=== PATIENT | female | born 1960 | race Caucasian/White ===

== ENCOUNTER 2016-05-20 14:51 | Emergency (ER) | payer OTHER ==
[~2016-05-20] VITALS: Ht 170.2 cm; Wt 93.0 kg
[~2016-05-20 14:51] MED LIST: AMIT25TA9 PO; ASPI1TAB22 PO; BUTA1TAB46 PO; DIVA500T PO; IBUP-30 PO; KETO-22; KETO10TA PO; LEVO500T80 PO; MEPE50TA; MEPE50TA PO; METO-270 PO; NAPR-243 PO; ONDAN4ODT PO; OXYC-12 PO; OXYC-197 PO; TOPI100T; TRM50T PO; ZONI100C11
--- OUTSIDE RECORDS SUMMARY | 2016-05-20 14:59 | XMS REPORT | Continuity of Care Document ---
Author Author [facility] Organization [facility] Address Unknown Phone Unavailable Care Team Providers Care Card Cleaner Name Role Phone [facility] PCP Insurance Providers Payer Name Policy Number Subscriber Name Relationship [facility] [place] [id number] Basilio Marin L 01 Advance Directives Directive Response Recorded Date/Time Advance Directives No 03/07/16 9:37pm Health Care Power of Lining [place] Yes 03/07/16 9:37pm Organ Donor No 03/07/16 9:37pm Resuscitation Status Full Code 03/07/16 9:37pm Chief Complaint and Reason for Visit Chief Complaint Head/Cervical Problems Reason for Visit Acute headache Problems Active Problems Medical Problem Onset Date Status Acute headache Unknown Acute Chest pain Unknown Acute Pneumothorax Unknown Acute Pneumothorax on left Unknown Acute Symptomatic bradycardia Unknown Acute Medications Current Home Medications Medication Dose Units Route Directions Days/Qty Instructions Start Date Metoprolol Succinate 25 Mg 50 Mg Oral Daily 02/16/16 Ketorolac Tromethamine 10 Mg 10 Mg Oral Every 6 Hours as needed for Pain 02/16/16 Aspirin/Acetaminophen/Caffeine 1 Each 2 Tab Oral Daily as needed for Migraine 02/16/16 Past Home Medications Medication Directions Ordered Status Zonisamide 100 Mg Capsule, 12/04/08 Discontinued Topiramate 100 Mg Tab, 12/04/08 Discontinued Meperidine Hcl 50 Mg Tablet, 12/04/08 Discontinued Divalproex Sodium 500 Mg Tablet.dr, 1000 Mg Oral Bedtime 02/17/10 Discontinued Meperidine Hcl 50 Mg Tablet, 50 Mg Oral Q 4 Hr Prn 03/15/10 Discontinued Ketorolac Tromethamine 10 Mg Tablet, 11/17/10 Discontinued Ondansetron Hcl 4 Mg Tab, 4 Mg Oral Every 4HRS 07/01/11 Discontinued Naproxen 500 Mg Tablet, 1 Each Oral Three Times A Day And Prn 12/20/11 Discontinued Tramadol Hcl 50 Mg Tab, 50 Mg Oral Q4-6HOURS as needed 12/20/11 Discontinued Oxycodone Hcl/Acetaminophen 1 Each Tablet, 1-2 Tab Oral Q4-6HR as needed for Pain 10/01/14 Discontinued Aspirin/Acetaminophen/Caffeine 1 Each Tablet, 2 Tab Oral Daily as needed for Headache 02/10/16 Discontinued Ibuprofen 200 Mg Tablet, 400 Mg Oral Every 6 Hours as needed for Pain Discontinued Levofloxacin 500 Mg Tablet, 500 Mg Oral Daily@11 02/11/16 Discontinued Metoprolol Succinate 25 Mg Tab.er.24h, 25 Mg Oral Daily 02/11/16 Discontinued Levofloxacin 500 Mg Tablet, 500 Mg Oral Daily 02/16/16 Discontinued Oxycodone Hcl/Acetaminophen 1 Each Tablet, 1-2 Tab Oral Every 4-6 Hours as needed for Pain 02/16/16 Discontinued Social History Social History Problem Response Recorded Date/Time Alcohol Use Denies Use 10/01/2014 7:33am Recreational Drug Use No 10/01/2014 7:33am Recent Foreign Travel No 03/07/2016 9:25pm Recent Infectious Disease Exposure No 03/07/2016 9:25pm Smoking Status Former Smoker 03/07/2016 9:37pm Type Used Cigarettes 03/07/2016 9:37pm Recent Hopitalizations Y pacemaker put in 02/15/2016 6:11pm Query Response Start Date Stop Date Smoking Status Former Smoker Hospital Discharge Instructions No hospital discharge instructions. Plan of Care Discharge Date 03/07/16 10:11pm Disposition 01 HOME, SELF-CARE Condition at Discharge Improved Instructions/Education Provided Headache, Adult (DC) Prescriptions See Medication Section Referrals [facility] - Primary Care Physician Functional Status Query Response Date Recorded Patient Orientation Person Place Time Situation March 07, 2016 9:38pm Comprehension Ability Understands Concepts March 07, 2016 9:38pm Allergies, Adverse Reactions, Alerts Allergen Type Severity Reaction Status Last Updated Penicillins ([id number]) Adverse Reaction Mild VOMITING Active 09/29/14 hydrocodone ([id number]) Allergy Unknown Active 09/29/14 Immunizations Name Given Type FLU TRIvalent 5 years - Adult 02/17/16 Administered Vital Signs Acute Vital Signs Vital Response Date/Time Temperature (Fahrenheit) 98.5 degrees F (97.6 - 99.5) 03/07/2016 9:25pm Temperature (Calculated Celsius) 36.95424 degrees C (36.4 - 37.5) 03/07/2016 9:25pm Temperature Source Tympanic 03/07/2016 9:25pm Pulse Rate (adult) 64 bpm (60 - 90) 03/07/2016 9:25pm Respiratory Rate 16 bpm (12 - 24) 03/07/2016 9:25pm O2 Sat by Pulse Oximetry 98 % (88 - 100) 03/07/2016 9:25pm Blood Pressure 143/72 mm Hg 03/07/2016 9:25pm Blood Pressure Mean 95 mm Hg 03/07/2016 9:25pm Pain Numeric Pain Scale 10-Worst Possible Pain 03/07/2016 9:33pm Pain Intensity 2 02/16/2016 11:00pm Height (Feet) 5 feet 03/07/2016 9:25pm Height (Inches) 7 inches 03/07/2016 9:25pm Height (Calculated Centimeters) 170.550468 cm 03/07/2016 9:25pm Weight (Pounds) 216 pounds 03/07/2016 9:25pm Weight (Ounces) 2.0 oz 02/17/2016 6:30am Weight (Calculated Grams) 26238.652 gm 02/17/2016 6:30am Weight (Calculated Kilograms) 97.428659 kilograms 03/07/2016 9:25pm Calculated BMI 34.1 02/15/2016 9:55pm Capillary Refill Capillary Refill Less Than 3 Seconds 03/07/2016 9:25pm Results Laboratory Results Test Name Result Units Flags Reference Collection Date/Time Result Date/ Time Comments White Blood Count 6.2 10^3/uL 4.3-11.0 02/11/2016 3:28am 02/11/2016 4: 18am Red Blood Count 3.99 10^6/uL L 4.35-5.85 02/11/2016 3:02/11/2016 4: 18am Hemoglobin 12.5 G/DL 11.5-16.0 02/11/2016 3:02/11/2016 4:18am Hematocrit 37 % 35-52 02/11/2016 3:02/11/2016 4:18am Mean Corpuscular Volume 93 FL 80-99 02/11/2016 3:02/11/2016 4: 18am Mean Corpuscular Hemoglobin 31 PG 25-34 02/11/2016 3:02/11/2016 4: 18am Mean Corpuscular Hemoglobin Concent 34 G/DL 32-36 02/11/2016 3:06/2015 4:18am Red Cell Distribution Width 13.0 % 10.0-14.5 02/11/2016 3:2015 4:18am Platelet Count 235 10^3/uL 130-400 02/11/2016 3:02/11/2016 4:18am Mean Platelet Volume 10.1 FL 7.4-10.4 02/11/2016 3:02/11/2016 4: 18am Neutrophils (%) (Auto) 62 % 42-75 02/11/2016 3:02/11/2016 4:18am Lymphocytes (%) (Auto) 28 % 12-44 02/11/2016 3:02/11/2016 4:18am Monocytes (%) (Auto) 7 % 0-12 02/11/2016 3:02/11/2016 4:18am Eosinophils (%) (Auto) 2 % 0-10 02/11/2016 3:02/11/2016 4:18am Basophils (%) (Auto) 0 % 0-10 02/11/2016 3:02/11/2016 4:18am Neutrophils # (Auto) 3.8 X 10^3 1.8-7.8 02/11/2016 3:02/11/2016 4: 18am Lymphocytes # (Auto) 1.8 X 10^3 1.0-4.0 02/11/2016 3:02/11/2016 4: 18am Monocytes # (Auto) 0.5 X 10^3 0.0-1.0 02/11/2016 3:28am 02/11/2016 4: 18am Eosinophils # (Auto) 0.1 10^3/uL 0.0-0.3 02/11/2016 3:28am 02/11/2016 4 :18am Basophils # (Auto) 0.0 10^3/uL 0.0-0.1 02/11/2016 3:28am 02/11/2016 4: 18am Prothrombin Time 12.6 SEC 12.2-14.7 02/10/2016 9:48am 02/10/2016 10: 15am INR Comment 1.0 0.8-1.4 02/10/2016 9:48am 02/10/2016 10:15am INTERPRETIVE DATA SUGGESTED THERAPEUTIC RANGE FOR INR'S: VENOUS THROMBOSIS, PULMONARY EMBOLISM, OR PREVENTION OF SYSTEMIC EMBOLISM (EG. IN ATRIAL FIBRILLATION): 2.0 - 3.0 MECHANICAL PROSTHETIC HEART VALVES: 2.5 - 3.5* *NOTE: INR'S UP TO 4.5 MAY BE NECESSARY IN SELECTED GROUPS OF HIGH RISK PATIENTS. [employer] [place] CONSENSUS CONFERENCE ON ANTITHROMBOTIC THERAPY (2000). Activated Partial Thromboplast Time 26 SEC 24-35 02/10/2016 9:48am 05/2015 10:15am D-Dimer < 0.27 UG/ML 0.00-0.49 02/10/2016 9:48am 02/10/2016 10:16am Sodium Level 139 MMOL/L 135-145 02/11/2016 3:28am 02/11/2016 4:49am Potassium Level 4.1 MMOL/L 3.6-5.0 02/11/2016 3:28am 02/11/2016 4:49am Chloride Level 107 MMOL/L 98-107 02/11/2016 3:28am 02/11/2016 4:49am Carbon Dioxide Level 20 MMOL/L L 21-32 02/11/2016 3:28am 02/11/2016 4: 49am Anion Gap 12 MMOL/L 5-14 02/11/2016 3:28am 02/11/2016 4:49am Blood Urea Nitrogen 12 MG/DL 7-18 02/11/2016 3:28am 02/11/2016 4:49am Creatinine 0.80 MG/DL 0.60-1.30 02/11/2016 3:02/11/2016 4:49am BUN/Creatinine Ratio 15 02/11/2016 3:02/11/2016 4:49am Estimat Glomerular Filtration Rate > 60 02/11/2016 3:2015 4:49am GFR INTERPRETIVE DATA UNITS FOR ESTIMATED GFR (eGFR): mL/min/1.73 M2 REFERENCE RANGE FOR ESTIMATED GFR (eGFR) eGFR NORMAL eGFR >60 MODERATELY DECREASED eGFR 30-59 SEVERLY DECREASED eGFR 15-29 KIDNEY FAILURE <15 (OR DIALYSIS) Glucose Level 103 MG/DL 70-105 02/11/2016 3:02/11/2016 4:49am Calcium Level 9.0 MG/DL 8.5-10.1 02/11/2016 3:02/11/2016 4:49am Magnesium Level 2.1 MG/DL 1.8-2.4 02/10/2016 9:48am 02/10/2016 10:20am Total Bilirubin 0.4 MG/DL 0.1-1.0 02/11/2016 3:02/11/2016 4:49am Alkaline Phosphatase 70 U/L 40-136 02/11/2016 3:02/11/2016 4:49am Aspartate Amino Transf (AST/SGOT) 27 U/L 5-34 02/11/2016 3:2015 4:49am Alanine Aminotransferase (ALT/SGPT) 42 U/L 0-55 02/11/2016 3:02/10 4:49am Troponin I < 0.30 NG/ML <0.30 02/11/2016 3:02/11/2016 4:49am Myoglobin 60.9 NG/ML 10.0-92.0 02/11/2016 3:2802/11/2016 4:49am B-Type Natriuretic Peptide 26.1 PG/ML <100.0 02/10/2016 9:48am 2015 10:33am Total Protein 6.4 G/DL 6.4-8.2 02/11/2016 3:28am 02/11/2016 4:49am Albumin 4.1 G/DL 3.2-4.5 02/11/2016 3:2802/11/2016 4:49am Triglycerides Level 128 MG/DL <150 02/11/2016 3:28am 02/11/2016 4:49am Cholesterol Level 169 MG/DL < 200 02/11/2016 3:28am 02/11/2016 4:49am HDL Cholesterol 37 MG/DL L 40-60 02/11/2016 3:28am 02/11/2016 4:49am LDL Cholesterol Direct 109 MG/DL 1-129 02/11/2016 3:28am 02/11/2016 4: 49am VLDL Cholesterol 26 MG/DL 5-40 02/11/2016 3:28am 02/11/2016 4:49am Pending Laboratory Results Test Name Collection Date/Time Procedures Procedure Status Date Provider(s) INSERT PACE. DUAL CORNEL IN CHEST SUBCU/FASCIA, OPEN Completed 02/10/16 CITLALI COLLAZO MD INSERTION OF PACEMAKER LEAD INTO RIGHT ATRIUM, PERC APPROACH Completed CITLALI COLLAZO MD INSERTION OF PACEMAKER LEAD INTO R VENTRICLE, PERC APPROACH Completed CITLALI COLLAZO MD Tracing only of electrocardiogram Completed 02/10/16 ABBY ESTRELLA MD Tracing only of electrocardiogram Completed 02/10/16 CITLALI COLLAZO MD Tracing only of electrocardiogram Completed 02/15/16 MERON ALVARADO MD Tracing only of electrocardiogram Completed 02/15/16 DANUTA GILBERT DO Encounters Encounter Location Arrival/Admit Date Discharge/Depart Date Attending Provider Departed Emergency Room [facility] 03/07/16 9:01pm 03/07 10:11pm SAMI LE APRN Discharged Inpatient [facility] 02/15/16 7:50pm 1:31pm JAC SCHMIDT MD Departed Emergency Room [facility] 02/15/16 6:40am 02/14 9:34am MERON ALVARADO MD Discharged Inpatient [facility] 02/10/16 12:08pm 10:03am CITLALI COLLAZO MD Recent Diagnosis
--- NOTE | 2016-05-20 15:41 | ED General ---
General Chief Complaint: Dizziness/Syncope Stated Complaint: DIZZY/NAUSEA UPPER BACK PAIN Nursing Triage Note: PT C/O DIZZINESS AND LIGHTHEADEDNESS UPON WAKING THIS AM AT 0430. SHE REPORTS BACK PAIN AND DIAPHORESIS THAT LASTED APPROX 1 MIN AT THAT TIME. SHE CURRENTLY DENIES ANY PAIN AND STATES HER DIZZINESS HAS IMPROVED BUT HAS NOT GONE AWAY COMPLETELY. Nursing Sepsis Screen: No Definite Risk Source of Information: Patient Exam Limitations: No Limitations History of Present Illness Time Seen by Provider: 15:33 Initial Comments The patient is a 56-year-old white female who reports that she became extremely dizzy on arising at 0430 this morning. She was preparing to go to work at this time. She noted at this time that turning her head seem to aggravate it. She also had nausea but did not vomit. She is not previously had vertigo. She had a pacemaker placed in February 2016 because of a slow heartbeat. She also takes metoprolol and it is assumed that she had periodic tachycardias as well. Timing/Duration: 12 Hours Associated Systoms: Denies Symptoms Allergies and Home Medications Allergies Coded Allergies: hydrocodone (Unverified Allergy, Unknown, 09/29/14) Penicillins (Unverified Adverse Reaction, Mild, VOMITING, 09/29/14) Home Medications Aspirin/Acetaminophen/Caffeine 1 Each Tablet 2 TAB PO DAILY PRN PRN MIGRAINE ( Reported) Ketorolac Tromethamine 10 Mg Tablet 10 MG PO Q6H PRN PRN PAIN (Reported) Metoprolol Succinate 25 Mg Tab.er.24h 50 MG PO DAILY (Reported) Constitutional: see HPI Respiratory: no symptoms reported Cardiovascular: no symptoms reported Gastrointestinal: no symptoms reported Genitourinary: no symptoms reported Musculoskeletal: no symptoms reported Skin: no symptoms reported Psychiatric/Neurological: No Symptoms Reported Hematologic/Lymphatic: No Symptoms Reported Immunological/Allergic: no symptoms reported Past Sradsop-Fzlzxq-Uovssx Hx Patient Social History Alcohol Use: Denies Use Recreational Drug Use: No Smoking Status: Former Smoker Type Used: Cigarettes Recent Foreign Travel: No Contact w/Someone Who Travel: No Recent Infectious Disease Expo: No Recent Hopitalizations: No Immunizations Up To Date Tetanus Booster (TDap): More than 5yrs PED Vaccines UTD: No Seasonal Allergies Seasonal Allergies: Yes Surgeries HX Surgeries: Yes Surgeries: Appendectomy, Hysterectomy, Oophorectomy, Orthopedic, Pacemaker Respiratory Hx Respiratory Disorders: No Cardiovascular Hx Cardiac Disorders: Yes Cardiac Disorders: Hypertension, Irregular Heartbeat, Syncope Neurological Hx Neurological Disorders: Yes Neurological Disorders: Headaches /Migraines Reproductive System Hx Reproductive Disorders: Yes Female Reproductive Disorders: Ovarian Cyst [employer] History: Hysterectomy Genitourinary Hx Genitourinary Disorders: No Gastrointestinal Hx Gastrointestinal Disorders: No Musculoskeletal Hx Musculoskeletal Disorders: No Endocrine Hx Endocrine Disorders: No HEENT HX ENT Disorders: No Cancer Hx Cancer: No Psychosocial Hx Psychiatric Problems: No Integumentary HX Skin/Integumentary Disorder: No Blood Transfusions Hx Blood Disorders: Yes (HX OF ANEMIA) Adverse Reaction to a Blood Tr: No Family Medical History Family Medial History: Arthritis G8 SISTER Diabetes mellitus 19 MOTHER G8 SISTER Fibromyalgia G8 SISTER Heart murmur 19 MOTHER G8 SISTER Kidney disease 19 MOTHER Myelodysplasia of spinal cord 19 MOTHER, Onset:60 years & older Myocardial infarction G8 BROTHER, Onset:32 ( of [place] at 32) Physical Exam Vital Signs Vital Sign - Last 12Hours 05/20/16 15:00 Temp 97.1 Pulse 64 Resp 18 B/P 150/103 Pulse Ox 96 O2 Delivery Room Air Capillary Refill : Less Than 3 Seconds General Appearance: No Apparent Distress WD/WN Eyes: Bilateral Eye Normal Inspection HEENT: PERRL/EOMI Neck: Full Range of Motion Normal Inspection Non Tender Supple Carotid Bruit Respiratory: Chest Non Tender Lungs Clear Normal Breath Sounds No Accessory Muscle Use No Respiratory Distress Cardiovascular: Regular Rate, Rhythm No Edema No Gallop No JVD No Murmur Normal Peripheral Pulses Gastrointestinal: Normal Bowel Sounds No Organomegaly No Pulsatile Mass Non Tender Soft Back: Normal Inspection No CVA Tenderness No Vertebral Tenderness Extremity: Normal Capillary Refill Normal Inspection Normal Range of Motion Non Tender No Calf Tenderness No Pedal Edema Skin: Normal Color Warm/Dry Lymphatic: No Adenopathy Comments There is at most one or 2 beat nystagmus to horizontal gaze Progress/Results/Core Measures Results/Orders Lab Results Laboratory Tests Test 05/20/16 15:38 Range/Units Alanine Aminotransferase (ALT/SGPT) 42 0-55 U/L Albumin 4.2 3.2-4.5 G/DL Alkaline Phosphatase 75 40-136 U/L Anion Gap 7 5-14 MMOL/L Aspartate Amino Transf (AST/SGOT) 31 5-34 U/L BUN/Creatinine Ratio 19 Basophils # (Auto) 0.0 0.0-0.1 10^3/uL Basophils (%) (Auto) 0 0-10 % Blood Urea Nitrogen 14 7-18 MG/DL Calcium Level 8.8 8.5-10.1 MG/DL Carbon Dioxide Level 24 21-32 MMOL/L Chloride Level 109 H 98-107 MMOL/L Creatinine 0.73 0.60-1.30 MG/DL Eosinophils # (Auto) 0.1 0.0-0.3 10^3/uL Eosinophils (%) (Auto) 3 0-10 % Estimat Glomerular Filtration Rate > 60 Glucose Level 122 H 70-105 MG/DL Hematocrit 38 35-52 % Hemoglobin 12.7 11.5-16.0 G/DL Lymphocytes # (Auto) 1.6 1.0-4.0 X 10^3 Lymphocytes (%) (Auto) 38 12-44 % Mean Corpuscular Hemoglobin 30 25-34 PG Mean Corpuscular Hemoglobin Concent 34 32-36 G/DL Mean Corpuscular Volume 90 80-99 FL Mean Platelet Volume 9.2 7.4-10.4 FL Monocytes # (Auto) 0.3 0.0-1.0 X 10^3 Monocytes (%) (Auto) 8 0-12 % Neutrophils # (Auto) 2.1 1.8-7.8 X 10^3 Neutrophils (%) (Auto) 51 42-75 % Platelet Count 232 130-400 10^3/uL Potassium Level 3.9 3.6-5.0 MMOL/L Red Blood Count 4.18 L 4.35-5.85 10^6/uL Red Cell Distribution Width 13.2 10.0-14.5 % Sodium Level 140 135-145 MMOL/L Total Bilirubin 0.3 0.1-1.0 MG/DL Total Protein 6.6 6.4-8.2 G/DL White Blood Count 4.0 L 4.3-11.0 10^3/uL My Orders Orders-MARLENE BRIGGS MD Cbc With Automated Diff (05/20/16 15:01) Comprehensive Metabolic Panel (05/20/16 15:01) Ua Culture If Indicated (05/20/16 15:01) Meclizine Tablet (Antivert Tablet) (05/20/16 15:45) Medications Given in ED Current Medications Medications Dose Ordered Sig/Ni Route Start Time Stop Time Status Last Admin Dose Admin Meclizine HCl 25 mg ONCE ONCE PO 05/20/16 15:45 05/20/16 15:47 DC 05/20/16 15:50 25 MG Vital Signs/I&O Vital Sign - Last 12Hours 05/20/16 15:00 Temp 97.1 Pulse 64 Resp 18 B/P 150/103 Pulse Ox 96 O2 Delivery Room Air Blood Pressure Mean: 119 Departure Communication Progress Notes The patient is reporting some modest improvement in her symptomatology approximately 30 minutes after administration of an Antivert tablet Impression Impression: Primary Impression: vertigo Disposition: 01 HOME, SELF-CARE Condition: Stable/Unchanged Departure-Patient Inst. Decision time for Depature: 16:26 Referrals: [facility] (PCP/Family) Primary Care Physician Patient Instructions: Vertigo (a Type of Dizziness) (DC) Add. Discharge Instructions: All discharge instructions reviewed with patient and/or family. Voiced understanding. Take plenty of liquids. You may use Antivert up to 4 times daily. If symptoms continue see your provider Scripts [aNTIVERT] No Conflict Check25 Ml 4 TIMES A DAY #30 Prov:AMRLENE BRIGGS MD 05/20/16 MARLENE BRIGGS MD May 20, 2016 15:41
[2016-05-20 15:45] LABS: BASOPHILS % (AUTO) 0 % (0-10); EOSINOPHILS # (AUTO) 0.1 10^3/uL (0.0-0.3); EOSINOPHILS % (AUTO) 3 % (0-10); LYMPHOCYTES # (AUTO) 1.6 X 10^3 (1.0-4.0); LYMPHOCYTES % (AUTO) 38 % (12-44); MEAN CORPUSCULAR HEMOGLOBIN 30 PG (25-34); MEAN CORPUSCULAR HGB CONC 34 G/DL (32-36); MEAN CORPUSCULAR VOLUME 90 FL (80-99); MEAN PLATELET VOLUME 9.2 FL (7.4-10.4); MONOCYTES # (AUTO) 0.3 X 10^3 (0.0-1.0); MONOCYTES % (AUTO) 8 % (0-12); NEUTROPHILS # (AUTO) 2.1 X 10^3 (1.8-7.8); NEUTROPHILS % (AUTO) 51 % (42-75); PLATELET COUNT 232 10^3/uL (130-400); RED BLOOD COUNT 4.18 10^6/uL (4.35-5.85); RED CELL DISTRIBUTION WIDTH 13.2 % (10.0-14.5)
[2016-05-20] MEDS ORDERED: MECLIZINE 25 MG (ANTIVERT) TAB PO ONE (15:45)
[2016-05-20 16:02] LABS: ALANINE AMINOTRANSFERASE 42 U/L (0-55); ALBUMIN 4.2 G/DL (3.2-4.5); ANION GAP 7 MMOL/L (5-14); ASPARTATE AMINO TRANSFERASE 31 U/L (5-34); BILIRUBIN,TOTAL 0.3 MG/DL (0.1-1.0); BLOOD UREA NITROGEN 14 MG/DL (7-18); BUN/CREATININE RATIO 19; CALCIUM 8.8 MG/DL (8.5-10.1); CARBON DIOXIDE 24 MMOL/L (21-32); CHLORIDE 109 MMOL/L (98-107); CREATININE SERUM 0.73 MG/DL (0.60-1.30); GFR ESTIMATED > 60; GLUCOSE 122 MG/DL (70-105); POTASSIUM 3.9 MMOL/L (3.6-5.0); SODIUM 140 MMOL/L (135-145); TOTAL PROTEIN 6.6 G/DL (6.4-8.2)
[2016-05-20] MEDS ORDERED: ANTIVERT (16:28)
[2016-05-20 16:44] VITALS: BP 148/89
== END 2016-05-20 16:44 | disposition home or self-care (01) ==
LOC: EDUNIT# 14:51 → ER 14:54
DX: R42 Dizziness and giddiness (principal); R11.0 Nausea; Z79.899 Other long term (current) drug therapy; Z95.0 Presence of cardiac pacemaker
CPT/HCPCS: 36415; 80053; 85025; 99283

== ENCOUNTER 2016-06-07 14:01 | Emergency (ER) | payer OTHER ==
[~2016-06-07] VITALS: Ht 170.2 cm; Wt 92.1 kg
[~2016-06-07 14:01] MED LIST changes: +ANTIVERT
--- NOTE | 2016-06-07 14:29 | ED Headache ---
General Chief Complaint: Head/Cervical Problems Stated Complaint: MIGRAINE Nursing Triage Note: c/o "migraine" headache. Onset 0200 this morning. Nausea present. No vomiting. Nursing Sepsis Screen: No Definite Risk Source: patient Exam Limitations: no limitations History of Present Illness Time seen by provider: 14:27 Initial Comments To ER with a global headache more focused on the left side which is characteristic of her migraines. She gets these quite frequently. This one began at 2 a.m. this morning. She has nausea without vomiting and photophobia which is also characteristic of her migraines. Timing/Duration: constant Severity/Quality: moderate Location: global Prior Headaches/Recent Trauma: frequent headaches, chronic headaches Modifying Factors: worse with exposure to light Associated Symptoms: No confusion, No fatigue, No facial pain, No fever/chills , No flushing, No loss of consciousness, nausea/vomitingNo nasal congestion, No nasal drainage, No numbness in legs/feet, No rash Allergies and Home Medications Allergies Coded Allergies: hydrocodone (Unverified Allergy, Unknown, 09/29/14) Penicillins (Unverified Adverse Reaction, Mild, VOMITING, 09/29/14) Home Medications #30 25 ML 4 TIMES A DAY Prescribed by: MARLENE BRIGGS on 05/20/16 1628 Aspirin/Acetaminophen/Caffeine 1 Each Tablet 2 TAB PO DAILY PRN PRN MIGRAINE ( Reported) Metoprolol Succinate 25 Mg Tab.er.24h 50 MG PO DAILY (Reported) Constitutional: see HPI Eyes: No Symptoms Reported Ears, Nose, Mouth, Throat: no symptoms reported Respiratory: no symptoms reported Cardiovascular: no symptoms reported Genitourinary: no symptoms reported Musculoskeletal: no symptoms reported Skin: no symptoms reported Psychiatric/Neurological: No Symptoms Reported Past Xehqubw-Npyfbd-Chjwle Hx Patient Social History Alcohol Use: Denies Use Recreational Drug Use: Yes (TOBACCO) Smoking Status: Former Smoker Type Used: Cigarettes Recent Foreign Travel: No Contact w/Someone Who Travel: No Recent Infectious Disease Expo: No Recent Hopitalizations: No Immunizations Up To Date Tetanus Booster (TDap): More than 5yrs PED Vaccines UTD: No Seasonal Allergies Seasonal Allergies: Yes Surgeries HX Surgeries: Yes Surgeries: Appendectomy, Hysterectomy, Oophorectomy, Orthopedic, Pacemaker Respiratory Hx Respiratory Disorders: No Cardiovascular Hx Cardiac Disorders: Yes Cardiac Disorders: Hypertension, Irregular Heartbeat, Syncope Neurological Hx Neurological Disorders: Yes Neurological Disorders: Headaches /Migraines Reproductive System Hx Reproductive Disorders: Yes 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 Genitourinary Hx Genitourinary Disorders: No Gastrointestinal Hx Gastrointestinal Disorders: No Musculoskeletal Hx Musculoskeletal Disorders: No Endocrine Hx Endocrine Disorders: No HEENT HX ENT Disorders: No Cancer Hx Cancer: No Psychosocial Hx Psychiatric Problems: No Integumentary HX Skin/Integumentary Disorder: No Blood Transfusions Hx Blood Disorders: Yes (HX OF ANEMIA) Adverse Reaction to a Blood Tr: No Family Medical History Family Medial History: Arthritis G8 SISTER Diabetes mellitus 19 MOTHER G8 SISTER Fibromyalgia G8 SISTER Heart murmur 19 MOTHER G8 SISTER Kidney disease 19 MOTHER Myelodysplasia of spinal cord 19 MOTHER, Onset:60 years & older Myocardial infarction G8 BROTHER, Onset:31 ( of [place] at 32) Physical Exam Vital Signs Vital Sign - Last 12Hours 06/07/16 14:09 Temp 97.5 Pulse 70 Resp 16 B/P 126/82 Pulse Ox 98 O2 Delivery Room Air Capillary Refill : Less Than 3 Seconds General Appearance: WD/WN no apparent distress HEENT: PERRL/EOMI normal ENT inspection TMs normal Neck: non-tender full range of motion Respiratory: no respiratory distress no accessory muscle use Gastrointestinal: normal bowel sounds non tender soft Extremities: normal range of motion non-tender Crainal Nerves: normal hearing normal speech PERRL Skin: normal color warm/dry Progress/Results/Core Measures Results/Orders My Orders Orders-SAMI LE APRN Ketorolac Injection (Toradol Injection) (06/07/16 14:30) Promethazine Injection (Phenergan Injec (06/07/16 14:30) Vital Signs/I&O Vital Sign - Last 12Hours 06/07/16 14:09 Temp 97.5 Pulse 70 Resp 16 B/P 126/82 Pulse Ox 98 O2 Delivery Room Air Blood Pressure Mean: 97 Departure Impression Impression: Primary Impression: Acute headache Disposition: 01 HOME, SELF-CARE Condition: Improved Departure-Patient Inst. Decision time for Depature: 14:32 Referrals: [facility] (PCP/Family) Primary Care Physician Patient Instructions: Headache, Adult (DC) Add. Discharge Instructions: 1. Follow-up with her regular doctor 2. Return to ER for any concerns 3. All discharge instructions reviewed with patient and/or family. Voiced understanding. SAMI LE APRN Jun 07, 2016 14:29
[2016-06-07] MEDS ORDERED: PROMETHAZINE INJ 25 MG/ML (PHENERGAN) AMP IM ONE (14:30)
[2016-06-07] MEDS ORDERED: KETOROLAC 60 MG/2 ML VIAL IM ONE (14:30)
[2016-06-07 15:15] VITALS: BP 118/82
--- OUTSIDE RECORDS SUMMARY | 2016-06-07 16:20 | XMS REPORT | Continuity of Care Document ---
Author Author [facility] Organization [facility] Address Unknown Phone Unavailable Care Team Providers Care First Line Production Supervisor Name Role Phone [facility] PCP Insurance Providers Payer Name Policy Number Subscriber Name Relationship [facility] [id number] Basilio Marin L 01 Advance Directives Directive Response Recorded Date/Time Advance Directives No 03/07/16 9:37pm Health Care Power of Master Deputy [employer] Court Security Yes 03/07/16 9:37pm Organ Donor No 03/07/16 [...] Adult (DC) Prescriptions See Medication Section Referrals [facility] - Primary Care Physician Functional Status Query Response Date Recorded Patient Orientation Person Place Time Situation March 07, 2016 9:38pm Comprehension Ability Understands Concepts March 07, 2016 9:38pm Allergies, Adverse Reactions, Alerts Allergen Type Severity Reaction Status Last Updated Penicillins ([id number]) Adverse Reaction Mild VOMITING Active 09/29/14 hydrocodone ([id number]) Allergy Unknown Active 09/29/14 Immunizations Name Given Type FLU TRIvalent 5 years - Adult 02/17/16 Administered Vital Signs Acute Vital Signs Vital Response Date/Time Temperature (Fahrenheit) 98.5 degrees F (97.6 - 99.5) 03/07/2016 9:25pm Temperature (Calculated Celsius) 36.30250 degrees C (36.4 - 37.5) 03/07/2016 9:25pm [...] 7 inches 03/07/2016 9:25pm Height (Calculated Centimeters) 170.030717 cm 03/07/2016 9:25pm Weight (Pounds) 216 pounds 03/07/2016 9:25pm Weight (Ounces) 2.0 oz 02/17/2016 6:30am Weight (Calculated Grams) 40283.652 gm 02/17/2016 6:30am Weight (Calculated Kilograms) 97.919548 kilograms 03/07/2016 9:25pm Calculated BMI 34.1 02/15/2016 [...] SELECTED GROUPS OF HIGH RISK PATIENTS. [employer] CONSENSUS CONFERENCE ON [...] Date Attending Provider Departed Emergency Room [facility] 03/07/16 9:01pm 03/07 10:11pm SAMI LE APRN Discharged Inpatient [facility] 02/15/16 7:50pm 1:31pm JAC SCHMIDT MD Departed Emergency Room [facility] 02/15/16 6:40am 02/14 9:34am MERON ALVARADO MD Discharged Inpatient [facility] 02/10/16 12:08pm 10:03am CITLALI COLLAZO MD Recent Diagnosis
== END 2016-06-07 15:13 | disposition home or self-care (01) ==
LOC: EDUNIT# 14:01 → ER 14:02
DX: R51 Headache (principal); R11.0 Nausea; Z87.891 Personal history of nicotine dependence; I10 Essential (primary) hypertension; Z95.0 Presence of cardiac pacemaker
CPT/HCPCS: 96372; 99285

== ENCOUNTER 2016-08-02 12:52 | Emergency (ER) | payer OTHER ==
[~2016-08-02] VITALS: Ht 170.2 cm; Wt 94.3 kg
--- NOTE | 2016-08-02 13:08 | ED Headache ---
General Chief Complaint: Head/Cervical Problems Stated Complaint: MIGRAINE Source: patient History of Present Illness Time seen by provider: 13:06 Initial Comments To ER with a global headache worsened by light and associated with nausea typical of her frequent migraines that began last night and is still present. Timing/Duration: 24 hours Severity/Quality: moderate Associated Symptoms: nausea/vomiting, No seizures, No sinus infection, No stiff neck Allergies and Home Medications Allergies Coded Allergies: hydrocodone (Unverified Allergy, Unknown, 09/29/14) Penicillins (Unverified Adverse Reaction, Mild, VOMITING, 09/29/14) Home Medications Metoprolol Succinate 25 Mg Tab.er.24h, 50 MG PO DAILY, (Reported) Constitutional: see HPI Eyes: No Symptoms Reported Ears, Nose, Mouth, Throat: no symptoms reported Respiratory: no symptoms reported Cardiovascular: no symptoms reported Genitourinary: no symptoms reported Musculoskeletal: no symptoms reported Skin: no symptoms reported Psychiatric/Neurological: No Symptoms Reported Past Fzmpjwt-Qjelnr-Wxkmqy Hx Patient Social History Alcohol Use: Denies Use Recreational Drug Use: Yes (TOBACCO) Smoking Status: Former Smoker Type Used: Cigarettes Recent Foreign Travel: No Contact w/Someone Who Travel: No Recent Hopitalizations: No Immunizations Up To Date Tetanus Booster (TDap): More than 5yrs PED Vaccines UTD: No Seasonal Allergies Seasonal Allergies: Yes Surgeries HX Surgeries: Yes Surgeries: Appendectomy, Hysterectomy, Oophorectomy, Orthopedic, Pacemaker Respiratory Hx Respiratory Disorders: No Cardiovascular Hx Cardiac Disorders: Yes (pacemaker) Cardiac Disorders: Hypertension, Irregular Heartbeat, Syncope Neurological Hx Neurological Disorders: Yes Neurological Disorders: Headaches /Migraines Reproductive System Hx Reproductive Disorders: Yes 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 Genitourinary Hx Genitourinary Disorders: No Gastrointestinal Hx Gastrointestinal Disorders: No Musculoskeletal Hx Musculoskeletal Disorders: No Endocrine Hx Endocrine Disorders: No HEENT HX ENT Disorders: No Cancer Hx Cancer: No Psychosocial Hx Psychiatric Problems: No Integumentary HX Skin/Integumentary Disorder: No Blood Transfusions Hx Blood Disorders: Yes (HX OF ANEMIA) Adverse Reaction to a Blood Tr: No Family Medical History Family Medial History: Arthritis G8 SISTER Diabetes mellitus 19 MOTHER G8 SISTER Fibromyalgia G8 SISTER Heart murmur 19 MOTHER G8 SISTER Kidney disease 19 MOTHER Myelodysplasia of spinal cord 19 MOTHER, Onset:60 years & older Myocardial infarction G8 BROTHER, Onset:31 ( of [place] at 32) Physical Exam Vital Signs Capillary Refill : General Appearance: WD/WN, no apparent distress HEENT: PERRL/EOMI, normal ENT inspection, TMs normal, pharynx normal Neck: non-tender, full range of motion Cardiovascular: regular rate, rhythm, no murmur Respiratory: no respiratory distress, no accessory muscle use Gastrointestinal: normal bowel sounds, non tender, soft Extremities: normal range of motion, non-tender Psychiatric: alert Crainal Nerves: normal hearing, normal speech, PERRL Skin: normal color, warm/dry Progress/Results/Core Measures Results/Orders My Orders Orders - SAMI LE APRN Ketorolac Injection (Toradol Injection) (08/02/16 13:15) Prochlorperazine Injection (Compazine In (08/02/16 13:15) Departure Impression Impression: Primary Impression: Acute headache Disposition: 01 HOME, SELF-CARE Condition: Stable Departure-Patient Inst. Decision time for Depature: 13:07 Referrals: [facility] (PCP/Family) Primary Care Physician Patient Instructions: Headache, Adult (DC) Add. Discharge Instructions: 1. Return to ER for any concerns 2. Follow-up with your doctor next week 3. All discharge instructions reviewed with patient and/or family. Voiced understanding. SAMI LE APRN Aug 02, 2016 13:08
[2016-08-02] MEDS ORDERED: KETOROLAC 60 MG/2 ML VIAL IM ONE (13:15)
[2016-08-02] MEDS ORDERED: PROCHLORPERAZINE 10 MG/2ML INJ (COMPAZINE) IM ONE (13:15)
[2016-08-02 13:39] VITALS: BP 138/82
== END 2016-08-02 13:38 | disposition home or self-care (01) ==
LOC: EDUNIT# 12:52 → ER 12:53
DX: R51 Headache (principal); I10 Essential (primary) hypertension; Z79.899 Other long term (current) drug therapy; Z87.891 Personal history of nicotine dependence; Z95.0 Presence of cardiac pacemaker
CPT/HCPCS: 96372; 99282

== ENCOUNTER 2016-08-05 20:01 | Observation (INO) | payer OTHER ==
[~2016-08-05] VITALS: Ht 170.2 cm; Wt 97.5 kg
[2016-08-05] MEDS ORDERED: ASPIRIN 81 MG CHEW (CHILDREN'S ASA) PO ONE (20:15)
[2016-08-05] MEDS ORDERED: RX-NITROGLYCERIN 0.4 MG TAB BTL 25'S SL PRN (20:15)
--- NOTE | 2016-08-05 20:19 | ED Chest Pain ---
General Stated Complaint: CP Source: patient History of Present Illness Time seen by provider: 20:04 Initial Comments PT ARRIVES VIA POV FROM HOME C/O CHEST PAIN IN MID AND LEFT CHEST--SQUEEZING SENSATION. PAIN COMES AND GOES--RATES 10/10 AT WORST, 2-3/10 NOW + SHORTNESS OF BREATH + DIAPHORESIS + DIZZINESS + FATIGUE HAD A NEAR-SYNCOPAL EPISODE AT WORK TODAY WITH THE PAIN NO NAUSEA/VOMITING NO SWELLING IN LEGS/ FEET OR PAIN IN CALVES NO PALPITATIONS--HAD PACEMAKER PLACED 02/2016 FOR BRADYCARDIA--HAS NOT SEEN DR. COLLAZO SINCE IT WAS PLACED. BEGAN AT 0730 THIS AM AT WORK--[employer]--WORKED ALL DAY WAKES UP AT 0330 EVERY DAY, NO PAIN ON WAKING NOTHING WORSENS OR IMPROVES PAIN HAD SIMILAR PRIOR TO HER PACEMAKER PLACEMENT. 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 Allergies and Home Medications Allergies Coded Allergies: hydrocodone (Unverified Allergy, Unknown, 09/29/14) Penicillins (Unverified Adverse Reaction, Mild, VOMITING, 09/29/14) Home Medications Metoprolol Succinate 25 Mg Tab.er.24h, 50 MG PO DAILY, (Reported) Review of Systems Constitutional: see HPI, diaphoresis, dizziness, malaise, weakness EENTM: No Symptoms Reported Respiratory: See HPI, Shortness of Air, SOA With Exertion Cardiovascular: See HPI, Chest Pain, Denies Edema, Denies Irregular Heart Rate , Lightheadedness, Denies Palpitations, Syncope (NEAR-SYNCOPE) Gastrointestinal: No Symptoms Reported, Denies Abdominal Pain, Denies Nausea, Denies Vomiting Genitourinary: No Symptoms Reported Musculoskeletal: no symptoms reported Skin: no symptoms reported Psychiatric/Neurological: No Symptoms Reported Endocrine: No Symptoms Reported Hematologic/Lymphatic: No Symptoms Reported Past Syvehxc-Gyugbm-Oedous Hx Patient Social History Alcohol Use: Denies Use Recreational Drug Use: No Smoking Status: Former Smoker (1 PPD, QUIT 2010) Type Used: Cigarettes Recent Foreign Travel: No Contact w/Someone Who Travel: No Recent Hopitalizations: No Immunizations Up To Date Tetanus Booster (TDap): More than 5yrs PED Vaccines UTD: No Seasonal Allergies Seasonal Allergies: Yes Surgeries HX Surgeries: Yes (HYST/BSO; BILATERAL ROTATOR CUFF REPAIR; ; LEFT SHOULDER MANIPULATION; RIGHT ELBOW EPICONDYLITIS SURGERY; HEEL SPURS REMOVED; RIGHT KNEE SCOPE; CARDIAC CATH AT [place] 01/2016--NO INTERVENTION. ) Surgeries: Appendectomy, Hysterectomy, Oophorectomy, Orthopedic, Pacemaker Respiratory Hx Respiratory Disorders: Yes (LEFT PNEUMOTHORAX 02/2016 FOLLOWING PACEMAKER PLACEMENT--NO TREATMENT REQUIRED. 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 Genitourinary Hx Genitourinary Disorders: No Gastrointestinal Hx Gastrointestinal Disorders: No Musculoskeletal Hx Musculoskeletal Disorders: Yes (BILATERAL ROTATOR CUFF REPAIR; RIGHT KNEE SCOPE) Endocrine Hx Endocrine Disorders: No HEENT HX ENT Disorders: No Cancer Hx Cancer: No Psychosocial Hx Psychiatric Problems: No Integumentary HX Skin/Integumentary Disorder: No Blood Transfusions Hx Blood Disorders: Yes (HX OF ANEMIA) Adverse Reaction to a Blood Tr: No Family Medical History Family Medial History: Arthritis G8 SISTER Diabetes mellitus 19 MOTHER G8 SISTER Fibromyalgia G8 SISTER Heart murmur 19 MOTHER G8 SISTER Kidney disease 19 MOTHER Myelodysplasia of spinal cord 19 MOTHER, Onset:60 years & older Myocardial infarction G8 BROTHER, Onset:32 ( of [place] at 32) Physical Exam Vital Signs Vital Sign - Last 12Hours Capillary Refill : General Appearance: No Apparent Distress, WD/WN, Anxious (TEARFUL) HEENT: PERRL/EOMI Neck: Full Range of Motion, Normal Inspection, Non Tender, Supple, No Carotid Bruit, No JVD Respiratory: Chest Non Tender, Normal Breath Sounds, No Accessory Muscle Use, No Respiratory Distress Cardiovascular: Regular Rate, Rhythm, No Edema, No JVD, No Murmur, Normal Peripheral Pulses Gastrointestinal: Normal Bowel Sounds, No Organomegaly, No Pulsatile Mass, Non Tender, Soft Extremity: Normal Capillary Refill, Normal Inspection, Normal Range of Motion, Non Tender, No Calf Tenderness, No Pedal Edema Neurologic/Psychiatric: Alert, Oriented x3, No Motor/Sensory Deficits, rn concurrent review II- XII Norm as Tested Skin: Normal Color, Warm/Dry, No Rash Progress/Results/Core Measures Results/Orders Lab Results Laboratory Tests Test 08/05/16 20:16 Range/Units White Blood Count 5.0 4.3-11.0 10^3/uL Red Blood Count 3.80 L 4.35-5.85 10^6/uL Hemoglobin 11.7 11.5-16.0 G/DL Hematocrit 35 35-52 % Mean Corpuscular Volume 92 80-99 FL Mean Corpuscular Hemoglobin 31 25-34 PG Mean Corpuscular Hemoglobin Concent 34 32-36 G/DL Red Cell Distribution Width 13.6 10.0-14.5 % Platelet Count 214 130-400 10^3/uL Mean Platelet Volume 9.4 7.4-10.4 FL Neutrophils (%) (Auto) 48 42-75 % Lymphocytes (%) (Auto) 40 12-44 % Monocytes (%) (Auto) 9 0-12 % Eosinophils (%) (Auto) 3 0-10 % Basophils (%) (Auto) 0 0-10 % Neutrophils # (Auto) 2.4 1.8-7.8 X 10^3 Lymphocytes # (Auto) 2.0 1.0-4.0 X 10^3 Monocytes # (Auto) 0.4 0.0-1.0 X 10^3 Eosinophils # (Auto) 0.2 0.0-0.3 10^3/uL Basophils # (Auto) 0.0 0.0-0.1 10^3/uL Prothrombin Time 11.9 L 12.2-14.7 SEC INR Comment 0.9 0.8-1.4 Activated Partial Thromboplast Time 27 24-35 SEC Sodium Level 142 135-145 MMOL/L Potassium Level 3.5 L 3.6-5.0 MMOL/L Chloride Level 108 H 98-107 MMOL/L Carbon Dioxide Level 23 21-32 MMOL/L Anion Gap 11 5-14 MMOL/L Blood Urea Nitrogen 16 7-18 MG/DL Creatinine 0.78 0.60-1.30 MG/DL Estimat Glomerular Filtration Rate > 60 BUN/Creatinine Ratio 21 Glucose Level 140 H 70-105 MG/DL Calcium Level 9.0 8.5-10.1 MG/DL Magnesium Level 2.1 1.8-2.4 MG/DL Total Bilirubin 0.4 0.1-1.0 MG/DL Aspartate Amino Transf (AST/SGOT) 34 5-34 U/L Alanine Aminotransferase (ALT/SGPT) 45 0-55 U/L Alkaline Phosphatase 71 40-136 U/L Myoglobin 44.7 10.0-92.0 NG/ML Troponin I < 0.30 <0.30 NG/ML B-Type Natriuretic Peptide 27.7 <100.0 PG/ML Total Protein 6.6 6.4-8.2 G/DL Albumin 4.2 3.2-4.5 G/DL Amylase Level 76 25-125 U/L Lipase 82 H 8-78 U/L My Orders Orders - DANUTA GILBERT DO Cbc With Automated Diff (08/05/16 20:11) Magnesium (08/05/16 20:11) Chest 1 View, Ap/Pa Only (08/05/16 20:11) Ekg Tracing (08/05/16 20:11) Cardiac Profile 1 (08/05/16 20:11) Comprehensive Metabolic Panel (08/05/16 20:11) Myoglobin Serum (08/05/16 20:11) Protime With Inr (08/05/16 20:11) Partial Thromboplastin Time (08/05/16 20:11) O2 (08/05/16 20:11) Monitor-Rhythm Ecg Trace Only (08/05/16 20:11) Lipid Panel (08/06/16 06:00) Aspirin Chewable Tablet (Baby Aspirin Ch (08/05/16 20:15) Rx-Nitroglycerin Sl Tabs (Rx-Nitrostat S (08/05/16 20:15) Saline Lock/Iv-Start (08/05/16 20:11) Lipase (08/05/16 20:11) Amylase (08/05/16 20:11) BNP (08/05/16 20:11) Ct Angio Chest W (08/05/16 21:19) Ondansetron Injection (Zofran Injectio (08/05/16 21:45) Iohexol Injection (Omnipaque 350 Mg/Ml 1 (08/05/16 21:45) Ns (Ivpb) (Sodium Chloride 0.9% Ivpb Bag (08/05/16 21:45) Ondansetron Injection (Zofran Injectio (08/05/16 21:41) Enoxaparin Injection (Lovenox Injection) (08/05/16 22:45) Medications Given in ED Current Medications Medications Dose Ordered Sig/Ni Route Start Time Stop Time Status Last Admin Dose Admin Aspirin 324 mg ONCE ONCE PO 08/05/16 20:15 08/05/16 20:16 DC 08/05/16 20:27 324 MG Enoxaparin Sodium 100 mg ONCE ONCE SC 08/05/16 22:45 08/05/16 22:46 DC 08/05/16 22:53 100 MG Iohexol 150 ml ONCE ONCE IV 08/05/16 21:45 08/05/16 21:46 DC 08/05/16 21:46 125 ML Ondansetron HCl 8 mg ONCE ONCE IVP 08/05/16 21:45 08/05/16 21:46 DC 08/05/16 21:47 8 MG Sodium Chloride 100 ml ONCE ONCE IV 08/05/16 21:45 08/05/16 21:46 DC 08/05/16 21:47 80 ML Vital Signs/I&O Vital Sign - Last 12Hours 08/05/16 08/05/16 20:10 20:10 Temp 97.1 Pulse 64 Resp 16 B/P (MAP) 123/74 Pulse Ox 94 O2 Delivery Room Air Room Air Progress Note : Progress Note PAIN RESOLVED ON IT'S OWN SHORTLY AFTER ARRIVAL. ON RETURN FROM CT, PT C/O NAUSEA FROM CT DYE. NO RASH OR SWELLING OR DIFFICULTY BREATHING OR WHEEZING. ZOFRAN GIVEN ECG Initial ECG Impression Time: 20:10 Initial ECG Rate: 64 Initial ECG Rhythm: Normal Sinus Initial ECG Impression: Normal Initial ECG Comparisson: Changed (LAST EKG WAS ATRIAL PACED. ) Diagnostic Imaging Comments CXR--NO ACUTE PROCESS, PER RADIOLOGIST REPORT @ 2101 CT CHEST ANGIOGRAM--NO ACUTE PROCESS, PER RADIOLOGIST REPORT @ 2225 Reviewed: Reviewed by Me Departure Communication Progress Notes 2227--SPOKE WITH DR. SCHMIDT, ACCEPTS PT FOR ADMIT 2231--SPOKE WITH DR. COLLAZO, CARDIOLOGY CONSULT. ADVISES LOVENOX. Impression Impression: Primary Impression: Chest pain Disposition: ADMITTED INPATIENT Condition: Improved Decision to Admit Reason: Admit from ER (General) Decision to Admit/Date: Aug 05, 2016 Time/Decision to Admit Time: 22:30 Departure-Patient Inst. Referrals: [facility] [place] (PCP/Family) Primary Care Physician DANUTA GILBERT DO Aug 05, 2016 20:19
[2016-08-05 20:24] LABS: BASOPHILS % (AUTO) 0 % (0-10); EOSINOPHILS # (AUTO) 0.2 10^3/uL (0.0-0.3); EOSINOPHILS % (AUTO) 3 % (0-10); LYMPHOCYTES % (AUTO) 40 % (12-44); MEAN CORPUSCULAR HEMOGLOBIN 31 PG (25-34); MEAN CORPUSCULAR HGB CONC 34 G/DL (32-36); MEAN CORPUSCULAR VOLUME 92 FL (80-99); MEAN PLATELET VOLUME 9.4 FL (7.4-10.4); MONOCYTES # (AUTO) 0.4 X 10^3 (0.0-1.0); MONOCYTES % (AUTO) 9 % (0-12); NEUTROPHILS # (AUTO) 2.4 X 10^3 (1.8-7.8); NEUTROPHILS % (AUTO) 48 % (42-75); PLATELET COUNT 214 10^3/uL (130-400); RED CELL DISTRIBUTION WIDTH 13.6 % (10.0-14.5)
[2016-08-05 20:33] LABS: INR 0.9 (0.8-1.4); PROTHROMBIN TIME PATIENT 11.9 SEC (12.2-14.7)
--- NOTE | 2016-08-05 20:58 | Diagnostic Imaging Report ---
EXAMINATION: Chest radiograph, portable AP view. DATE: August 05, 2016 at 2022 hours. INDICATION: 56-year-old female, chest pain. COMPARISON: February 17, 2016. FINDINGS: There is a left-sided cardiac assist device with right atrial and right ventricular leads. The leads appear intact. Stable overall appearance of the cardiomediastinal silhouette. There is no identified pneumothorax. There is no large pleural effusion. There is no identified focal airspace consolidation. IMPRESSION: No identified acute cardiopulmonary abnormality. Dictated by: Dictated on workstation # [id number]
[2016-08-05 21:04] LABS: ALANINE AMINOTRANSFERASE 45 U/L (0-55); ALBUMIN 4.2 G/DL (3.2-4.5); AMYLASE 76 U/L (25-125); ANION GAP 11 MMOL/L (5-14); ASPARTATE AMINO TRANSFERASE 34 U/L (5-34); BILIRUBIN,TOTAL 0.4 MG/DL (0.1-1.0); BLOOD UREA NITROGEN 16 MG/DL (7-18); BUN/CREATININE RATIO 21; CARBON DIOXIDE 23 MMOL/L (21-32); CHLORIDE 108 MMOL/L (98-107); CREATININE SERUM 0.78 MG/DL (0.60-1.30); GFR ESTIMATED > 60; GLUCOSE 140 MG/DL (70-105); LIPASE 82 U/L (8-78); MAGNESIUM 2.1 MG/DL (1.8-2.4); POTASSIUM 3.5 MMOL/L (3.6-5.0); SODIUM 142 MMOL/L (135-145); TOTAL PROTEIN 6.6 G/DL (6.4-8.2)
[2016-08-05 21:11] LABS: MYOGLOBIN SERUM 44.7 NG/ML (10.0-92.0)
[2016-08-05] MEDS ORDERED: ONDANSETRON 4 MG/2 ML (SDV) Z0FRAN ONE (21:41)
[2016-08-05] MEDS ORDERED: ONDANSETRON 4 MG/2 ML (SDV) Z0FRAN IVP ONE (21:45)
[2016-08-05] MEDS ORDERED: NS 100 ML (IVPB) BAG IV ONE (21:45)
[2016-08-05] MEDS ORDERED: IOHEXOL 350 MG/ML 150 ML (OMNIPAQUE 350) VIAL IV ONE (21:45)
--- NOTE | 2016-08-05 22:16 | Diagnostic Imaging Report ---
PROCEDURE: CT angiography of the chest with contrast. TECHNIQUE: Multiple contiguous axial images were obtained through the chest after uneventful bolus administration of intravenous contrast. Reconstructed CTA MIP acquisitions were also performed. DATE: August 05, 2016. COMPARISON: Chest radiograph, August 05, 2016. CT chest, February 15, 2016. INDICATION: 56-year-old female, chest pain. FINDINGS: There is no identified pulmonary nodule. There is mild dependent atelectasis. There is no additional focal airspace consolidation. There is no pneumothorax. There is no pleural effusion. The central airways are patent. There is no identified pulmonary embolus. The main pulmonary artery is normal in caliber. The heart is not enlarged. There is no paracardial effusion. There is no identified abnormally enlarged mediastinal, hilar or axillary lymph node which meets CT size criteria for adenopathy. The liver is diffusely low in attenuation consistent with diffuse fatty infiltration of the liver. There are areas of focal fatty sparing adjacent to the gallbladder fossa. Additional evaluation of the visualized portions of the upper abdomen is unremarkable. There are atherosclerotic calcifications noted. There is no identified acute bony abnormality. IMPRESSION: CT chest: No identified acute cardiopulmonary abnormality. Dictated by: Dictated on workstation # [id number]
[2016-08-05] MEDS ORDERED: ENOXAPARIN 100 MG/1 ML (LOVENOX) SYR SC ONE (22:45)
[2016-08-05] MEDS ORDERED: CATHETER FLUSH 10 ML SYR IV PRN (23:30)
[2016-08-05] MEDS ORDERED: morphine INJ 4 MG/ML 1 ML (VIAL/SYRINGE) IV PRN (23:30)
[2016-08-05] MEDS ORDERED: NITROGLYCERIN SUBLINGUAL 0.4 MG TAB (NITROSTAT) SL PRN (23:30)
[2016-08-06] VITALS: BP 142/85
[2016-08-06 04:00] VITALS: BP 110/62
[2016-08-06 04:59] LABS: BASOPHILS % (AUTO) 0 % (0-10); EOSINOPHILS # (AUTO) 0.1 10^3/uL (0.0-0.3); EOSINOPHILS % (AUTO) 4 % (0-10); LYMPHOCYTES # (AUTO) 1.7 X 10^3 (1.0-4.0); LYMPHOCYTES % (AUTO) 44 % (12-44); MEAN CORPUSCULAR HEMOGLOBIN 30 PG (25-34); MEAN CORPUSCULAR HGB CONC 33 G/DL (32-36); MEAN CORPUSCULAR VOLUME 92 FL (80-99); MEAN PLATELET VOLUME 9.8 FL (7.4-10.4); MONOCYTES # (AUTO) 0.4 X 10^3 (0.0-1.0); MONOCYTES % (AUTO) 9 % (0-12); NEUTROPHILS # (AUTO) 1.7 X 10^3 (1.8-7.8); NEUTROPHILS % (AUTO) 43 % (42-75); PLATELET COUNT 201 10^3/uL (130-400); RED CELL DISTRIBUTION WIDTH 13.5 % (10.0-14.5); WHITE BLOOD COUNT 3.9 10^3/uL (4.3-11.0)
[2016-08-06 05:25] LABS: CHOLESTEROL 156 MG/DL (< 200); DIRECT LDL 106 MG/DL (1-129); TRIGLYCERIDES 137 MG/DL (<150); VLDL CHOLESTEROL 27 MG/DL (5-40)
[2016-08-06 05:28] LABS: ALANINE AMINOTRANSFERASE 43 U/L (0-55); ALBUMIN 3.9 G/DL (3.2-4.5); ANION GAP 9 MMOL/L (5-14); ASPARTATE AMINO TRANSFERASE 31 U/L (5-34); BILIRUBIN,TOTAL 0.4 MG/DL (0.1-1.0); BLOOD UREA NITROGEN 13 MG/DL (7-18); BUN/CREATININE RATIO 18; CALCIUM 8.7 MG/DL (8.5-10.1); CARBON DIOXIDE 24 MMOL/L (21-32); CHLORIDE 110 MMOL/L (98-107); CREATININE SERUM 0.73 MG/DL (0.60-1.30); GFR ESTIMATED > 60; GLUCOSE 96 MG/DL (70-105); SODIUM 143 MMOL/L (135-145)
[2016-08-06] MEDS ORDERED: CATHETER FLUSH 10 ML SYR IV SCH (06:00)
--- NOTE | 2016-08-06 07:22 | Consultation-Cardiology ---
HPI-Cardiology Cardiology Consultation Date of Consultation 08/06/16 Date of Admission Indication: Chest pain HPI 56 years old lady with history of sick sinus syndrome and permanent pacemaker implanted last year, has been doing well, started having recurrent episodes of chest pain described it as dull in nature on the left side of her chest not related to exertion waxing and waning, had an episode of chest pain associated with diaphoresis and shortness of breath. Patient became concerned and came into the emergency room. Up on arrival she was feeling better. Denied any further episode of chest pain since her arrival to the hospital. Patient expressed that she was concerned and came for further evaluation. She was monitored overnight, Cardec enzymes were normal, currently feeling better Home Medications & Allergies Allergies: Coded Allergies: hydrocodone (Unverified Allergy, Unknown, 09/29/14) Penicillins (Unverified Adverse Reaction, Mild, VOMITING, 09/29/14) Home Medication List Reviewed: Yes AUI-Nlvuyz-Zefwew Hx Patient Social History Employed/Student: employed Alcohol Use: Denies Use Recreational Drug Use: No Smoking Status: Former Smoker Type Used: Cigarettes Recent Foreign Travel: No Recent Infectious Disease Expo: No Recent Hopitalizations: No Physical Abuse Screen: No Sexual Abuse: No Immunizations Up To Date Tetanus Booster (TDap): More than 5yrs Past Medical History past medical history as discussed below Family Medical History Family History: 19 MOTHER Myelodysplasia of spinal cord, Onset:60 years & older Kidney disease Diabetes mellitus Heart murmur G8 BROTHER Myocardial infarction, Onset:31 ( of [place] at 31) G8 SISTER Heart murmur Arthritis Fibromyalgia G8 SISTER Diabetes mellitus Constitutional: no symptoms reported, see HPI EENTM: no symptoms reported, see HPI Respiratory: see HPI, No cough, No dyspnea on exertion, No hemoptysis, No orthopnea, No phlegm, short of breath, No stridor, No wheezing, No other Cardiovascular: see HPI, chest pain, No edema, No Hx of Intervention, No palpitations, No syncope, No vascular heart diseas, No other Gastrointestinal: no symptoms reported, see HPI Genitourinary: no symptoms reported, see HPI Musculoskeletal: no symptoms reported, see HPI Skin: no symptoms reported, see HPI Psychiatric/Neurological: No Symptoms Reported, See HPI Reviewed Test Results Reviewed Test Results Lab Laboratory Tests Test 08/05/16 20:16 08/06/16 01:56 08/06/16 04:44 Range/Units White Blood Count 5.0 3.9 L 4.3-11.0 10^3/uL Red Blood Count 3.80 L 3.90 L 4.35-5.85 10^6/uL Hemoglobin 11.7 11.8 11.5-16.0 G/DL Hematocrit 35 36 35-52 % Mean Corpuscular Volume 92 92 80-99 FL Mean Corpuscular Hemoglobin 31 30 25-34 PG Mean Corpuscular Hemoglobin Concent 34 33 32-36 G/DL Red Cell Distribution Width 13.6 13.5 10.0-14.5 % Platelet Count 214 201 130-400 10^3/uL Mean Platelet Volume 9.4 9.8 7.4-10.4 FL Neutrophils (%) (Auto) 48 43 42-75 % Lymphocytes (%) (Auto) 40 44 12-44 % Monocytes (%) (Auto) 9 9 0-12 % Eosinophils (%) (Auto) 3 4 0-10 % Basophils (%) (Auto) 0 0 0-10 % Neutrophils # (Auto) 2.4 1.7 L 1.8-7.8 X 10^3 Lymphocytes # (Auto) 2.0 1.7 1.0-4.0 X 10^3 Monocytes # (Auto) 0.4 0.4 0.0-1.0 X 10^3 Eosinophils # (Auto) 0.2 0.1 0.0-0.3 10^3/uL Basophils # (Auto) 0.0 0.0 0.0-0.1 10^3/uL Prothrombin Time 11.9 L 12.2-14.7 SEC INR Comment 0.9 0.8-1.4 Activated Partial Thromboplast Time 27 24-35 SEC Sodium Level 142 143 135-145 MMOL/L Potassium Level 3.5 L 4.0 3.6-5.0 MMOL/L Chloride Level 108 H 110 H 98-107 MMOL/L Carbon Dioxide Level 23 24 21-32 MMOL/L Anion Gap 11 9 5-14 MMOL/L Blood Urea Nitrogen 16 13 7-18 MG/DL Creatinine 0.78 0.73 0.60-1.30 MG/DL Estimat Glomerular Filtration Rate > 60 > 60 BUN/Creatinine Ratio 21 18 Glucose Level 140 H 96 70-105 MG/DL Calcium Level 9.0 8.7 8.5-10.1 MG/DL Magnesium Level 2.1 1.8-2.4 MG/DL Total Bilirubin 0.4 0.4 0.1-1.0 MG/DL Aspartate Amino Transf (AST/SGOT) 34 31 5-34 U/L Alanine Aminotransferase (ALT/SGPT) 45 43 0-55 U/L Alkaline Phosphatase 71 64 40-136 U/L Myoglobin 44.7 10.0-92.0 NG/ML Troponin I < 0.30 < 0.30 <0.30 NG/ML B-Type Natriuretic Peptide 27.7 <100.0 PG/ML Total Protein 6.6 6.0 L 6.4-8.2 G/DL Albumin 4.2 3.9 3.2-4.5 G/DL Amylase Level 76 25-125 U/L Lipase 82 H 8-78 U/L Triglycerides Level 137 <150 MG/DL Cholesterol Level 156 < 200 MG/DL LDL Cholesterol Direct 106 1-129 MG/DL VLDL Cholesterol 27 5-40 MG/DL HDL Cholesterol 32 L 40-60 MG/DL Physical Exam Vital Signs Vital Sign - Last 12Hours Capillary Refill : Less Than 3 Seconds General Appearance: No Apparent Distress, WD/WN Eyes: Bilateral Eye EOMI, Bilateral Eye Normal Inspection, Bilateral Eye PERRL HEENT: PERRL/EOMI, TMs Normal, Normal ENT Inspection, Pharynx Normal Neck: Full Range of Motion, Normal Inspection, Non Tender, Supple, Carotid Bruit Respiratory: Chest Non Tender, Lungs Clear, Normal Breath Sounds, No Accessory Muscle Use, No Respiratory Distress Cardiovascular: Regular Rate, Rhythm, No Edema, No Gallop, No JVD, No Murmur, Normal Peripheral Pulses Gastrointestinal: Normal Bowel Sounds, No Organomegaly, No Pulsatile Mass, Non Tender, Soft Back: Normal Inspection, No CVA Tenderness, No Vertebral Tenderness Extremity: Normal Capillary Refill, Normal Inspection, Normal Range of Motion, Non Tender, No Calf Tenderness, No Pedal Edema Neurologic/Psychiatric: Alert, Oriented x3, No Motor/Sensory Deficits, Normal Mood/Affect Skin: Normal Color, Warm/Dry Lymphatic: No Adenopathy A/P-Cardiology Admission Diagnosis Chest pain nonspecific etiology Shortness of breath Sick sinus syndrome Cardiac pacemaker Assessment/Plan Chest pain nonspecific etiology, atypical in presentation, EKG showed T-wave inversion in the anterolateral lead which is slightly more prominent compared to her previous EKGs, chronic enzymes has been negative, she is chest pain- free. Patient underwent extensive workup including cardiac catheterization last year done at [facility] and it was reported to be normal. I reassured her at this time. it is unlikely to be cardiac pain, consideration for stress test as an outpatient in the future with close monitoring, I will consider none cardiac causes for chest pain Sick sinus syndrome, s/p dual chamber implantation, Doing well. Pacemaker dependent at this time. Shortness of breath occurred during the chest pain episode, otherwise she has been feeling well. Currently feeling well. Non obstructive CAD per cardiac catheterization done by Dr. Ramirez at [facility] 01/18/16 History of recurrent episodes of chest pain. Workup in [place] was done recently and it was normal. Except for the need for cardiac pacemaker implant. History of dizziness and lightheadedness, patient reports improvement since PPM implantation. Clinical Quality Measures AMI/AHF: ASA po Prior to arrival: No DVT/VTE Risk/Contraindication: Risk Factor Score Per Nursin RFS Level Per Nursing on Admit: 2=Moderate CITLALI COLLAZO MD Aug 06, 2016 07:22
[2016-08-06] MEDS ORDERED: NAPROXEN 250 MG (NAPROSYN) TABLET PO ONE (07:30)
[2016-08-06 07:49] VITALS: BP 111/66
[2016-08-06] MEDS ORDERED: ASPIRIN E.C. 325 MG (ECOTRIN) TABLET PO SCH (09:00)
[2016-08-06] MEDS ORDERED: ENOXAPARIN 100 MG/1 ML (LOVENOX) SYR SC SCH (09:00)
[2016-08-06 12:00] VITALS: BP 122/79
--- NOTE | 2016-08-06 12:19 | Short Stay Summary ---
HPI History of Present Illness: 56 yo F that reports to ER with chest pain. Patient states that she was at work when she felt like she was going to pass out. Her boss made her sit down and her symptoms improved. States that she was having chest pain in the middle of her chest with shortness of breath. Pain went to her back and some down her left arm. This AM she is not having chest pain at all. States that she has a headache. Family is very concerned because she has a very stressful job and she has been having alot of anxiety. Patient had chest pain late last year and had heart cath in [place] that was normal. She follows with Dr Livingston and has gone to [facility] but has not been seen for several years. She can not remember who she was seeing. Source: patient, family (son and in room with patient), RN/MD Exam Limitations: no limitations Date seen by provider: Aug 06, 2016 Time seen by provider: 11:30 Attending Physician Jac Garcia MD PCP [facility] [place] Date of Admission Aug 05, 2016 at 22:50 Home Medications Home Medications Reviewed patient Home Medication Reconciliation Form Allergies Coded Allergies: hydrocodone (Unverified Allergy, Unknown, 09/29/14) Penicillins (Unverified Adverse Reaction, Mild, VOMITING, 09/29/14) DUY-Ilmuiy-Rsuxfw Hx Patient Social History Living Status: Lives in home with Employed/Student: employed Alcohol Use: Denies Use Recreational Drug Use: No Smoking Status: Former Smoker Type Used: Cigarettes Recent Foreign Travel: No Contact w/other who traveled: No Recent Hopitalizations: No Recent Infectious Disease Expo: No Physical Abuse Screen: No Sexual Abuse: No Immunizations Up To Date Tetanus Booster (TDap): More than 5yrs Past Medical History Sick Sinus Syndrome s/p Pacermaker placement 02/2016 Anxiety Insomnia Family Medical History Family History: Arthritis G8 SISTER Diabetes mellitus 19 MOTHER G8 SISTER Fibromyalgia G8 SISTER Heart murmur 19 MOTHER G8 SISTER Kidney disease 19 MOTHER Myelodysplasia of spinal cord 19 MOTHER, Onset:60 years & older Myocardial infarction G8 BROTHER, Onset:31 ( of [place] at 32) Review of Systems ([facility]) Constitutional: No chills, dizziness, No fever, weakness, No weight gain EENTM: other (Headache) Respiratory: No cough, short of breath, No wheezing Cardiovascular: chest pain (Not currently having chest pain) Gastrointestinal: no symptoms reported, No abdominal pain, No constipation, No diarrhea, No nausea, No vomiting Genitourinary: no symptoms reported, No discharge, No dysuria, No frequency, No hematuria : No Musculoskeletal: joint pain (shoulder pain) Skin: no symptoms reported, No lesions, No rash Psychiatric/Neurological: Anxiety, Depressed, Headache Reviewed Test Results Reviewed Test Results Lab Laboratory Tests Test 08/05/16 20:16 08/06/16 01:56 08/06/16 04:44 Range/Units White Blood Count 5.0 3.9 L 4.3-11.0 10^3/uL Red Blood Count 3.80 L 3.90 L 4.35-5.85 10^6/uL Hemoglobin 11.7 11.8 11.5-16.0 G/DL Hematocrit 35 36 35-52 % Mean Corpuscular Volume 92 92 80-99 FL Mean Corpuscular Hemoglobin 31 30 25-34 PG Mean Corpuscular Hemoglobin Concent 34 33 32-36 G/DL Red Cell Distribution Width 13.6 13.5 10.0-14.5 % Platelet Count 214 201 130-400 10^3/uL Mean Platelet Volume 9.4 9.8 7.4-10.4 FL Neutrophils (%) (Auto) 48 43 42-75 % Lymphocytes (%) (Auto) 40 44 12-44 % Monocytes (%) (Auto) 9 9 0-12 % Eosinophils (%) (Auto) 3 4 0-10 % Basophils (%) (Auto) 0 0 0-10 % Neutrophils # (Auto) 2.4 1.7 L 1.8-7.8 X 10^3 Lymphocytes # (Auto) 2.0 1.7 1.0-4.0 X 10^3 Monocytes # (Auto) 0.4 0.4 0.0-1.0 X 10^3 Eosinophils # (Auto) 0.2 0.1 0.0-0.3 10^3/uL Basophils # (Auto) 0.0 0.0 0.0-0.1 10^3/uL Prothrombin Time 11.9 L 12.2-14.7 SEC INR Comment 0.9 0.8-1.4 Activated Partial Thromboplast Time 27 24-35 SEC Sodium Level 142 143 135-145 MMOL/L Potassium Level 3.5 L 4.0 3.6-5.0 MMOL/L Chloride Level 108 H 110 H 98-107 MMOL/L Carbon Dioxide Level 23 24 21-32 MMOL/L Anion Gap 11 9 5-14 MMOL/L Blood Urea Nitrogen 16 13 7-18 MG/DL Creatinine 0.78 0.73 0.60-1.30 MG/DL Estimat Glomerular Filtration Rate > 60 > 60 BUN/Creatinine Ratio 21 18 Glucose Level 140 H 96 70-105 MG/DL Calcium Level 9.0 8.7 8.5-10.1 MG/DL Magnesium Level 2.1 1.8-2.4 MG/DL Total Bilirubin 0.4 0.4 0.1-1.0 MG/DL Aspartate Amino Transf (AST/SGOT) 34 31 5-34 U/L Alanine Aminotransferase (ALT/SGPT) 45 43 0-55 U/L Alkaline Phosphatase 71 64 40-136 U/L Myoglobin 44.7 10.0-92.0 NG/ML Troponin I < 0.30 < 0.30 <0.30 NG/ML B-Type Natriuretic Peptide 27.7 <100.0 PG/ML Total Protein 6.6 6.0 L 6.4-8.2 G/DL Albumin 4.2 3.9 3.2-4.5 G/DL Amylase Level 76 25-125 U/L Lipase 82 H 8-78 U/L Triglycerides Level 137 <150 MG/DL Cholesterol Level 156 < 200 MG/DL LDL Cholesterol Direct 106 1-129 MG/DL VLDL Cholesterol 27 5-40 MG/DL HDL Cholesterol 32 L 40-60 MG/DL Radiology Date of Exam: 08/05/16 CT ANGIO CHEST W PROCEDURE: CT angiography of the chest with contrast. TECHNIQUE: Multiple contiguous axial images were obtained through the chest after uneventful bolus administration of intravenous contrast. Reconstructed CTA MIP acquisitions were also performed. DATE: August 05, 2016. COMPARISON: Chest radiograph, August 05, 2016. CT chest, February 15, 2016. INDICATION: 56-year-old female, chest pain. FINDINGS: There is no identified pulmonary nodule. There is mild dependent atelectasis. There is no additional focal airspace consolidation. There is no pneumothorax. There is no pleural effusion. The central airways are patent. There is no identified pulmonary embolus. The main pulmonary artery is normal in caliber. The heart is not enlarged. There is no paracardial effusion. There is no identified abnormally enlarged mediastinal, hilar or axillary lymph node which meets CT size criteria for adenopathy. The liver is diffusely low in attenuation consistent with diffuse fatty infiltration of the liver. There are areas of focal fatty sparing adjacent to the gallbladder fossa. Additional evaluation of the visualized portions of the upper abdomen is unremarkable. There are atherosclerotic calcifications noted. There is no identified acute bony abnormality. IMPRESSION: CT chest: No identified acute cardiopulmonary abnormality. Date of Exam: 08/05/16 CHEST 1 VIEW, AP/PA ONLY EXAMINATION: Chest radiograph, portable AP view. DATE: August 05, 2016 at 2022 hours. INDICATION: 56-year-old female, chest pain. COMPARISON: February 17, 2016. FINDINGS: There is a left-sided cardiac assist device with right atrial and right ventricular leads. The leads appear intact. Stable overall appearance of the cardiomediastinal silhouette. There is no identified pneumothorax. There is no large pleural effusion. There is no identified focal airspace consolidation. IMPRESSION: No identified acute cardiopulmonary abnormality. Physical Exam-([facility]) Physical Exam Vital Signs VS - Last 72 Hours, by Label 08/05/16 08/05/16 08/05/16 08/05/16 20:10 20:10 23:00 23:26 Temp 97.1 Pulse 64 59 62 Resp 16 20 B/P (MAP) 123/74 Pulse Ox 94 98 O2 Delivery Room Air Room Air 08/06/16 08/06/16 08/06/16 08/06/16 00:00 00:33 01:00 04:00 Temp 96.8 Pulse 61 59 60 Resp 17 16 B/P (MAP) 142/85 110/62 Pulse Ox 92 92 O2 Delivery Room Air Room Air 08/06/16 08/06/16 08/06/16 08/06/16 04:00 07:26 07:48 07:49 Temp 97.0 98.4 98.4 Pulse 59 67 Resp 16 B/P (MAP) 111/66 O2 Delivery Room Air Capillary Refill : Less Than 3 Seconds General Appearance: WD/WN, no apparent distress HEENT: PERRL/EOMI Neck: non-tender, full range of motion, supple, normal inspection Respiratory: chest non-tender, lungs clear, normal breath sounds, no respiratory distress, no accessory muscle use Cardiovascular: normal peripheral pulses, regular rate, rhythm, no edema, no gallop, no JVD, no murmur Gastrointestinal: normal bowel sounds, non tender, soft, no organomegaly, no pulsatile mass Extremities: normal range of motion, non-tender, normal inspection, no calf tenderness, normal capillary refill, pedal edema (trace bilaterally) 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, no motor/sensory deficits, alert, normal mood/affect, oriented x 3 Skin: normal color Lymphatic: no adenopathy Short Stay Diagnosis Discharge Diagnosis-Short Stay Admission Diagnosis Atypical Chest pain h/o Sick Sinus Syndrome s/p pacemaker placement Obesity Tobacco Abuse Anxiety Insomnia Final Discharge Diagnosis See Above Conclusion Plan 56 yo F that presented to ER with atypical chest pain Atypical Chest pain - Cardiac Enzymes neg - Dr Livingston saw patient and will set her up with outpatient stress test - Recent normal heart cath in [place] - Start daily ASA 81 mg h/o Sick Sinus Syndrome s/p pacemaker placement - Follows regularly with Dr Livingston Obesity - Discussed the benefit of weight loss with patient Tobacco Abuse - Discussed the need for tobacco cessation Anxiety - Patient's family requesting Xanax, Patient needs to get established with PCP to address anxiety Insomnia - Start Melatonin prior to bed Clinical Quality Measures AMI/AHF: ASA po Prior to arrival: No DVT/VTE Risk/Contraindication: Risk Factor Score Per Nursin RFS Level Per Nursing on Admit: 2=Moderate Copy Copies To 1: JAC GARCIA MD, HOLLY R MD Aug 06, 2016 12:19
[2016-08-06] MEDS ORDERED: MELA5CAP PO (12:21)
[2016-08-06] MEDS ORDERED: ASPI-586 PO (12:21)
--- NOTE | 2016-08-06 12:23 | Discharge Instructions ---
Discharge [facility] Discharge Medications New, Converted or Re-Newed RX: Other (New scripts are OTC medications) New Medications: Aspirin (Aspir 81) 81 Mg Tablet.dr 81 MG PO DAILY for 30 Days, #30 TAB Melatonin (Melatonin) 5 Mg Capsule 5 MG PO HS for 30 Days, #30 CAP Continued Medications: Metoprolol Succinate (Metoprolol Succinate) 25 Mg Tab.er.24h 50 MG PO DAILY, TAB Patient Instructions Goal/Follow Up Appt: Will call on Monday to get you a follow up appt Dr Livingston's office will call to get Stress test set up Patient Instructions: Try and get rest Take it easy when you get home until you have your stress test Make sure to take daily ASA Return to The Hospital For: Worsening chest pain Shortness of breath Unable to tolerate medications Activity & Diet Discharge Diet: Cardiac Diet Activity as Tolerated: Yes Orders-Post D/C & Referrals Pneu Vac Indicated: Yes Copy Copies To 1: MYRON RODRIGUEZ MD, HOLLY R MD Aug 06, 2016 12:23
[2016-08-06 13:33] VITALS: BP 122/79
== END 2016-08-06 12:19 | disposition home or self-care (01) ==
LOC: EDUNIT# 20:01 → ER 20:02 → UNDOADMOB 22:50 → ICU 22:50 → UNDODISOB 08-06 13:49
PROVIDERS: ADMIT Family Medicine; ATTEND Family Medicine
DX: R07.89 Other chest pain (principal); I25.10 Atherosclerotic heart disease of native coronary artery without angina pectoris; E66.9 Obesity, unspecified; F17.210 Nicotine dependence, cigarettes, uncomplicated; F41.9 Anxiety disorder, unspecified; G47.00 Insomnia, unspecified; Z95.0 Presence of cardiac pacemaker; Z68.33 Body mass index [BMI] 33.0-33.9, adult
CPT/HCPCS: 36415; 71010; 71275; 80053; 80061; 82150; 83690; 83735; 83874; 83880; 84484; 85025; 85610; 85730; 93005; 96372; 96374; G0378

== ENCOUNTER → 2016-08-15 | Outpatient (CLI) | payer OTHER ==
[~2016-08-15] VITALS: Ht 170.2 cm; Wt 95.3 kg
[~2016-08-15] MED LIST changes: +ASPI-586 PO; +CATHETER FLUSH 10 ML SYR IV PRN; +MELA5CAP PO; +REGADENOSON 0.4 MG/5 ML SYR (LEXISCAN) IV ONE
[2016-08-15 09:03] VITALS: BP 117/79
[2016-08-15 09:06] VITALS: BP 137/75
[2016-08-15 09:08] VITALS: BP 122/77
--- NOTE | 2016-08-15 12:00 | STRESS TEST ---
DATE OF SERVICE: 08/15/2016 PROCEDURE: Lexiscan Myoview stress test. REFERRING PHYSICIAN: [facility]. TEST DATE: 08/15/2016. SUMMARY: The patient was injected with 10.93 mCi of technetium-99 Myoview and the resting images were obtained. Then, the patient received 0.4 mg of Lexiscan followed by 31.2 mCi of technetium and Myoview. Throughout the test, there were no EKG changes. The resting and stress images were reviewed and compared in the short axis, horizontal long axis, and vertical long axis views. Review of the images showed breast attenuation with typical female pattern. No significant ischemia or infarction. SSS is 2, SDS 2, TID value 0.97. On the gated images, the left ventricle appeared to be normal size with normal contractility. Calculated ejection fraction 66%. CONCLUSION: 1. The patient tolerated Lexiscan well. 2. Breast attenuation with typical female pattern. No significant ischemia or infarction on SPECT images. 3. Normal left ventricular size with normal contractility, calculated ejection fraction 66%. Job ID: [id number] DocumentID: [id number] Dictated Date: 08/15/2016 11:03:19 Prototype Machine Operator Date: 08/15/2016 11:31:12 Dictated By: CITLALI COLLAZO MD
== END ==
LOC: CARD 07:29
PROVIDERS: ATTEND Internal Medicine Cardiovascular Disease
DX: R07.1 Chest pain on breathing (principal); R06.02 Shortness of breath; R61 Generalized hyperhidrosis
CPT/HCPCS: 78452; 93017

== ENCOUNTER 2016-10-11 17:33 | Emergency (ER) | payer OTHER ==
[~2016-10-11] VITALS: Ht 170.2 cm; Wt 61.7 kg
[~2016-10-11 17:33] MED LIST changes: -CATHETER FLUSH 10 ML SYR IV PRN; -REGADENOSON 0.4 MG/5 ML SYR (LEXISCAN) IV ONE
[2016-10-11] MEDS ORDERED: KETOROLAC 60 MG/2 ML VIAL IM STA (17:58)
[2016-10-11] MEDS ORDERED: PROMETHAZINE INJ 25 MG/ML (PHENERGAN) AMP IM STA (17:58)
--- NOTE | 2016-10-11 18:25 | ED Headache ---
General Chief Complaint: Head/Cervical Problems Stated Complaint: MIGRAINE Nursing Triage Note: ADM TO ED C/O HEADACHE ONSET YESTERDAY. Nursing Sepsis Screen: No Definite Risk Allergies and Home Medications Allergies Coded Allergies: hydrocodone (Unverified Allergy, Unknown, 09/29/14) Penicillins (Unverified Adverse Reaction, Mild, VOMITING, 09/29/14) Home Medications No Active Prescriptions or Reported Meds Past Ytvoxfq-Ejhjrh-Gssoyh Hx Patient Social History Alcohol Use: Denies Use Recreational Drug Use: Yes (TOBACCO) Smoking Status: Never a Smoker Type Used: Cigarettes Recent Foreign Travel: No Contact w/Someone Who Travel: No Recent Infectious Disease Expo: No Recent Hopitalizations: No Immunizations Up To Date Tetanus Booster (TDap): Unknown PED Vaccines UTD: No Seasonal Allergies Seasonal Allergies: Yes Surgeries HX Surgeries: Yes Surgeries: Appendectomy, Hysterectomy, Oophorectomy, Orthopedic, Pacemaker Respiratory Hx Respiratory Disorders: Yes Cardiovascular Hx Cardiac Disorders: Yes Cardiac Disorders: Hypertension, Irregular Heartbeat, Syncope Neurological Hx Neurological Disorders: Yes Neurological Disorders: Headaches /Migraines Reproductive System Hx Reproductive Disorders: Yes Female Reproductive Disorders: Ovarian 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 Genitourinary Hx Genitourinary Disorders: No Gastrointestinal Hx Gastrointestinal Disorders: No Musculoskeletal Hx Musculoskeletal Disorders: Yes (BILATERAL ROTATOR CUFF REPAIR; RIGHT KNEE SCOPE) Endocrine Hx Endocrine Disorders: No HEENT HX ENT Disorders: No Cancer Hx Cancer: No Psychosocial Hx Psychiatric Problems: No Integumentary HX Skin/Integumentary Disorder: No Blood Transfusions Hx Blood Disorders: Yes (HX OF ANEMIA) Adverse Reaction to a Blood Tr: No Family Medical History Family Medial History: Arthritis G8 SISTER Diabetes mellitus 19 MOTHER G8 SISTER Fibromyalgia G8 SISTER Heart murmur 19 MOTHER G8 SISTER Kidney disease 19 MOTHER Myelodysplasia of spinal cord 19 MOTHER, Onset:60 years & older Myocardial infarction G8 BROTHER, Onset:31 ( of [place] at 32) Physical Exam Vital Signs Vital Sign - Last 12Hours 10/11/16 17:41 Temp 97.3 Pulse 68 Resp 18 B/P (MAP) 136/78 Pulse Ox 98 O2 Delivery Room Air Capillary Refill : Less Than 3 Seconds Progress/Results/Core Measures Results/Orders My Orders Orders - TEJA THOMPSON Promethazine Injection (Phenergan Injec (10/11/16 17:58) Ketorolac Injection (Toradol Injection) (10/11/16 17:58) Vital Signs/I&O Vital Sign - Last 12Hours 10/11/16 17:41 Temp 97.3 Pulse 68 Resp 18 B/P (MAP) 136/78 Pulse Ox 98 O2 Delivery Room Air Blood Pressure Mean: 97 Departure Impression Impression: Primary Impression: Migraine Disposition: 01 HOME, SELF-CARE Condition: Improved Departure-Patient Inst. Decision time for Depature: 18:24 Referrals: ADAM STANTON DO (PCP) Primary Care Physician JR SIMON (Family) Primary Care Physician Patient Instructions: Migraine Headache (DC) Add. Discharge Instructions: All discharge instructions reviewed with patient and/or family. Voiced understanding. Continue usual home medications. Cool compresses as needed. Tylenol extra strength [id number] as directed for pain. Ibuprofen 800 mg by mouth every 8 hours as needed for pain. Follow-up with your family practitioner if needed. Return to the emergency department for worsened headache, dizziness, changes in vision, confusion, slurred speech, numbness, weakness, or any other concerns. Scripts No Active Prescriptions or Reported Meds TEJA THOMPSON Oct 11, 2016 18:25
[2016-10-11 18:30] VITALS: BP 136/78
== END 2016-10-11 18:29 | disposition home or self-care (01) ==
LOC: EDUNIT# 17:33 → ER 17:34
DX: G43.909 Migraine, unspecified, not intractable, without status migrainosus (principal); I10 Essential (primary) hypertension; F17.200 Nicotine dependence, unspecified, uncomplicated; Z90.49 Acquired absence of other specified parts of digestive tract; Z90.710 Acquired absence of both cervix and uterus; Z95.0 Presence of cardiac pacemaker; Z87.42 Personal history of other diseases of the female genital tract; Z86.2 Personal history of diseases of the blood and blood-forming organs and certain disorders involving the immune mechanism
CPT/HCPCS: 96372; 99284

== ENCOUNTER 2016-11-21 14:00 | Emergency (ER) | payer OTHER ==
[~2016-11-21] VITALS: Ht 170.2 cm; Wt 95.3 kg
--- NOTE | 2016-11-21 14:22 | ED Headache ---
General Chief Complaint: Head/Cervical Problems Stated Complaint: MIGRAINE Nursing Triage Note: ARRIVED VIA AMB TO ROOM 07 WITH A COMPLAINT OF MIGRAINE SINCE MONDAY. HAS TRIED DIFFERENT MIGRAINE MEDS THAT ARE NOT WORKING. HX OF MIGRAINES. Nursing Sepsis Screen: No Definite Risk Source: patient Exam Limitations: no limitations History of Present Illness Time seen by provider: 14:21 Initial Comments To ER with a frontal migraine since Monday. He has tried different migraine medications at home [id number] without improvement. She does have associated nausea and photophobia. She has a history of migraines and this feels similar. Timing/Duration: other (3 days) Severity/Quality: severe Location: frontal Associated Symptoms: denies symptoms Allergies and Home Medications Allergies Coded Allergies: hydrocodone (Unverified Allergy, Unknown, 09/29/14) Penicillins (Unverified Adverse Reaction, Mild, VOMITING, 09/29/14) Constitutional: see HPI Eyes: No Symptoms Reported Ears, Nose, Mouth, Throat: no symptoms reported Respiratory: no symptoms reported Cardiovascular: no symptoms reported Genitourinary: no symptoms reported Musculoskeletal: no symptoms reported Skin: no symptoms reported Psychiatric/Neurological: No Symptoms Reported Past [id number]-[id number] Hx Patient Social History Alcohol Use: Denies Use Recreational Drug Use: No Smoking Status: Former Smoker Type Used: Cigarettes Recent Foreign Travel: No Contact w/Someone Who Travel: No Recent Infectious Disease Expo: No Recent Hopitalizations: No Immunizations Up To Date Tetanus Booster (TDap): Unknown PED Vaccines UTD: No Seasonal Allergies Seasonal Allergies: Yes Surgeries HX Surgeries: Yes Surgeries: Appendectomy, Hysterectomy, Oophorectomy, Orthopedic, Pacemaker Respiratory Hx Respiratory Disorders: Yes Cardiovascular Hx Cardiac Disorders: Yes Cardiac Disorders: Irregular Heartbeat, Syncope Neurological Hx Neurological Disorders: Yes Neurological Disorders: Headaches /Migraines Reproductive System Hx Reproductive Disorders: Yes 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 Genitourinary Hx Genitourinary Disorders: No Gastrointestinal Hx Gastrointestinal Disorders: No Musculoskeletal Hx Musculoskeletal Disorders: Yes (BILATERAL ROTATOR CUFF REPAIR; RIGHT KNEE SCOPE) Endocrine Hx Endocrine Disorders: No HEENT HX ENT Disorders: No Cancer Hx Cancer: No Psychosocial Hx Psychiatric Problems: No Integumentary HX Skin/Integumentary Disorder: No Blood Transfusions Hx Blood Disorders: Yes (HX OF ANEMIA) Adverse Reaction to a Blood Tr: No Family Medical History Significant Family History: No Pertinent Family Hx Family Medial History: Arthritis G8 SISTER Diabetes mellitus 19 MOTHER G8 SISTER Fibromyalgia G8 SISTER Heart murmur 19 MOTHER G8 SISTER Kidney disease 19 MOTHER Myelodysplasia of spinal cord 19 MOTHER, Onset:60 years & older Myocardial infarction G8 BROTHER, Onset:31 ( of [place] at 32) Physical Exam Vital Signs Vital Sign - Last 12Hours 11/21/16 14:03 Temp 98.0 Pulse 69 Resp 18 B/P (MAP) 151/79 Pulse Ox 96 O2 Delivery Room Air Capillary Refill : Less Than 3 Seconds General Appearance: WD/WN, no apparent distress HEENT: PERRL/EOMI, normal ENT inspection Neck: non-tender, full range of motion Respiratory: no respiratory distress, no accessory muscle use Gastrointestinal: non tender, soft Extremities: normal range of motion, non-tender Psychiatric: alert, oriented x 3 Crainal Nerves: normal hearing, normal speech Motor/Sensory: no motor deficit, no sensory deficit Skin: normal color Progress/Results/Core Measures Results/Orders My Orders Orders - SAMI LE APRN Prochlorperazine Injection (Compazine In (11/21/16 14:30) Diphenhydramine Injection (Benadryl Inje (11/21/16 14:30) Ketorolac Injection (Toradol Injection) (11/21/16 14:30) Vital Signs/I&O Vital Sign - Last 12Hours 11/21/16 14:03 Temp 98.0 Pulse 69 Resp 18 B/P (MAP) 151/79 Pulse Ox 96 O2 Delivery Room Air Blood Pressure Mean: 103 Departure Impression Impression: Primary Impression: Acute headache Disposition: 01 HOME, SELF-CARE Condition: Stable Departure-Patient Inst. Decision time for Depature: 14:22 Referrals: ADAM STANTON DO (PCP) Primary Care Physician JR SIMON (Family) Primary Care Physician Patient Instructions: Headache, Adult (DC) Add. Discharge Instructions: 1. Return to ER for any concerns 2. See your doctor next week All discharge instructions reviewed with patient and/or family. Voiced understanding. SAMI LE APRN Nov 21, 2016 14:22
[2016-11-21] MEDS ORDERED: diphenhydrAMINE 50 MG/ML INJ (BENADRYL) IM ONE (14:30)
[2016-11-21] MEDS ORDERED: KETOROLAC 60 MG/2 ML VIAL IM ONE (14:30)
[2016-11-21] MEDS ORDERED: PROCHLORPERAZINE 10 MG/2ML INJ (COMPAZINE) IM ONE (14:30)
[2016-11-21 15:11] VITALS: BP 132/85
== END 2016-11-21 15:11 | disposition home or self-care (01) ==
LOC: EDUNIT# 14:00 → ER 14:02
DX: R51 Headache (principal); Z90.710 Acquired absence of both cervix and uterus; Z95.0 Presence of cardiac pacemaker; Z87.891 Personal history of nicotine dependence; Z82.49 Family history of ischemic heart disease and other diseases of the circulatory system
CPT/HCPCS: 96372; 99284

== ENCOUNTER 2017-01-31 18:01 | Emergency (ER) | payer OTHER ==
[~2017-01-31] VITALS: Ht 170.2 cm; Wt 95.3 kg
[2017-01-31] MEDS ORDERED: PROCHLORPERAZINE 10 MG/2ML INJ (COMPAZINE) IM ONE (19:15)
[2017-01-31] MEDS ORDERED: KETOROLAC 60 MG/2 ML VIAL IM ONE (19:15)
[2017-01-31] MEDS ORDERED: diphenhydrAMINE 50 MG/ML INJ (BENADRYL) IM ONE (19:15)
--- NOTE | 2017-01-31 19:18 | ED Headache ---
General Chief Complaint: Head/Cervical Problems Stated Complaint: HEADACHE Nursing Triage Note: PT REPORTS MIGRAINE SINCE MONDAY. SHE HAS NOT TAKEN ANY MEDICATIONS. Nursing Sepsis Screen: No Definite Risk Source: patient Exam Limitations: no limitations History of Present Illness Time seen by provider: 19:16 Initial Comments To ER with a left occipital headache. This began Monday01/29/17. She has associated photophobia and nausea without vomiting. She has a history of migraines and this is similar to all of her previous migraines. Timing/Duration: constant Severity/Quality: constant Location: occipital Associated Symptoms: denies symptoms Allergies and Home Medications Allergies Coded Allergies: hydrocodone (Unverified Allergy, Unknown, 09/29/14) Penicillins (Unverified Adverse Reaction, Mild, VOMITING, 09/29/14) Constitutional: see HPI Eyes: Photophobia Ears, Nose, Mouth, Throat: no symptoms reported Respiratory: no symptoms reported Cardiovascular: no symptoms reported Gastrointestinal: nausea Genitourinary: no symptoms reported Musculoskeletal: no symptoms reported Skin: no symptoms reported Psychiatric/Neurological: Headache Past Cilqcpq-Diyrhf-Jhtsxl Hx Patient Social History Alcohol Use: Denies Use Recreational Drug Use: No Smoking Status: Former Smoker Type Used: Cigarettes Former Smoker, Quit: May 24, 2012 2nd Hand Smoke Exposure: Yes Recent Foreign Travel: No Contact w/Someone Who Travel: No Recent Infectious Disease Expo: No Recent Hopitalizations: No Physical Abuse: No Sexual Abuse: No Immunizations Up To Date Tetanus Booster (TDap): Unknown PED Vaccines UTD: No Seasonal Allergies Seasonal Allergies: Yes Surgeries History of Surgeries: Yes Surgeries: Appendectomy, Hysterectomy, Oophorectomy, Orthopedic, Pacemaker Respiratory History of Respiratory Disorde: No Currently Using CPAP: No Currently Using BIPAP: No Cardiovascular History of Cardiac Disorders: Yes (pacemaker, HYPOTENSION) Cardiac Disorders: Irregular Heartbeat, Syncope Neurological History of Neurological Disord: Yes Neurological Disorders: Headaches /Migraines Reproductive System Hx Reproductive Disorders: Yes 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 Genitourinary History of Genitourinary Disor: No Gastrointestinal History of Gastrointestinal Di: No Musculoskeletal History of Musculoskeletal Dis: No Endocrine History of Endocrine Disorders: No HEENT History of HEENT Disorders: No Cancer History of Cancer: No Psychosocial History of Psychiatric Problem: No Suicide Risk Score: 0 Integumentary History of Skin or Integumenta: No Blood Transfusions History of Blood Disorders: Yes (HX OF ANEMIA) Adverse Reaction to a Blood Tr: No Family Medical History Significant Family History: No Pertinent Family Hx Family Medial History: Arthritis G8 SISTER Diabetes mellitus 19 MOTHER G8 SISTER Fibromyalgia G8 SISTER Heart murmur 19 MOTHER G8 SISTER Kidney disease 19 MOTHER Myelodysplasia of spinal cord 19 MOTHER, Onset:60 years & older Myocardial infarction G8 BROTHER, Onset:31 ( of [place] at 32) Physical Exam Vital Signs Vital Sign - Last 12Hours 01/31/17 18:47 Temp 97.2 Pulse 74 Resp 16 B/P (MAP) 138/74 Pulse Ox 98 O2 Delivery Room Air Capillary Refill : Less Than 3 Seconds General Appearance: WD/WN, no apparent distress HEENT: PERRL/EOMI, normal ENT inspection Neck: non-tender, full range of motion Respiratory: no respiratory distress, no accessory muscle use Gastrointestinal: normal bowel sounds, non tender Extremities: normal range of motion, non-tender Psychiatric: alert, oriented x 3 Crainal Nerves: normal hearing, normal speech, PERRL Skin: normal color, warm/dry Progress/Results/Core Measures Results/Orders My Orders Orders - SAMI LE APRN Ketorolac Injection (Toradol Injection) (01/31/17 19:15) Diphenhydramine Injection (Benadryl Inje (01/31/17 19:15) Prochlorperazine Injection (Compazine In (01/31/17 19:15) Medications Given in ED Current Medications Medications Dose Ordered Sig/Ni Route Start Time Stop Time Status Last Admin Dose Admin Diphenhydramine HCl 25 mg ONCE ONCE IM 01/31/17 19:15 01/31/17 19:16 DC 01/31/17 19:30 25 MG Ketorolac Tromethamine 60 mg ONCE ONCE IM 01/31/17 19:15 01/31/17 19:16 DC 01/31/17 19:30 60 MG Prochlorperazine Edisylate 10 mg ONCE ONCE IM 01/31/17 19:15 01/31/17 19:16 DC 01/31/17 19:30 10 MG Vital Signs/I&O Vital Sign - Last 12Hours 01/31/17 01/31/17 18:47 20:14 Temp 97.2 97.2 Pulse 74 74 Resp 16 16 B/P (MAP) 138/74 Pulse Ox 98 98 O2 Delivery Room Air Blood Pressure Mean: 95 Departure Communication (Admissions) Progress Notes Headache is much improved at 2016. She like to go home now. Impression Impression: Primary Impression: Acute headache Disposition: HOME, SELF-CARE Condition: Stable Departure-Patient Inst. Decision time for Depature: 19:18 Referrals: [facility] (PCP/Family) Primary Care Physician Patient Instructions: Headache, Adult (DC) Add. Discharge Instructions: 1. Return to ER for any concerns 2. Follow-up with her doctor next week 3. All discharge instructions reviewed with patient and/or family. Voiced understanding. SAMI LE APRN Jan 31, 2017 19:18
[2017-01-31 20:14] VITALS: BP 138/74
== END 2017-01-31 20:15 | disposition home or self-care (01) ==
LOC: EDUNIT# 18:01 → ER 18:02
DX: R51 Headache (principal); Z87.891 Personal history of nicotine dependence; Z90.710 Acquired absence of both cervix and uterus; Z90.49 Acquired absence of other specified parts of digestive tract; Z95.0 Presence of cardiac pacemaker; Z87.448 Personal history of other diseases of urinary system; Z82.49 Family history of ischemic heart disease and other diseases of the circulatory system
CPT/HCPCS: 96372; 99284

== ENCOUNTER 2017-05-02 14:37 | Emergency (ER) | payer OTHER ==
[~2017-05-02] VITALS: Ht 170.2 cm; Wt 95.3 kg
[~2017-05-02 14:37] MED LIST changes: +ASPI-789 PO; -ASPI1TAB22 PO; -METO-270 PO; +METO-387 PO
--- NOTE | 2017-05-02 14:56 | ED Headache ---
General Chief Complaint: Head/Cervical Problems Stated Complaint: MIGRAINE Source: patient Exam Limitations: no limitations History of Present Illness Date Seen by Provider: May 02, 2017 Time Seen by Provider: 14:53 Initial Comments To ER with a migraine constant for the past 48 hours. She is taken Aleve at home without relief. She's had nausea without vomiting. No fevers or chills. Onset and characteristics of this headache are typical of all of her previous migraines and this is no different. Timing/Duration: other (48 hours) Severity/Quality: constant Associated Symptoms: denies symptoms Allergies and Home Medications Allergies Coded Allergies: hydrocodone (Unverified Allergy, Unknown, 09/29/14) Penicillins (Unverified Adverse Reaction, Mild, VOMITING, 09/29/14) Home Medications No Active Prescriptions or Reported Meds Constitutional: see HPI Eyes: No Symptoms Reported Ears, Nose, Mouth, Throat: no symptoms reported Respiratory: no symptoms reported Cardiovascular: no symptoms reported Genitourinary: no symptoms reported Musculoskeletal: no symptoms reported Skin: no symptoms reported Psychiatric/Neurological: See HPI, Headache Past Wiuwjco-Dndsfh-Lknvfh Hx Patient Social History Type Used: Cigarettes Former Smoker, Quit: May 24, 2012 2nd Hand Smoke Exposure: Yes Recent Hopitalizations: No Immunizations Up To Date Tetanus Booster (TDap): Unknown PED Vaccines UTD: No Seasonal Allergies Seasonal Allergies: Yes Surgeries History of Surgeries: Yes Surgeries: Appendectomy, Hysterectomy, Oophorectomy, Orthopedic, Pacemaker Respiratory History of Respiratory Disorde: No Currently Using CPAP: No Currently Using BIPAP: No Cardiovascular History of Cardiac Disorders: Yes (pacemaker, HYPOTENSION) Cardiac Disorders: Irregular Heartbeat, Syncope Neurological History of Neurological Disord: Yes Neurological Disorders: Headaches /Migraines Reproductive System Hx Reproductive Disorders: Yes 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 Genitourinary History of Genitourinary Disor: No Gastrointestinal History of Gastrointestinal Di: No Musculoskeletal History of Musculoskeletal Dis: No Endocrine History of Endocrine Disorders: No HEENT History of HEENT Disorders: No Cancer History of Cancer: No Psychosocial History of Psychiatric Problem: No Integumentary History of Skin or Integumenta: No Blood Transfusions History of Blood Disorders: Yes (HX OF ANEMIA) Adverse Reaction to a Blood Tr: No Family Medical History Significant Family History: No Pertinent Family Hx Family Medial History: Arthritis G8 SISTER Diabetes mellitus 19 MOTHER G8 SISTER Fibromyalgia G8 SISTER Heart murmur 19 MOTHER G8 SISTER Kidney disease 19 MOTHER Myelodysplasia of spinal cord 19 MOTHER, Onset:60 years & older Myocardial infarction G8 BROTHER, Onset:31 ( of [place] at 32) Physical Exam Vital Signs Vital Sign - Last 12Hours 05/02/17 14:46 Temp 98.0 Pulse 72 Resp 18 B/P (MAP) 146/103 (117) Pulse Ox 94 Capillary Refill : General Appearance: WD/WN, no apparent distress HEENT: PERRL/EOMI, normal ENT inspection Neck: non-tender, full range of motion Cardiovascular: regular rate, rhythm, no murmur Respiratory: normal breath sounds, no respiratory distress, no accessory muscle use Gastrointestinal: normal bowel sounds, non tender, soft Extremities: normal range of motion, non-tender Psychiatric: alert, oriented x 3 Crainal Nerves: normal hearing, normal speech, PERRL Motor/Sensory: no motor deficit, no sensory deficit Skin: normal color, warm/dry Progress/Results/Core Measures Results/Orders My Orders Orders - SAMI LE APRN Prochlorperazine Injection (Compazine In (05/02/17 15:00) Ketorolac Injection (Toradol Injection) (05/02/17 15:00) Diphenhydramine Injection (Benadryl Inje (05/02/17 15:00) Medications Given in ED Current Medications Medications Dose Ordered Sig/Ni Route Start Time Stop Time Status Last Admin Dose Admin Diphenhydramine HCl 25 mg ONCE ONCE IM 05/02/17 15:00 05/02/17 15:01 DC 05/02/17 15:03 25 MG Ketorolac Tromethamine 60 mg ONCE ONCE IM 05/02/17 15:00 05/02/17 15:01 DC 05/02/17 15:02 60 MG Prochlorperazine Edisylate 10 mg ONCE ONCE IM 05/02/17 15:00 05/02/17 15:01 DC 05/02/17 15:03 10 MG Vital Signs/I&O Vital Sign - Last 12Hours 05/02/17 14:46 Temp 98.0 Pulse 72 Resp 18 B/P (MAP) 146/103 (117) Pulse Ox 94 Departure Communication (Admissions) Progress Notes 1531- Headache improved. Will dc to home. Impression Impression: Primary Impression: Acute headache Disposition: HOME, SELF-CARE Condition: Stable Departure-Patient Inst. Decision time for Depature: 14:55 Referrals: [facility] (PCP/Family) Primary Care Physician Patient Instructions: Headache, Adult (DC) Scripts No Active Prescriptions or Reported Meds SAMI LE APRN May 02, 2017 14:55
[2017-05-02] MEDS ORDERED: PROCHLORPERAZINE 10 MG/2ML INJ (COMPAZINE) IM ONE (15:00)
[2017-05-02] MEDS ORDERED: KETOROLAC 60 MG/2 ML VIAL IM ONE (15:00)
[2017-05-02] MEDS ORDERED: diphenhydrAMINE 50 MG/ML INJ (BENADRYL) IM ONE (15:00)
[2017-05-02 15:31] VITALS: BP 146/103
== END 2017-05-02 15:31 | disposition home or self-care (01) ==
LOC: EDUNIT# 14:37 → ER 14:39
DX: R51 Headache (principal); Z87.891 Personal history of nicotine dependence; Z87.42 Personal history of other diseases of the female genital tract; Z90.49 Acquired absence of other specified parts of digestive tract; Z90.710 Acquired absence of both cervix and uterus; Z95.0 Presence of cardiac pacemaker
CPT/HCPCS: 96372; 99284

== ENCOUNTER 2017-07-11 16:42 | Emergency (ER) | payer BC, OTHER ==
[~2017-07-11] VITALS: Ht 170.2 cm; Wt 95.3 kg
--- OUTSIDE RECORDS SUMMARY | 2017-07-11 16:49 | XMS REPORT ---
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 Name Role Phone JAC SCHMIDT Unavailable PROBLEMS Type Condition ICD9-CM Code [id number] Code Onset Dates Condition Status SNOMED Code Problem Migraine headache G43.909 Active [id number] ALLERGIES No Information SOCIAL HISTORY Never Assessed PLAN OF CARE VITAL SIGNS MEDICATIONS Medication Instructions Dosage Frequency Start Date End Date Duration Status Melatonin 5 MG Orally Once a day 1 tablet at bedtime as needed with food 24h Active Aspir-81 81 MG Orally Once a day 1 tablet 24h Active Metoprolol Succinate ER 50 MG Orally Once a day 1 tablet 24h Active RESULTS No Results PROCEDURES No Known procedures IMMUNIZATIONS No Known Immunizations MEDICAL (GENERAL) HISTORY Type Description Date Medical History migraine headaches Medical History back pain Surgical History hysterectomy Surgical History rotator cuff tear repair - left shoulder x 1, right shoulder x 2 Surgical History tennis elbow repair 2014 Hospitalization History Chest pain-[facility] 08/05/16
--- OUTSIDE RECORDS SUMMARY | 2017-07-11 16:51 | XMS REPORT | Continuity of Care Document ---
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 FEU measurement in platelet poor plasma (mass/volume) - 06:55 Fibrin D-dimer FEU measurement in platelet poor plasma (mass/volume) 0.61 ug/mL 0.00-0.49 Complete blood count (CBC) with automated white blood cell (WBC) differential - 02/15/16 18:25 Blood leukocytes automated count (number/volume) 6.1 10*3/uL 4.3-11.0 Blood erythrocytes automated count (number/volume) 3.71 10*6/uL 4.35-5.85 Venous blood hemoglobin measurement (mass/volume) 11.5 g/dL 11.5-16.0 Blood hematocrit (volume fraction) 35 % 35-52 Automated erythrocyte mean corpuscular volume 93 [foz_us] 80-99 Automated erythrocyte mean corpuscular hemoglobin (mass per erythrocyte) 31 pg 25-34 Automated erythrocyte mean corpuscular hemoglobin concentration measurement ( mass/volume) 33 g/dL 32-36 Automated erythrocyte distribution width ratio 12.9 % 10.0-14.5 Automated blood platelet count (count/volume) 186 10*3/uL 130-400 Automated blood platelet mean volume measurement 9.6 [foz_us] 7.4-10.4 Automated blood neutrophils/100 leukocytes 60 % 42-75 Automated blood lymphocytes/100 leukocytes 28 % 12-44 Blood monocytes/100 leukocytes 7 % 0-12 Automated blood eosinophils/100 leukocytes 4 % 0-10 Automated blood basophils/100 leukocytes 0 % 0-10 Blood neutrophils automated count (number/volume) 3.7 10*3 1.8-7.8 Blood lymphocytes automated count (number/volume) 1.7 10*3 1.0-4.0 Blood monocytes automated count (number/volume) 0.5 10*3 0.0-1.0 Automated eosinophil count 0.2 10*3/uL 0.0-0.3 Automated blood basophil count (count/volume) 0.0 10*3/uL 0.0-0.1 PT panel in platelet poor plasma by coagulation assay - 02/15/16 18:25 Prothrombin time (PT) in platelet poor plasma by coagulation assay 11.6 s 12.2-14.7 INR in platelet poor plasma or blood by coagulation assay 0.9 0.8-1.4 Activated partial thromboplastin time (aPTT) in platelet poor plasma bycoagulation assay - 02/15/16 18:25 Activated partial thromboplastin time (aPTT) in platelet poor plasma bycoagulation assay 26 s 24-35 Comprehensive metabolic panel - 02/15/16 18:25 Serum or plasma sodium measurement (moles/volume) 142 mmol/L 135-145 Serum or plasma potassium measurement (moles/volume) 4.0 mmol/L 3.6-5.0 Serum or plasma chloride measurement (moles/volume) 107 mmol/L 98-107 Carbon dioxide 24 mmol/L 21-32 Serum or plasma anion gap determination (moles/volume) 11 mmol/L 5-14 Serum or plasma urea nitrogen measurement (mass/volume) 16 mg/dL 7-18 Serum or plasma creatinine measurement (mass/volume) 1.04 mg/dL 0.60-1.30 Serum or plasma urea nitrogen/creatinine mass ratio 15 NRG Serum or plasma creatinine measurement with calculation of estimated glomerular filtration rate 55 NRG Serum or plasma glucose measurement (mass/volume) 133 mg/dL 70-105 Serum or plasma calcium measurement (mass/volume) 8.9 mg/dL 8.5-10.1 Serum or plasma total bilirubin measurement (mass/volume) 0.4 mg/dL 0.1-1.0 Serum or plasma alkaline phosphatase measurement (enzymatic activity/volume) 81 U/L 40-136 Serum or plasma aspartate aminotransferase measurement (enzymatic activity/ volume) 27 U/L 5-34 Serum or plasma alanine aminotransferase measurement (enzymatic activity/volume ) 40 U/L 0-55 Serum or plasma protein measurement (mass/volume) 6.4 g/dL 6.4-8.2 Serum or plasma albumin measurement (mass/volume) 4.2 g/dL 3.2-4.5 Serum or plasma creatine kinase measurement (enzymatic activity/volume) - 02/14 18:25 Serum or plasma creatine kinase measurement (enzymatic activity/volume) 113 U/L 29-168 Serum or plasma creatine kinase MB measurement (enzymatic activity/volume) - 18:25 Serum or plasma creatine kinase MB measurement (enzymatic activity/volume) 1.6 ng/mL <6.6 Serum or plasma troponin i.cardiac measurement (mass/volume) - 02/15/16 18:25 Serum or plasma troponin i.cardiac measurement (mass/volume) < ng/ mL <0.30 Serum or plasma lithium measurement (moles/volume) - 02/15/16 18:25 BNP level 19.8 pg/mL <100.0 Serum or plasma amylase measurement (enzymatic activity/volume) - 02/15/16 18: 25 Serum or plasma amylase measurement (enzymatic activity/volume) 108 U/L 25-125 Lipase - 02/15/16 18:25 Lipase 91 U/L 8-78 Comprehensive metabolic panel - 02/16/16 04:10 Serum or plasma sodium measurement (moles/volume) 141 mmol/L 135-145 Serum or plasma potassium measurement (moles/volume) 3.9 mmol/L 3.6-5.0 Serum or plasma chloride measurement (moles/volume) 107 mmol/L 98-107 Carbon dioxide 22 mmol/L 21-32 Serum or plasma anion gap determination (moles/volume) 12 mmol/L 5-14 Serum or plasma urea nitrogen measurement (mass/volume) 15 mg/dL 7-18 Serum or plasma creatinine measurement (mass/volume) 0.82 mg/dL 0.60-1.30 Serum or plasma urea nitrogen/creatinine mass ratio 18 NRG Serum or plasma creatinine measurement with calculation of estimated glomerular filtration rate > NRG Serum or plasma glucose measurement (mass/volume) 96 mg/dL 70-105 Serum or plasma calcium measurement (mass/volume) 8.3 mg/dL 8.5-10.1 Serum or plasma total bilirubin measurement (mass/volume) 0.4 mg/dL 0.1-1.0 Serum or plasma alkaline phosphatase measurement (enzymatic activity/volume) 75 U/L 40-136 Serum or plasma aspartate aminotransferase measurement (enzymatic activity/ volume) 23 U/L 5-34 Serum or plasma alanine aminotransferase measurement (enzymatic activity/volume ) 36 U/L 0-55 Serum or plasma protein measurement (mass/volume) 5.9 g/dL 6.4-8.2 Serum or plasma albumin measurement (mass/volume) 3.8 g/dL 3.2-4.5 Serum or plasma phosphate measurement (mass/volume) - 02/16/16 04:10 Serum or plasma phosphate measurement (mass/volume) 4.3 mg/dL 2.3-4.7 Magnesium - 02/16/16 04:10 Magnesium 2.1 mg/dL 1.8-2.4 Complete blood count (CBC) with automated white blood cell (WBC) differential - 02/16/16 04:16 Blood leukocytes automated count (number/volume) 5.6 10*3/uL 4.3-11.0 Blood erythrocytes automated count (number/volume) 3.59 10*6/uL 4.35-5.85 Venous blood hemoglobin measurement (mass/volume) 11.1 g/dL 11.5-16.0 Blood hematocrit (volume fraction) 34 % 35-52 Automated erythrocyte mean corpuscular volume 94 [foz_us] 80-99 Automated erythrocyte mean corpuscular hemoglobin (mass per erythrocyte) 31 pg 25-34 Automated erythrocyte mean corpuscular hemoglobin concentration measurement ( mass/volume) 33 g/dL 32-36 Automated erythrocyte distribution width ratio 13.1 % 10.0-14.5 Automated blood platelet count (count/volume) 178 10*3/uL 130-400 Automated blood platelet mean volume measurement 9.9 [foz_us] 7.4-10.4 Automated blood neutrophils/100 leukocytes 62 % 42-75 Automated blood lymphocytes/100 leukocytes 28 % 12-44 Blood monocytes/100 leukocytes 7 % 0-12 Automated blood eosinophils/100 leukocytes 3 % 0-10 Automated blood basophils/100 leukocytes 0 % 0-10 Blood neutrophils automated count (number/volume) 3.5 10*3 1.8-7.8 Blood lymphocytes automated count (number/volume) 1.5 10*3 1.0-4.0 Blood monocytes automated count (number/volume) 0.4 10*3 0.0-1.0 Automated eosinophil count 0.2 10*3/uL 0.0-0.3 Automated blood basophil count (count/volume) 0.0 10*3/uL 0.0-0.1 Complete blood count (CBC) with automated white blood cell (WBC) differential - 05/20/16 15:38 Blood leukocytes automated count (number/volume) 4.0 10*3/uL 4.3-11.0 Blood erythrocytes automated count (number/volume) 4.18 10*6/uL 4.35-5.85 Venous blood hemoglobin measurement (mass/volume) 12.7 g/dL 11.5-16.0 Blood hematocrit (volume fraction) 38 % 35-52 Automated erythrocyte mean corpuscular volume 90 [foz_us] 80-99 Automated erythrocyte mean corpuscular hemoglobin (mass per erythrocyte) 30 pg 25-34 Automated erythrocyte mean corpuscular hemoglobin concentration measurement ( mass/volume) 34 g/dL 32-36 Automated erythrocyte distribution width ratio 13.2 % 10.0-14.5 Automated blood platelet count (count/volume) 232 10*3/uL 130-400 Automated blood platelet mean volume measurement 9.2 [foz_us] 7.4-10.4 Automated blood neutrophils/100 leukocytes 51 % 42-75 Automated blood lymphocytes/100 leukocytes 38 % 12-44 Blood monocytes/100 leukocytes 8 % 0-12 Automated blood eosinophils/100 leukocytes 3 % 0-10 Automated blood basophils/100 leukocytes 0 % 0-10 Blood neutrophils automated count (number/volume) 2.1 10*3 1.8-7.8 Blood lymphocytes automated count (number/volume) 1.6 10*3 1.0-4.0 Blood monocytes automated count (number/volume) 0.3 10*3 0.0-1.0 Automated eosinophil count 0.1 10*3/uL 0.0-0.3 Automated blood basophil count (count/volume) 0.0 10*3/uL 0.0-0.1 Comprehensive metabolic panel - 05/20/16 15:38 Serum or plasma sodium measurement (moles/volume) 140 mmol/L 135-145 Serum or plasma potassium measurement (moles/volume) 3.9 mmol/L 3.6-5.0 Serum or plasma chloride measurement (moles/volume) 109 mmol/L 98-107 Carbon dioxide 24 mmol/L 21-32 Serum or plasma anion gap determination (moles/volume) 7 mmol/L 5-14 Serum or plasma urea nitrogen measurement (mass/volume) 14 mg/dL 7-18 Serum or plasma creatinine measurement (mass/volume) 0.73 mg/dL 0.60-1.30 Serum or plasma urea nitrogen/creatinine mass ratio 19 NRG Serum or plasma creatinine measurement with calculation of estimated glomerular filtration rate > NRG Serum or plasma glucose measurement (mass/volume) 122 mg/dL 70-105 Serum or plasma calcium measurement (mass/volume) 8.8 mg/dL 8.5-10.1 Serum or plasma total bilirubin measurement (mass/volume) 0.3 mg/dL 0.1-1.0 Serum or plasma alkaline phosphatase measurement (enzymatic activity/volume) 75 U/L 40-136 Serum or plasma aspartate aminotransferase measurement (enzymatic activity/ volume) 31 U/L 5-34 Serum or plasma alanine aminotransferase measurement (enzymatic activity/volume ) 42 U/L 0-55 Serum or plasma protein measurement (mass/volume) 6.6 g/dL 6.4-8.2 Serum or plasma albumin measurement (mass/volume) 4.2 g/dL 3.2-4.5 Complete blood count (CBC) with automated white blood cell (WBC) differential - 08/05/16 20:16 Blood leukocytes automated count (number/volume) 5.0 10*3/uL 4.3-11.0 Blood erythrocytes automated count (number/volume) 3.80 10*6/uL 4.35-5.85 Venous blood hemoglobin measurement (mass/volume) 11.7 g/dL 11.5-16.0 Blood hematocrit (volume fraction) 35 % 35-52 Automated erythrocyte mean corpuscular volume 92 [foz_us] 80-99 Automated erythrocyte mean corpuscular hemoglobin (mass per erythrocyte) 31 pg 25-34 Automated erythrocyte mean corpuscular hemoglobin concentration measurement ( mass/volume) 34 g/dL 32-36 Automated erythrocyte distribution width ratio 13.6 % 10.0-14.5 Automated blood platelet count (count/volume) 214 10*3/uL 130-400 Automated blood platelet mean volume measurement 9.4 [foz_us] 7.4-10.4 Automated blood neutrophils/100 leukocytes 48 % 42-75 Automated blood lymphocytes/100 leukocytes 40 % 12-44 Blood monocytes/100 leukocytes 9 % 0-12 Automated blood eosinophils/100 leukocytes 3 % 0-10 Automated blood basophils/100 leukocytes 0 % 0-10 Blood neutrophils automated count (number/volume) 2.4 10*3 1.8-7.8 Blood lymphocytes automated count (number/volume) 2.0 10*3 1.0-4.0 Blood monocytes automated count (number/volume) 0.4 10*3 0.0-1.0 Automated eosinophil count 0.2 10*3/uL 0.0-0.3 Automated blood basophil count (count/volume) 0.0 10*3/uL 0.0-0.1 PT panel in platelet poor plasma by coagulation assay - 08/05/16 20:16 Prothrombin time (PT) in platelet poor plasma by coagulation assay 11.9 s 12.2-14.7 INR in platelet poor plasma or blood by coagulation assay 0.9 0.8-1.4 Activated partial thromboplastin time (aPTT) in platelet poor plasma bycoagulation assay - 08/05/16 20:16 Activated partial thromboplastin time (aPTT) in platelet poor plasma bycoagulation assay 27 s 24-35 Comprehensive metabolic panel - 08/05/16 20:16 Serum or plasma sodium measurement (moles/volume) 142 mmol/L 135-145 Serum or plasma potassium measurement (moles/volume) 3.5 mmol/L 3.6-5.0 Serum or plasma chloride measurement (moles/volume) 108 mmol/L 98-107 Carbon dioxide 23 mmol/L 21-32 Serum or plasma anion gap determination (moles/volume) 11 mmol/L 5-14 Serum or plasma urea nitrogen measurement (mass/volume) 16 mg/dL 7-18 Serum or plasma creatinine measurement (mass/volume) 0.78 mg/dL 0.60-1.30 Serum or plasma urea nitrogen/creatinine mass ratio 21 NRG Serum or plasma creatinine measurement with calculation of estimated glomerular filtration rate > NRG Serum or plasma glucose measurement (mass/volume) 140 mg/dL 70-105 Serum or plasma calcium measurement (mass/volume) 9.0 mg/dL 8.5-10.1 Serum or plasma total bilirubin measurement (mass/volume) 0.4 mg/dL 0.1-1.0 Serum or plasma alkaline phosphatase measurement (enzymatic activity/volume) 71 U/L 40-136 Serum or plasma aspartate aminotransferase measurement (enzymatic activity/ volume) 34 U/L 5-34 Serum or plasma alanine aminotransferase measurement (enzymatic activity/volume ) 45 U/L 0-55 Serum or plasma protein measurement (mass/volume) 6.6 g/dL 6.4-8.2 Serum or plasma albumin measurement (mass/volume) 4.2 g/dL 3.2-4.5 Magnesium - 08/05/16 20:16 Magnesium 2.1 mg/dL 1.8-2.4 Serum or plasma troponin i.cardiac measurement (mass/volume) - 08/05/16 20:16 Serum or plasma troponin i.cardiac measurement (mass/volume) < ng/ mL <0.30 Myoglobin, serum - 08/05/16 20:16 Myoglobin, serum 44.7 ng/mL 10.0-92.0 Serum or plasma amylase measurement (enzymatic activity/volume) - 08/05/16 20: 16 Serum or plasma amylase measurement (enzymatic activity/volume) 76 U /L 25-125 Lipase - 08/05/16 20:16 Lipase 82 U/L 8-78 Serum or plasma lithium measurement (moles/volume) - 08/05/16 20:16 BNP level 27.7 pg/mL <100.0 Serum or plasma troponin i.cardiac measurement (mass/volume) - 08/06/16 01:56 Serum or plasma troponin i.cardiac measurement (mass/volume) < ng/ mL <0.30 Complete blood count (CBC) with automated white blood cell (WBC) differential - 08/06/16 04:44 Blood leukocytes automated count (number/volume) 3.9 10*3/uL 4.3-11.0 Blood erythrocytes automated count (number/volume) 3.90 10*6/uL 4.35-5.85 Venous blood hemoglobin measurement (mass/volume) 11.8 g/dL 11.5-16.0 Blood hematocrit (volume fraction) 36 % 35-52 Automated erythrocyte mean corpuscular volume 92 [foz_us] 80-99 Automated erythrocyte mean corpuscular hemoglobin (mass per erythrocyte) 30 pg 25-34 Automated erythrocyte mean corpuscular hemoglobin concentration measurement ( mass/volume) 33 g/dL 32-36 Automated erythrocyte distribution width ratio 13.5 % 10.0-14.5 Automated blood platelet count (count/volume) 201 10*3/uL 130-400 Automated blood platelet mean volume measurement 9.8 [foz_us] 7.4-10.4 Automated blood neutrophils/100 leukocytes 43 % 42-75 Automated blood lymphocytes/100 leukocytes 44 % 12-44 Blood monocytes/100 leukocytes 9 % 0-12 Automated blood eosinophils/100 leukocytes 4 % 0-10 Automated blood basophils/100 leukocytes 0 % 0-10 Blood neutrophils automated count (number/volume) 1.7 10*3 1.8-7.8 Blood lymphocytes automated count (number/volume) 1.7 10*3 1.0-4.0 Blood monocytes automated count (number/volume) 0.4 10*3 0.0-1.0 Automated eosinophil count 0.1 10*3/uL 0.0-0.3 Automated blood basophil count (count/volume) 0.0 10*3/uL 0.0-0.1 Lipid 1996 panel - 08/06/16 04:44 Serum or plasma triglyceride measurement (mass/volume) 137 mg/dL <150 Serum or plasma cholesterol measurement (mass/volume) 156 mg/dL < 200 Serum or plasma cholesterol in HDL measurement (mass/volume) 32 mg/ dL 40-60 Cholesterol in LDL [mass/volume] in serum or plasma by direct assay 106 mg/dL 1-129 Serum or plasma cholesterol in VLDL measurement (mass/volume) 27 mg/ dL 5-40 Comprehensive metabolic panel - 08/06/16 04:44 Serum or plasma sodium measurement (moles/volume) 143 mmol/L 135-145 Serum or plasma potassium measurement (moles/volume) 4.0 mmol/L 3.6-5.0 Serum or plasma chloride measurement (moles/volume) 110 mmol/L 98-107 Carbon dioxide 24 mmol/L 21-32 Serum or plasma anion gap determination (moles/volume) 9 mmol/L 5-14 Serum or plasma urea nitrogen measurement (mass/volume) 13 mg/dL 7-18 Serum or plasma creatinine measurement (mass/volume) 0.73 mg/dL 0.60-1.30 Serum or plasma urea nitrogen/creatinine mass ratio 18 NRG Serum or plasma creatinine measurement with calculation of estimated glomerular filtration rate > NRG Serum or plasma glucose measurement (mass/volume) 96 mg/dL 70-105 Serum or plasma calcium measurement (mass/volume) 8.7 mg/dL 8.5-10.1 Serum or plasma total bilirubin measurement (mass/volume) 0.4 mg/dL 0.1-1.0 Serum or plasma alkaline phosphatase measurement (enzymatic activity/volume) 64 U/L 40-136 Serum or plasma aspartate aminotransferase measurement (enzymatic activity/ volume) 31 U/L 5-34 Serum or plasma alanine aminotransferase measurement (enzymatic activity/volume ) 43 U/L 0-55 Serum or plasma protein measurement (mass/volume) 6.0 g/dL 6.4-8.2 Serum or plasma albumin measurement (mass/volume) 3.9 g/dL 3.2-4.5 Encounters ACCT No. Visit Date/Time Discharge Status Pt. 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 [id number] 01/31/2017 18:02:00 01/31/2017 20:15:00 DIS Emergency 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 [id number] 11/29/2016 07:22:00 11/29/2016 23:59:59 CLS Preadmit CITLALI COLLAZO MD [facility] SLEEP OBSTRUCTIVE SLEEP APNEA [id number] 11/21/2016 14:02:00 11/21/2016 15:11:00 DIS Emergency 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 [id number] 10/11/2016 17:34:00 10/11/2016 18:29:00 DIS Emergency TEJA VELASQUEZ [facility] ER MIGRAINE [id number] 08/15/2016 07:29:00 08/15/2016 23:59:59 CLS Outpatient CITLALI COLLAZO MD [facility] CARD CHEST PAIN SYNDROME R07.1 [id number] 08/05/2016 22:50:00 08/06/2016 13:49:00 DIS Inpatient ROXANA CHASE, JAC Vilchis [facility] ICU CHEST PAIN [id number] 08/02/2016 12:53:00 08/02/2016 13:38:00 DIS Emergency 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 [id number] 06/07/2016 14:02:00 06/07/2016 15:13:00 DIS Emergency 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 [id number] 05/20/2016 14:54:00 05/20/2016 16:44:00 DIS Emergency CHESTER CHASE, MARLENE Silva [facility] ER DIZZY/NAUSEA UPPER BACK PAIN [id number] 03/07/2016 21:01:00 03/07/2016 22:11:00 DIS Emergency 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 [id number] 02/15/2016 19:50:00 02/17/2016 13:31:00 DIS Inpatient ROXANA CHASE, JAC Vilchis [facility] 4TH L PNEUMOTHORAX; S/P PACEMAKER PLACEMENT [id number] 02/15/2016 06:40:00 02/15/2016 09:34:00 DIS Emergency CHRISTIANO CHASE, MERON Covarrubias [facility] ER SOA [id number] 02/10/2016 12:08:00 02/11/2016 10:03:00 DIS Inpatient CITLALI COLLAZO MD [facility] ICU SYMPTOMATIC BRADYCARDIA SICK SINUS SYNDROME CP [id number] 01/04/2016 21:37:00 01/04/2016 22:34:00 DIS Emergency 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 [id number] 01/30/2015 14:30:00 02/12/2015 15:39:00 DIS Outpatient MARILU ENGLAND MD [facility] REHAB S/P R LATERAL EPICONDYLE DEBRIDEMENT [id number] 01/06/2015 16:04:00 01/07/2015 00:01:00 DIS Outpatient MARILU ENGLAND MD [facility] REHAB S/P R LATERAL EPICONDYLE DEBRIDEMENT [id number] 10/01/2014 05:55:00 10/01/2014 10:25:00 DIS Outpatient MARILU ENGLAND MD [facility] RIGHT LATERAL EPINCONDYLITIS [id number] 09/26/2014 15:46:00 09/26/2014 23:59:59 CLS Outpatient MARILU ENGLAND MD [facility] PREOP RIGHT LATERAL EPINCONDYLITIS [id number] 09/09/2014 16:14:00 09/11/2014 14:09:00 DIS Outpatient FABRICE MELTON MD [facility] REHAB CERVICALGIA [id number] 07/28/2014 15:35:00 07/28/2014 23:59:59 CLS Outpatient FABRICE MELTON MD [facility] RAD NECK PAIN [id number] 04/28/2014 13:07:00 04/28/2014 23:59:59 CLS Outpatient JOHANN CARPENTER APRN [facility] RAD PAIN IN THORACIC SPINE [id number] 12/06/2012 18:18:00 12/06/2012 23:59:59 CLS Outpatient [id number] 11/01/2012 17:07:00 11/01/2012 23:59:59 CLS Outpatient [id number] 09/22/2012 14:24:00 09/22/2012 23:59:59 CLS Outpatient [id number] 08/24/2012 15:18:00 08/24/2012 17:38:00 DIS Emergency MARLENE BRIGGS MD [facility] ER SOA, INHALED CHEMICAL FUMES [id number] 12/20/2011 06:35:00 Document Registration [id number] 09/29/2011 08:55:00 Document Registration [id number] 07/01/2011 17:36:00 Document Registration [id number] 01/17/2011 11:52:00 Document Registration [id number] 11/17/2010 06:46:00 Document Registration [id number] 09/23/2010 11:09:00 Document Registration
--- NOTE | 2017-07-11 17:15 | ED Headache ---
General Chief Complaint: Head/Cervical Problems Stated Complaint: MIGRAINE Nursing Triage Note: pt presents to ed room 6 with migraine since yesterday. Pt reports she has not gotten relief from advil. Pt reports nausea but no vomiting. Nursing Sepsis Screen: No Definite Risk Source: patient Exam Limitations: no limitations History of Present Illness Date Seen by Provider: Jul 11, 2017 Time Seen by Provider: 17:14 Initial Comments 57 yo female patient presents to the ED with c/o a migraine since yesterday. patient reports a lengthy h/o migraine headaches. patient denies improvement in the headache with advil this AM. States this headache feels similar to her usual migraines. Timing/Duration: 24 hours, waxing and waning Severity/Quality: throbbing Location: frontal Prior Headaches/Recent Trauma: occasional headaches Modifying Factors: worse with exposure to light, worse with medication, worse with other (worse with sound.) Allergies and Home Medications Allergies Coded Allergies: hydrocodone (Unverified Allergy, Unknown, 09/29/14) Penicillins (Unverified Adverse Reaction, Mild, VOMITING, 09/29/14) Patient Home Medication List Home Medication List Reviewed: Yes Constitutional: No chills, No diaphoresis, No dizziness, No fever, No malaise Eyes: Denies Blurred Vision, Denies Drainage, Denies Decreased Acuity, Denies Pain, Photophobia Ears, Nose, Mouth, Throat: no symptoms reported Respiratory: no symptoms reported Cardiovascular: no symptoms reported Gastrointestinal: No abdominal pain, No constipation, No diarrhea, loss of appetite, No melena, nausea, No vomiting Genitourinary: no symptoms reported Musculoskeletal: No back pain, No neck pain Skin: no symptoms reported Psychiatric/Neurological: Headache, Denies Numbness, Denies Paresthesia, Denies Seizure, Denies Tingling, Denies Weakness All Other Systems Reviewed Negative Unless Noted: Yes (Negative excepted noted.) Past Uqpokyu-Iuumrv-Xiiohd Hx Patient Social History Alcohol Use: Denies Use Recreational Drug Use: No Smoking Status: Former Smoker Type Used: Cigarettes Former Smoker, Quit: May 24, 2012 2nd Hand Smoke Exposure: Yes Recent Foreign Travel: No Contact w/Someone Who Travel: No Recent Infectious Disease Expo: No Recent Hopitalizations: No Physical Abuse: No Sexual Abuse: No Mistreated: No Fear: No Immunizations Up To Date Tetanus Booster (TDap): Unknown PED Vaccines UTD: No Seasonal Allergies Seasonal Allergies: Yes Surgeries History of Surgeries: Yes Surgeries: Appendectomy, Hysterectomy, Oophorectomy, Orthopedic, Pacemaker Respiratory History of Respiratory Disorde: No Currently Using CPAP: No Currently Using BIPAP: No Cardiovascular History of Cardiac Disorders: Yes (pacemaker, HYPOTENSION) Cardiac Disorders: Irregular Heartbeat, Syncope Neurological History of Neurological Disord: Yes Neurological Disorders: Headaches /Migraines Reproductive System Hx Reproductive Disorders: Yes Female Reproductive Disorders: Ovarian Cyst [employer] History: Hysterectomy Genitourinary History of Genitourinary Disor: No Gastrointestinal History of Gastrointestinal Di: No Musculoskeletal History of Musculoskeletal Dis: No Endocrine History of Endocrine Disorders: No HEENT History of HEENT Disorders: No Cancer History of Cancer: No Psychosocial History of Psychiatric Problem: No Suicide Risk Score: 0 Integumentary History of Skin or Integumenta: No Blood Transfusions History of Blood Disorders: Yes (HX OF ANEMIA) Adverse Reaction to a Blood Tr: No Reviewed Nursing Assessment Reviewed/Agree w Nursing PMH: Yes Family Medical History Significant Family History: No Pertinent Family Hx Family Medial History: Arthritis G8 SISTER Diabetes mellitus 19 MOTHER G8 SISTER Fibromyalgia G8 SISTER Heart murmur 19 MOTHER G8 SISTER Kidney disease 19 MOTHER Myelodysplasia of spinal cord 19 MOTHER, Onset:60 years & older Myocardial infarction G8 BROTHER, Onset:32 ( of [place] at 32) Physical Exam Vital Signs Vital Signs - First Documented 07/11/17 16:59 Temp 96.8 Pulse 66 Resp 18 B/P (MAP) 147/83 (104) Pulse Ox 96 Capillary Refill : Less Than 3 Seconds General Appearance: WD/WN, no apparent distress HEENT: PERRL/EOMI, normal ENT inspection, TMs normal, pharynx normal Neck: non-tender, full range of motion, supple, normal inspection Cardiovascular: normal peripheral pulses, regular rate, rhythm, no edema, no murmur Respiratory: lungs clear, normal breath sounds, no respiratory distress, no accessory muscle use Gastrointestinal: normal bowel sounds, non tender, soft Back: normal inspection Extremities: no pedal edema, normal capillary refill Psychiatric: alert, oriented x 3 Crainal Nerves: normal hearing, normal speech, PERRL Coordination/Gait: normal gait, negative Romberg's sign Motor/Sensory: no motor deficit, no sensory deficit Skin: normal color, warm/dry Progress/Results/Core Measures Results/Orders My Orders Orders - TEJA THOMPSON Ketorolac Injection (Toradol Injection) (07/11/17 17:23) Orphenadrine Injection (Norflex Injectio (07/11/17 17:23) Saline Lock/Iv-Start (07/11/17 17:23) Ondansetron Injection (Zofran Injectio (07/11/17 17:30) Ns Iv 1000 Ml (Sodium Chloride 0.9%) (07/11/17 17:23) Diphenhydramine Injection (Benadryl Inje (07/11/17 17:23) Medications Given in ED Current Medications Medications Dose Ordered Sig/Ni Route Start Time Stop Time Status Last Admin Dose Admin Ondansetron HCl 8 mg ONCE ONCE IVP 07/11/17 17:30 07/11/17 17:31 DC 07/11/17 17:31 8 MG Sodium Chloride 1,000 ml @ 0 mls/hr Q0M ONCE IV 07/11/17 17:23 07/11/17 17:25 DC 07/11/17 17:31 0 MLS/HR Vital Signs/I&O Vital Sign - Last 12Hours 07/11/17 07/11/17 16:59 18:43 Temp 96.8 Pulse 66 81 Resp 18 20 B/P (MAP) 147/83 (104) 140/78 Pulse Ox 96 98 Blood Pressure Mean: 104 Departure Communication (Admissions) Progress Notes patient reports resolution of symptoms with IVF, toradol, norflex, benadryl and zofran. plan for dsch to home. Impression Impression: Primary Impression: Migraine Qualified Codes: G43.009 - Migraine without aura, not intractable, without status migrainosus Disposition: HOME, SELF-CARE Condition: Improved Departure-Patient Inst. Decision time for Depature: 18:39 Ref[facility]: [facility] [place] Primary Care Physician Patient Instructions: Migraine Headache (DC) Add. Discharge Instructions: All discharge instructions reviewed with patient and/or family. Voiced understanding. Continue usual home medications. Tylenol Extra Strength over- the-counter as directed for pain. Ibuprofen 800 mg by mouth every 8 hours as needed for pain. Drink plenty of fluids. Rest. Avoid bright lights and loud noises. Follow-up with your family practitioner for recheck in outpatient if needed. Return to the emergency department for worsened symptoms or any other concerns. Work/School Note: Work Release Form Date Seen in the Emergency Department: Jul 11, 2017 Return to Work: Jul 13, 2017 TEJA THOMPSON Jul 11, 2017 17:15
[2017-07-11] MEDS ORDERED: NS IV 1000 ML 1,000 ML IV ONE (17:23)
[2017-07-11] MEDS ORDERED: KETOROLAC 30 MG/ML VIAL IVP STA (17:23)
[2017-07-11] MEDS ORDERED: ORPHENADRINE 60 MG/2 ML (NORFLEX) AMP IV STA (17:23)
[2017-07-11] MEDS ORDERED: diphenhydrAMINE 50 MG/ML INJ (BENADRYL) IV STA (17:23)
[2017-07-11] MEDS ORDERED: ONDANSETRON 4 MG/2 ML (SDV) Z0FRAN IVP ONE (17:30)
[2017-07-11 18:43] VITALS: BP 140/78
== END 2017-07-11 18:43 | disposition home or self-care (01) ==
LOC: EDUNIT# 16:42 → ER 16:43
DX: G43.909 Migraine, unspecified, not intractable, without status migrainosus (principal); Z87.448 Personal history of other diseases of urinary system; Z88.5 Allergy status to narcotic agent; Z88.0 Allergy status to penicillin; Z82.49 Family history of ischemic heart disease and other diseases of the circulatory system; Z87.891 Personal history of nicotine dependence; Z90.710 Acquired absence of both cervix and uterus; Z90.49 Acquired absence of other specified parts of digestive tract; Z95.0 Presence of cardiac pacemaker
CPT/HCPCS: 96361; 96374; 96375

== ENCOUNTER 2017-12-19 14:27 | Emergency (ER) | payer BC ==
[~2017-12-19] VITALS: Ht 170.2 cm; Wt 93.0 kg
[~2017-12-19 14:27] MED LIST changes: -OXYC-197 PO; +OXYC1TAB87 PO
--- OUTSIDE RECORDS SUMMARY | 2017-12-19 14:32 | XMS REPORT ---
Author Author MEGHAN PEREZ Organization [facility] Address [address] [place] [address] Care Team Providers Care Sheepskin Pickler Name Role Phone MEGHAN PEREZ Unavailable PROBLEMS Type Condition ICD9-CM Code [id number] Code Onset Dates Condition Status SNOMED Code Problem Migraine headache G43.909 Active [id number] ALLERGIES Substance Reaction Event Type Date Status Chocolate Unknown Non Drug Allergy Oct, Active Penicillins Unknown Non Drug Allergy Oct, Active Hydrocodone Unknown Non Drug Allergy Oct, Active ENCOUNTERS Encounter Location Date Diagnosis [facility] [id number] [place] [phone] Oct, Injury of left foot, initial encounter S99.922A [facility] [id number] [place] [id number] August, [facility] [id number] [place] [phone] Feb, [facility] [id number] [place] [address] Mar, [facility] [id number] [place] [address] Mar, Dermatofibroma of abdominal wall D23.5 [facility] [id number] [place] [address] Jan, [facility] [id number] [place] [address] Jan, Migraine headache G43.909 and Inflamed skin tag L91.8 [facility] [id number] [place] [address]- [address] August, [facility] [address] [id number] [place] [address] August, Elbow pain, right 719.42 [facility] [place] [facility] [address] [id number] [place] [address] Jul, [facility] [place] [facility] [address] [id number] [place] [address] Jul, [facility] [place] [facility] [address] [id number] [place] [address] Jun, [facility] [place] [facility] [address] [id number] [place] [address] Jun, [facility] [place] [facility] [address] [id number] [place] [address] Jun, [facility] [place] [facility] [address] [id number] [place] [address] Jun, [facility] [address] [id number] [place] [address] May, [facility] [place] [facility] [address] [id number] [place] [address] May, [facility] [address] [id number] [place] [address] Apr, [facility] [place] [facility] [address] [id number] [place] [address] Apr, [facility] [place] [facility] [address] [id number] [place] [address] Apr, [facility] [place] [facility] [address] [id number] [place] [address] Apr, [facility] [place] [facility] [address] [id number] [place] [address] Apr, [facility] [place] [facility] [address] [id number] [place] [address] Apr, [facility] [place] [facility] [address] [address] Apr, [facility] [address] [address] Apr, [facility] [address] [address] Apr, [facility] [address] [address] Mar, [facility] [address] [address] Mar, [facility] [id number] [place] [address] Mar, [facility] [id number] [place] [address]- [address] Mar, [facility] [id number] [place] [address]- [address] Mar, [facility] [address] [address] Mar, [facility] [address] [address] Mar, [facility] [address] [address] Mar, [facility] [address] [address] Mar, IMMUNIZATIONS No Known Immunizations SOCIAL HISTORY Never Assessed REASON FOR VISIT hurt foot; knot on top of left foot with bruising - KAILEE Gleason PLAN OF CARE Activity Details Follow Up w/ PCP pending xray results Reason:left foot injury VITAL SIGNS Height 67 in 2017-10-20 Weight 227 lbs 2017-10-20 Temperature 98.1 degrees Fahrenheit 2017-10-20 Heart Rate 62 bpm 2017-10-20 Respiratory Rate 16 2017-10-20 BMI 35.55 kg/m2 2017-10-20 Blood pressure systolic 112 mmHg 2017-10-20 Blood pressure diastolic 78 mmHg 2017-10-20 MEDICATIONS Medication Instructions Dosage Frequency Start Date End Date Duration Status Advil 200 MG Orally every 6 hrs 1 tablet as needed 6h Active RESULTS Name Result Date Reference Range Xray : Foot, Left 3 views (IN HOUSE) 2017-10-20 PROCEDURES Procedure Date Ordered Result Body Site X-RAY EXAM OF FOOT October 20, 2017 INSTRUCTIONS MEDICATIONS ADMINISTERED No Known Medications MEDICAL (GENERAL) HISTORY Type Description Date Medical History migraine headaches Medical History back pain Medical History arrhythmia Surgical History hysterectomy Surgical History rotator cuff tear repair - left shoulder x 1, right shoulder x 2 Surgical History tennis elbow repair 2015 Surgical History pacemaker placed 2016 Hospitalization History [facility] 08/05/16
--- OUTSIDE RECORDS SUMMARY | 2017-12-19 14:36 | XMS REPORT | Continuity of Care Document ---
Author Author [facility] Address Unknown Phone Unavailable Allergies Active Description Code Type Severity Reaction Onset Reported/Identified Relationship to Patient Clinical Status Yes hydrocodone Drug Allergy N/A N/A 03/27/2014 Yes Penicillins Drug Allergy N/A N/A 03/27/2014 Yes hydrocodone [id number] Drug Allergy Unknown N/A 09/29/2014 Yes Penicillins [id number] Drug Allergy Mild VOMITING 09/29/2014 Medications There [...] MD Ot 519.11 ACUTE BRONCHOSPASM 08/24/2012 MARLENE BIRGGS MD Ot 786.05 SHORTNESS OF BREATH 08/24/2012 MARLENE BRIGGS MD Ot 987.8 TOXIC EFF GAS/VAPOR NEC 08/24/2012 MARLENE BRIGGS MD Ot E000.8 OTHER EXTERNAL CAUSE STATUS 08/24/2012 MARLENE BRIGGS MD Ot E849.0 ACCIDENT IN HOME 08/24/2012 MARLENE BRIGGS MD Ot E869.8 ACC POISON-GAS/VAPOR NEC 03/27/2014 PAULINE WOOL SACKER, JOHANN R 784.0 HEADACHE 03/27/2014 PAULINE WOOL SACKER, JOHANN R 847.1 SPRAIN THORACIC REGION 03/27/2014 PAULINE WOOL SACKER, JOHANN R 784.0 HEADACHE 03/27/2014 PAULINE WOOL SACKER, JOHANN R 847.1 SPRAIN THORACIC REGION 03/27/2014 PAULINE WOOL SACKER, JOHANN R 784.0 HEADACHE 03/27/2014 PAULINE WOOL SACKER, JOHANN R 847.1 SPRAIN THORACIC REGION 03/27/2014 PAULINE WOOL SACKER, JOHANN R 784.0 HEADACHE 03/27/2014 PAULINE WOOL SACKER, JOHANN R 847.1 SPRAIN THORACIC REGION 03/27/2014 PAULINE WOOL SACKER, JOHANN R 784.0 HEADACHE 03/27/2014 PAULINE WOOL SACKER, JOHANN R 847.1 SPRAIN THORACIC REGION 04/02/2014 PAULINE WOOL SACKER, JOHANN R 244.9 HYPOTHYROIDISM 04/02/2014 PAULINE WOOL SACKER, JOHANN R 272.4 HYPERLIPIDEMIA 04/02/2014 PAULINE WOOL SACKER, JOHANN R 244.9 HYPOTHYROIDISM 04/02/2014 PAULINE WOOL SACKER, JOHANN R 272.4 HYPERLIPIDEMIA 04/02/2014 PAULINE WOOL SACKER, JOHANN R 244.9 HYPOTHYROIDISM 04/02/2014 PAULINE WOOL SACKER, JOHANN R 272.4 HYPERLIPIDEMIA 04/02/2014 PAULINE WOOL SACKER, JOHANN R 244.9 HYPOTHYROIDISM 04/02/2014 PAULINE WOOL SACKER, JOHANN R 272.4 HYPERLIPIDEMIA 04/22/2014 PAULINE WOOL SACKER, JOHANN R 724.1 PAIN IN THORACIC SPINE 04/22/2014 PAULINE WOOL SACKER, JOHANN R 724.1 PAIN IN THORACIC SPINE 04/22/2014 PAULINE WOOL SACKER, JOHANN R 724.1 PAIN IN THORACIC SPINE 04/29/2014 PAULINE, JOHANN R WOOL SACKER Ot 724.1 05/19/2014 PAULINE, JOHANN R WOOL SACKER Ot 724.1 08/14/2014 FABRICE MELTON MD Ot 723.1 08/21/2014 FABRICE MELTON MD Ot 723.1 08/21/2014 FABRICE MELOTN MD Ot V57.1 09/10/2014 FABRICE MELTON MD [...] LATERAL EPICONDYLITIS, RIGHT ELBOW 01/04/2016 SAMI LE WOOL SACKER Ot R51 HEADACHE 01/05/2016 SAMI LE WOOL SACKER Ot R51 HEADACHE 01/06/2016 SAMI LE WOOL SACKER Ot R51 HEADACHE 02/11/2016 CITLALI COLLAZO MD Ot I25.10 ATHSCL HEART DISEASE OF [place] CORONARY 02/11/2016 CITLALI COLLAZO MD Ot I49.5 SICK SINUS SYNDROME 02/11/2016 CITLALI COLLAZO MD Ot R07.9 CHEST PAIN, UNSPECIFIED 02/11/2016 CITLALI COLLAZO MD Ot Z87.891 PERSONAL HISTORY OF NICOTINE DEPENDENCE 02/15/2016 MERON ALVARADO MD Ot J93.9 PNEUMOTHORAX, UNSPECIFIED 02/15/2016 MERON ALVARADO MD Ot R06.02 SHORTNESS OF BREATH 02/15/2016 MERON ALVARADO MD Ot Z79.82 ASSISTED (CURRENT) USE OF ASPIRIN 02/15/2016 MERON ALVARADO MD Ot Z79.899 OTHER MATERIAL CONTROL ANALYST (CURRENT) DRUG THERAPY 02/15/2016 MERON ALVARADO MD, [...] MD Ot R06.02 SHORTNESS OF BREATH 02/16/2016 MEORN ALVARADO MD Ot Z79.82 ASSISTED (CURRENT) USE OF ASPIRIN 02/16/2016 MERON ALVARADO MD Ot Z79.899 OTHER MATERIAL CONTROL ANALYST (CURRENT) DRUG THERAPY 02/16/2016 MERON ALVARADO MD Ot Z87.891 PERSONAL HISTORY OF NICOTINE DEPENDENCE 02/16/2016 MERON ALVARADO MD Ot Z95.0 PRESENCE OF CARDIAC PACEMAKER 02/16/2016 MERON ALVARADO MD Ot Z98.890 OTHER SPECIFIED POSTPROCEDURAL STATES 02/16/2016 JAC SCHMIDT MD Ot I10 ESSENTIAL (PRIMARY) HYPERTENSION 02/16/2016 JAC SCHMIDT MD Ot I25.10 ATHSCL HEART DISEASE OF [place] CORONARY 02/16/2016 JAC SCHMIDT MD Ot J95.811 POSTPROCEDURAL PNEUMOTHORAX 02/16/2016 JAC SCHMIDT MD Ot Z87.891 PERSONAL HISTORY OF NICOTINE DEPENDENCE 02/16/2016 JAC SCHMIDT MD Ot Z95.0 PRESENCE OF CARDIAC PACEMAKER 02/17/2016 JAC SCHMIDT MD Ot G43.909 MIGRAINE, UNSP, NOT INTRACTABLE, WITHOUT 02/17/2016 JAC SCHMIDT MD Ot I10 ESSENTIAL (PRIMARY) HYPERTENSION 02/17/2016 JAC SCHMIDT MD, Ot I25.10 ATHSCL HEART DISEASE OF [place] CORONARY 02/17/2016 JAC SCHMIDT MD Ot I49.5 SICK SINUS SYNDROME 02/17/2016 JAC SCHMIDT MD Ot J95.811 POSTPROCEDURAL PNEUMOTHORAX 02/17/2016 JAC SCHMIDT MD Ot Z87.891 PERSONAL HISTORY OF NICOTINE DEPENDENCE 02/17/2016 JAC SCHMIDT MD Ot Z95.0 PRESENCE OF CARDIAC PACEMAKER 02/24/2016 MERON ALVARADO MD Ot J93.9 PNEUMOTHORAX, UNSPECIFIED 02/24/2016 MERON ALVARADO MD Ot R06.02 SHORTNESS OF BREATH 02/24/2016 MERON ALVARADO MD Ot Z79.82 MATERIAL CONTROL ANALYST (CURRENT) USE OF ASPIRIN 02/24/2016 MERON ALVARADO MD Ot Z79.899 OTHER ASSISTED (CURRENT) DRUG THERAPY 02/24/2016 MERON ALVARADO MD Ot Z87.891 PERSONAL HISTORY OF NICOTINE DEPENDENCE 02/24/2016 MERON ALVARADO MD Ot Z95.0 PRESENCE OF CARDIAC PACEMAKER 02/24/2016 MERON ALVARADO MD Ot Z98.890 OTHER SPECIFIED POSTPROCEDURAL STATES 03/07/2016 SAMI LE WOOL SACKER Ot H53.143 VISUAL DISCOMFORT, BILATERAL 03/07/2016 SAMI LE WOOL SACKER Ot R51 HEADACHE 03/07/2016 SAMI LE WOOL SACKER Ot Z95.0 PRESENCE OF CARDIAC PACEMAKER 03/08/2016 SAMI LE WOOL SACKER Ot H53.143 VISUAL DISCOMFORT, BILATERAL 03/08/2016 SAMI LE WOOL SACKER Ot R51 HEADACHE 03/08/2016 SAMI LE WOOL SACKER Ot Z95.0 PRESENCE OF CARDIAC PACEMAKER 03/13/2016 SAMI LE WOOL SACKER Ot H53.143 VISUAL DISCOMFORT, BILATERAL 03/13/2016 SAMI LE WOOL SACKER Ot R51 HEADACHE 03/13/2016 SAMI LE WOOL SACKER Ot Z95.0 PRESENCE OF CARDIAC PACEMAKER 05/20/2016 MARLENE BRIGGS MD Ot R11.0 NAUSEA 05/20/2016 MARLENE BRIGGS MD Ot R42 DIZZINESS AND GIDDINESS 05/20/2016 MARLENE BRIGGS MD Ot Z79.899 OTHER ASSISTED (CURRENT) DRUG THERAPY 05/20/2016 MARLENE BRIGGS MD Ot Z95.0 PRESENCE OF CARDIAC PACEMAKER 05/23/2016 MARLENE BRIGGS MD Ot R11.0 NAUSEA 05/23/2016 MARLENE BRIGGS MD Ot R42 DIZZINESS AND GIDDINESS 05/23/2016 MARLENE BRIGGS MD Ot Z79.899 OTHER MATERIAL CONTROL ANALYST (CURRENT) DRUG THERAPY 05/23/2016 MARLENE BRIGGS MD Ot Z95.0 PRESENCE OF CARDIAC PACEMAKER 06/07/2016 SAMI LE WOOL SACKER Ot I10 ESSENTIAL (PRIMARY) HYPERTENSION 06/07/2016 SAMI LE WOOL SACKER Ot R11.0 NAUSEA 06/07/2016 SAMI LE WOOL SACKER Ot R51 HEADACHE 06/07/2016 SAMI LE WOOL SACKER Ot Z87.891 PERSONAL HISTORY OF NICOTINE DEPENDENCE 06/07/2016 SAMI LE WOOL SACKER Ot Z95.0 PRESENCE OF CARDIAC PACEMAKER 06/08/2016 SAMI LE WOOL SACKER Ot I10 ESSENTIAL (PRIMARY) HYPERTENSION 06/08/2016 SAMI LE WOOL SACKER Ot R11.0 NAUSEA 06/08/2016 SAMI LE WOOL SACKER Ot R51 HEADACHE 06/08/2016 SAMI LE WOOL SACKER Ot Z87.891 PERSONAL HISTORY OF NICOTINE DEPENDENCE 06/08/2016 SAMI LE WOOL SACKER Ot Z95.0 PRESENCE OF CARDIAC PACEMAKER 08/02/2016 SAMI LE WOOL SACKER Ot I10 ESSENTIAL (PRIMARY) HYPERTENSION 08/02/2016 SAMI LE APRN Ot R51 HEADACHE 08/02/2016 SAMI LE WOOL SACKER Ot Z79.899 OTHER MATERIAL CONTROL ANALYST (CURRENT) DRUG THERAPY 08/02/2016 SAMI LE WOOL SACKER Ot Z87.891 PERSONAL HISTORY OF NICOTINE DEPENDENCE 08/02/2016 SAMI LE WOOL SACKER Ot Z95.0 PRESENCE OF CARDIAC PACEMAKER 08/06/2016 JAC SCHMIDT MD Ot E66.9 OBESITY, UNSPECIFIED 08/06/2016 JAC SCHMIDT MD Ot F17.210 NICOTINE DEPENDENCE, CIGARETTES, UNCOMPL 08/06/2016 JAC SCHMIDT MD Ot F41.9 ANXIETY DISORDER, UNSPECIFIED 08/06/2016 JAC SCHMIDT MD Ot G47.00 INSOMNIA, UNSPECIFIED 08/06/2016 JAC SCHMIDT MD Ot I25.10 ATHSCL HEART DISEASE OF [place] CORONARY 08/06/2016 JAC SCHMIDT MD Ot R07.89 [...] ISCHEM HEART DIS AND OTH DI 01/31/2017 SMAI LE APRN Ot Z87.448 PERSONAL HISTORY OF [...] LE APRN Ot R51 HEADACHE 02/02/2017 SAMI LE APRN Ot Z82.49 FAMILY HX [...] Ot R61 GENERALIZED HYPERHIDROSIS 05/26/2017 CITLALI COLLAZO MD Ot R06.02 SHORTNESS OF BREATH 05/26/2017 CITLALI COLLAZO MD Ot R07.1 CHEST PAIN ON BREATHING 05/26/2017 CITLALI COLLAZO MD, Ot R61 GENERALIZED HYPERHIDROSIS 07/11/2017 TEJA VELASQUEZ Ot G43.909 MIGRAINE, UNSP, NOT INTRACTABLE, WITHOUT 07/11/2017 TEJA VELASQUEZ Ot Z82.49 FAMILY HX OF ISCHEM HEART DIS AND OTH DI 07/11/2017 TEJA VELASQUEZ Ot Z87.448 PERSONAL HISTORY OF OTHER DISEASES OF UR 07/11/2017 TEJA VELASQUEZ Ot Z87.891 PERSONAL HISTORY OF NICOTINE DEPENDENCE 07/11/2017 TEJA VELASQUEZ Ot Z88.0 ALLERGY STATUS TO PENICILLIN 07/11/2017 TEJA VELASQUEZ Ot Z88.5 ALLERGY STATUS TO NARCOTIC AGENT STATUS 07/11/2017 TEJA VELASQUEZ Ot Z90.49 ACQUIRED ABSENCE OF OTHER SPECIFIED PART 07/11/2017 TEJA VELASQUEZ Ot Z90.710 ACQUIRED ABSENCE OF BOTH CERVIX AND UTER 07/11/2017 TEJA VELASQUEZ Ot Z95.0 PRESENCE OF CARDIAC PACEMAKER 07/12/2017 CITLALI COLLAZO MD Ot R06.02 SHORTNESS OF BREATH 07/12/2017 CITLALI COLLAZO MD Ot R07.1 CHEST PAIN ON BREATHING 07/12/2017 CITLALI COLLAZO MD, Ot R61 GENERALIZED HYPERHIDROSIS 07/12/2017 JOHANN CARPENTER APRN Ot 724.1 PAIN IN THORACIC SPINE 07/12/2017 FABRICE MELTON MD Ot 723.1 CERVICALGIA 07/12/2017 MARILU ENGLAND MD Ot 726.32 LATERAL EPICONDYLITIS 07/12/2017 MARILU ENGLAND MD Ot V72.84 EXAM PRE-OPERATIVE NOS 07/13/2017 TEJA VELASQUEZ Ot G43.909 MIGRAINE, UNSP, NOT INTRACTABLE, WITHOUT 07/13/2017 TEJA VELASQUEZ Ot Z82.49 FAMILY HX OF ISCHE[place] HEART DIS AND OTH DI 07/13/2017 TEJA VELASQUEZ Ot Z87.448 PERSONAL HISTORY OF OTHER DISEASES OF UR 07/13/2017 TEJA VELASQUEZ Ot Z87.891 PERSONAL HISTORY OF NICOTINE DEPENDENCE 07/13/2017 TEJA VELASQUEZ Ot Z88.0 ALLERGY STATUS TO PENICILLIN 07/13/2017 TEJA VELASQUEZ Ot Z88.5 ALLERGY STATUS TO NARCOTIC AGENT STATUS 07/13/2017 TEJA VELASQUEZ Ot Z90.49 ACQUIRED ABSENCE OF OTHER SPECIFIED PART 07/13/2017 TEJA VELASQUEZ Ot Z90.710 ACQUIRED ABSENCE OF BOTH CERVIX AND UTER 07/13/2017 TEJA VELASQUEZ Ot Z95.0 PRESENCE OF CARDIAC PACEMAKER 08/01/2017 CITLALI COLLAZO MD Ot R06.02 SHORTNESS OF BREATH 08/01/2017 CITLALI COLLAZO MD Ot R07.1 CHEST PAIN ON BREATHING 08/01/2017 CITLALI COLLAZO MD Ot R61 GENERALIZED HYPERHIDROSIS Procedures Code Description [place] [address] [employer] 03/31/2014 02768 ROUTINE VENIPUNCTURE 04/01/2014 74066 XRAY THORACIC SPINE 3 VIEWS 04/01/2014 80753 LIPID PANEL 04/01/2014 40694 CBC 04/01/2014 [id number] GFR CALC (RESULT ONLY) 04/01/2014 39983 CMP 04/01/2014 14632 TSH 04/01/2014 50211 MRI SPINE (THORACIC) W/O CONTRAST 04/22/2014 54699 ROUTINE VENIPUNCTURE 07/04/2014 67883 LIPID PANEL 07/04/2014 54628 TSH 07/04/2014 [id number] INSERTION OF PACEMAKER LEAD INTO RIGHT A 02/10/2016 [id number] INSERTION OF PACEMAKER LEAD INTO R VENTR 02/10/2016 [id number] INSERT PACE. DUAL CORNEL IN CHEST SUBCU/FA [...] Status Pt. Type Provider Facility Loc./Unit Complaint [id number] 07/04/2014 08:09:00 07/04/2014 23:59:59 CLS Outpatient JOHANN CARPENTER APRN [id number] 05/13/2014 14:41:00 05/13/2014 23:59:59 CLS Outpatient JOHANN CARPENTER APRN [id number] 04/22/2014 14:50:00 04/22/2014 23:59:59 CLS Outpatient JOHANN CARPENTER APRN [id number] 04/01/2014 09:08:00 04/01/2014 23:59:59 CLS Outpatient JOHANN CARPENTER APRN [id number] 03/27/2014 10:15:00 03/27/2014 23:59:59 CLS Outpatient JOHANN CARPENTER APRN [id number] 10/20/2017 10:05:00 10/20/2017 23:59:59 CLS Outpatient JR SIMON APRN [facility] [id number] 07/11/2017 16:43:00 07/11/2017 18:43:00 DIS Emergency TEJA VELASQUEZ [facility] ER MIGRAINE [id number] 05/02/2017 14:39:00 05/02/2017 15:31:00 DIS Emergency SAMI LE APRN [facility] ER MIGRAINE [id number] 01/31/2017 18:02:00 01/31/2017 20:15:00 DIS Emergency SAMI LE APRN [facility] ER HEADACHE [id number] 11/29/2016 07:22:00 11/29/2016 23:59:59 CLS Preadmit CITLALI COLLAZO MD [facility] SLEEP OBSTRUCTIVE SLEEP APNEA [id number] 11/21/2016 14:02:00 11/21/2016 15:11:00 DIS Emergency SAMI LE WOOL SACKER [facility] ER MIGRAINE [id number] 10/11/2016 17:34:00 10/11/2016 18:29:00 DIS Emergency TEJA VELASQUEZ [facility] ER MIGRAINE [id number] 08/15/2016 07:29:00 08/15/2016 23:59:59 CLS Outpatient CITLALI COLLAZO MD [facility] CARD CHEST PAIN SYNDROME R07.1 [id number] 08/05/2016 22:50:00 08/06/2016 13:49:00 DIS Inpatient JAC SCHMIDT MD [facility] ICU CHEST PAIN [id number] 08/02/2016 12:53:00 08/02/2016 13:38:00 DIS Emergency SAMI LE WOOL SACKER [facility] ER MIGRAINE [id number] 06/07/2016 14:02:00 06/07/2016 15:13:00 DIS Emergency SAMI LE WOOL SACKER [facility] ER MIGRAINE [id number] 05/20/2016 14:54:00 05/20/2016 16:44:00 DIS Emergency MARLENE BRIGGS MD [facility] ER DIZZY/NAUSEA UPPER BACK PAIN [id number] 03/07/2016 21:01:00 03/07/2016 22:11:00 DIS Emergency SAMI LE APRN [facility] ER MIGRAINE [id number] 02/15/2016 19:50:00 02/17/2016 13:31:00 DIS Inpatient JAC SCHMIDT MD [facility] 4TH L PNEUMOTHORAX; S/P PACEMAKER PLACEMENT [id number] 02/15/2016 06:40:00 02/15/2016 09:34:00 DIS Emergency CHRISTIANO CHASE, MERON S [facility] ER SOA [id number] 02/10/2016 12:08:00 02/11/2016 10:03:00 DIS Inpatient CITLALI COLLAZO MD [facility] ICU SYMPTOMATIC BRADYCARDIA SICK SINUS SYNDROME CP [id number] 01/04/2016 21:37:00 01/04/2016 22:34:00 DIS Emergency SAMI LE WOOL SACKER [facility] ER MIGRAINE [id number] 01/30/2015 14:30:00 02/12/2015 15:39:00 DIS Outpatient MARILU ENGLAND MD [facility] REHAB S/P R LATERAL EPICONDYLE DEBRIDEMENT [id number] 01/06/2015 16:04:00 01/07/2015 00:01:00 DIS Outpatient MARILU ENGLAND MD [facility] REHAB S/P R LATERAL EPICONDYLE DEBRIDEMENT [id number] 10/01/2014 05:55:00 10/01/2014 10:25:00 DIS Outpatient MARILU ENGLAND MD [facility] SDC RIGHT LATERAL EPINCONDYLITIS [id number] 09/26/2014 15:46:00 09/26/2014 23:59:59 CLS Outpatient MARILU ENGLAND MD [facility] PREOP RIGHT LATERAL EPINCONDYLITIS [id number] 09/09/2014 16:14:00 09/11/2014 14:09:00 DIS Outpatient FABRICE MELTON MD [facility] REHAB CERVICALGIA [id number] 07/28/2014 15:35:00 07/28/2014 23:59:59 CLS Outpatient FABRICE MELTON MD [facility] RAD NECK PAIN [id number] 04/28/2014 13:07:00 04/28/2014 23:59:59 CLS Outpatient JOHANN CARPENTER APRN [facility] RAD PAIN IN THORACIC SPINE [id number] 12/06/2012 18:18:00 12/06/2012 23:59:59 CLS Outpatient [id number] 11/01/2012 17:07:00 11/01/2012 23:59:59 CLS Outpatient [id number] 09/22/2012 14:24:00 09/22/2012 23:59:59 CLS Outpatient [id number] 08/24/2012 15:18:00 08/24/2012 17:38:00 DIS Emergency CHESTER CHASE, MARLENE Silva [facility] ER SOA, INHALED CHEMICAL FUMES [id number] 12/20/2011 06:35:00 Document Registration [id number] 09/29/2011 08:55:00 Document Registration [id number] 07/01/2011 17:36:00 Document Registration [id number] 01/17/2011 11:52:00 Document Registration [id number] 11/17/2010 06:46:00 Document Registration [id number] 09/23/2010 11:09:00 Document Registration
[2017-12-19] MEDS ORDERED: diphenhydrAMINE 50 MG/ML INJ (BENADRYL) IM ONE (15:00)
[2017-12-19] MEDS ORDERED: PROCHLORPERAZINE 10 MG/2ML INJ (COMPAZINE) IM ONE (15:00)
[2017-12-19] MEDS ORDERED: KETOROLAC 60 MG/2 ML VIAL IM ONE (15:00)
--- NOTE | 2017-12-19 15:57 | ED Headache ---
General Chief Complaint: Head/Cervical Problems Stated Complaint: MIGRAINE Nursing Triage Note: pt reports power since last evening. Nursing Sepsis Screen: No Definite Risk Source: patient Exam Limitations: no limitations History of Present Illness Date Seen by Provider: Dec 19, 2017 Time Seen by Provider: 14:50 Initial Comments Patient is a 49-year-old female who presents to the emergency room with complaints of a migraine started last night. She frequently has migraines and reports that this was very similar but her efforts at home have not worked. She reports nausea and photophobia with this migraine. Timing/Duration: other (2 days) Location: global Prior Headaches/Recent Trauma: frequent headaches Modifying Factors: worse with exposure to light; improves with rest Associated Symptoms: nausea/vomiting Allergies and Home Medications Allergies Coded Allergies: hydrocodone (Unverified Allergy, Unknown, 09/29/14) Penicillins (Unverified Adverse Reaction, Mild, VOMITING, 09/29/14) Home Medications No Active Prescriptions or Reported Meds Patient Home Medication List Home Medication List Reviewed: Yes Review of Systems Review of Systems Constitutional: see HPI; No chills, No fever Gastrointestinal: see HPI, nausea Psychiatric/Neurological: See HPI, Headache All Other Systems Reviewed Negative Unless Noted: Yes Past Digtzbd-Ihvqvy-Xhehih Hx Past Med/Social Hx: Reviewed Nursing Past Med/Soc Hx Patient Social History Alcohol Use: Denies Use Recreational Drug Use: No Smoking Status: Former Smoker Type Used: Cigarettes Former Smoker, Quit: May 24, 2012 2nd Hand Smoke Exposure: Yes Recent Foreign Travel: No Contact w/Someone Who Travel: No Recent Infectious Disease Expo: No Recent Hopitalizations: No Physical Abuse: No Sexual Abuse: No Mistreated: No Fear: No Immunizations Up To Date Tetanus Booster (TDap): Unknown PED Vaccines UTD: No Seasonal Allergies Seasonal Allergies: Yes Past Medical History Surgeries: Yes Appendectomy, Hysterectomy, Oophorectomy, Orthopedic, Pacemaker Respiratory: No Currently Using CPAP: No Currently Using BIPAP: No Cardiac: Yes (pacemaker, HYPOTENSION) Irregular Heartbeat, Syncope Neurological: Yes Headaches /Migraines Reproductive Disorders: Yes Female Reproductive Disorders: Ovarian Cyst 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 History: Hysterectomy Genitourinary: No Gastrointestinal: No Musculoskeletal: No Endocrine: No HEENT: No Cancer: No Psychosocial: No Integumentary: No Blood Disorders: Yes (HX OF ANEMIA) Adverse Reaction/Blood Tranf: No Family Medical History Reviewed Nursing Family Hx Arthritis G8 SISTER Diabetes mellitus 19 MOTHER G8 SISTER Fibromyalgia G8 SISTER Heart murmur 19 MOTHER G8 SISTER Kidney disease 19 MOTHER Myelodysplasia of spinal cord 19 MOTHER, Onset:60 years & older Myocardial infarction G8 BROTHER, Onset:32 ( of ID at 32) No Pertinent Family Hx Physical Exam Vital Signs Vital Signs - First Documented 12/19/17 14:36 Temp 97.8 Pulse 74 Resp 16 B/P (MAP) 132/62 (85) Pulse Ox 92 Capillary Refill : Less Than 3 Seconds Height, Weight, BMI Height: 5'7.00" Weight: 205lbs. 0.0oz. 92.962365bn; 32.9 BMI Method:Stated General Appearance: WD/WN, no apparent distress HEENT: PERRL/EOMI, normal ENT inspection, TMs normal, pharynx normal Neck: non-tender, full range of motion, supple, normal inspection Cardiovascular: normal peripheral pulses, regular rate, rhythm, no edema, no gallop, no JVD, no murmur Respiratory: chest non-tender, lungs clear, normal breath sounds, no respiratory distress, no accessory muscle use Psychiatric: alert, oriented x 3 Crainal Nerves: normal hearing, normal speech, PERRL Motor/Sensory: no motor deficit, no sensory deficit Skin: normal color, warm/dry Progress/Results/Core Measures Results/Orders My Orders Orders - JARED SAMSON Ketorolac Injection (Toradol Injection) (12/19/17 15:00) Prochlorperazine Injection (Compazine In (12/19/17 15:00) Diphenhydramine Injection (Benadryl Inje (12/19/17 15:00) Medications Given in ED Current Medications Medications Dose Ordered Sig/Ni Route Start Time Stop Time Status Last Admin Dose Admin Diphenhydramine HCl 50 mg ONCE ONCE IM 12/19/17 15:00 12/19/17 15:01 DC 12/19/17 15:37 50 MG Ketorolac Tromethamine 60 mg ONCE ONCE IM 12/19/17 15:00 12/19/17 15:01 DC 12/19/17 15:37 60 MG Prochlorperazine Edisylate 10 mg ONCE ONCE IM 12/19/17 15:00 12/19/17 15:01 DC 12/19/17 15:37 10 MG Vital Signs/I&O 12/19/17 12/19/17 14:36 16:04 Temp 97.8 Pulse 74 70 Resp 16 16 B/P (MAP) 132/62 (85) 123/75 Pulse Ox 92 97 Blood Pressure Mean: 85 Progress Progress Note : Time: 15:56 Progress Note Patient is symptom-free at this time. Her migraine has completely resolved. She is sitting up in bed with the light on without photophobia. She agrees replan the discharge, follow-up, return precautions were given. Departure Impression Primary Impression: Migraine Disposition: HOME, SELF-CARE Condition: Stable/Unchanged Departure-Patient Inst. Decision time for Depature: 15:57 Referrals: [facility] (PCP/Family) Primary Care Physician Patient Instructions: Migraine Headache (DC) Add. Discharge Instructions: Continue home medications as previously prescribed. Follow up with [facility] within 1 week for recheck. Return back to the emergency room for any worsening symptoms or concerns as needed. All discharge instructions reviewed with patient and/or family. Voiced understanding. Scripts No Active Prescriptions or Reported Meds JARED SAMSON Dec 19, 2017 15:57
[2017-12-19 16:04] VITALS: BP 123/75
== END 2017-12-19 16:04 | disposition home or self-care (01) ==
LOC: EDUNIT# 14:27 → ER 14:28
DX: G43.909 Migraine, unspecified, not intractable, without status migrainosus (principal); D64.9 Anemia, unspecified; Z87.448 Personal history of other diseases of urinary system; Z88.5 Allergy status to narcotic agent; Z88.0 Allergy status to penicillin; Z82.49 Family history of ischemic heart disease and other diseases of the circulatory system; Z87.891 Personal history of nicotine dependence; Z90.710 Acquired absence of both cervix and uterus; Z90.89 Acquired absence of other organs; Z95.0 Presence of cardiac pacemaker
CPT/HCPCS: 96372; 99284

== ENCOUNTER 2018-02-02 13:51 | Emergency (ER) | payer BC ==
[~2018-02-02] VITALS: Ht 170.2 cm; Wt 90.7 kg
[2018-02-02 14:13] LABS: BASOPHILS % (AUTO) 0 % (0-10); EOSINOPHILS # (AUTO) 0.1 10^3/uL (0.0-0.3); EOSINOPHILS % (AUTO) 3 % (0-10); HEMATOCRIT 36 % (35-52); HEMOGLOBIN 12.2 G/DL (11.5-16.0); LYMPHOCYTES # (AUTO) 1.5 X 10^3 (1.0-4.0); LYMPHOCYTES % (AUTO) 29 % (12-44); MEAN CORPUSCULAR HEMOGLOBIN 31 PG (25-34); MEAN CORPUSCULAR HGB CONC 34 G/DL (32-36); MEAN CORPUSCULAR VOLUME 92 FL (80-99); MONOCYTES # (AUTO) 0.4 X 10^3 (0.0-1.0); MONOCYTES % (AUTO) 7 % (0-12); NEUTROPHILS # (AUTO) 3.2 X 10^3 (1.8-7.8); NEUTROPHILS % (AUTO) 62 % (42-75); PLATELET COUNT 207 10^3/uL (130-400); RED BLOOD COUNT 3.93 10^6/uL (4.35-5.85); RED CELL DISTRIBUTION WIDTH 12.9 % (10.0-14.5); WHITE BLOOD COUNT 5.2 10^3/uL (4.3-11.0)
--- NOTE | 2018-02-02 14:24 | ED Chest Pain ---
General Chief Complaint: Chest Pain Stated Complaint: CHEST PAIN Nursing Triage Note: PT PRESENTS TO ER WITH COMPLAINT CHEST PAIN. STATES IT STARTED THIS MORNING AND RADIATES TO HER BACK. Nursing Sepsis Screen: No Definite Risk Source: patient Exam Limitations: no limitations History of Present Illness Date Seen by Provider: Feb 02, 2018 Time Seen by Provider: 13:54 Initial Comments This 49-year-old woman presents to the emergency room with complaints of central chest pain described as a heaviness with jabbing sensation that also radiates to the area between her shoulder blades. She has had 3 episodes of this chest pain with the first episode starting in the morning. The last episode occurred about 10 minutes prior to arrival. She has associated nausea. The chest pain episodes happened at work. 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 She has a history of sick sinus syndrome and pacemaker placement. She had a cardiac catheterization performed at [facility] in 2015 demonstrating nonobstructive coronary artery disease. She had a stress test performed in 2017 which was negative for ischemia. Ejection fraction was in the 60s. Patient denies any dyspnea. She does not notice any alleviating or exacerbating factors. Pain is not reproducible with palpation. Patient has no smoking history but does have a family history of heart disease. Allergies and Home Medications Allergies Coded Allergies: hydrocodone (Unverified Allergy, Unknown, 09/29/14) Penicillins (Unverified Adverse Reaction, Mild, VOMITING, 09/29/14) Patient Home Medication List Home Medication List Reviewed: Yes Review of Systems Review of Systems Constitutional: no symptoms reported EENTM: No Symptoms Reported Respiratory: No Symptoms Reported Cardiovascular: See HPI Gastrointestinal: See HPI Genitourinary: No Symptoms Reported Musculoskeletal: no symptoms reported Skin: no symptoms reported Psychiatric/Neurological: No Symptoms Reported Endocrine: No Symptoms Reported Hematologic/Lymphatic: No Symptoms Reported Past Fxscqss-Fgifiv-Xnrvdm Hx Patient Social History Alcohol Use: Denies Use Recreational Drug Use: No (TOBACCO) Smoking Status: Former Smoker Type Used: Cigarettes Former Smoker, Quit: May 24, 2012 2nd Hand Smoke Exposure: Yes Recent Foreign Travel: No Contact w/Someone Who Travel: No Recent Infectious Disease Expo: No Recent Hopitalizations: No Immunizations Up To Date Tetanus Booster (TDap): Unknown PED Vaccines UTD: No Seasonal Allergies Seasonal Allergies: Yes Past Medical History Surgeries: Yes Appendectomy, Cardiac (cardiac angiography in 2016 at [facility] demonstrating nonobstructive disease), Hysterectomy, Oophorectomy, Orthopedic, Pacemaker Respiratory: No Currently Using CPAP: No Currently Using BIPAP: No Cardiac: Yes (pacemaker, HYPOTENSION) Irregular Heartbeat, Syncope Neurological: Yes Headaches /Migraines Reproductive Disorders: Yes Female 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 Genitourinary: No Gastrointestinal: No Musculoskeletal: No Endocrine: No HEENT: No Cancer: No Psychosocial: No Integumentary: No Blood Disorders: Yes (HX OF ANEMIA) Adverse Reaction/Blood Tranf: No Family Medical History Arthritis G8 SISTER Diabetes mellitus 19 MOTHER G8 SISTER Fibromyalgia G8 SISTER Heart murmur 19 MOTHER G8 SISTER Kidney disease 19 MOTHER Myelodysplasia of spinal cord 19 MOTHER, Onset:60 years & older Myocardial infarction G8 BROTHER, Onset:31 ( of [place] at 32) No Pertinent Family Hx Physical Exam Vital Signs Vital Signs - First Documented 02/02/18 13:53 Pulse 66 Resp 18 B/P (MAP) 135/74 (94) Pulse Ox 93 O2 Delivery Room Air Capillary Refill : Less Than 3 Seconds Height, Weight, BMI Height: 5'7.00" Weight: 200lbs. 0.0oz. [id number]; 32.9 BMI Method:Stated General Appearance: WD/WN, Mild Distress, Obese HEENT: Normal ENT Inspection Neck: Normal Inspection Progress/Results/Core Measures Results/Orders Lab Results Laboratory Tests Test 02/02/18 14:00 Range/Units White Blood Count 5.2 4.3-11.0 10^3/uL Red Blood Count 3.93 L 4.35-5.85 10^6/uL Hemoglobin 12.2 11.5-16.0 G/DL Hematocrit 36 35-52 % Mean Corpuscular Volume 92 80-99 FL Mean Corpuscular Hemoglobin 31 25-34 PG Mean Corpuscular Hemoglobin Concent 34 32-36 G/DL Red Cell Distribution Width 12.9 10.0-14.5 % Platelet Count 207 130-400 10^3/uL Mean Platelet Volume 10.0 7.4-10.4 FL Neutrophils (%) (Auto) 62 42-75 % Lymphocytes (%) (Auto) 29 12-44 % Monocytes (%) (Auto) 7 0-12 % Eosinophils (%) (Auto) 3 0-10 % Basophils (%) (Auto) 0 0-10 % Neutrophils # (Auto) 3.2 1.8-7.8 X 10^3 Lymphocytes # (Auto) 1.5 1.0-4.0 X 10^3 Monocytes # (Auto) 0.4 0.0-1.0 X 10^3 Eosinophils # (Auto) 0.1 0.0-0.3 10^3/uL Basophils # (Auto) 0.0 0.0-0.1 10^3/uL Prothrombin Time 12.8 12.2-14.7 SEC INR Comment 1.0 0.8-1.4 Activated Partial Thromboplast Time 28 24-35 SEC Sodium Level 140 135-145 MMOL/L Potassium Level 3.5 L 3.6-5.0 MMOL/L Chloride Level 107 98-107 MMOL/L Carbon Dioxide Level 21 21-32 MMOL/L Anion Gap 12 5-14 MMOL/L Blood Urea Nitrogen 16 7-18 MG/DL Creatinine 0.83 0.60-1.30 MG/DL Estimat Glomerular Filtration Rate > 60 BUN/Creatinine Ratio 19 Glucose Level 110 H 70-105 MG/DL Calcium Level 9.4 8.5-10.1 MG/DL Corrected Calcium 8.5-10.1 MG/DL Magnesium Level 2.1 1.8-2.4 MG/DL Total Bilirubin 0.5 0.1-1.0 MG/DL Aspartate Amino Transf (AST/SGOT) 55 H 5-34 U/L Alanine Aminotransferase (ALT/SGPT) 78 H 0-55 U/L Alkaline Phosphatase 64 40-136 U/L Myoglobin 48.1 10.0-92.0 NG/ML Troponin I < 0.30 <0.30 NG/ML Total Protein 7.3 6.4-8.2 GM/DL Albumin 4.6 H 3.2-4.5 GM/DL My Orders Orders - CRISTI COATES MD Cbc With Automated Diff (02/02/18 14:06) Magnesium (02/02/18 14:06) Chest 1 View, Ap/Pa Only (02/02/18 14:06) Ekg Tracing (02/02/18 14:06) Cardiac Profile 1 (02/02/18 14:06) Comprehensive Metabolic Panel (02/02/18 14:06) Myoglobin Serum (02/02/18 14:06) Protime With Inr (02/02/18 14:06) Partial Thromboplastin Time (02/02/18 14:06) O2 (02/02/18 14:06) Monitor-Rhythm Ecg Trace Only (02/02/18 14:06) Lipid Panel (02/03/18 06:00) Saline Lock/Iv-Start (02/02/18 14:06) Aspirin Chewable Tablet (Baby Aspirin Ch (02/02/18 14:30) Ct Angio Chest W (02/02/18 14:45) Iohexol Injection (Omnipaque 350 Mg/Ml 1 (02/02/18 15:00) Sodium Chloride Flush (Catheter Flush Sy (02/02/18 15:00) Ns (Ivpb) (Sodium Chloride 0.9%) (02/02/18 15:00) Pharmacy Communication (Pharmacy Communi (02/02/18 14:48) Ondansetron Injection (Zofran Injectio (02/02/18 15:45) Famotidine Injection (Pepcid Injection) (02/02/18 16:00) Lidocaine 2% Viscous 15 Ml (Xylocaine Vi (02/02/18 16:00) Antacid Suspension (Mylanta Suspension (02/02/18 16:00) Medications Given in ED Current Medications Medications Dose Ordered Sig/Ni Route Start Time Stop Time Status Last Admin Dose Admin Aspirin 324 mg ONCE ONCE PO 02/02/18 14:30 02/02/18 14:31 DC 02/02/18 14:48 324 MG Iohexol 150 ml ONCE ONCE IV 02/02/18 15:00 02/02/18 15:01 DC 02/02/18 15:03 125 ML Ondansetron HCl 8 mg ONCE ONCE IVP 02/02/18 15:45 02/02/18 15:46 DC 02/02/18 15:53 8 MG Sodium Chloride 10 ml NEEDED PRN IV 02/02/18 15:00 02/02/18 15:04 10 ML Sodium Chloride 250 ml ONCE ONCE IV 02/02/18 15:00 02/02/18 15:01 DC 02/02/18 15:04 80 ML Vital Signs/I&O 02/02/18 13:53 Pulse 66 Resp 18 B/P (MAP) 135/74 (94) Pulse Ox 93 O2 Delivery Room Air Blood Pressure Mean: 94 Progress Progress Note : Time: 14:56 Progress Note Patient was pain-free on arrival. She received aspirin as part of the chest pain order set. EKG was unremarkable. Patient developed some mild hypoxia with oxygen saturations in the upper 80s. Nasal cannula was applied. I discussed further assessment of her chest pain with CT angiogram wasn't which would evaluate for occult pneumonia, disease of the aorta, and pulmonary embolism. Patient consents to CT angiogram and it was ordered. Initial ECG Impression Date: Feb 02, 2018 Initial ECG Impression Time: 13:56 Initial ECG Rate: 61 Comment Atrial paced complexes with no ischemic ST elevation or depression. Incomplete right bundle branch block. Diagnostic Imaging Diagonstic Imaging: Xray Plain Films/CT/US/NM/MRI: chest Comments Chest x-ray viewed by me and report reviewed. See report below: NAME: JR ELLIOTT MED REC#: [id number] PT STATUS: REG ER : 1960 PHYSICIAN: CRISTI COATES MD ADMIT DATE: 02/02/18/ER Draft Date of Exam:02/02/18 CHEST 1 VIEW, AP/PA ONLY Indication: Chest pain. Time of exam: 2:15 PM Correlation is made with prior study from 08/05/2016. The heart is enlarged but stable. Dual-lead left subclavian cardiac pacemaker remains in place. Right hemidiaphragm is chronically elevated. No infiltrate or failure is detected. No effusion or pneumothorax is seen. Impression: Stable chest. No acute cardiopulmonary process is detected. Dictated on workstation # [id number] Dict: 02/02/18 1420 Trans: 02/02/18 1422 CV [id number] Interpreted by: SUKH CARRILLO MD Departure Impression Primary Impression: Atypical chest pain Additional Impression: Nausea Disposition: 01 HOME, SELF-CARE Condition: Improved Departure-Patient Inst. Decision time for Depature: 16:10 Referrals: [facility] (PCP/Family) Primary Care Physician Patient Instructions: Acid Reflux (Gastroesophageal Reflux Disease), Adult (DC) , Chest Pain That Is Not Caused by the Heart (DC) Add. Discharge Instructions: Your chest pain is not likely caused by your heart. Your pain may be related to acid reflux. Take Protonix as prescribed for the next month. Follow-up with your primary care provider and Dr. Livingston next week. Return to emergency room if symptoms worsen again. All discharge instructions reviewed with patient and/or family. Voiced understanding. Scripts Pantoprazole Sodium (Protonix) 40 Mg Tablet. 40 MG PO DAILY, #30 TAB Prov: CRISTI COATES MD 02/02/18 CRISTI COATES MD Feb 02, 2018 14:23
[2018-02-02] MEDS ORDERED: ASPIRIN 81 MG CHEW (CHILDREN'S ASA) PO ONE (14:30)
[2018-02-02 14:32] LABS: PROTHROMBIN TIME PATIENT 12.8 SEC (12.2-14.7)
[2018-02-02 14:35] LABS: ALANINE AMINOTRANSFERASE 78 U/L (0-55); ALBUMIN 4.6 GM/DL (3.2-4.5); ALKALINE PHOSPHATASE 64 U/L (40-136); BILIRUBIN,TOTAL 0.5 MG/DL (0.1-1.0); BUN/CREATININE RATIO 19; CALCIUM 9.4 MG/DL (8.5-10.1); CARBON DIOXIDE 21 MMOL/L (21-32); CHLORIDE 107 MMOL/L (98-107); CREATININE SERUM 0.83 MG/DL (0.60-1.30); GFR ESTIMATED > 60; GLUCOSE 110 MG/DL (70-105); MAGNESIUM 2.1 MG/DL (1.8-2.4); POTASSIUM 3.5 MMOL/L (3.6-5.0); SODIUM 140 MMOL/L (135-145); TOTAL PROTEIN 7.3 GM/DL (6.4-8.2)
[2018-02-02 14:41] LABS: MYOGLOBIN SERUM 48.1 NG/ML (10.0-92.0)
[2018-02-02] MEDS ORDERED: NS 250 ML (IVPB) BAG IV ONE (15:00)
[2018-02-02] MEDS ORDERED: IOHEXOL 350 MG/ML 150 ML (OMNIPAQUE 350) VIAL IV ONE (15:00)
[2018-02-02] MEDS ORDERED: CATHETER FLUSH 10 ML SYR IV PRN (15:00)
--- NOTE | 2018-02-02 15:30 | Diagnostic Imaging Report ---
PROCEDURE: CT angiography of the chest with contrast. TECHNIQUE: Multiple contiguous axial images were obtained through the chest after uneventful bolus administration of intravenous contrast. 2D reconstructed CTA MIP acquisitions were also performed. INDICATION: Dizziness, nausea, and chest pain as well as mid back pain. COMPARISON: CT angiogram of the chest performed on 08/05/2016. FINDINGS: The thoracic aorta is of normal caliber. No dissection is seen. The pulmonary arterial system is without evidence of thromboemboli. No filling defects are seen within central, lobar, or segmental branches. No pericardial or pleural fluid is identified. No axillary, hilar, or mediastinal lymphadenopathy is identified. No pulmonary infiltrates, nodules, or masses are seen. The upright abdomen is unremarkable. The bony structures are nonacute. IMPRESSION: No evidence of pulmonary embolism or thoracic aortic dissection. No acute feature is identified. Dictated by: Dictated on workstation # [id number]
[2018-02-02] MEDS ORDERED: ONDANSETRON 4 MG/2 ML (SDV) Z0FRAN IVP ONE (15:45)
[2018-02-02] MEDS ORDERED: FAMOTIDINE 20MG/2ML IV (PEPCID) IVP ONE (16:00)
[2018-02-02] MEDS ORDERED: LIDOCAINE 2% VISCOUS 15 ML UDC PO ONE (16:00)
[2018-02-02] MEDS ORDERED: ANTACID SUSP 30 ML UDC (MYLANTA) PO ONE (16:00)
[2018-02-02] MEDS ORDERED: PANT40TA2 PO (16:29)
[2018-02-02 17:03] VITALS: BP 124/72
== END 2018-02-02 17:03 | disposition home or self-care (01) ==
LOC: EDUNIT# 13:51 → ER 13:52
DX: R07.89 Other chest pain (principal); R11.0 Nausea; G43.909 Migraine, unspecified, not intractable, without status migrainosus; Z87.448 Personal history of other diseases of urinary system; Z88.5 Allergy status to narcotic agent; Z88.0 Allergy status to penicillin; Z87.891 Personal history of nicotine dependence; Z82.49 Family history of ischemic heart disease and other diseases of the circulatory system; Z95.0 Presence of cardiac pacemaker; Z90.89 Acquired absence of other organs; Z90.710 Acquired absence of both cervix and uterus
CPT/HCPCS: 36415; 71045; 71275; 80053; 83735; 83874; 84484; 85025; 85610; 85730; 93005; 93041; 96374; 96375

== ENCOUNTER → 2018-02-04 | Emergency (ER) | payer BC ==
[~2018-02-04] VITALS: Ht 170.2 cm; Wt 90.7 kg
[~2018-02-04] MED LIST changes: +KETOROLAC 60 MG/2 ML VIAL IM ONE; +ORPHENADRINE 60 MG/2 ML (NORFLEX) AMP IM ONE; +PANT40TA2 PO; +PROCHLORPERAZINE 10 MG/2ML INJ (COMPAZINE) IM ONE
--- NOTE | 2018-02-04 11:42 | ED Headache ---
General Chief Complaint: Head/Cervical Problems Stated Complaint: MIGRAINE Source: patient Exam Limitations: no limitations History of Present Illness Date Seen by Provider: Feb 04, 2018 Time Seen by Provider: 11:41 Initial Comments To ER with a migraine for 2 days. History of these and this is similar to her previous. Associated photophobia and nausea. Timing/Duration: constant Severity/Quality: pressure Location: global Prior Headaches/Recent Trauma: frequent headaches Modifying Factors: worse with exposure to light Associated Symptoms: No confusion; nausea/vomiting; No stiff neck Allergies and Home Medications Allergies Coded Allergies: hydrocodone (Unverified Allergy, Unknown, 09/29/14) Penicillins (Unverified Adverse Reaction, Mild, VOMITING, 09/29/14) Home Medications Pantoprazole Sodium 40 Mg Tablet.dr, 40 MG PO DAILY Prescribed by: CRISTI WHEELER on 02/02/18 1629 Patient Home Medication List Home Medication List Reviewed: Yes Review of Systems Review of Systems Constitutional: see HPI; No chills, No fever Eyes: See HPI, Photophobia Ears, Nose, Mouth, Throat: no symptoms reported Respiratory: no symptoms reported Cardiovascular: no symptoms reported Genitourinary: no symptoms reported Musculoskeletal: no symptoms reported Skin: no symptoms reported Psychiatric/Neurological: See HPI, Headache Past Etgncrs-Dtemrb-Hutftj Hx Patient Social History Type Used: Cigarettes Former Smoker, Quit: May 24, 2012 2nd Hand Smoke Exposure: Yes Recent Foreign Travel: No Contact w/Someone Who Travel: No Recent Hopitalizations: No Immunizations Up To Date Tetanus Booster (TDap): Unknown PED Vaccines UTD: No Seasonal Allergies Seasonal Allergies: Yes Past Medical History Surgeries: Yes Appendectomy, Cardiac, Hysterectomy, Oophorectomy, Orthopedic, Pacemaker Respiratory: No Currently Using CPAP: No Currently Using BIPAP: No Cardiac: Yes (pacemaker, HYPOTENSION) Irregular Heartbeat, Syncope Neurological: Yes Headaches /Migraines Reproductive Disorders: Yes 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 Genitourinary: No Gastrointestinal: No Musculoskeletal: No Endocrine: No HEENT: No Cancer: No Psychosocial: No Integumentary: No Blood Disorders: Yes (HX OF ANEMIA) Adverse Reaction/Blood Tranf: No Family Medical History Arthritis G8 SISTER Diabetes mellitus 19 MOTHER G8 SISTER Fibromyalgia G8 SISTER Heart murmur 19 MOTHER G8 SISTER Kidney disease 19 MOTHER Myelodysplasia of spinal cord 19 MOTHER, Onset:60 years & older Myocardial infarction G8 BROTHER, Onset:31 ( of [place] at 32) No Pertinent Family Hx Physical Exam Vital Signs Capillary Refill : Height, Weight, BMI Height: 5'7.00" Weight: 200lbs. 0.0oz. 90.270466kw; 32.9 BMI Method:Stated General Appearance: WD/WN, no apparent distress HEENT: PERRL/EOMI, normal ENT inspection, TMs normal Neck: non-tender, full range of motion Respiratory: no respiratory distress, no accessory muscle use Extremities: normal range of motion, non-tender Psychiatric: alert, oriented x 3 Crainal Nerves: normal hearing, normal speech, PERRL Skin: normal color, warm/dry Progress/Results/Core Measures Results/Orders My Orders Orders - SAMI LE APRN Ketorolac Injection (Toradol Injection) (02/04/18 11:45) Orphenadrine Injection (Norflex Injectio (02/04/18 11:45) Prochlorperazine Injection (Compazine In (02/04/18 11:45) Departure Impression Primary Impression: Acute headache Qualified Codes: R51 - Headache Disposition: 01 HOME, SELF-CARE Condition: Improved Departure-Patient Inst. Decision time for Depature: 11:42 Referrals: [facility] (PCP/Family) Primary Care Physician Patient Instructions: Headache, Adult (DC) Add. Discharge Instructions: 1. Return to ER for any concerns 2. Follow-up with your doctor next week 3. All discharge instructions reviewed with patient and/or family. Voiced understanding. SAMI LE APRN Feb 04, 2018 11:42
--- OUTSIDE RECORDS SUMMARY | 2018-02-04 12:04 | XMS REPORT | Continuity of Care Document ---
Author Author [facility] of [facility] of [facility] Address Unknown Phone Unavailable Allergies Active Description Code Type Severity Reaction Onset Reported/Identified Relationship to Patient Clinical Status Yes hydrocodone Drug Allergy N/A N/A 03/27/2014 Yes Penicillins Drug Allergy N/A N/A 03/27/2014 Yes hydrocodone [id number] Drug Allergy Unknown N/A 09/29/2014 Yes Penicillins [id number] Drug Allergy Mild VOMITING 09/29/2014 Medications There [...] Ot E869.8 ACC POISON-GAS/VAPOR NEC 03/27/2014 PAULINE SPORTS PSYCHOLOGIST, JOHANN R 784.0 HEADACHE 03/27/2014 PAULINE SPORTS PSYCHOLOGIST, JOHANN R 847.1 SPRAIN THORACIC REGION 03/27/2014 PAULINE SPORTS PSYCHOLOGIST, JOHANN R 784.0 HEADACHE 03/27/2014 PAULINE SPORTS PSYCHOLOGIST, JOHANN R 847.1 SPRAIN THORACIC REGION 03/27/2014 PAULINE SPORTS PSYCHOLOGIST, JOHANN R 784.0 HEADACHE 03/27/2014 PAULINE SPORTS PSYCHOLOGIST, JOHANN R 847.1 SPRAIN THORACIC REGION 03/27/2014 PAULINE SPORTS PSYCHOLOGIST, JOHANN R 784.0 HEADACHE 03/27/2014 PAULINE SPORTS PSYCHOLOGIST, JOHANN R 847.1 SPRAIN THORACIC REGION 03/27/2014 PAULINE SPORTS PSYCHOLOGIST, JOHANN R 784.0 HEADACHE 03/27/2014 PAULINE SPORTS PSYCHOLOGIST, JOHANN R 847.1 SPRAIN THORACIC REGION 04/02/2014 PAULINE SPORTS PSYCHOLOGIST, JOHANN R 244.9 HYPOTHYROIDISM 04/02/2014 PAULINE SPORTS PSYCHOLOGIST, JOHANN R 272.4 HYPERLIPIDEMIA 04/02/2014 PAULINE SPORTS PSYCHOLOGIST, JOHANN R 244.9 HYPOTHYROIDISM 04/02/2014 PAULINE SPORTS PSYCHOLOGIST, JOHANN R 272.4 HYPERLIPIDEMIA 04/02/2014 PAULINE SPORTS PSYCHOLOGIST, JOHANN R 244.9 HYPOTHYROIDISM 04/02/2014 PAULINE SPORTS PSYCHOLOGIST, JOHANN R 272.4 HYPERLIPIDEMIA 04/02/2014 PAULINE SPORTS PSYCHOLOGIST, JOHANN R 244.9 HYPOTHYROIDISM 04/02/2014 PAULINE SPORTS PSYCHOLOGIST, JOHANN R 272.4 HYPERLIPIDEMIA 04/22/2014 PAULINE SPORTS PSYCHOLOGIST, JOHANN R 724.1 PAIN IN THORACIC SPINE 04/22/2014 PAULINE SPORTS PSYCHOLOGIST, JOHANN R 724.1 PAIN IN THORACIC SPINE 04/22/2014 PAULINE SPORTS PSYCHOLOGIST, JOHANN R 724.1 PAIN IN THORACIC SPINE 04/29/2014 PAULINE, JOHANN R SPORTS PSYCHOLOGIST Ot 724.1 05/19/2014 PAULINE, JOHANN R SPORTS PSYCHOLOGIST Ot 724.1 08/14/2014 FABRICE MELTON MD Ot [...] LATERAL EPICONDYLITIS, RIGHT ELBOW 01/04/2016 SAMI LE SPORTS PSYCHOLOGIST Ot R51 HEADACHE 01/05/2016 SAMI LE SPORTS PSYCHOLOGIST Ot R51 HEADACHE 01/06/2016 SAMI LE SPORTS PSYCHOLOGIST Ot R51 HEADACHE 02/11/2016 CITLALI COLLAZO MD Ot I25.10 ATHSCL HEART DISEASE OF [place] CORONARY 02/11/2016 CITLALI COLLAZO MD Ot I49.5 SICK SINUS SYNDROME 02/11/2016 CITLALI COLLAZO MD Ot R07.9 CHEST PAIN, UNSPECIFIED 02/11/2016 CITLALI COLLAZO MD Ot Z87.891 PERSONAL HISTORY OF NICOTINE DEPENDENCE 02/15/2016 MERON ALVARADO MD Ot J93.9 PNEUMOTHORAX, UNSPECIFIED 02/15/2016 MERON ALVARADO MD Ot R06.02 SHORTNESS OF BREATH 02/15/2016 MERON ALVARADO MD Ot Z79.82 [facility] (CURRENT) USE OF ASPIRIN 02/15/2016 MERON ALVARADO MD Ot Z79.899 OTHER WRITING MANAGER (CURRENT) DRUG THERAPY 02/15/2016 MERON ALVARADO MD, [...] BREATH 02/16/2016 MERON ALVARADO MD Ot Z79.82 [facility] (CURRENT) USE OF ASPIRIN 02/16/2016 MERON ALVARADO MD Ot Z79.899 OTHER WRITING MANAGER (CURRENT) DRUG THERAPY 02/16/2016 MERON ALVARADO MD Ot Z87.891 PERSONAL HISTORY OF NICOTINE DEPENDENCE 02/16/2016 MREON ALVARADO MD Ot Z95.0 PRESENCE OF CARDIAC PACEMAKER 02/16/2016 MERON ALVARADO MD Ot Z98.890 OTHER SPECIFIED POSTPROCEDURAL STATES 02/16/2016 JAC SCHMIDT MD Ot I10 ESSENTIAL (PRIMARY) HYPERTENSION 02/16/2016 JAC SCHMIDT MD Ot I25.10 ATHSCL HEART DISEASE OF [place] CORONARY 02/16/2016 JAC SCHMIDT MD Ot J95.811 POSTPROCEDURAL PNEUMOTHORAX 02/16/2016 JAC SCHMIDT MD Ot Z87.891 PERSONAL HISTORY OF NICOTINE DEPENDENCE 02/16/2016 JAC SCHMIDT MD Ot Z95.0 PRESENCE OF CARDIAC PACEMAKER 02/17/2016 JAC SCHMIDT MD Ot G43.909 MIGRAINE, UNSP, NOT INTRACTABLE, WITHOUT 02/17/2016 JAC SCHMIDT MD Ot I10 ESSENTIAL (PRIMARY) HYPERTENSION 02/17/2016 JAC SCHMIDT MD, Ot I25.10 ATHSCL HEART DISEASE OF [place] CORONARY 02/17/2016 JAC SCHMIDT MD Ot I49.5 SICK SINUS SYNDROME 02/17/2016 JAC SCHMIDT MD Ot J95.811 POSTPROCEDURAL PNEUMOTHORAX 02/17/2016 JAC SCHMIDT MD Ot Z87.891 PERSONAL HISTORY OF NICOTINE DEPENDENCE 02/17/2016 JAC SCHMIDT MD Ot Z95.0 PRESENCE OF CARDIAC PACEMAKER 02/24/2016 MERON ALVARADO MD Ot J93.9 PNEUMOTHORAX, UNSPECIFIED 02/24/2016 MERON ALVARADO MD Ot R06.02 SHORTNESS OF BREATH 02/24/2016 MERON ALVARADO MD Ot Z79.82 WRITING MANAGER (CURRENT) USE OF ASPIRIN 02/24/2016 MERON ALVARADO MD Ot Z79.899 OTHER [facility] (CURRENT) DRUG THERAPY 02/24/2016 MERON ALVARADO MD Ot Z87.891 PERSONAL HISTORY OF NICOTINE DEPENDENCE 02/24/2016 MERON ALVARADO MD Ot Z95.0 PRESENCE OF CARDIAC PACEMAKER 02/24/2016 MERON ALVARADO MD Ot Z98.890 OTHER SPECIFIED POSTPROCEDURAL STATES 03/07/2016 SAMI LE SPORTS PSYCHOLOGIST Ot H53.143 VISUAL DISCOMFORT, BILATERAL 03/07/2016 SAMI LE SPORTS PSYCHOLOGIST Ot R51 HEADACHE 03/07/2016 SAMI LE SPORTS PSYCHOLOGIST Ot Z95.0 PRESENCE OF CARDIAC PACEMAKER 03/08/2016 SAMI LE SPORTS PSYCHOLOGIST Ot H53.143 VISUAL DISCOMFORT, BILATERAL 03/08/2016 SAMI LE SPORTS PSYCHOLOGIST Ot R51 HEADACHE 03/08/2016 SAMI LE SPORTS PSYCHOLOGIST Ot Z95.0 PRESENCE OF CARDIAC PACEMAKER 03/13/2016 SAMI LE SPORTS PSYCHOLOGIST Ot H53.143 VISUAL DISCOMFORT, BILATERAL 03/13/2016 SAMI LE SPORTS PSYCHOLOGIST Ot R51 HEADACHE 03/13/2016 SAMI LE SPORTS PSYCHOLOGIST Ot Z95.0 PRESENCE OF CARDIAC PACEMAKER 05/20/2016 MARLENE BRIGGS MD Ot R11.0 NAUSEA 05/20/2016 MARLENE BRIGGS MD Ot R42 DIZZINESS AND GIDDINESS 05/20/2016 MARLENE BRIGGS MD Ot Z79.899 OTHER [facility] (CURRENT) DRUG THERAPY 05/20/2016 MARLENE BRIGGS MD Ot Z95.0 PRESENCE OF CARDIAC PACEMAKER 05/23/2016 MARLENE BRIGGS MD Ot R11.0 NAUSEA 05/23/2016 MARLENE BRIGGS MD Ot R42 DIZZINESS AND GIDDINESS 05/23/2016 MARLENE BRIGGS MD Ot Z79.899 OTHER WRITING MANAGER (CURRENT) DRUG THERAPY 05/23/2016 MARLENE BRIGGS MD Ot Z95.0 PRESENCE OF CARDIAC PACEMAKER 06/07/2016 SAMI LE SPORTS PSYCHOLOGIST Ot I10 ESSENTIAL (PRIMARY) HYPERTENSION 06/07/2016 SAMI LE SPORTS PSYCHOLOGIST Ot R11.0 NAUSEA 06/07/2016 SAMI LE SPORTS PSYCHOLOGIST Ot R51 HEADACHE 06/07/2016 SAMI LE SPORTS PSYCHOLOGIST Ot Z87.891 PERSONAL HISTORY OF NICOTINE DEPENDENCE 06/07/2016 SAMI LE SPORTS PSYCHOLOGIST Ot Z95.0 PRESENCE OF CARDIAC PACEMAKER 06/08/2016 SAMI LE SPORTS PSYCHOLOGIST Ot I10 ESSENTIAL (PRIMARY) HYPERTENSION 06/08/2016 SAMI LE SPORTS PSYCHOLOGIST Ot R11.0 NAUSEA 06/08/2016 SAMI LE SPORTS PSYCHOLOGIST Ot R51 HEADACHE 06/08/2016 SAMI LE SPORTS PSYCHOLOGIST Ot Z87.891 PERSONAL HISTORY OF NICOTINE DEPENDENCE 06/08/2016 SAMI LE SPORTS PSYCHOLOGIST Ot Z95.0 PRESENCE OF CARDIAC PACEMAKER 08/02/2016 SAMI LE SPORTS PSYCHOLOGIST Ot I10 ESSENTIAL (PRIMARY) HYPERTENSION 08/02/2016 SAMI LE APRN Ot R51 HEADACHE 08/02/2016 SAMI LE SPORTS PSYCHOLOGIST Ot Z79.899 OTHER WRITING MANAGER (CURRENT) DRUG THERAPY 08/02/2016 SAMI LE SPORTS PSYCHOLOGIST Ot Z87.891 PERSONAL HISTORY OF NICOTINE DEPENDENCE 08/02/2016 SAMI LE SPORTS PSYCHOLOGIST Ot Z95.0 PRESENCE OF CARDIAC PACEMAKER 08/06/2016 JAC SCHMIDT MD Ot E66.9 OBESITY, UNSPECIFIED 08/06/2016 JAC SCHMIDT MD Ot F17.210 NICOTINE DEPENDENCE, CIGARETTES, UNCOMPL 08/06/2016 JAC SCHMIDT MD Ot F41.9 ANXIETY DISORDER, UNSPECIFIED 08/06/2016 JAC SCHMIDT MD Ot G47.00 INSOMNIA, UNSPECIFIED 08/06/2016 JAC SCHMIDT MD Ot I25.10 ATHSCL HEART DISEASE OF [place] CORONARY 08/06/2016 JAC SCHMIDT MD Ot R07.89 [...] Ot R07.1 CHEST PAIN ON BREATHING 07/12/2017 ICTLALI COLLAZO MD, Ot R61 GENERALIZED HYPERHIDROSIS 07/12/2017 [...] Ot Z88.0 ALLERGY STATUS TO PENICILLIN 07/13/2017 TEAJ VELASQUEZ Ot Z88.5 ALLERGY STATUS TO NARCOTIC AGENT STATUS 07/13/2017 TEJA VELASQUEZ Ot Z90.49 ACQUIRED ABSENCE OF OTHER SPECIFIED PART 07/13/2017 TEJA VELASQUEZ Ot Z90.710 ACQUIRED ABSENCE OF BOTH CERVIX AND UTER 07/13/2017 TEJA VELASQUEZ Ot Z95.0 PRESENCE OF CARDIAC PACEMAKER 08/01/2017 ZAY CHASE, CITLALI Miranda Ot R06.02 SHORTNESS OF BREATH 08/01/2017 CITLALI COLLAZO MD Ot R07.1 CHEST PAIN ON BREATHING 08/01/2017 CITLALI COLLAZO MD Ot R61 GENERALIZED HYPERHIDROSIS 12/19/2017 JARED ASMSON Ot D64.9 ANEMIA, UNSPECIFIED 12/19/2017 JARED SAMSON Ot G43.909 MIGRAINE, UNSP, NOT INTRACTABLE, WITHOUT 12/19/2017 JARED SAMSON Ot Z82.49 FAMILY HX OF ISCHEM HEART DIS AND OTH DI 12/19/2017 JARED SAMSON Ot Z87.448 PERSONAL HISTORY OF OTHER DISEASES OF UR 12/19/2017 JARED SAMSON Ot Z87.891 PERSONAL HISTORY OF NICOTINE DEPENDENCE 12/19/2017 JARED SAMSON Ot Z88.0 ALLERGY STATUS TO PENICILLIN 12/19/2017 NITO SAMSONIS Ot Z88.5 ALLERGY STATUS TO NARCOTIC AGENT STATUS 12/19/2017 NITO SAMSONIS Ot Z90.710 ACQUIRED ABSENCE OF BOTH CERVIX AND UTER 12/19/2017 JARED SAMSON Ot Z90.89 ACQUIRED ABSENCE OF OTHER ORGANS 12/19/2017 BERNJARED RANGEL Ot Z95.0 PRESENCE OF CARDIAC PACEMAKER Procedures Code Description [place] [address] [employer] 03/31/2014 38106 ROUTINE VENIPUNCTURE 04/01/2014 61382 XRAY THORACIC SPINE 3 VIEWS 04/01/2014 21353 LIPID PANEL 04/01/2014 68744 CBC 04/01/2014 [id number] GFR CALC (RESULT ONLY) 04/01/2014 12850 CMP 04/01/2014 22982 [facility] 04/01/2014 30924 MRI SPINE (THORACIC) W/O CONTRAST 04/22/2014 64868 ROUTINE VENIPUNCTURE 07/04/2014 37333 LIPID PANEL 07/04/2014 43147 TSH 07/04/2014 [id number] INSERTION OF PACEMAKER LEAD INTO RIGHT A 02/10/2016 [id number] INSERTION OF PACEMAKER LEAD INTO R VENTR 02/10/2016 [id number] INSERT PACE. DUAL CORNEL IN CHEST SUBCU/FA [...] plasma albumin measurement (mass/volume) 3.9 g/dL 3.2-4.5 Complete blood count (CBC) with automated white blood cell (WBC) differential - 02/02/18 14:00 Blood leukocytes automated count (number/volume) 5.2 10*3/uL 4.3-11.0 Blood erythrocytes automated count (number/volume) 3.93 10*6/uL 4.35-5.85 Venous blood hemoglobin measurement (mass/volume) 12.2 g/dL 11.5-16.0 Blood hematocrit (volume fraction) 36 % 35-52 Automated erythrocyte mean corpuscular volume 92 [foz_us] 80-99 Automated erythrocyte mean corpuscular hemoglobin (mass per erythrocyte) 31 pg 25-34 Automated erythrocyte mean corpuscular hemoglobin concentration measurement ( mass/volume) 34 g/dL 32-36 Automated erythrocyte distribution width ratio 12.9 % 10.0-14.5 Automated blood platelet count (count/volume) 207 10*3/uL 130-400 Automated blood platelet mean volume measurement 10.0 [[facility]_us] 7.4-10.4 Automated blood neutrophils/100 leukocytes 62 % 42-75 Automated blood lymphocytes/100 leukocytes 29 % 12-44 Blood monocytes/100 leukocytes 7 % 0-12 Automated blood eosinophils/100 leukocytes 3 % 0-10 Automated blood basophils/100 leukocytes 0 % 0-10 Blood neutrophils automated count (number/volume) 3.2 10*3 1.8-7.8 Blood lymphocytes automated count (number/volume) 1.5 10*3 1.0-4.0 Blood monocytes automated count (number/volume) 0.4 10*3 0.0-1.0 Automated eosinophil count 0.1 10*3/uL 0.0-0.3 Automated blood basophil count (count/volume) 0.0 10*3/uL 0.0-0.1 PT panel in platelet poor plasma by coagulation assay - 02/02/18 14:00 Prothrombin time (PT) in platelet poor plasma by coagulation assay 12.8 s 12.2-14.7 INR in platelet poor plasma or blood by coagulation assay 1.0 0.8-1.4 Activated partial thromboplastin time (aPTT) in platelet poor plasma bycoagulation assay - 02/02/18 14:00 Activated partial thromboplastin time (aPTT) in platelet poor plasma bycoagulation assay 28 s 24-35 Comprehensive metabolic panel - 02/02/18 14:00 Serum or plasma sodium measurement (moles/volume) 140 mmol/L 135-145 Serum or plasma potassium measurement (moles/volume) 3.5 mmol/L 3.6-5.0 Serum or plasma chloride measurement (moles/volume) 107 mmol/L 98-107 Carbon dioxide 21 mmol/L 21-32 Serum or plasma anion gap determination (moles/volume) 12 mmol/L 5-14 Serum or plasma urea nitrogen measurement (mass/volume) 16 mg/dL 7-18 Serum or plasma creatinine measurement (mass/volume) 0.83 mg/dL 0.60-1.30 Serum or plasma urea nitrogen/creatinine mass ratio 19 NRG Serum or plasma creatinine measurement with calculation of estimated glomerular filtration rate > NRG Serum or plasma glucose measurement (mass/volume) 110 mg/dL 70-105 Serum or plasma calcium measurement (mass/volume) 9.4 mg/dL 8.5-10.1 Serum or plasma total bilirubin measurement (mass/volume) 0.5 mg/dL 0.1-1.0 Serum or plasma alkaline phosphatase measurement (enzymatic activity/volume) 64 U/L 40-136 Serum or plasma aspartate aminotransferase measurement (enzymatic activity/ volume) 55 U/L 5-34 Serum or plasma alanine aminotransferase measurement (enzymatic activity/volume ) 78 U/L 0-55 Serum or plasma protein measurement (mass/volume) 7.3 g/dL 6.4-8.2 Serum or plasma albumin measurement (mass/volume) 4.6 g/dL 3.2-4.5 Magnesium - 02/02/18 14:00 Magnesium 2.1 mg/dL 1.8-2.4 Serum or plasma troponin i.cardiac measurement (mass/volume) - 02/02/18 14:00 Serum or plasma troponin i.cardiac measurement (mass/volume) < ng/ mL <0.30 Myoglobin, serum - 02/02/18 14:00 Myoglobin, serum 48.1 ng/mL 10.0-92.0 Encounters ACCT No. Visit Date/Time Discharge Status Pt. Type Provider Facility Loc./Unit Complaint [id number] 07/04/2014 08:09:00 07/04/2014 23:59:59 [facility] Outpatient JOHANN CARPENTER APRN [id number] 05/13/2014 14:41:00 05/13/2014 23:59:59 [facility] Outpatient JOHANN CARPENTER APRN [id number] 04/22/2014 14:50:00 04/22/2014 23:59:59 [facility] Outpatient JOHANN CARPENTER APRN [id number] 04/01/2014 09:08:00 04/01/2014 23:59:59 [facility] Outpatient JOHANN CARPENTER APRN [id number] 03/27/2014 10:15:00 03/27/2014 23:59:59 [facility] Outpatient JOHANN CARPENTER APRN [id number] 10/20/2017 10:05:00 10/20/2017 23:59:59 [facility] Outpatient [facility] [id number] 12/19/2017 14:28:00 12/19/2017 16:04:00 DIS Emergency JARED SAMSON Via [facility] ER MIGRAINE [id number] 07/11/2017 16:43:00 07/11/2017 18:43:00 DIS Emergency TEJA VELASQUEZ Via [facility] ER MIGRAINE [id number] 05/02/2017 14:39:00 05/02/2017 15:31:00 DIS Emergency SAMI LE SPORTS PSYCHOLOGIST Via [facility] ER MIGRAINE [id number] 01/31/2017 18:02:00 01/31/2017 20:15:00 DIS Emergency SAMI LE APRN Via [facility] ER HEADACHE [id number] 11/29/2016 07:22:00 11/29/2016 23:59:59 CLS Preadmit CITLALI COLLAZO MD Via [facility] SLEEP OBSTRUCTIVE SLEEP APNEA [id number] 11/21/2016 14:02:00 11/21/2016 15:11:00 DIS Emergency SAMI LE APRN Via [facility] ER MIGRAINE [id number] 10/11/2016 17:34:00 10/11/2016 18:29:00 DIS Emergency TEJA VELASQUEZ Via [facility] ER MIGRAINE [id number] 08/15/2016 07:29:00 08/15/2016 23:59:59 CLS Outpatient CITLALI COLLAZO MD Via [facility] CARD CHEST PAIN SYNDROME R07.1 [id number] 08/05/2016 22:50:00 08/06/2016 13:49:00 DIS Inpatient JAC SCHMIDT MD Via [facility] ICU CHEST PAIN [id number] 08/02/2016 12:53:00 08/02/2016 13:38:00 DIS Emergency SAMI LE APRN Via [facility] ER MIGRAINE [id number] 06/07/2016 14:02:00 06/07/2016 15:13:00 DIS Emergency SAMI LE APRN Via [facility] ER MIGRAINE [id number] 05/20/2016 14:54:00 05/20/2016 16:44:00 DIS Emergency MARLENE BRIGGS MD Via [facility] ER DIZZY/NAUSEA UPPER BACK PAIN [id number] 03/07/2016 21:01:00 03/07/2016 22:11:00 DIS Emergency SAMI LE SPORTS PSYCHOLOGIST Via [facility] ER MIGRAINE [id number] 02/15/2016 19:50:00 02/17/2016 13:31:00 DIS Inpatient ROXANA CHASE, JAC Vilchis Via [facility] 4TH L PNEUMOTHORAX; S/P PACEMAKER PLACEMENT [id number] 02/15/2016 06:40:00 02/15/2016 09:34:00 DIS Emergency CHRISTIANO CHASE, MERON Covarurbias Via [facility] ER SOA [id number] 02/10/2016 12:08:00 02/11/2016 10:03:00 DIS Inpatient ZAY CHASE, CITLALI Miranda [facility] ICU SYMPTOMATIC BRADYCARDIA SICK SINUS SYNDROME CP [id number] 01/04/2016 21:37:00 01/04/2016 22:34:00 DIS Emergency SAMI LE SPORTS PSYCHOLOGIST Via [facility] ER MIGRAINE [id number] 01/30/2015 14:30:00 02/12/2015 15:39:00 DIS Outpatient MARILU ENGLAND MD Via [facility] REHAB S/P R LATERAL EPICONDYLE DEBRIDEMENT [id number] 01/06/2015 16:04:00 01/07/2015 00:01:00 DIS Outpatient MARILU ENGLAND MD Via [facility] REHAB S/P R LATERAL EPICONDYLE DEBRIDEMENT [id number] 10/01/2014 05:55:00 10/01/2014 10:25:00 DIS Outpatient MARILU ENGLAND MD Via [facility] RIGHT LATERAL EPINCONDYLITIS [id number] 09/26/2014 15:46:00 09/26/2014 23:59:59 CLS Outpatient MARILU ENGLAND MD Via [facility] PREOP RIGHT LATERAL EPINCONDYLITIS [id number] 09/09/2014 16:14:00 09/11/2014 14:09:00 DIS Outpatient FABRICE MELTON MD Via [facility] REHAB CERVICALGIA [id number] 07/28/2014 15:35:00 07/28/2014 23:59:59 CLS Outpatient FABRICE MELTON MD Via [facility] RAD NECK PAIN [id number] 04/28/2014 13:07:00 04/28/2014 23:59:59 CLS Outpatient JOHANN CARPENTER APRN Via [facility] RAD PAIN IN THORACIC SPINE [id number] 12/06/2012 18:18:00 12/06/2012 23:59:59 CLS Outpatient [id number] 11/01/2012 17:07:00 11/01/2012 23:59:59 CLS Outpatient [id number] 09/22/2012 14:24:00 09/22/2012 23:59:59 CLS Outpatient [id number] 08/24/2012 15:18:00 08/24/2012 17:38:00 DIS Emergency CHESTER CHASE, MARLENE Silva [facility] ER SOA, INHALED CHEMICAL FUMES [id number] 02/02/2018 14:15:00 Document Registration [id number] 12/20/2011 06:35:00 Document Registration [id number] 09/29/2011 08:55:00 Document Registration [id number] 07/01/2011 17:36:00 Document Registration [id number] 01/17/2011 11:52:00 Document Registration [id number] 11/17/2010 06:46:00 Document Registration [id number] 09/23/2010 11:09:00 Document Registration
[2018-02-04 12:37] VITALS: BP 151/103
== END | disposition home or self-care (01) ==
LOC: EDUNIT# 11:33 → ER 11:34
DX: R51 Headache (principal); Z82.49 Family history of ischemic heart disease and other diseases of the circulatory system; Z87.448 Personal history of other diseases of urinary system; Z88.5 Allergy status to narcotic agent; Z88.0 Allergy status to penicillin; Z87.891 Personal history of nicotine dependence; Z90.710 Acquired absence of both cervix and uterus; Z90.89 Acquired absence of other organs; Z95.0 Presence of cardiac pacemaker
CPT/HCPCS: 99284

== ENCOUNTER 2018-03-06 14:50 | Outpatient (CLI) | payer BC ==
[~2018-03-06 14:50] MED LIST changes: -KETOROLAC 60 MG/2 ML VIAL IM ONE; -ORPHENADRINE 60 MG/2 ML (NORFLEX) AMP IM ONE; -PROCHLORPERAZINE 10 MG/2ML INJ (COMPAZINE) IM ONE
== END 2018-03-06 15:25 | disposition home or self-care (01) ==
LOC: SLEEP 14:50
PROVIDERS: ATTEND Internal Medicine Cardiovascular Disease
DX: G47.33 Obstructive sleep apnea (adult) (pediatric) (principal); R06.83 Snoring; I10 Essential (primary) hypertension; G47.00 Insomnia, unspecified; G47.10 Hypersomnia, unspecified

== ENCOUNTER 2018-04-27 09:29 | Emergency (ER) | payer BC ==
[~2018-04-27] VITALS: Ht 170.2 cm; Wt 90.7 kg
[2018-04-27] MEDS ORDERED: KETOROLAC 60 MG/2 ML VIAL IM ONE (11:30)
[2018-04-27] MEDS ORDERED: PROCHLORPERAZINE 10 MG/2ML INJ (COMPAZINE) IM ONE (11:30)
[2018-04-27] MEDS ORDERED: diphenhydrAMINE 50 MG/ML INJ (BENADRYL) IM ONE (11:30)
--- NOTE | 2018-04-27 11:48 | ED Headache ---
General Chief Complaint: Head/Cervical Problems Stated Complaint: MIGRAINE Nursing Triage Note: Ambulaotry to fast track. Pt c/o migraine accompanied by nausea that began Monday. Nursing Sepsis Screen: No Definite Risk Source: patient Exam Limitations: no limitations History of Present Illness Date Seen by Provider: Apr 27, 2018 Time Seen by Provider: 11:30 Initial Comments 58-year-old female who presents to the emergency room with complaints of migraine and nausea began 3 days ago. She has migraines frequently and this is very similar to previous migraines but she normally takes Aleve for the migraines but is unable to get any relief today. She denies any recent head trauma. Timing/Duration: other (3 days) Severity/Quality: constant Location: global Prior Headaches/Recent Trauma: frequent headaches Associated Symptoms: nausea/vomiting Allergies and Home Medications Allergies Coded Allergies: hydrocodone (Unverified Allergy, Unknown, 09/29/14) Penicillins (Unverified Adverse Reaction, Mild, VOMITING, 09/29/14) Home Medications Pantoprazole Sodium 40 Mg Tablet.dr, 40 MG PO DAILY Prescribed by: CRISTI WHEELER on 02/02/18 1629 Patient Home Medication List Home Medication List Reviewed: Yes Review of Systems Review of Systems Constitutional: no symptoms reported, see HPI Gastrointestinal: see HPI, nausea Psychiatric/Neurological: See HPI, Headache All Other Systems Reviewed Negative Unless Noted: Yes Past Inspthz-Xxottx-Uemwbo Hx Past Med/Social Hx: Reviewed Nursing Past Med/Soc Hx Patient Social History Alcohol Use: Denies Use Recreational Drug Use: Yes (TOBACCO) Type Used: Cigarettes Former Smoker, Quit: May 24, 2012 2nd Hand Smoke Exposure: Yes Recent Foreign Travel: No Contact w/Someone Who Travel: No Recent Infectious Disease Expo: No Recent Hopitalizations: No Physical Abuse: No Sexual Abuse: No Immunizations Up To Date Tetanus Booster (TDap): Unknown PED Vaccines UTD: No Seasonal Allergies Seasonal Allergies: Yes Past Medical History Surgeries: Yes Appendectomy, Cardiac, Hysterectomy, Oophorectomy, Orthopedic, Pacemaker Respiratory: No Currently Using CPAP: No Currently Using BIPAP: No Cardiac: Yes (pacemaker, HYPOTENSION, sick sinus syndrome) Irregular Heartbeat, Syncope Neurological: Yes Headaches /Migraines Reproductive Disorders: Yes Female Reproductive Disorders: Ovarian 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 LOCK TENDER 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: Hysterectomy Genitourinary: No Gastrointestinal: No Musculoskeletal: No Endocrine: No HEENT: No Cancer: No Psychosocial: No Integumentary: No Blood Disorders: Yes (HX OF ANEMIA) Adverse Reaction/Blood Tranf: No Family Medical History Reviewed Nursing Family Hx Arthritis G8 SISTER Diabetes mellitus 19 MOTHER G8 SISTER Fibromyalgia G8 SISTER Heart murmur 19 MOTHER G8 SISTER Kidney disease 19 MOTHER Myelodysplasia of spinal cord 19 MOTHER, Onset:60 years & older Myocardial infarction G8 BROTHER, Onset:32 ( of ID at 32) No Pertinent Family Hx Physical Exam Vital Signs Vital Signs - First Documented 04/27/18 11:12 Temp 98.2 Pulse 56 Resp 16 B/P (MAP) 136/82 (100) Pulse Ox 95 O2 Delivery Room Air Capillary Refill : Less Than 3 Seconds Height, Weight, BMI Height: 5'7.00" Weight: 200lbs. 0.0oz. 90.992068qd; 32.9 BMI Method:Stated General Appearance: WD/WN, no apparent distress Cardiovascular: normal peripheral pulses, regular rate, rhythm, no edema, no gallop, no JVD, no murmur Respiratory: chest non-tender, lungs clear, normal breath sounds, no respiratory distress, no accessory muscle use Gastrointestinal: normal bowel sounds, non tender, soft, no organomegaly, no pulsatile mass Psychiatric: alert, oriented x 3 Crainal Nerves: normal hearing, normal speech Coordination/Gait: normal finger to nose, normal gait Skin: normal color, warm/dry Progress/Results/Core Measures Results/Orders My Orders Orders - JARED SAMSON Ketorolac Injection (Toradol Injection) (04/27/18 11:30) Prochlorperazine Injection (Compazine In (04/27/18 11:30) Diphenhydramine Injection (Benadryl Inje (04/27/18 11:30) Medications Given in ED Vital Signs/I&O 04/27/18 04/27/18 11:12 12:00 Temp 98.2 98.2 Pulse 56 56 Resp 16 16 B/P (MAP) 136/82 (100) 136/82 (100) Pulse Ox 95 95 O2 Delivery Room Air Room Air Blood Pressure Mean: 100 Progress Progress Note : Time: 11:57 Progress Note Patient has complete relief of symptoms after medication administration. She reports to nursing staff that she is ready to go home. She agrees with plan of care, plans for discharge, return precautions were given. Departure Impression Primary Impression: Migraine Disposition: 01 HOME, SELF-CARE Condition: Stable/Unchanged Departure-Patient Inst. Decision time for Depature: 11:58 Referrals: [facility]/K (PCP/Family) Primary Care Physician Patient Instructions: Migraine Headache (DC) Add. Discharge Instructions: Resume your home medications as previously prescribed. Follow-up with her primary care provider within 1 week for recheck. Return back to the emergency room for worsening symptoms or concerns as needed. All discharge instructions reviewed with patient and/or family. Voiced understanding. JARED SAMSON Apr 27, 2018 11:48
--- NOTE | 2018-04-27 11:56 | NUR ---
Pt feeling relief at this time. Yonathan Reyna notified.
[2018-04-27 12:00] VITALS: BP 136/82
== END 2018-04-27 12:00 | disposition home or self-care (01) ==
LOC: EDUNIT# 09:29 → ER 09:30
DX: G43.909 Migraine, unspecified, not intractable, without status migrainosus (principal); D64.9 Anemia, unspecified; Z82.49 Family history of ischemic heart disease and other diseases of the circulatory system; Z87.448 Personal history of other diseases of urinary system; Z88.5 Allergy status to narcotic agent; Z88.0 Allergy status to penicillin; Z87.891 Personal history of nicotine dependence; Z90.49 Acquired absence of other specified parts of digestive tract; Z90.710 Acquired absence of both cervix and uterus; Z95.0 Presence of cardiac pacemaker
CPT/HCPCS: 99284

== ENCOUNTER 2018-06-23 14:53 | Emergency (ER) | payer BC ==
[~2018-06-23] VITALS: Ht 170.2 cm; Wt 95.3 kg
[2018-06-23] MEDS ORDERED: PROCHLORPERAZINE 10 MG/2ML INJ (COMPAZINE) IM ONE (15:15)
[2018-06-23] MEDS ORDERED: KETOROLAC 60 MG/2 ML VIAL IM ONE (15:15)
[2018-06-23] MEDS ORDERED: diphenhydrAMINE 50 MG/ML INJ (BENADRYL) IM ONE (15:15)
--- NOTE | 2018-06-23 15:16 | ED Headache ---
General Chief Complaint: Head/Cervical Problems Stated Complaint: MIGRANE Source: patient Exam Limitations: no limitations History of Present Illness Date Seen by Provider: Jun 23, 2018 Time Seen by Provider: 15:14 Initial Comments 58-year-old female who presents to the emergency room with complaints of a migraine that started this morning. She reports that she has history of migraines and Timing/Duration: 4-6 hours Severity/Quality: moderate, constant, throbbing Location: global Prior Headaches/Recent Trauma: frequent headaches Associated Symptoms: denies symptoms Allergies and Home Medications Allergies Coded Allergies: hydrocodone (Unverified Allergy, Unknown, 09/29/14) Penicillins (Unverified Adverse Reaction, Mild, VOMITING, 09/29/14) Home Medications No Active Prescriptions or Reported Meds Patient Home Medication List Home Medication List Reviewed: Yes Review of Systems Review of Systems Constitutional: no symptoms reported, see HPI Psychiatric/Neurological: See HPI, Headache All Other Systems Reviewed Negative Unless Noted: Yes Past Wwcroes-Qekfgv-Anythr Hx Past Med/Social Hx: Reviewed Nursing Past Med/Soc Hx Patient Social History Alcohol Use: Denies Use Recreational Drug Use: No Smoking Status: Former Smoker Type Used: Cigarettes Former Smoker, Quit: May 24, 2012 2nd Hand Smoke Exposure: Yes Recent Foreign Travel: No Contact w/Someone Who Travel: No Recent Hopitalizations: No Physical Abuse: No Sexual Abuse: No Mistreated: No Fear: No Immunizations Up To Date Tetanus Booster (TDap): Unknown PED Vaccines UTD: No Seasonal Allergies Seasonal Allergies: Yes Past Medical History 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 CUFF) Appendectomy, Cardiac, Hysterectomy, Oophorectomy, Orthopedic, Pacemaker Respiratory: No Currently Using CPAP: No Currently Using BIPAP: No Cardiac: Yes (pacemaker, HYPOTENSION, sick sinus syndrome) Irregular Heartbeat, Syncope Neurological: Yes Headaches /Migraines Reproductive Disorders: Yes 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 Genitourinary: No Gastrointestinal: No Musculoskeletal: No Endocrine: No HEENT: No Cancer: No Psychosocial: No Integumentary: No Blood Disorders: Yes (HX OF ANEMIA) Adverse Reaction/Blood Tranf: No Family Medical History Reviewed Nursing Family Hx Arthritis G8 SISTER Diabetes mellitus 19 MOTHER G8 SISTER Fibromyalgia G8 SISTER Heart murmur 19 MOTHER G8 SISTER Kidney disease 19 MOTHER Myelodysplasia of spinal cord 19 MOTHER, Onset:60 years & older Myocardial infarction G8 BROTHER, Onset:32 ( of [place] at 32) No Pertinent Family Hx Physical Exam Vital Signs Vital Signs - First Documented 06/23/18 15:06 Temp 97.7 Pulse 80 Resp 16 B/P (MAP) 144/68 (93) Pulse Ox 95 Capillary Refill : Less Than 3 Seconds Height, Weight, BMI Height: 5'7.00" Weight: 210lbs. 0.0oz. 95.465523sn; 32.9 BMI Method:Stated General Appearance: WD/WN, no apparent distress Neck: non-tender, full range of motion, supple, normal inspection Cardiovascular: normal peripheral pulses, regular rate, rhythm, no edema, no gallop, no JVD, no murmur Respiratory: chest non-tender, lungs clear, normal breath sounds, no respiratory distress, no accessory muscle use Extremities: normal capillary refill Psychiatric: alert, oriented x 3 Crainal Nerves: normal hearing, normal speech Coordination/Gait: normal gait Motor/Sensory: no motor deficit, no sensory deficit Skin: normal color, warm/dry Progress/Results/Core Measures Results/Orders My Orders Orders - JARED SAMSON Prochlorperazine Injection (Compazine In (06/23/18 15:15) Ketorolac Injection (Toradol Injection) (06/23/18 15:15) Diphenhydramine Injection (Benadryl Inje (06/23/18 15:15) Medications Given in ED Vital Signs/I&O 06/23/18 06/23/18 15:06 16:04 Temp 97.7 Pulse 80 70 Resp 16 20 B/P (MAP) 144/68 (93) 126/78 (94) Pulse Ox 95 99 Progress Progress Note : Progress Note 1550: I have seen and evaluated the patient. She is feeling better after medications and would like to go home and rest. She agrees with plan of care, plans for discharge, return precautions were given. Departure Impression Primary Impression: Migraine Disposition: 01 HOME, SELF-CARE Condition: Stable/Unchanged Departure-Patient Inst. Decision time for Depature: 15:52 Referrals: [facility] (PCP/Family) Primary Care Physician Patient Instructions: Migraine Headache (DC) Add. Discharge Instructions: Follow-up with her primary care provider as needed. Return back to the emergency room for worsening symptoms or concerns as needed. All discharge instructions reviewed with patient and/or family. Voiced understanding. Scripts No Active Prescriptions or Reported Meds JARED SAMSON Jun 23, 2018 15:16
[2018-06-23 16:04] VITALS: BP 126/78
== END 2018-06-23 16:04 | disposition home or self-care (01) ==
LOC: EDUNIT# 14:53 → ER 14:54
DX: G43.909 Migraine, unspecified, not intractable, without status migrainosus (principal); D64.9 Anemia, unspecified; Z87.448 Personal history of other diseases of urinary system; Z88.5 Allergy status to narcotic agent; Z88.0 Allergy status to penicillin; Z82.49 Family history of ischemic heart disease and other diseases of the circulatory system; Z87.891 Personal history of nicotine dependence; Z90.49 Acquired absence of other specified parts of digestive tract; Z98.890 Other specified postprocedural states; Z90.710 Acquired absence of both cervix and uterus; Z95.0 Presence of cardiac pacemaker
CPT/HCPCS: 99284

== ENCOUNTER 2018-07-21 08:40 | Emergency (ER) | payer BC ==
[~2018-07-21] VITALS: Ht 170.2 cm; Wt 90.7 kg
--- OUTSIDE RECORDS SUMMARY | 2018-07-21 08:46 | XMS REPORT ---
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 Name Role Phone Migration, Doctor Unavailable Unavailable PROBLEMS Type Condition ICD9-CM Code [id number] Code Onset Dates Condition Status SNOMED Code Problem Migraine headache G43.909 Active [id number] ALLERGIES No Information ENCOUNTERS Encounter Location Date Diagnosis [facility] [id number] [place] [address] Oct, Injury of left foot, initial encounter S99.922A [facility] [id number] [place] [address] [id number] August, [facility] [id number] [place] [address]66- 4485 Feb, [facility] [id number] [place] [address] 86281- 0328 Mar, [facility] [id number] [place] [address] 68913- 3625 Mar, Dermatofibroma of abdominal wall D23.5 [facility] [id number] [place] [address] 88406- 1209 Jan, [facility] [id number] [place] [address] 97962- 2755 Jan, Migraine headache G43.909 and Inflamed skin tag L91.8 [facility] [id number] [place] [address] 29629- 2973 August, [facility] [id number] [place] [address] 82756- 8246 August, Elbow pain, right 719.42 [facility] [id number] [place] [address] 03386- 3050 Jul, [facility] [place] [facility] [address] [id number] [place] [address] Jul, [facility] [place] [facility] [address] [id number] [place] [address] Jun, [facility] [place] [facility] [address] [id number] [place] [address]74 Jun, [facility] [place] [facility] [address] [id number] [place] [address] 389[address] Jun, [facility] [place] [facility] [address] [id number] [place] [address] 7063 Jun, [facility] [place] [facility] [address] [id number] [place] [address] May, [facility] [place] [facility] [address] [id number] [place] [address] 2627 May, [facility] [place] [facility] [address] [id number] [place] [address] Apr, [facility] [place] [facility] [address] [id number] [place] [address] 6058 Apr, [facility] [place] [facility] [address] [id number] [place] [address] 3702 Apr, [facility] [place] [facility] [address] [id number] [place] [address] 3189 Apr, [facility] [place] [facility] [address] [id number] [address] Apr, [facility] [place] [facility] [address] [id number] [place] [address] 8566 Apr, [facility] [place] [facility] [address] [id number] [place] [address] 8149 Apr, [facility] [place] [facility] [address] [id number] [address] Apr, [facility] [place] [facility] [address] [id number], [place] [address] Apr, [facility] [address] [id number] [address] Mar, [facility] [address] [facility] [id number] [address] Mar, [facility] [address] [id number] [address] Mar, [facility] [id number] [address] Mar, [facility] [id number] [address] Mar, [facility] [id number] [address] 240[address] Mar, [facility] [address] [id number] [address] Mar, [facility] [id number] [address] Mar, [facility] [address] [id number] [address] Mar, IMMUNIZATIONS No Known Immunizations SOCIAL HISTORY Never Assessed REASON FOR VISIT E[place] [place] OF CARE VITAL SIGNS MEDICATIONS No Known Medications RESULTS No Results PROCEDURES No Known procedures INSTRUCTIONS MEDICATIONS ADMINISTERED No Known Medications MEDICAL (GENERAL) HISTORY Type Description Date Medical History migraine headaches Medical History back pain Medical History arrhythmia Surgical History hysterectomy Surgical History rotator cuff tear repair - left shoulder x 1, right shoulder x 2 Surgical History tennis elbow repair 2015 Surgical History pacemaker placed 2016 Hospitalization History Chest pain-[facility] 08/05/16
--- OUTSIDE RECORDS SUMMARY | 2018-07-21 08:46 | XMS REPORT ---
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 [id number] [place] [address]489- 1375 Feb, [facility] [id number] [place] [address] 52568- 4406 Mar, [facility] [id number] [place] [address] 03699- 1865 Mar, Dermatofibroma of abdominal wall D23.5 [facility] [id number] [place] [address] 17138- 6777 Jan, [facility] [id number] [place] [address] 61951- 9116 Jan, Migraine headache G43.909 and Inflamed skin tag L91.8 [facility] [id number] [place] [address] 36962- 1619 August, [facility] [id number] [place] [address] 97764- 2892 August, Elbow pain, right 719.42 [facility] [id number] [place] [address] 34406- 6453 Jul, [facility] [place] [facility] [address] [id number] [place] [address]- 0486 Jul, [facility] [place] [facility] [address] [id number] [place] [address]- 4573 Jun, [facility] [place] [facility] [address] [id number] [place] [address]- 7622 Jun, [facility] [place] [facility] [address] [id number] [place] [address]- 9385 Jun, [facility] [place] [facility] [address] [id number] [place] [address]- 2772 Jun, [facility] [place] [facility] [address] [id number] [place] [address]- 7871 May, [facility] [place] [facility] [address] [id number] [place] [address]- 1665 May, [facility] [place] [facility] [address] [id number] [place] [address]- 2161 Apr, [facility] [place] [facility] [address] [id number] [place] [address]- 1615 Apr, [facility] [place] [facility] [address] [id number] [place] [address]- 2571 Apr, [facility] [place] [facility] [address] [id number] [place] [address]- 0065 Apr, [facility] [place] [facility] [address] [id number], [place] [address]- 4486 Apr, [facility] [place] [facility] [address] [id number] [place] [address]- 8156 Apr, [facility] [place] [facility] [address] [id number] [place] [address]- 9894 Apr, [facility] [place] [facility] [address] [id number], [place] [address]- 1392 Apr, [facility] [place] [facility] [address] [id number], [place] [address] 6718 Apr, [facility] [address] [id number] [address] 1081 Mar, [facility] [address] [facility] [id number]605 Mar, [facility] [id number] [address] Mar, [facility] [address] [address] 9205 Mar, [facility] [address]00565[address] [address] 7200 Mar, [facility] [address] [address] 2213 Mar, [facility] [id number] [address] Mar, [facility] [address], [place] [address]17 Mar, [facility] [address] [id number], [place] [address]- 1333 Mar, IMMUNIZATIONS No Known Immunizations SOCIAL HISTORY Never Assessed REASON FOR VISIT EMR-[facility] [place] PLAN OF CARE VITAL SIGNS MEDICATIONS No [...] History pacemaker placed 2016 Hospitalization History Chest pain-[facility] 08/05/16
--- OUTSIDE RECORDS SUMMARY | 2018-07-21 08:50 | XMS REPORT | Continuity of Care Document ---
Author Organization Unknown Address Unknown Allergies Active Description Code Type Severity Reaction Onset Reported/Identified Relationship to Patient Clinical Status Yes hydrocodone Drug Allergy N/A N/A 03/27/2014 Yes Penicillins Drug Allergy N/A N/A 03/27/2014 Yes hydrocodone [id number] Drug Allergy Unknown N/A 09/29/2014 Yes Penicillins [id number] Drug Allergy Mild VOMITING 09/29/2014 Medications There [...] Ot E869.8 ACC POISON-GAS/VAPOR NEC 03/27/2014 PAULINE AGENT CONTRACT CLERK, JOHANN R 784.0 HEADACHE 03/27/2014 PAULINE AGENT CONTRACT CLERK, JOHANN R 847.1 SPRAIN THORACIC REGION 03/27/2014 PAULINE AGENT CONTRACT CLERK, JOHANN R 784.0 HEADACHE 03/27/2014 PAULINE AGENT CONTRACT CLERK, JOHANN R 847.1 SPRAIN THORACIC REGION 03/27/2014 PAULINE AGENT CONTRACT CLERK, JOHANN R 784.0 HEADACHE 03/27/2014 PAULINE AGENT CONTRACT CLERK, JOHANN R 847.1 SPRAIN THORACIC REGION 03/27/2014 PAULINE AGENT CONTRACT CLERK, JOHANN R 784.0 HEADACHE 03/27/2014 PAULINE AGENT CONTRACT CLERK, JOHANN R 847.1 SPRAIN THORACIC REGION 03/27/2014 PAULINE AGENT CONTRACT CLERK, JOHANN R 784.0 HEADACHE 03/27/2014 PAULINE AGENT CONTRACT CLERK, JOHANN R 847.1 SPRAIN THORACIC REGION 04/02/2014 PAULINE AGENT CONTRACT CLERK, JOHANN R 244.9 HYPOTHYROIDISM 04/02/2014 PAULINE AGENT CONTRACT CLERK, JOHANN R 272.4 HYPERLIPIDEMIA 04/02/2014 PAULINE AGENT CONTRACT CLERK, JOHANN R 244.9 HYPOTHYROIDISM 04/02/2014 PAULINE AGENT CONTRACT CLERK, JOHANN R 272.4 HYPERLIPIDEMIA 04/02/2014 PAULINE AGENT CONTRACT CLERK, JOHANN R 244.9 HYPOTHYROIDISM 04/02/2014 PAULINE AGENT CONTRACT CLERK, JOHANN R 272.4 HYPERLIPIDEMIA 04/02/2014 PAULINE AGENT CONTRACT CLERK, JOHANN R 244.9 HYPOTHYROIDISM 04/02/2014 PAULINE AGENT CONTRACT CLERK, JOHANN R 272.4 HYPERLIPIDEMIA 04/22/2014 PAULINE AGENT CONTRACT CLERK, JOHANN R 724.1 PAIN IN THORACIC SPINE 04/22/2014 PAULINE AGENT CONTRACT CLERK, JOHANN R 724.1 PAIN IN THORACIC SPINE 04/22/2014 PAULINE AGENT CONTRACT CLERK, JOHANN R 724.1 PAIN IN THORACIC SPINE 04/29/2014 PAULINE, JOHANN R AGENT CONTRACT CLERK Ot 724.1 05/19/2014 PAULINE, JOHANN R AGENT CONTRACT CLERK Ot 724.1 08/14/2014 FABRICE MELTON MD Ot 723.1 08/21/2014 FABRICE MELTON MD Ot 723.1 08/21/2014 FABRICE MELTON MD Ot V57.1 09/10/2014 FARBICE MELTON MD Ot 723.1 09/10/2014 FABRICE MELTON MD Ot V57.1 09/11/2014 FABRICE MELTON MD Ot 723.1 CERVICALGIA 09/11/2014 LINH CHASE, FABRICE Miranda Ot V57.1 PHYSICAL THERAPY NEC 10/01/2014 TOMÁS CHASE, MARILU Rodríguez Ot 305.1 TOBACCO USE DISORDER 10/01/2014 TOMÁS CHASE, MARILU Rodríguez Ot 726.32 LATERAL EPICONDYLITIS 01/07/2015 MARILU ENGLAND MD Ot V57.1 PHYSICAL THERAPY NEC 01/07/2015 TOMÁS CHASE, MARILU Rodríguez Ot V58.49 OTHER SPECIFIED AFTERCARE FOLLOWING SURG 01/14/2015 MARILU ENGLAND MD Ot V57.1 01/14/2015 MARILU ENGLAND MD Ot V58.49 01/14/2015 MARILU ENGLAND MD Ot V57.1 01/14/2015 MARILU ENGLAND MD Ot V58.49 02/08/2015 MARILU ENGLAND MD Ot V57.1 02/08/2015 MARILU ENGLAND MD Ot V58.49 02/12/2015 MARILU ENGLAND MD Ot M77.11 LATERAL EPICONDYLITIS, RIGHT ELBOW 01/04/2016 SAMI LE AGENT CONTRACT CLERK Ot R51 HEADACHE 01/05/2016 SAMI LE AGENT CONTRACT CLERK Ot R51 HEADACHE 01/06/2016 SAMI LE AGENT CONTRACT CLERK Ot R51 HEADACHE 02/11/2016 CITLALI COLLAZO MD Ot I25.10 ATHSCL HEART DISEASE OF [place] CORONARY 02/11/2016 CITLALI COLLAZO MD Ot I49.5 SICK SINUS SYNDROME 02/11/2016 CITLALI COLLAZO MD Ot R07.9 CHEST PAIN, UNSPECIFIED 02/11/2016 CITLALI COLLAZO MD Ot Z87.891 PERSONAL HISTORY OF NICOTINE DEPENDENCE 02/15/2016 MERON ALVARADO MD Ot J93.9 PNEUMOTHORAX, UNSPECIFIED 02/15/2016 MERON ALVARADO MD Ot R06.02 SHORTNESS OF BREATH 02/15/2016 MERON ALVARADO MD Ot Z79.82 TELEPHONE COIN BOX COLLECTOR (CURRENT) USE OF ASPIRIN 02/15/2016 MERON ALVARADO MD Ot Z79.899 OTHER TELEPHONE COIN BOX COLLECTOR (CURRENT) DRUG THERAPY 02/15/2016 MERON ALVARADO MD Ot Z87.891 PERSONAL HISTORY OF NICOTINE DEPENDENCE 02/15/2016 MERON ALVARADO MD Ot Z95.0 PRESENCE OF CARDIAC PACEMAKER 02/15/2016 MERON ALVARADO MD Ot Z98.890 OTHER SPECIFIED POSTPROCEDURAL STATES 02/15/2016 Ot 729.5 PAIN IN LIMB 02/15/2016 Ot 786.50 CHEST PAIN NOS 02/15/2016 PAULINEJOHANN Deng AGENT CONTRACT CLERK Ot 724.1 PAIN IN THORACIC SPINE 02/15/2016 LINH CHASE, FABRICE Miranda Ot 723.1 CERVICALGIA 02/15/2016 MARILU ENGLAND MD Ot 726.32 LATERAL EPICONDYLITIS 02/15/2016 MARILU ENGLAND MD Ot V72.84 EXAM PRE-OPERATIVE NOS 02/16/2016 MERON ALVARADO MD Ot J93.9 PNEUMOTHORAX, UNSPECIFIED 02/16/2016 MERON ALVARADO MD Ot R06.02 SHORTNESS OF BREATH 02/16/2016 MERON ALVARADO MD Ot Z79.82 TELEPHONE COIN BOX COLLECTOR (CURRENT) USE OF ASPIRIN 02/16/2016 MERON ALVARADO MD Ot Z79.899 OTHER [facility] (CURRENT) DRUG THERAPY 02/16/2016 MERON ALVARADO MD Ot Z87.891 PERSONAL HISTORY OF NICOTINE DEPENDENCE 02/16/2016 MERON ALVARADO MD Ot Z95.0 PRESENCE OF CARDIAC PACEMAKER 02/16/2016 MERON ALVARADO MD Ot Z98.890 OTHER SPECIFIED POSTPROCEDURAL STATES 02/16/2016 JAC SCHMIDT MD Ot I10 ESSENTIAL (PRIMARY) HYPERTENSION 02/16/2016 JAC SCHMIDT MD Ot I25.10 ATHSCL HEART DISEASE OF [place] CORONARY 02/16/2016 JAC SCHMIDT MD Ot J95.811 POSTPROCEDURAL PNEUMOTHORAX 02/16/2016 JAC SCHMIDT MD Ot Z87.891 PERSONAL HISTORY OF NICOTINE DEPENDENCE 02/16/2016 JAC SCHMIDT MD Ot Z95.0 PRESENCE OF CARDIAC PACEMAKER 02/17/2016 JAC SCHMIDT MD Ot G43.909 MIGRAINE, UNSP, NOT INTRACTABLE, WITHOUT 02/17/2016 JAC SCHMIDT MD Ot I10 ESSENTIAL (PRIMARY) HYPERTENSION 02/17/2016 JAC SCHMIDT MD Ot I25.10 ATHSCL HEART DISEASE OF [place] CORONARY 02/17/2016 JAC SCHMIDT MD Ot I49.5 SICK SINUS SYNDROME 02/17/2016 ROXANA CHASE, JAC Vilchis Ot J95.811 POSTPROCEDURAL PNEUMOTHORAX 02/17/2016 ROXANA CHASE, JAC Vilchis Ot Z87.891 PERSONAL HISTORY OF NICOTINE DEPENDENCE 02/17/2016 JAC SCHMIDT MD Ot Z95.0 PRESENCE OF CARDIAC PACEMAKER 02/24/2016 MERON ALVARADO MD Ot J93.9 PNEUMOTHORAX, UNSPECIFIED 02/24/2016 MERON ALVARADO MD Ot R06.02 SHORTNESS OF BREATH 02/24/2016 MERON ALVARADO MD Ot Z79.82 TELEPHONE COIN BOX COLLECTOR (CURRENT) USE OF ASPIRIN 02/24/2016 MERON ALVARADO MD Ot Z79.899 OTHER [facility] (CURRENT) DRUG THERAPY 02/24/2016 MERON ALVARADO MD Ot Z87.891 PERSONAL HISTORY OF NICOTINE DEPENDENCE 02/24/2016 MERON ALVARADO MD Ot Z95.0 PRESENCE OF CARDIAC PACEMAKER 02/24/2016 MERON ALVARADO MD Ot Z98.890 OTHER SPECIFIED POSTPROCEDURAL STATES 03/07/2016 SAMI LE AGENT CONTRACT CLERK Ot H53.143 VISUAL DISCOMFORT, BILATERAL 03/07/2016 SAMI LE AGENT CONTRACT CLERK Ot R51 HEADACHE 03/07/2016 SAMI LE AGENT CONTRACT CLERK Ot Z95.0 PRESENCE OF CARDIAC PACEMAKER 03/08/2016 SAMI LE AGENT CONTRACT CLERK Ot H53.143 VISUAL DISCOMFORT, BILATERAL 03/08/2016 SAMI LE AGENT CONTRACT CLERK Ot R51 HEADACHE 03/08/2016 SAMI LE AGENT CONTRACT CLERK Ot Z95.0 PRESENCE OF CARDIAC PACEMAKER 03/13/2016 SAMI LE AGENT CONTRACT CLERK Ot H53.143 VISUAL DISCOMFORT, BILATERAL 03/13/2016 SAMI LE AGENT CONTRACT CLERK Ot R51 HEADACHE 03/13/2016 SAMI LE AGENT CONTRACT CLERK Ot Z95.0 PRESENCE OF CARDIAC PACEMAKER 05/20/2016 MARLENE BRIGGS MD Ot R11.0 NAUSEA 05/20/2016 MARLENE BRIGGS MD Ot R42 DIZZINESS AND GIDDINESS 05/20/2016 MARLENE BRIGGS MD Ot Z79.899 OTHER TELEPHONE COIN BOX COLLECTOR (CURRENT) DRUG THERAPY 05/20/2016 MARLENE BRIGGS MD Ot Z95.0 PRESENCE OF CARDIAC PACEMAKER 05/23/2016 MARLENE BRIGGS MD Ot R11.0 NAUSEA 05/23/2016 MARLENE BRIGGS MD Ot R42 DIZZINESS AND GIDDINESS 05/23/2016 MARLENE BRIGGS MD Ot Z79.899 OTHER [facility] (CURRENT) DRUG THERAPY 05/23/2016 MARLENE BRIGGS MD Ot Z95.0 PRESENCE OF CARDIAC PACEMAKER 06/07/2016 SAMI LE AGENT CONTRACT CLERK Ot I10 ESSENTIAL (PRIMARY) HYPERTENSION 06/07/2016 SAMI LE AGENT CONTRACT CLERK Ot R11.0 NAUSEA 06/07/2016 SAMI LE AGENT CONTRACT CLERK Ot R51 HEADACHE 06/07/2016 SAMI LE APRN Ot Z87.891 PERSONAL HISTORY OF NICOTINE DEPENDENCE 06/07/2016 SAMI LE AGENT CONTRACT CLERK Ot Z95.0 PRESENCE OF CARDIAC PACEMAKER 06/08/2016 SAMI LE AGENT CONTRACT CLERK Ot I10 ESSENTIAL (PRIMARY) HYPERTENSION 06/08/2016 SAMI LE AGENT CONTRACT CLERK Ot R11.0 NAUSEA 06/08/2016 SAMI LE APRN Ot R51 HEADACHE 06/08/2016 SAMI LE APRN Ot Z87.891 PERSONAL HISTORY OF NICOTINE DEPENDENCE 06/08/2016 SAMI LE AGENT CONTRACT CLERK Ot Z95.0 PRESENCE OF CARDIAC PACEMAKER 08/02/2016 SAMI LE AGENT CONTRACT CLERK Ot I10 ESSENTIAL (PRIMARY) HYPERTENSION 08/02/2016 SAMI LE APRN Ot R51 HEADACHE 08/02/2016 SAMI LE APRN Ot Z79.899 OTHER TELEPHONE COIN BOX COLLECTOR (CURRENT) DRUG THERAPY 08/02/2016 SAMI LE AGENT CONTRACT CLERK Ot Z87.891 PERSONAL HISTORY OF NICOTINE DEPENDENCE 08/02/2016 SAMI LE AGENT CONTRACT CLERK Ot Z95.0 PRESENCE OF CARDIAC PACEMAKER 08/06/2016 JAC SCHMIDT MD Ot E66.9 OBESITY, UNSPECIFIED 08/06/2016 JAC SCHMIDT MD Ot F17.210 NICOTINE DEPENDENCE, CIGARETTES, UNCOMPL 08/06/2016 JAC SCHMIDT MD Ot F41.9 ANXIETY DISORDER, UNSPECIFIED 08/06/2016 JAC SCHMIDT MD Ot G47.00 INSOMNIA, UNSPECIFIED 08/06/2016 JAC SCHMIDT MD Ot I25.10 ATHSCL HEART DISEASE OF [place] CORONARY 08/06/2016 JAC SCHMIDT MD Ot R07.89 [...] Ot Z95.0 PRESENCE OF CARDIAC PACEMAKER 01/25/2017 ZAY CHASE, CITLALI Miranda Ot R06.02 SHORTNESS OF BREATH 01/25/2017 CITLALI [...] CHEST PAIN ON BREATHING 05/26/2017 CITLALI COLLAZO MD Ot R61 GENERALIZED HYPERHIDROSIS 07/11/2017 TEJA VELASQUEZ [...] CHEST PAIN ON BREATHING 07/12/2017 CITLALI COLLAZO MD Ot R61 GENERALIZED HYPERHIDROSIS 07/12/2017 JOHANN CARPENTER [...] Miranda Ot R06.02 SHORTNESS OF BREATH 08/01/2017 ZAY CHASE, CITLALI Miranda Ot R07.1 CHEST PAIN ON BREATHING 08/01/2017 ZAY CHASE, CITLALI Miranda Ot R61 GENERALIZED HYPERHIDROSIS 12/19/2017 JARED SASMON Ot D64.9 ANEMIA, UNSPECIFIED 12/19/2017 NITO SAMSONIS Ot G43.909 MIGRAINE, UNSP, NOT INTRACTABLE, WITHOUT 12/19/2017 BERNNITO RANGELIS Ot Z82.49 FAMILY HX OF ISCHEM HEART DIS AND OTH DI 12/19/2017 NITO SAMSONIS Ot Z87.448 PERSONAL HISTORY OF OTHER DISEASES OF UR 12/19/2017 NITO SAMSONIS Ot Z87.891 PERSONAL HISTORY OF NICOTINE DEPENDENCE 12/19/2017 NITO SAMSONIS Ot Z88.0 ALLERGY STATUS TO PENICILLIN 12/19/2017 CHAPIN JARED Ot Z88.5 ALLERGY STATUS TO NARCOTIC AGENT STATUS 12/19/2017 NITO SAMSONIS Ot Z90.710 ACQUIRED ABSENCE OF BOTH CERVIX AND UTER 12/19/2017 BERNCLAIRE JARED Ot Z90.89 ACQUIRED ABSENCE OF OTHER ORGANS 12/19/2017 BERNNITO RANGELIS Ot Z95.0 PRESENCE OF CARDIAC PACEMAKER 02/02/2018 CRISTI COATES MD Ot G43.909 MIGRAINE, UNSP, NOT INTRACTABLE, WITHOUT 02/02/2018 CRISTI COATES MD Ot R07.89 OTHER CHEST PAIN 02/02/2018 CRISTI COATES MD Ot R11.0 NAUSEA 02/02/2018 CRISTI COATES MD Ot Z82.49 FAMILY HX OF ISCHE[place] HEART DIS AND OTH DI 02/02/2018 CRISTI COATES MD Ot Z87.448 PERSONAL HISTORY OF OTHER DISEASES OF UR 02/02/2018 CRISTI COATES MD Ot Z87.891 PERSONAL HISTORY OF NICOTINE DEPENDENCE 02/02/2018 CRISTI COATES MD Ot Z88.0 ALLERGY STATUS TO PENICILLIN 02/02/2018 CRISTI COATES MD Ot Z88.5 ALLERGY STATUS TO NARCOTIC AGENT STATUS 02/02/2018 CRISTI COATES MD Ot Z90.710 ACQUIRED ABSENCE OF BOTH CERVIX AND UTER 02/02/2018 CRISTI COATES MD Ot Z90.89 ACQUIRED ABSENCE OF OTHER ORGANS 02/02/2018 CRISTI COATES MD Ot Z95.0 PRESENCE OF CARDIAC PACEMAKER 02/04/2018 SAMI LE AGENT CONTRACT CLERK Ot R51 HEADACHE 02/04/2018 SAMI LE APRN Ot Z82.49 FAMILY HX OF ISCHEM HEART DIS AND OTH DI 02/04/2018 SAMI LE AGENT CONTRACT CLERK Ot Z87.448 PERSONAL HISTORY OF OTHER DISEASES OF UR 02/04/2018 SAMI LE AGENT CONTRACT CLERK Ot Z87.891 PERSONAL HISTORY OF NICOTINE DEPENDENCE 02/04/2018 SAMI LE APRN Ot Z88.0 ALLERGY STATUS TO PENICILLIN 02/04/2018 SAMI LE AGENT CONTRACT CLERK Ot Z88.5 ALLERGY STATUS TO NARCOTIC AGENT STATUS 02/04/2018 SAMI LE APRN Ot Z90.710 ACQUIRED ABSENCE OF BOTH CERVIX AND UTER 02/04/2018 SAMI LE AGENT CONTRACT CLERK Ot Z90.89 ACQUIRED ABSENCE OF OTHER ORGANS 02/04/2018 SAMI LE APRN Ot Z95.0 PRESENCE OF CARDIAC PACEMAKER 02/05/2018 JAXON CHASE, CRISTI Cruz Ot G43.909 MIGRAINE, UNSP, NOT INTRACTABLE, WITHOUT 02/05/2018 CRISTI COATES MD Ot R07.89 OTHER CHEST PAIN 02/05/2018 CRISTI COATES MD Ot R11.0 NAUSEA 02/05/2018 CRISTI COATES MD Ot Z82.49 FAMILY HX OF ISCHEM HEART DIS AND OTH DI 02/05/2018 CRISTI COATES MD Ot Z87.448 PERSONAL HISTORY OF OTHER DISEASES OF UR 02/05/2018 CRISTI COATES MD Ot Z87.891 PERSONAL HISTORY OF NICOTINE DEPENDENCE 02/05/2018 CRISTI COATES MD Ot Z88.0 ALLERGY STATUS TO PENICILLIN 02/05/2018 CRISTI COATES MD Ot Z88.5 ALLERGY STATUS TO NARCOTIC AGENT STATUS 02/05/2018 CRISTI COATES MD Ot Z90.710 ACQUIRED ABSENCE OF BOTH CERVIX AND UTER 02/05/2018 CRISTI COATES MD Ot Z90.89 ACQUIRED ABSENCE OF OTHER ORGANS 02/05/2018 CRISTI COTAES MD Ot Z95.0 PRESENCE OF CARDIAC PACEMAKER 02/06/2018 SAMI LE APRN Ot R51 HEADACHE 02/06/2018 SAMI LE APRN Ot Z82.49 FAMILY HX OF ISCHEM HEART DIS AND OTH DI 02/06/2018 SAMI LE APRN Ot Z87.448 PERSONAL HISTORY OF OTHER DISEASES OF UR 02/06/2018 SAMI LE APRN Ot Z87.891 PERSONAL HISTORY OF NICOTINE DEPENDENCE 02/06/2018 SAMI LE APRN Ot Z88.0 ALLERGY STATUS TO PENICILLIN 02/06/2018 SAMI LE APRN Ot Z88.5 ALLERGY STATUS TO NARCOTIC AGENT STATUS 02/06/2018 SAMI LE APRN Ot Z90.710 ACQUIRED ABSENCE OF BOTH CERVIX AND UTER 02/06/2018 SAMI LE APRN Ot Z90.89 ACQUIRED ABSENCE OF OTHER ORGANS 02/06/2018 SAMI LE APRN Ot Z95.0 PRESENCE OF CARDIAC PACEMAKER 02/10/2018 SAMI LE APRN Ot R51 HEADACHE 02/10/2018 SAMI LE APRN Ot Z82.49 FAMILY HX OF ISCHEM HEART DIS AND OTH DI 02/10/2018 SAMI LE APRN Ot Z87.448 PERSONAL HISTORY OF OTHER DISEASES OF UR 02/10/2018 SAMI LE APRN Ot Z87.891 PERSONAL HISTORY OF NICOTINE DEPENDENCE 02/10/2018 SAMI LE APRN Ot Z88.0 ALLERGY STATUS TO PENICILLIN 02/10/2018 SAMI LE AGENT CONTRACT CLERK Ot Z88.5 ALLERGY STATUS TO NARCOTIC AGENT STATUS 02/10/2018 SAMI LE AGENT CONTRACT CLERK Ot Z90.710 ACQUIRED ABSENCE OF BOTH CERVIX AND UTER 02/10/2018 SAMI LE AGENT CONTRACT CLERK Ot Z90.89 ACQUIRED ABSENCE OF OTHER ORGANS 02/10/2018 SAMI LE AGENT CONTRACT CLERK Ot Z95.0 PRESENCE OF CARDIAC PACEMAKER 03/06/2018 CITLALI COLLAZO MD Ot G47.00 INSOMNIA, UNSPECIFIED 03/06/2018 CITLALI COLLAZO MD J Ot G47.10 HYPERSOMNIA, UNSPECIFIED 03/06/2018 CITLALI COLLAZO MD J Ot G47.33 OBSTRUCTIVE SLEEP APNEA (ADULT) (PEDIATR 03/06/2018 CITLALI COLLAZO MD J Ot I10 ESSENTIAL (PRIMARY) HYPERTENSION 03/06/2018 CITLALI COLLAZO MD J Ot R06.83 SNORING 03/07/2018 CITLALI COLLAZO MD J Ot G47.00 INSOMNIA, UNSPECIFIED 03/07/2018 CITLALI COLLAZO MD J Ot G47.10 HYPERSOMNIA, UNSPECIFIED 03/07/2018 CITLALI COLLAZO MD J Ot G47.33 OBSTRUCTIVE SLEEP APNEA (ADULT) (PEDIATR 03/07/2018 CITLALI COLLAZO MD J Ot I10 ESSENTIAL (PRIMARY) HYPERTENSION 03/07/2018 CITLALI COLLAZO MD J Ot R06.83 SNORING 04/27/2018 JARED SAMSON Ot D64.9 ANEMIA, UNSPECIFIED 04/27/2018 JARED SAMSON Ot G43.909 MIGRAINE, UNSP, NOT INTRACTABLE, WITHOUT 04/27/2018 JARED SAMSON Ot Z82.49 FAMILY HX OF ISCHEM HEART DIS AND OTH DI 04/27/2018 JARED SAMSON Ot Z87.448 PERSONAL HISTORY OF OTHER DISEASES OF UR 04/27/2018 JARED SAMSON Ot Z87.891 PERSONAL HISTORY OF NICOTINE DEPENDENCE 04/27/2018 JARED SAMSON Ot Z88.0 ALLERGY STATUS TO PENICILLIN 04/27/2018 JARED SAMSON Ot Z88.5 ALLERGY STATUS TO NARCOTIC AGENT STATUS 04/27/2018 JARED SAMSON Ot Z90.49 ACQUIRED ABSENCE OF OTHER SPECIFIED PART 04/27/2018 JARED SAMSON Ot Z90.710 ACQUIRED ABSENCE OF BOTH CERVIX AND UTER 04/27/2018 BERNOT, JARED Ot Z95.0 PRESENCE OF CARDIAC PACEMAKER 04/30/2018 BERNOT, JARED Ot D64.9 ANEMIA, UNSPECIFIED 04/30/2018 BERNOT, JARED Ot G43.909 MIGRAINE, UNSP, NOT INTRACTABLE, WITHOUT 04/30/2018 BERNOT, JARED Ot Z82.49 FAMILY HX OF ISCHEM HEART DIS AND OTH DI 04/30/2018 BERNOT JARED Ot Z87.448 PERSONAL HISTORY OF OTHER DISEASES OF UR 04/30/2018 BERNOT, JARED Ot Z87.891 PERSONAL HISTORY OF NICOTINE DEPENDENCE 04/30/2018 BERNOT, JARED Ot Z88.0 ALLERGY STATUS TO PENICILLIN 04/30/2018 BERNOT, JARED Ot Z88.5 ALLERGY STATUS TO NARCOTIC AGENT STATUS 04/30/2018 BERNOT, JARED Ot Z90.49 ACQUIRED ABSENCE OF OTHER SPECIFIED PART 04/30/2018 BERNOT, JARED Ot Z90.710 ACQUIRED ABSENCE OF BOTH CERVIX AND UTER 04/30/2018 BERNOT, JARED Ot Z95.0 PRESENCE OF CARDIAC PACEMAKER 05/05/2018 BERNOT, JARED Ot D64.9 ANEMIA, UNSPECIFIED 05/05/2018 BERNOT, JARED Ot G43.909 MIGRAINE, UNSP, NOT INTRACTABLE, WITHOUT 05/05/2018 BERNOT, JARED Ot Z82.49 FAMILY HX OF ISCHEM HEART DIS AND OTH DI 05/05/2018 BERNOT, JARED Ot Z87.448 PERSONAL HISTORY OF OTHER DISEASES OF UR 05/05/2018 BERNOT, JARED Ot Z87.891 PERSONAL HISTORY OF NICOTINE DEPENDENCE 05/05/2018 BERNOT, JARED Ot Z88.0 ALLERGY STATUS TO PENICILLIN 05/05/2018 BERNOT, JARED Ot Z88.5 ALLERGY STATUS TO NARCOTIC AGENT STATUS 05/05/2018 BERNOT, JARED Ot Z90.49 ACQUIRED ABSENCE OF OTHER SPECIFIED PART 05/05/2018 BERNOT, JARED Ot Z90.710 ACQUIRED ABSENCE OF BOTH CERVIX AND UTER 05/05/2018 BERNOT, JARED Ot Z95.0 PRESENCE OF CARDIAC PACEMAKER 05/13/2018 ZAY CHASE, CITLALI Miranda Ot R06.02 SHORTNESS OF BREATH 05/13/2018 ZAY CHASE, CITLALI Miranda Ot R07.1 CHEST PAIN ON BREATHING 05/13/2018 ZAY CHASE, CITLALI Miranda Ot R61 GENERALIZED HYPERHIDROSIS 06/23/2018 JOHANN CARPENTER APRN Ot 724.1 PAIN IN THORACIC SPINE 06/23/2018 LINH CHASE, FABRICE Miranda Ot 723.1 CERVICALGIA 06/23/2018 TOMÁS CHASE, MARILU Rodríguez Ot 726.32 LATERAL EPICONDYLITIS 06/23/2018 TOMÁS CHASE, MARILU Rodríguez Ot V72.84 EXAM PRE-OPERATIVE NOS 06/23/2018 BERNNITO RANGELIS Ot D64.9 ANEMIA, UNSPECIFIED 06/23/2018 BERNOT JARED Ot G43.909 MIGRAINE, UNSP, NOT INTRACTABLE, WITHOUT 06/23/2018 BERNOT JARED Ot Z82.49 FAMILY HX OF ISCHEM HEART DIS AND OTH DI 06/23/2018 BERNNITO RANGELIS Ot Z87.448 PERSONAL HISTORY OF OTHER DISEASES OF UR 06/23/2018 BERNNITO RANGELIS Ot Z87.891 PERSONAL HISTORY OF NICOTINE DEPENDENCE 06/23/2018 BERNNITO RANGELIS Ot Z88.0 ALLERGY STATUS TO PENICILLIN 06/23/2018 BERNOT JARED Ot Z88.5 ALLERGY STATUS TO NARCOTIC AGENT STATUS 06/23/2018 BERNOT JARED Ot Z90.49 ACQUIRED ABSENCE OF OTHER SPECIFIED PART 06/23/2018 BERNOT JARED Ot Z90.710 ACQUIRED ABSENCE OF BOTH CERVIX AND UTER 06/23/2018 BERNOT JARED Ot Z95.0 PRESENCE OF CARDIAC PACEMAKER 06/23/2018 BERNOT JARED Ot Z98.890 OTHER SPECIFIED POSTPROCEDURAL STATES 06/26/2018 NITO SAMSONIS Ot D64.9 ANEMIA, UNSPECIFIED 06/26/2018 BERNOT JARED Ot G43.909 MIGRAINE, UNSP, NOT INTRACTABLE, WITHOUT 06/26/2018 BERNOT JARED Ot Z82.49 FAMILY HX OF ISCHEM HEART DIS AND OTH DI 06/26/2018 BERNOT JARED Ot Z87.448 PERSONAL HISTORY OF OTHER DISEASES OF UR 06/26/2018 BERNOT JARED Ot Z87.891 PERSONAL HISTORY OF NICOTINE DEPENDENCE 06/26/2018 BERNOT JARED Ot Z88.0 ALLERGY STATUS TO PENICILLIN 06/26/2018 BERNOT JARED Ot Z88.5 ALLERGY STATUS TO NARCOTIC AGENT STATUS 06/26/2018 BERNOT, JARED Ot Z90.49 ACQUIRED ABSENCE OF OTHER SPECIFIED PART 06/26/2018 JARED SAMSON Ot Z90.710 ACQUIRED ABSENCE OF BOTH CERVIX AND UTER 06/26/2018 JARED SAMSON Ot Z95.0 PRESENCE OF CARDIAC PACEMAKER 06/26/2018 JARED SAMSON Ot Z98.890 OTHER SPECIFIED POSTPROCEDURAL STATES Procedures Code Description [place] [address] [employer] 03/31/2014 02832 ROUTINE VENIPUNCTURE 04/01/2014 70016 XRAY THORACIC SPINE 3 VIEWS 04/01/2014 39689 LIPID PANEL 04/01/2014 69105 CBC 04/01/2014 [id number] GFR CALC (RESULT ONLY) 04/01/2014 31568 CMP 04/01/2014 86640 TSH 04/01/2014 00933 MRI SPINE (THORACIC) W/O CONTRAST 04/22/2014 38353 ROUTINE VENIPUNCTURE 07/04/2014 77590 LIPID PANEL 07/04/2014 53497 TSH 07/04/2014 [id number] INSERTION OF PACEMAKER LEAD INTO RIGHT A 02/10/2016 [id number] INSERTION OF PACEMAKER LEAD INTO R VENTR 02/10/2016 [id number] INSERT PACE. DUAL CORNEL IN CHEST SUBCU/FA [...] Automated blood platelet mean volume measurement 10.0 [foz_us] 7.4-10.4 Automated blood neutrophils/100 leukocytes 62 [...] Status Pt. Type Provider Facility Loc./Unit Complaint [id number] 07/04/2014 08:09:00 07/04/2014 23:59:59 CLS Outpatient PAULINE VAUGHN JOHANN R [id number] 05/13/2014 14:41:00 05/13/2014 23:59:59 CLS Outpatient PAULINE VAUGHN JOHANN R [id number] 04/22/2014 14:50:00 04/22/2014 23:59:59 CLS Outpatient PAULINE VAUHGN JOHANN R [id number] 04/01/2014 09:08:00 04/01/2014 23:59:59 CLS Outpatient PAULINE VAUGHN JOHANN R [id number] 03/27/2014 10:15:00 03/27/2014 23:59:59 CLS Outpatient PAULINE VAUGHN JOHANN R [id number] 10/20/2017 10:05:00 10/20/2017 23:59:59 CLS Outpatient CHRIS SIMON APRNANAMARIA Cherry [facility] [id number] 06/23/2018 14:54:00 06/23/2018 16:04:00 DIS Emergency CHAPIN, JARED [facility] ER MIGRANE [id number] 04/27/2018 09:30:00 04/27/2018 12:00:00 DIS Emergency BERNCLAIRE, JARED [facility] ER MIGRAINE [id number] 03/06/2018 14:50:00 03/06/2018 15:25:00 DIS Outpatient ZAY CHASE, CITLALI Miranda [facility] SLEEP KARAN [id number] 02/04/2018 11:34:00 02/04/2018 12:37:00 DIS Emergency SAMI LE APRN [facility] ER MIGRAINE [id number] 02/02/2018 13:52:00 02/02/2018 17:03:00 DIS Emergency JAXON CHASE, CRISTI Cruz [facility] ER CHEST PAIN [id number] 12/19/2017 14:28:00 12/19/2017 16:04:00 DIS Emergency BERNOT, JARED [facility] ER MIGRAINE [id number] 07/11/2017 16:43:00 07/11/2017 18:43:00 DIS Emergency TEJA VELASQUEZ [facility] ER MIGRAINE [id number] 05/02/2017 14:39:00 05/02/2017 15:31:00 DIS Emergency SAMI LE AGENT CONTRACT CLERK [facility] ER MIGRAINE [id number] 01/31/2017 18:02:00 01/31/2017 20:15:00 DIS Emergency SAMI LE AGENT CONTRACT CLERK [facility] ER HEADACHE [id number] 11/29/2016 07:22:00 11/29/2016 23:59:59 CLS Preadmit CITLALI COLLAZO MD [facility] SLEEP OBSTRUCTIVE SLEEP APNEA [id number] 11/21/2016 14:02:00 11/21/2016 15:11:00 DIS Emergency SAMI LE AGENT CONTRACT CLERK [facility] ER MIGRAINE [id number] 10/11/2016 17:34:00 10/11/2016 18:29:00 DIS Emergency TEJA VELASQUEZ [facility] ER MIGRAINE [id number] 08/15/2016 07:29:00 08/15/2016 23:59:59 CLS Outpatient CITLALI COLLAZO MD [facility] CARD CHEST PAIN SYNDROME R07.1 [id number] 08/05/2016 22:50:00 08/06/2016 13:49:00 DIS Inpatient JAC SCHMIDT MD [facility] ICU CHEST PAIN [id number] 08/02/2016 12:53:00 08/02/2016 13:38:00 DIS Emergency SAMI LE AGENT CONTRACT CLERK [facility] ER MIGRAINE [id number] 06/07/2016 14:02:00 06/07/2016 15:13:00 DIS Emergency SAMI LE AGENT CONTRACT CLERK [facility] ER MIGRAINE [id number] 05/20/2016 14:54:00 05/20/2016 16:44:00 DIS Emergency MARLENE BRIGGS MD [facility] ER DIZZY/NAUSEA UPPER BACK PAIN [id number] 03/07/2016 21:01:00 03/07/2016 22:11:00 DIS Emergency SAMI LE AGENT CONTRACT CLERK [facility] ER MIGRAINE [id number] 02/15/2016 19:50:00 02/17/2016 13:31:00 DIS Inpatient ROXANA CHASE, JAC R [facility] 4TH L PNEUMOTHORAX; S/P PACEMAKER PLACEMENT [id number] 02/15/2016 06:40:00 02/15/2016 09:34:00 DIS Emergency MERON ALVARADO MD [facility] ER SOA [id number] 02/10/2016 12:08:00 02/11/2016 10:03:00 DIS Inpatient CITLALI COLLAZO MD [facility] ICU SYMPTOMATIC BRADYCARDIA SICK SINUS SYNDROME CP [id number] 01/04/2016 21:37:00 01/04/2016 22:34:00 DIS Emergency SAMI LE APRN [facility] ER MIGRAINE [id number] 01/30/2015 14:30:00 02/12/2015 15:39:00 DIS Outpatient MARILU ENGLAND MD [facility] REHAB S/P R LATERAL EPICONDYLE DEBRIDEMENT [id number] 01/06/2015 16:04:00 01/07/2015 00:01:00 DIS Outpatient MARILU ENGLAND MD [facility] REHAB S/P R LATERAL EPICONDYLE DEBRIDEMENT [id number] 10/01/2014 05:55:00 10/01/2014 10:25:00 DIS Outpatient MARILU ENGLNAD MD [facility] SDC RIGHT LATERAL EPINCONDYLITIS [id number] 09/26/2014 15:46:00 09/26/2014 23:59:59 CLS Outpatient MARILU ENGLAND MD [facility] PREOP RIGHT LATERAL EPINCONDYLITIS [id number] 09/09/2014 16:14:00 09/11/2014 14:09:00 DIS Outpatient FABRICE MELTON MD [facility] REHAB CERVICALGIA [id number] 07/28/2014 15:35:00 07/28/2014 23:59:59 CLS Outpatient FABRICE MELTON MD [facility] RAD NECK PAIN [id number] 04/28/2014 13:07:00 04/28/2014 23:59:59 CLS Outpatient JOHANN CARPENTER APRN [facility] RAD PAIN IN THORACIC SPINE [id number] 12/06/2012 18:18:00 12/06/2012 23:59:59 CLS Outpatient [id number] 11/01/2012 17:07:00 11/01/2012 23:59:59 CLS Outpatient [id number] 09/22/2012 14:24:00 09/22/2012 23:59:59 CLS Outpatient [id number] 08/24/2012 15:18:00 08/24/2012 17:38:00 DIS Emergency CHESTER CHASE, MARLENE Silva [facility] ER SOA, INHALED CHEMICAL FUMES [id number] 07/21/2018 08:41:00 ACT Emergency CHRISTIANO CHASE, MERON Covarrubias [facility] ER MIGRAINE [id number] 12/20/2011 06:35:00 Document Registration [id number] 09/29/2011 08:55:00 Document Registration [id number] 07/01/2011 17:36:00 Document Registration [id number] 01/17/2011 11:52:00 Document Registration [id number] 11/17/2010 06:46:00 Document Registration [id number] 09/23/2010 11:09:00 Document Registration
[2018-07-21] MEDS ORDERED: diphenhydrAMINE 50 MG/ML INJ (BENADRYL) IVP ONE (09:15)
[2018-07-21] MEDS ORDERED: NS IV 1000 ML 1,000 ML IV SCH (09:15)
[2018-07-21] MEDS ORDERED: KETOROLAC 30 MG/ML VIAL IVP ONE (09:15)
[2018-07-21] MEDS ORDERED: PROMETHAZINE INJ 25 MG/ML (PHENERGAN) AMP IVP ONE (09:15)
--- NOTE | 2018-07-21 09:16 | ED Headache ---
General Chief Complaint: Head/Cervical Problems Stated Complaint: MIGRAINE Source: patient, family Exam Limitations: no limitations History of Present Illness Date Seen by Provider: Jul 21, 2018 Time Seen by Provider: 09:13 Initial Comments This 58-year-old white female presents with a complaint of migraine headache that began shortly prior to presentation emergency department. The patient denies associated fever or stiff neck, she denies paresthesia or weakness in the extremities, Patient's migraines are long-standing. She's had a CAT scan as part of her evaluation in the past. She responds well to IV Phenergan and our migraine cocktail. Allergies and Home Medications Allergies Coded Allergies: hydrocodone (Unverified Allergy, Unknown, 09/29/14) Penicillins (Unverified Adverse Reaction, Mild, VOMITING, 09/29/14) Patient Home Medication List Home Medication List Reviewed: Yes Review of Systems Review of Systems Constitutional: No chills Eyes: Denies Blurred Vision; Photophobia Ears, Nose, Mouth, Throat: denies ear pain Respiratory: No cough Cardiovascular: No chest pain Gastrointestinal: No abdominal pain; nausea; No vomiting Genitourinary: no symptoms reported Musculoskeletal: No back pain, No neck pain Skin: No rash Past Mqmwhfe-Jgnnqk-Ghtrgy Hx Past Med/Social Hx: Reviewed Nursing Past Med/Soc Hx Patient Social History Type Used: Cigarettes Former Smoker, Quit: May 24, 2012 2nd Hand Smoke Exposure: Yes Recent Foreign Travel: No Contact w/Someone Who Travel: No Recent Hopitalizations: No Immunizations Up To Date Tetanus Booster (TDap): Unknown PED Vaccines UTD: No Seasonal Allergies Seasonal Allergies: Yes Past Medical History 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 CUFF) Appendectomy, Cardiac, Hysterectomy, Oophorectomy, Orthopedic, Pacemaker Respiratory: No Currently Using CPAP: No Currently Using BIPAP: No Cardiac: Yes (pacemaker, HYPOTENSION, sick sinus syndrome) Irregular Heartbeat, Syncope Neurological: Yes Headaches /Migraines Reproductive Disorders: Yes 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 Genitourinary: No Gastrointestinal: No Musculoskeletal: No Endocrine: No HEENT: No Cancer: No Psychosocial: No Integumentary: No Blood Disorders: Yes (HX OF ANEMIA) Adverse Reaction/Blood Tranf: No Family Medical History Arthritis G8 SISTER Diabetes mellitus 19 MOTHER G8 SISTER Fibromyalgia G8 SISTER Heart murmur 19 MOTHER G8 SISTER Kidney disease 19 MOTHER Myelodysplasia of spinal cord 19 MOTHER, Onset:60 years & older Myocardial infarction G8 BROTHER, Onset:32 ( of [place] at 32) No Pertinent Family Hx Physical Exam Vital Signs Vital Signs - First Documented 07/21/18 09:04 Temp 96.2 Pulse 67 Resp 20 B/P (MAP) 132/80 (97) Pulse Ox 96 O2 Delivery Room Air Capillary Refill : Height, Weight, BMI Height: 5'7.00" Weight: 210lbs. 0.0oz. 95.935456ma; 32.9 BMI Method:Stated General Appearance: WD/WN, mild distress HEENT: normal ENT inspection Neck: normal inspection Cardiovascular: regular rate, rhythm, no murmur Respiratory: lungs clear Gastrointestinal: normal bowel sounds, non tender, soft Extremities: normal range of motion, normal inspection Psychiatric: alert, oriented x 3 Motor/Sensory: no motor deficit, no sensory deficit Skin: normal color, warm/dry Progress/Results/Core Measures Results/Orders My Orders Orders - MERON ALVARADO MD Iv 1000 Ml (Sodium Chloride 0.9%) (07/21/18 09:15) Promethazine Injection (Phenergan Injec (07/21/18 09:15) Diphenhydramine Injection (Benadryl Inje (07/21/18 09:15) Ketorolac Injection (Toradol Injection) (07/21/18 09:15) Medications Given in ED Current Medications Medications Dose Ordered Sig/Ni Route Start Time Stop Time Status Last Admin Dose Admin Diphenhydramine HCl 25 mg ONCE ONCE IVP 07/21/18 09:15 07/21/18 09:16 DC 07/21/18 09:59 25 MG Ketorolac Tromethamine 30 mg ONCE ONCE IVP 07/21/18 09:15 07/21/18 09:16 DC 07/21/18 09:59 30 MG Promethazine HCl 25 mg ONCE ONCE IVP 07/21/18 09:15 07/21/18 09:16 DC 07/21/18 09:59 25 MG Vital Signs/I&O 07/21/18 09:04 Temp 96.2 Pulse 67 Resp 20 B/P (MAP) 132/80 (97) Pulse Ox 96 O2 Delivery Room Air Progress Progress Note : Time: 09:15 Progress Note I ordered IV normal saline with Toradol 30 mg, Benadryl 25 mg, and Phenergan 25 mg IV. 10:20 am The patient's migraine cocktail relieved the patient's headache. Patient was invited to return the emergency Department should any further problems or questions. She is asked follow up with her doctor on Monday. Departure Impression Primary Impression: Migraine Qualified Codes: G43.009 - Migraine without aura, not intractable, without status migrainosus Disposition: HOME, SELF-CARE Condition: Improved Departure-Patient Inst. Decision time for Depature: 10:21 Referrals: [facility] (PCP/Family) Primary Care Physician Patient Instructions: Migraine Headache (DC) Add. Discharge Instructions: Rest at home today. Follow-up with family health on Monday. Return if any problems or questions. All discharge instructions reviewed with patient and/or family. Voiced understanding. MERON ALVARADO MD Jul 21, 2018 09:15
[2018-07-21 11:20] VITALS: BP 147/95
== END 2018-07-21 11:20 | disposition home or self-care (01) ==
LOC: EDUNIT# 08:40 → ER 08:41
DX: G43.909 Migraine, unspecified, not intractable, without status migrainosus (principal); D64.9 Anemia, unspecified; Z82.49 Family history of ischemic heart disease and other diseases of the circulatory system; Z87.448 Personal history of other diseases of urinary system; Z88.5 Allergy status to narcotic agent; Z88.0 Allergy status to penicillin; Z87.891 Personal history of nicotine dependence; Z90.49 Acquired absence of other specified parts of digestive tract; Z90.710 Acquired absence of both cervix and uterus; Z95.0 Presence of cardiac pacemaker

== ENCOUNTER → 2018-09-07 | Emergency (ER) | payer BC ==
[~2018-09-07] VITALS: Ht 170.2 cm; Wt 93.0 kg
[~2018-09-07] MED LIST changes: +RX-TRAMADOL 50 MG (ULTRAM) TAB PPK#4 PO STA; +RX-TRIMETH/SULFA. 160-800 MG (BACTRIM DS) TAB PPK#2 PO STA; +SILV20CR14 TP; +SILVER SULFADIAZINE 50 GM CREAM ONE; +SILVER SULFADIAZINE 50 GM CREAM TOP SCH; +SULF1TAB35 PO; +TETANUS,DIPTH,PERTUSS P/F (BOOSTRIX) 0.5 ML VIAL IM ONE; +TRAM-42 PO
--- NOTE | 2018-09-07 01:45 | NUR ---
pt here by self alert gcs 15. pt spilled boiling h20 on right foot 2 weeks ago. pt punctured the blister on right big toe 1 week ago. today pt skin on right big toe on top of toe sloughed off. pt c/o pain right foot rating 10. positive pulse and sensation right foot. pt also has a nonopen burn to toe next to right big toe. right big toe slightly swollen and slightly pink red. no other sighns of swelling or redness on dorsal right foot or bottoms sole of her right foot. done seing pt at 0153.
--- NOTE | 2018-09-07 02:06 | ED Integumentary General ---
General Chief Complaint: Lower Extremity Stated Complaint: RT FOOT BURN Allergies and Home Medications Allergies Coded Allergies: hydrocodone (Unverified Allergy, Unknown, 09/29/14) Penicillins (Unverified Adverse Reaction, Mild, VOMITING, 09/29/14) Past Vbrkqes-Ppgbkg-Jkywvt Hx Patient Social History Type Used: Cigarettes Former Smoker, Quit: May 24, 2012 2nd Hand Smoke Exposure: Yes Recent Foreign Travel: No Contact w/Someone Who Travel: No Recent Hopitalizations: No Immunizations Up To Date Tetanus Booster (TDap): Unknown PED Vaccines UTD: No Seasonal Allergies Seasonal Allergies: Yes Past Medical History 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 CUFF) Appendectomy, Cardiac, Hysterectomy, Oophorectomy, Orthopedic, Pacemaker Respiratory: No Currently Using CPAP: No Currently Using BIPAP: No Cardiac: Yes (pacemaker, HYPOTENSION, sick sinus syndrome) Irregular Heartbeat, Syncope Neurological: Yes Headaches /Migraines Reproductive Disorders: Yes 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 Genitourinary: No Gastrointestinal: No Musculoskeletal: No Endocrine: No HEENT: No Cancer: No Psychosocial: No Integumentary: No Blood Disorders: Yes (HX OF ANEMIA) Adverse Reaction/Blood Tranf: No Family Medical History Arthritis G8 SISTER Diabetes mellitus 19 MOTHER G8 SISTER Fibromyalgia G8 SISTER Heart murmur 19 MOTHER G8 SISTER Kidney disease 19 MOTHER Myelodysplasia of spinal cord 19 MOTHER, Onset:60 years & older Myocardial infarction G8 BROTHER, Onset:31 ( of [place] at 32) No Pertinent Family Hx Physical Exam Vital Signs Capillary Refill : Progress/Results/Core Measures Results/Orders My Orders Orders - DANUTA GILBERT DO Rx-Trimeth/Sulfameth Ds Tab (Rx-Bactrim/ (09/07/18 01:58) Rx-Tramadol Hcl (Rx-Ultram) (09/07/18 01:58) Silver Sulfadiazine 50 Gm (Ssd 1% 50 Gm) (09/07/18 09:00) Wound Dressing-Ed (09/07/18 01:58) Departure Impression Primary Impression: Second degree burn of great toe of right foot Additional Impression: Xlyuhwplkm-ivkbszffd-qcedckt (DPT) vaccination administered at current visit Disposition: 01 HOME, SELF-CARE Condition: Stable Departure-Patient Inst. Referrals: [facility] (PCP/Family) Primary Care Physician Patient Instructions: Skin Knapp (DC) Add. Discharge Instructions: CLEAN WOUND TWICE A DAY WITH ANTIBACTERIAL SOAP AND WATER, APPLY ANTIBIOTIC OINTMENT AND FRESH DRESSING TWICE A DAY ELEVATE FOOT MUCH POSSIBLE TYLENOL 1 GRAM / MOTRIN 800 MG 4 TIMES A DAY FOR PAIN FOLLOW UP WITH [facility] IN 2-3 DAYS FOR FURTHER CARE All discharge instructions reviewed with patient and/or family. Voiced understanding. Scripts Sulfamethoxazole/Trimethoprim (Bactrim Ds Tablet) 1 Each Tablet 1 EACH PO BID, #20 TAB Prov: DANUTA GILBERT DO 09/07/18 Tramadol HCl (Ultram) 50 Mg Tablet 50 MG PO Q4H PRN for PAIN-MODERATE for 3 Days, TAB Prov: DANUTA GILBERT DO 09/07/18 Silver Sulfadiazine (Silvadene) 20 Gm Cream..g. 0 TP BID, #1 TUBE Prov: DANUTA GILBERT DO 09/07/18 DANUTA GILBERT DO September 07, 2018 02:06
--- NOTE | 2018-09-07 02:07 | NUR ---
brittny is doing wound cleaning and silvadene cream and dressing to right foot burn.
[2018-09-07 03:06] VITALS: BP 129/86
--- NOTE | 2018-09-07 03:06 | NUR ---
d/c instructions to pt. told to read all papers. scripts faxed. pt left ambulatory by self. pt knows f/u. i went over the handtyped by information on the chart. pt had no iv. take home bactrim and ultam given. xtra supplies for home use given.
== END | disposition home or self-care (01) ==
LOC: EDUNIT# 00:34 → ER 00:37
DX: T25.231A Burn of second degree of right toe(s) (nail), initial encounter (principal); T31.0 Burns involving less than 10% of body surface; G43.909 Migraine, unspecified, not intractable, without status migrainosus; D64.9 Anemia, unspecified; Z82.49 Family history of ischemic heart disease and other diseases of the circulatory system; Z87.448 Personal history of other diseases of urinary system; Z23 Encounter for immunization; Z87.891 Personal history of nicotine dependence; Z90.49 Acquired absence of other specified parts of digestive tract; Z90.710 Acquired absence of both cervix and uterus; Z95.0 Presence of cardiac pacemaker; Z88.5 Allergy status to narcotic agent; Z88.0 Allergy status to penicillin; X58.XXXA Exposure to other specified factors, initial encounter
CPT/HCPCS: 90471; 90715; 99284

== ENCOUNTER 2019-02-13 14:36 | Emergency (ER) | payer BC ==
[~2019-02-13] VITALS: Ht 170 cm; Wt 93.1 kg
[~2019-02-13 14:36] MED LIST changes: -RX-TRAMADOL 50 MG (ULTRAM) TAB PPK#4 PO STA; -RX-TRIMETH/SULFA. 160-800 MG (BACTRIM DS) TAB PPK#2 PO STA; -SILVER SULFADIAZINE 50 GM CREAM ONE; -SILVER SULFADIAZINE 50 GM CREAM TOP SCH; -TETANUS,DIPTH,PERTUSS P/F (BOOSTRIX) 0.5 ML VIAL IM ONE
[2019-02-13 14:54] LABS: BASOPHILS % (AUTO) 0 % (0-10); EOSINOPHILS # (AUTO) 0.2 10^3/uL (0.0-0.3); EOSINOPHILS % (AUTO) 3 % (0-10); HEMATOCRIT 39 % (35-52); HEMOGLOBIN 12.6 G/DL (11.5-16.0); LYMPHOCYTES # (AUTO) 1.9 X 10^3 (1.0-4.0); LYMPHOCYTES % (AUTO) 35 % (12-44); MEAN CORPUSCULAR HEMOGLOBIN 30 PG (25-34); MEAN CORPUSCULAR HGB CONC 33 G/DL (32-36); MEAN CORPUSCULAR VOLUME 93 FL (80-99); MEAN PLATELET VOLUME 9.5 FL (7.4-10.4); MONOCYTES # (AUTO) 0.4 X 10^3 (0.0-1.0); MONOCYTES % (AUTO) 8 % (0-12); NEUTROPHILS # (AUTO) 2.9 X 10^3 (1.8-7.8); NEUTROPHILS % (AUTO) 54 % (42-75); PLATELET COUNT 209 10^3/uL (130-400); RED CELL DISTRIBUTION WIDTH 13.2 % (10.0-14.5); WHITE BLOOD COUNT 5.4 10^3/uL (4.3-11.0)
[2019-02-13] MEDS: NITROGLYCERIN 0.4 MG SL TABS BTL 25'S SL PRN ×2 (14:54→15:00)
[2019-02-13] MEDS ORDERED: LIDOCAINE 2% VISCOUS 15 ML UDC PO ONE (15:00)
[2019-02-13] MEDS ORDERED: ANTACID SUSP 30 ML UDC (MYLANTA) PO ONE (15:00)
[2019-02-13] MEDS ORDERED: ASPIRIN 81 MG CHEW (CHILDREN'S ASA) PO ONE (15:00)
--- NOTE | 2019-02-13 15:01 | ED Chest Pain ---
General Chief Complaint: Chest Pain Stated Complaint: CHEST PAIN Nursing Triage Note: TO ROOM 07 WITH COMPLAINTS OF LEFT SIDED CHEST PAIN STARTING THIS AM. COMPLAINS OF BACK PAIN X3 DAYS. Nursing Sepsis Screen: No Definite Risk Source: patient Exam Limitations: no limitations History of Present Illness Date Seen by Provider: Feb 13, 2019 Time Seen by Provider: 14:39 Initial Comments Here with report of left-sided chest pain at about the area of the breast and back pain. Onset 3 days ago with back pain and then has had intermittent chest pain. She had 2 episodes today. The first one was this morning and was acute in onset and spontaneous that had the chest pain was associated with sweating and nausea. This lasted several minutes and then went away. Episode was when she was at a local store and was standing there and had acute onset of left-sided chest pain very similar with some nausea. This has subsequently gone away but the back pain continues. Back pain has been persistent. She has been taking Aleve for the pain and that's not completely resolving it. Denies vomiting or diarrhea. Does not seem to have aggravating or relieving factors. Timing/Duration: 1/2 hour, intermittent Severity/Quality: moderate, pressure (squeezing) Location: central (() Radiation: back Activities at Onset: rest Prior CP/Workup: cardiac cath (Non obstructive CAD per cardiac catheterization done by Dr. Ramirez at [facility] 01/18/16 per cardiology note), echocardiography, stress test Modifying Factors: improves with rest ASA po RESOURCE EFFICIENCY MANAGER: No NTG SL RESOURCE EFFICIENCY MANAGER: No Associated Symptoms: back pain, diaphoresis (this morning); No shortness of breath, No weakness Allergies and Home Medications Allergies Coded Allergies: hydrocodone (Unverified Allergy, Unknown, 09/29/14) Penicillins (Unverified Adverse Reaction, Mild, VOMITING, 09/29/14) Patient Home Medication List Home Medication List Reviewed: Yes Review of Systems Review of Systems Constitutional: see HPI; No chills, No fever EENTM: No Symptoms Reported Respiratory: Denies Cough; Shortness of Air Cardiovascular: Chest Pain; Denies Edema Gastrointestinal: Nausea; Denies Vomiting Genitourinary: No Symptoms Reported Musculoskeletal: back pain; No neck pain Skin: no symptoms reported Psychiatric/Neurological: No Symptoms Reported All Other Systems Reviewed Negative Unless Noted: Yes Past Jmewywu-Erkled-Tjdxbh Hx Patient Social History Alcohol Use: Occasionally Uses Recreational Drug Use: No Smoking Status: Never a Smoker Type Used: Cigarettes Former Smoker, Quit: May 24, 2012 2nd Hand Smoke Exposure: Yes Recent Foreign Travel: No Contact w/Someone Who Travel: No Recent Infectious Disease Expo: No Recent Hopitalizations: No Immunizations Up To Date Tetanus Booster (TDap): Unknown PED Vaccines UTD: No Seasonal Allergies Seasonal Allergies: Yes Past Medical History 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 CUFF, 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) Appendectomy, Cardiac, Hysterectomy, Oophorectomy, Orthopedic, Pacemaker Respiratory: No Currently Using CPAP: No Currently Using BIPAP: No Cardiac: Yes (pacemaker, HYPOTENSION, sick sinus syndrome) Irregular Heartbeat, Syncope Neurological: Yes Headaches /Migraines Reproductive Disorders: Yes 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 Genitourinary: No Gastrointestinal: No Musculoskeletal: No Endocrine: No HEENT: No Cancer: No Psychosocial: No Integumentary: No Blood Disorders: Yes (HX OF ANEMIA) Adverse Reaction/Blood Tranf: No Family Medical History Reviewed Nursing Family Hx Arthritis G8 SISTER Diabetes mellitus 19 MOTHER G8 SISTER Fibromyalgia G8 SISTER Heart murmur 19 MOTHER G8 SISTER Kidney disease 19 MOTHER Myelodysplasia of spinal cord 19 MOTHER, Onset:60 years & older Myocardial infarction G8 BROTHER, Onset:32 ( of [place] at 32) No Pertinent Family Hx Physical Exam Vital Signs Vital Signs - First Documented 02/13/19 14:36 Temp 35.7 Pulse 71 Resp 16 Pulse Ox 100 O2 Delivery Room Air Capillary Refill : Less Than 3 Seconds Height, Weight, BMI Height: 5'7.00" Weight: 205lbs. 0.0oz. 92.017929yr; 32.00 BMI Method:Stated General Appearance: No Apparent Distress, WD/WN HEENT: PERRL/EOMI, Pharynx Normal Neck: Non Tender, Supple Respiratory: Lungs Clear, Normal Breath Sounds Cardiovascular: Regular Rate, Rhythm, No Murmur Gastrointestinal: Non Tender, Soft Extremity: Normal Inspection, Normal Range of Motion, Non Tender, No Calf Tenderness Neurologic/Psychiatric: Alert, Oriented x3 Skin: Normal Color, Warm/Dry Progress/Results/Core Measures Results/Orders Lab Results Laboratory Tests Test 02/13/19 14:45 02/13/19 16:41 Range/Units White Blood Count 5.4 4.3-11.0 10^3/uL Red Blood Count 4.16 L 4.35-5.85 10^6/uL Hemoglobin 12.6 11.5-16.0 G/DL Hematocrit 39 35-52 % Mean Corpuscular Volume 93 80-99 FL Mean Corpuscular Hemoglobin 30 25-34 PG Mean Corpuscular Hemoglobin Concent 33 32-36 G/DL Red Cell Distribution Width 13.2 10.0-14.5 % Platelet Count 209 130-400 10^3/uL Mean Platelet Volume 9.5 7.4-10.4 FL Neutrophils (%) (Auto) 54 42-75 % Lymphocytes (%) (Auto) 35 12-44 % Monocytes (%) (Auto) 8 0-12 % Eosinophils (%) (Auto) 3 0-10 % Basophils (%) (Auto) 0 0-10 % Neutrophils # (Auto) 2.9 1.8-7.8 X 10^3 Lymphocytes # (Auto) 1.9 1.0-4.0 X 10^3 Monocytes # (Auto) 0.4 0.0-1.0 X 10^3 Eosinophils # (Auto) 0.2 0.0-0.3 10^3/uL Basophils # (Auto) 0.0 0.0-0.1 10^3/uL Prothrombin Time 12.3 12.2-14.7 SEC INR Comment 0.9 0.8-1.4 Activated Partial Thromboplast Time 28 24-35 SEC D-Dimer 0.24 0.00-0.49 UG/ML Sodium Level 141 135-145 MMOL/L Potassium Level 3.8 3.6-5.0 MMOL/L Chloride Level 105 98-107 MMOL/L Carbon Dioxide Level 26 21-32 MMOL/L Anion Gap 10 5-14 MMOL/L Blood Urea Nitrogen 15 7-18 MG/DL Creatinine 0.82 0.60-1.30 MG/DL Estimat Glomerular Filtration Rate > 60 BUN/Creatinine Ratio 18 Glucose Level 81 70-105 MG/DL Calcium Level 9.5 8.5-10.1 MG/DL Corrected Calcium 8.5-10.1 MG/DL Magnesium Level 1.9 1.6-2.4 MG/DL Total Bilirubin 0.4 0.1-1.0 MG/DL Aspartate Amino Transf (AST/SGOT) 58 H 5-34 U/L Alanine Aminotransferase (ALT/SGPT) 80 H 0-55 U/L Alkaline Phosphatase 74 40-136 U/L Myoglobin 51.3 10.0-92.0 NG/ML Troponin I < 0.028 < 0.028 <0.028 NG/ML Total Protein 7.5 6.4-8.2 GM/DL Albumin 4.7 H 3.2-4.5 GM/DL Lipase 39 8-78 U/L My Orders Orders - ABBY ESTRELLA MD Cbc With Automated Diff (02/13/19 14:48) Magnesium (02/13/19 14:48) Chest 1 View, Ap/Pa Only (02/13/19 14:48) Ekg Tracing (02/13/19 14:48) Cardiac Profile 1 (02/13/19 14:48) Comprehensive Metabolic Panel (02/13/19 14:48) Myoglobin Serum (02/13/19 14:48) Protime With Inr (02/13/19 14:48) Partial Thromboplastin Time (02/13/19 14:48) O2 (02/13/19 14:48) Monitor-Rhythm Ecg Trace Only (02/13/19 14:48) Lipid Panel (02/14/19 06:00) Ed Iv/Invasive Line Start (02/13/19 14:48) Lipase (02/13/19 14:48) Nitroglycerin 0.4 Mg Btl 25's (Nitrostat (02/13/19 15:00) Aspirin Chewable Tablet (Baby Aspirin Ch (02/13/19 15:00) Lidocaine 2% Viscous 15 Ml (Xylocaine Vi (02/13/19 15:00) Antacid Suspension (Mylanta Suspension (02/13/19 15:00) Fibrin Degradation Products (02/13/19 14:45) Troponin I (02/13/19 16:44) Medications Given in ED Current Medications Medications Dose Ordered Sig/Ni Route Start Time Stop Time Status Last Admin Dose Admin Al Hydrox/Mg Hydrox/Simethicone 30 ml ONCE ONCE PO 02/13/19 15:00 02/13/19 15:01 DC 02/13/19 15:51 30 ML Aspirin 324 mg ONCE ONCE PO 02/13/19 15:00 02/13/19 15:01 DC 02/13/19 14:53 324 MG Lidocaine HCl 15 ml ONCE ONCE PO 02/13/19 15:00 02/13/19 15:01 DC 02/13/19 15:51 15 ML Nitroglycerin 0.4 mg UD PRN SL 02/13/19 15:00 02/13/19 15:00 0.4 MG Vital Signs/I&O 02/13/19 02/13/19 14:36 14:45 Temp 35.7 Pulse 71 Resp 16 B/P (MAP) Pulse Ox 100 O2 Delivery Room Air Room Air Progress Progress Note : Progress Note Seen and evaluated. IV, labs, EKG and chest x-ray ordered. ASA 324 mg by mouth. Nitroglycerin sublingual when necessary ordered. GI cocktail ordered. Reviewed patient's history including previous cardiology consultation when pacemaker was placed. Per that report there was a negative heart catheter in 2016. Does have history of sick sinus syndrome for which the pacemaker was placed. Patient reports recent evaluation with no acute findings and good battery life of the pacemaker. Monitor patient. 1645: No chest pain. Initial labs negative as well as initial EKG. We will repeat troponin and reevaluate that. Overall given negative previous heart catheter and initial set if the second set is negative then she should be safe for discharge home. This was discussed with the patient who agrees. Pending labs. 1730: Repeat troponin negative. Patient still improved. I will send a copy of the chart to Dr. Livingston. Discharged home with return precautions. Patient verbalize understanding instructions and agreement with plan. Initial ECG Impression Date: Feb 13, 2019 Initial ECG Impression Time: 14:43 Initial ECG Rate: 62 Initial ECG Rhythm: Normal Sinus Comment Sinus rhythm with right axis deviation. No evidence of ST elevation SD. Inverted T waves in multiple areas but similar to previous of 02/02/18. Right axis new since the previous EKG. Diagnostic Imaging Diagonstic Imaging: Xray Plain Films/CT/US/NM/MRI: chest Comments [facility]. POS [place], [place] POS NAME: JR ELLIOTT MED REC#: [id number] PT STATUS: REG ER : 1960 PHYSICIAN: ABBY ESTRELLA MD ADMIT DATE: 02/13/19/ER Draft POSDate of Exam:02/13/19 CHEST 1 VIEW, AP/PA ONLY INDICATION: Chest pain. EXAMINATION: Frontal chest was obtained at 3:26 p.m. COMPARISON: 02/02/2018. FINDINGS: There is mild cardiomegaly. Pacemaker is unchanged. There is no focal infiltrate, pneumothorax or pleural fluid. IMPRESSION: Mild cardiomegaly with unchanged pacemaker device. No acute infiltrate or pleural fluid. Dictated on workstation # [id number] Dict: 02/13/19 1548 Trans: 02/13/19 1550 PJE [id number] Interpreted by: AYAKA ALVES MD Electronically signed by: Departure Impression Primary Impression: Chest pain Qualified Codes: R07.9 - Chest pain, unspecified Additional Impression: Back pain Qualified Codes: M54.6 - Pain in thoracic spine Disposition: 01 HOME, SELF-CARE Condition: Improved Departure-Patient Inst. Decision time for Depature: 17:31 Referrals: [facility] (PCP/Family) Primary Care Physician Patient Instructions: Upper Back Pain, Chest Pain (DC) Add. Discharge Instructions: All discharge instructions reviewed with patient and/or family. Voiced understanding. You may take Tylenol/acetaminophen 1000 mg every 6-8 hours as needed for pain. If you do take the Aleve, you should probably limit that to one twice a day and you may take [id number]-tba-[id number] Pepcid or famotidine 20 mg twice daily with that to reduce stomach upset. You should minimize the Aleve to help ensure that your kidneys are not injured. Drink plenty of fluids. Follow-up with Dr. Livingston regarding your chest pain and your blood pressure. Return for worse pain, fever, vomiting, weakness, breathing problems or other concerns as needed. Copy Copies To 1: CITLALI LIVINGSTON MD, TIMOTHY D MD Feb 13, 2019 15:01 POS
[2019-02-13 15:15] LABS: ALANINE AMINOTRANSFERASE 80 U/L (0-55); ALBUMIN 4.7 GM/DL (3.2-4.5); ALKALINE PHOSPHATASE 74 U/L (40-136); BILIRUBIN,TOTAL 0.4 MG/DL (0.1-1.0); BUN/CREATININE RATIO 18; CALCIUM 9.5 MG/DL (8.5-10.1); CARBON DIOXIDE 26 MMOL/L (21-32); CHLORIDE 105 MMOL/L (98-107); CREATININE SERUM 0.82 MG/DL (0.60-1.30); GFR ESTIMATED > 60; GLUCOSE 81 MG/DL (70-105); LIPASE 39 U/L (8-78); MAGNESIUM 1.9 MG/DL (1.6-2.4); POTASSIUM 3.8 MMOL/L (3.6-5.0); SODIUM 141 MMOL/L (135-145); TOTAL PROTEIN 7.5 GM/DL (6.4-8.2)
--- NOTE | 2019-02-13 15:50 | Diagnostic Imaging Report ---
INDICATION: Chest pain. EXAMINATION: Frontal chest was obtained at 3:26 p.m. COMPARISON: 02/02/2018. FINDINGS: There is mild cardiomegaly. Pacemaker is unchanged. There is no focal infiltrate, pneumothorax or pleural fluid. IMPRESSION: Mild cardiomegaly with unchanged pacemaker device. No acute infiltrate or pleural fluid. Dictated by: Dictated on workstation # [id number]
--- NOTE | 2019-02-13 16:00 | NUR ---
PT UP TO BATHROOM
[2019-02-13 16:18] LABS: INR 0.9 (0.8-1.4); PROTHROMBIN TIME PATIENT 12.3 SEC (12.2-14.7)
[2019-02-13 16:19] LABS: FIBRIN DEGRADATION PRODUCTS 0.24 UG/ML (0.00-0.49)
--- NOTE | 2019-02-13 16:38 | NUR ---
DR IN ROOM WITH PT AT THIS TIME.
--- NOTE | 2019-02-13 17:07 | NUR ---
NOTIFIED WE WERE WAITING ON LABS. DENIES NEEDS AT THS TIME.
[2019-02-13 17:39] VITALS: BP 130/83
== END 2019-02-13 17:39 | disposition home or self-care (01) ==
LOC: EDUNIT# 14:36 → ER 14:37
DX: R07.9 Chest pain, unspecified (principal); M54.9 Dorsalgia, unspecified; G43.909 Migraine, unspecified, not intractable, without status migrainosus; D64.9 Anemia, unspecified; Z95.9 Presence of cardiac and vascular implant and graft, unspecified; Z88.5 Allergy status to narcotic agent; Z88.0 Allergy status to penicillin; Z87.891 Personal history of nicotine dependence; Z77.22 Contact with and (suspected) exposure to environmental tobacco smoke (acute) (chronic); Z90.49 Acquired absence of other specified parts of digestive tract; Z90.710 Acquired absence of both cervix and uterus; Z95.0 Presence of cardiac pacemaker; Z82.49 Family history of ischemic heart disease and other diseases of the circulatory system
CPT/HCPCS: 36415; 71045; 80053; 83690; 83735; 83874; 84484; 85025; 85379; 85610; 85730; 93005; 93041

== ENCOUNTER → 2019-05-24 | Outpatient (CLI) | payer BC ==
[~2019-05-24] MED LIST changes: -METO-387 PO; +MTP25TSR PO
--- NOTE | 2019-05-24 11:53 | Diagnostic Imaging Report ---
EXAMINATION: Left hand at 11:10 a.m. INDICATION: Fell, hand pain. Three views were obtained. COMPARISON: There are no prior studies available for comparison. FINDINGS: There is no fracture, dislocation or acute bony abnormality evident. 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 This is of uncertain etiology but could be a sequela of prior trauma. There is also mild narrowing of the radiocarpal joint. The soft tissues are unremarkable. IMPRESSION: 1. There is no evidence for an acute bony abnormality. 2. There does seem to be bony overgrowth of the navicular bone. This could be a sequela of prior trauma. If further imaging is desired, then CT would be recommended. Dictated by: Dictated on workstation # [id number]
--- NOTE | 2019-05-24 11:54 | Diagnostic Imaging Report ---
EXAMINATION: Right ankle at 11:14 a.m. INDICATION: Injury, ankle pain. Three views were obtained. COMPARISON: There are no prior studies available for comparison. FINDINGS: There is no fracture, dislocation or acute bony abnormality evident. The ankle mortise is not widened and the talar dome is smooth. There is soft tissue edema over the lateral malleolus. IMPRESSION: There is no evidence for an acute bony abnormality. Dictated by: Dictated on workstation # [id number]
== END ==
LOC: RAD 10:29
PROVIDERS: ATTEND Nurse Practitioner Family
DX: S99.911A Unspecified injury of right ankle, initial encounter (principal); M79.642 Pain in left hand; W17.89XA Other fall from one level to another, initial encounter
CPT/HCPCS: 73130; 73610

== ENCOUNTER 2019-10-06 17:49 | Emergency (ER) | payer BC ==
[~2019-10-06] VITALS: Ht 170 cm; Wt 92.0 kg
--- OUTSIDE RECORDS SUMMARY | 2019-10-06 17:55 | XMS REPORT ---
Author Author Arin Monae Organization [facility] Address [address] [place] [address] Care Team Providers Care Statistical Secretary Name Role Phone JOHANN Monae Unavailable PROBLEMS Type Condition ICD9-CM Code QGY10-OQ Code Onset Dates Condition S tatus SNOMED Code Problem Migraine headache G43.909 Active 37 219607 Problem Injury of right ankle, subsequent encounter S99.91 1D Active [id number] ALLERGIES No Information ENCOUNTERS Encounter Location Date Diagnosis [facility] [address] [place] [id number] 18 Jun, 2019 Acute intractable tension-ty pe headache G44.201 [facility] [address] [id number] 17 May, 2019 Injury of right ankle, subse quent encounter S99.911D and Injury of left hand, subsequent encounter S69.92XD [facility] [address] [id number] 03 May, 2019 Acute nonintractable headach e, unspecified headache type R51 ; Cough R05 and Nausea R11.0 [facility] [address] [address] Apr, Bronchitis J40 [facility] [address] [place] [phone] Apr, Hyperglycemia R73.9 and Elev ated LFTs R94.[address] [address] Apr, Elevated LFTs R94.5 and Hype rglycemia R73.[address] [id number] [address] [place] [phone] Mar, Screening for lipoid disorde rs Z13.220 ; Fatigue, unspecified type R53.83 ; Nocturia R35.1 and Screening for diabetes mellitus Z13.1 [facility] [address] [facility] [id number] [address] [place] [id number] Mar, Bronchitis J40 ; Fatigue, un specified type R53.83 ; Nocturia R35.1 ; Screening for diabetes mellitus Z13.1 and Screening for lipoid disorders Z13.220 [facility] [address] [facility] [id number] [address] [place] [id number] Oct, Injury of left foot, initial encounter S99.922A [facility] [address] [id number] [place] [id number] August, [place] [address] [place] [id number] [address] [place] [phone] Feb, [facility] [address] [facility] [id number] [address] [place] [phone] Mar, [place] [address] [place] [id number] [address] [place] [phone] Mar, Dermatofibroma of abdominal wall D23.5 [facility] [address] [facility] [id number] [address] [place] [phone] Jan, [facility] [address] [place] [id number] [address] [place] [phone] Jan, Migraine headache G43.909 an d Inflamed skin tag L91.8 [facility] [address] [facility] [id number] [address] [place] [phone] August, [facility] [address] [place] [id number] [address] [place] [phone] August, Elbow pain, right 719.42 [place] [address] [place] [id number] [address] [place] [phone] Jul, [facility] [address] [id number] [address] [place] [address], [place] [address] Jul, [facility] [address] [id number] [address] [place] [address], [place] [address] Jun, [facility] [address] [id number] [address] [place] [address], [place] [address] Jun, [facility] [address] [id number] [address] [place] [address], [place] [address] Jun, [facility] [address] [id number] [address] [place] [address], [place] [address] Jun, [facility] [address] [id number] [address] [place] [address], [place] [address] May, [facility] [address] [id number] [address] [place] [address], [place] [address] May, [facility] [address] [id number] [address] [place] [address], [place] [address] Apr, [facility] [address] [id number] [address] [place] [address], [place] [address] Apr, [facility] [address] [id number] [address] [place] [address], [place] [address] Apr, [facility] [address] [id number] [address] [place] [address], [place] [address] Apr, [facility] [address] [id number] [address] [place] [phone] Apr, [facility] [address] [id number] [address] [place] [address], [place] [address] Apr, [facility] [address] [id number] [address] [place] [address], [place] [address] Apr, [facility] [address] [id number] [address] [place] [address], [place] [address] Apr, [facility] [address] [id number] [address] [place] [phone] Apr, [facility] [address] [id number] [address] [place] [phone] Mar, [facility] [address] [id number] [address] [place] [phone] Mar, [facility] [address] [id number] [address] [place] [id number] Mar, [facility] [address] [id number] [address] [place] [phone] Mar, [facility] [address] [id number] [address] [place] [phone] Mar, [facility] [address] [id number] [address] [place] [phone] Mar, [facility] [address] [id number] [address] [place] [phone] Mar, [facility] [address] [id number] [address] [place] [phone] Mar, [facility] [address] [id number] [address] [place] [phone] Mar, IMMUNIZATIONS No Known Immunizations SOCIAL HISTORY Never Assessed REASON FOR VISIT PLAN OF CARE VITAL SIGNS Height 67 in 2014-05-13 Weight 213.7 lbs 2014-05-13 Temperature 96.8 degrees Fahrenheit 2014-05-13 Heart Rate 68 bpm 2014-05-13 Respiratory Rate 18 2014-05-13 Blood pressure systolic 128 mmHg 2014-05-13 Blood pressure diastolic 82 mmHg 2014-05-13 MEDICATIONS No Known Medications RESULTS No Results PROCEDURES No Known procedures INSTRUCTIONS MEDICATIONS ADMINISTERED No Known Medications MEDICAL (GENERAL) HISTORY Type Description Date Medical History migraine headaches Medical History back pain Medical History arrhythmia Medical History vertigo Surgical History hysterectomy Surgical History rotator cuff tear repair - l eft shoulder x 1, right shoulder x 2 Surgical History tennis elbow repair 2014 Surgical History pacemaker placed 2015 Hospitalization History [facility] 08/05/16
--- OUTSIDE RECORDS SUMMARY | 2019-10-06 17:57 | XMS REPORT | Continuity of Care Document ---
Author Organization Unknown Address Unknown Phone Unavailable Allergies Active Description Code Type Severity Reaction Onset Reported/Identified Relationship to Patient Clinical Status Yes hydrocodone Drug Allergy N/A N/A 03/27/2014 Yes Penicillins Drug Allergy N/A N/A 03/27/2014 Yes hydrocodone [id number] Drug Aller gy Unknown N/A 09/29/2014 Yes Penicillins [id number] Drug Aller gy Mild VOMITING 09/29/2014 Medications There is no data. Problems Date Dx Coded Attending Type Code Diagnosis Diagnosed By 11/17/2010 Ot 346.90 EVANS KELLY UNSPECIFIED W/O INTRACT MGRN W/ 11/17/2010 Ot 784.0 HEAD ACHE 07/01/2011 Ot 784.0 HEAD ACHE 09/29/2011 Ot 346.90 EVANS KELLY UNSPECIFIED W/O INTRACT MGRN W/ 09/29/2011 Ot 784.0 HEAD ACHE 12/20/2011 Ot 824.2 FX L ATERAL MALLEOLUS-CL 12/20/2011 Ot 825.21 FX ASTRAGALUS- CLOSED 12/20/2011 Ot 959.7 LOWE R LEG INJURY NOS 12/20/2011 Ot E000.0 CIV CLIFF ACTIVITY DONE FOR INCOME OR PAY 12/20/2011 Ot E849.6 ACC IDENT IN PUBLIC BLDG 12/20/2011 Ot E888.9 FAL L NOS 12/20/2011 Ot E927.0 OVE REXERTION FROM SUDDEN STRENUOUS MOVEM 08/24/2012 MARLENE BRIGGS MD Ot 519.11 ACUTE BRONCHOSPASM 08/24/2012 MARLENE BRIGGS MD Ot 786.05 SHORTNESS OF BREATH 08/24/2012 MARLENE BRIGGS MD Ot 987 .8 TOXIC EFF GAS/VAPOR NEC 08/24/2012 MARLENE BRIGGS MD Ot E000.8 OTHER EXTERNAL CAUSE STATUS 08/24/2012 MARLENE BRIGGS MD Ot E849.0 ACCIDENT IN HOME 08/24/2012 MARLENE BRIGGS MD Ot E869.8 ACC POISON-GAS/VAPOR NEC 03/27/2014 PAULINE LABELING SPECIALIST, JOHANN R 784.0 HEADACHE 03/27/2014 PAULINE LABELING SPECIALIST, JOHANN R 847.1 SPRAIN THORACIC REGION 03/27/2014 PAULINE LABELING SPECIALIST, JOHANN R 784.0 HEADACHE 03/27/2014 PAULINE LABELING SPECIALIST, JOHANN R 847.1 SPRAIN THORACIC REGION 03/27/2014 PAULINE LABELING SPECIALIST, JOHANN R 784.0 HEADACHE 03/27/2014 PAULINE LABELING SPECIALIST, JOHANN R 847.1 SPRAIN THORACIC REGION 03/27/2014 PAULINE LABELING SPECIALIST, JOHANN R 784.0 HEADACHE 03/27/2014 PAULINE LABELING SPECIALIST, JOHANN R 847.1 SPRAIN THORACIC REGION 03/27/2014 PAULINE LABELING SPECIALIST, JOHANN R 784.0 HEADACHE 03/27/2014 PAULINE LABELING SPECIALIST, JOHANN R 847.1 SPRAIN THORACIC REGION 04/02/2014 PAULINE LABELING SPECIALIST, JOHANN R 244.9 HYPOTHYROIDISM 04/02/2014 PAULINE LABELING SPECIALIST, JOHANN R 272.4 HYPERLIPIDEMIA 04/02/2014 PAULINE LABELING SPECIALIST, JOHANN R 244.9 HYPOTHYROIDISM 04/02/2014 PAULINE LABELING SPECIALIST, JOHANN R 272.4 HYPERLIPIDEMIA 04/02/2014 PAULINE LABELING SPECIALIST, JOHANN R 244.9 HYPOTHYROIDISM 04/02/2014 PAULINE LABELING SPECIALIST, JOHANN R 272.4 HYPERLIPIDEMIA 04/02/2014 PAULNIE LABELING SPECIALIST, JOHANN R 244.9 HYPOTHYROIDISM 04/02/2014 PAULINE LABELING SPECIALIST, JOHANN R 272.4 HYPERLIPIDEMIA 04/22/2014 PAULINE LABELING SPECIALIST, JOHANN R 724.1 PAIN IN THORACIC SPINE 04/22/2014 PAULINE LABELING SPECIALIST, JOHANN R 724.1 PAIN IN THORACIC SPINE 04/22/2014 PAULINE LABELING SPECIALIST, JOHANN R 724.1 PAIN IN THORACIC SPINE 04/29/2014 PAULINE, JOHANN R LABELING SPECIALIST Ot 724.1 05/19/2014 PAULINE, JOHANN R LABELING SPECIALIST Ot 724.1 08/14/2014 FABRICE MELTON MD Ot 723. 1 08/21/2014 FABRICE MELTON MD Ot 723. 1 08/21/2014 FABRICE MELTON MD Ot V57. 1 09/10/2014 FABRICE MELTON MD Ot 723. 1 09/10/2014 FABRICE MELTON MD Ot V57. 1 09/11/2014 FABRICE MELTON MD Ot 723. 1 CERVICALGIA 09/11/2014 FABRICE MELTON MD Ot V57. 1 PHYSICAL THERAPY NEC 10/01/2014 MARILU ENGLAND MD Ot 305.1 TOBACCO USE DISORDER 10/01/2014 MARILU ENGLAND MD Ot 726.32 LATERAL EPICONDYLITIS 01/07/2015 MARILU ENGLAND MD Ot V57.1 PHYSICAL THERAPY NEC 01/07/2015 MARILU ENGLAND MD Ot V58.49 OTHER SPECIFIED AFTERCARE FOLLOWING SURG 01/14/2015 MARILU ENGLAND MD Ot V57.1 01/14/2015 MARILU ENGLAND MD Ot V58.49 01/14/2015 MARILU ENGLAND MD Ot V57.1 01/14/2015 MARILU ENGLAND MD Ot V58.49 02/08/2015 MARILU ENGLAND MD Ot V57.1 02/08/2015 MARILU ENGLAND MD Ot V58.49 02/12/2015 MARILU ENGLAND MD Ot M77.11 LATERAL EPICONDYLITIS, RIGHT ELBOW 01/04/2016 SAMI LE LABELING SPECIALIST Ot R51 HEADACHE 01/05/2016 SAMI LE LABELING SPECIALIST Ot R51 HEADACHE 01/06/2016 SAMI LE LABELING SPECIALIST Ot R51 HEADACHE 02/11/2016 CITLALI COLLAZO MD Ot I25. 10 ATHSCL HEART DISEASE OF [place] CORONARY 02/11/2016 CITLALI COLLAZO MD Ot I49. 5 SICK SINUS SYNDROME 02/11/2016 CITLALI COLLAZO MD Ot R07. 9 CHEST PAIN, UNSPECIFIED 02/11/2016 CITLALI COLLAZO MD Ot Z87.891 PERSONAL HISTORY OF NICOTINE DEPENDENCE 02/15/2016 MERON ALVARADO MD Ot J93. 9 PNEUMOTHORAX, UNSPECIFIED 02/15/2016 MERON ALVARADO MD Ot R06. 02 SHORTNESS OF BREATH 02/15/2016 MERON ALVARADO MD Ot Z79. 82 HOSPITAL HOUSEKEEPER (CURRENT) USE OF ASPIRIN 02/15/2016 MERON ALVARADO MD Ot Z79.899 OTHER HOSPITAL HOUSEKEEPER (CURRENT) DRUG THERAPY 02/15/2016 MERON ALVARADO MD, Ot Z87.891 PERSONAL HISTORY OF NICOTINE DEPENDENCE 02/15/2016 MERON ALVARADO MD Ot Z95. 0 PRESENCE OF CARDIAC PACEMAKER 02/15/2016 MERON ALVARADO MD Ot Z98.890 OTHER SPECIFIED POSTPROCEDURAL STATES 02/15/2016 Ot 729.5 PAIN IN LIMB 02/15/[address] PAIN NOS 02/15/2016 PAULINE JOHANN R LABELING SPECIALIST Ot 724.1 PAIN IN THORACIC SPINE 02/15/2016 LINH CHASE, FABRICE Miranda Ot 723. 1 CERVICALGIA 02/15/2016 TOMÁS CHASE, MARILU Rodríguez Ot 726.32 LATERAL EPICONDYLITIS 02/15/2016 MARILU ENGLAND MD Ot V72.84 EXAM PRE-OPERATIVE NOS 02/16/2016 MERON ALVARADO MD Ot J93. 9 PNEUMOTHORAX, UNSPECIFIED 02/16/2016 MERON ALVARADO MD Ot R06. 02 SHORTNESS OF BREATH 02/16/2016 MERON ALVARADO MD Ot Z79. 82 HOSPITAL HOUSEKEEPER (CURRENT) USE OF ASPIRIN 02/16/2016 MERON ALVARADO MD Ot Z79.899 OTHER [facility] (CURRENT) DRUG THERAPY 02/16/2016 MERON ALVARADO MD Ot Z87.891 PERSONAL HISTORY OF NICOTINE DEPENDENCE 02/16/2016 MERON ALVARADO MD Ot Z95. 0 PRESENCE OF CARDIAC PACEMAKER 02/16/2016 MERON ALVARADO MD Ot Z98.890 OTHER SPECIFIED POSTPROCEDURAL STATES 02/16/2016 JAC SCHMIDT MD Ot I10 ESSENTIAL (PRIMARY) HYPERTENSION 02/16/2016 JAC SCHMIDT MD Ot I25.1 0 ATHSCL HEART DISEASE OF [place] CORONARY 02/16/2016 JAC SCHMIDT MD Ot J95.8 11 POSTPROCEDURAL PNEUMOTHORAX 02/16/2016 JAC SCHMIDT MD Ot Z87.8 91 PERSONAL HISTORY OF NICOTINE DEPENDENCE 02/16/2016 JAC SCHMIDT MD Ot Z95.0 PRESENCE OF CARDIAC PACEMAKER 02/17/2016 JAC SCHMIDT MD Ot G43.9 09 MIGRAINE, UNSP, NOT INTRACTABLE, WITHOUT 02/17/2016 JAC SCHMIDT MD Ot I10 ESSENTIAL (PRIMARY) HYPERTENSION 02/17/2016 JAC SCHMIDT MD Ot I25.1 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 9 PNEUMOTHORAX, UNSPECIFIED 02/24/2016 MERON ALVARADO MD Ot R06. 02 SHORTNESS OF BREATH 02/24/2016 MERON ALVARADO MD Ot Z79. 82 HOSPITAL HOUSEKEEPER (CURRENT) USE OF ASPIRIN 02/24/2016 MERON ALVARADO MD Ot Z79.899 OTHER HOSPITAL HOUSEKEEPER (CURRENT) DRUG THERAPY 02/24/2016 MERON ALVARADO MD Ot Z87.891 PERSONAL HISTORY OF NICOTINE DEPENDENCE 02/24/2016 MERON ALVARAOD MD Ot Z95. 0 PRESENCE OF CARDIAC PACEMAKER 02/24/2016 MERON ALVARADO MD Ot Z98.890 OTHER SPECIFIED POSTPROCEDURAL STATES 03/07/2016 SAMI LE LABELING SPECIALIST Ot H53.143 VISUAL DISCOMFORT, BILATERAL 03/07/2016 SAMI LE LABELING SPECIALIST Ot R51 HEADACHE 03/07/2016 SAMI LE LABELING SPECIALIST Ot Z95 .0 PRESENCE OF CARDIAC PACEMAKER 03/08/2016 SAMI LE LABELING SPECIALIST Ot H53.143 VISUAL DISCOMFORT, BILATERAL 03/08/2016 SAMI LE LABELING SPECIALIST Ot R51 HEADACHE 03/08/2016 SAMI LE LABELING SPECIALIST Ot Z95 .0 PRESENCE OF CARDIAC PACEMAKER 03/13/2016 SAMI LE LABELING SPECIALIST Ot H53.143 VISUAL DISCOMFORT, BILATERAL 03/13/2016 SAMI LE LABELING SPECIALIST Ot R51 HEADACHE 03/13/2016 SAMI LE LABELING SPECIALIST Ot Z95 .0 PRESENCE OF CARDIAC PACEMAKER 05/20/2016 MARLENE BRIGGS MD Ot R11 .0 NAUSEA 05/20/2016 MARLENE BRIGGS MD Ot R42 DIZZINESS AND GIDDINESS 05/20/2016 MARLENE BRIGGS MD Ot Z79.899 OTHER HOSPITAL HOUSEKEEPER (CURRENT) DRUG THERAPY 05/20/2016 MARLENE BRIGGS MD Ot Z95 .0 PRESENCE OF CARDIAC PACEMAKER 05/23/2016 MARLENE BRIGGS MD Ot R11 .0 NAUSEA 05/23/2016 MARLENE BRIGGS MD Ot R42 DIZZINESS AND GIDDINESS 05/23/2016 MARLENE BRIGGS MD Ot Z79.899 OTHER [facility] (CURRENT) DRUG THERAPY 05/23/2016 MARLENE BRIGGS MD Ot Z95 .0 PRESENCE OF CARDIAC PACEMAKER 06/07/2016 SAMI LE LABELING SPECIALIST Ot I10 ESSENTIAL (PRIMARY) HYPERTENSION 06/07/2016 SAMI LE LABELING SPECIALIST Ot R11 .0 NAUSEA 06/07/2016 SAMI LE LABELING SPECIALIST Ot R51 HEADACHE 06/07/2016 SAMI LE LABELING SPECIALIST Ot Z87.891 PERSONAL HISTORY OF NICOTINE DEPENDENCE 06/07/2016 SAMI LE LABELING SPECIALIST Ot Z95 .0 PRESENCE OF CARDIAC PACEMAKER 06/08/2016 SAMI LE LABELING SPECIALIST Ot I10 ESSENTIAL (PRIMARY) HYPERTENSION 06/08/2016 SAMI LE LABELING SPECIALIST Ot R11 .0 NAUSEA 06/08/2016 SAMI LE LABELING SPECIALIST Ot R51 HEADACHE 06/08/2016 SAMI LE LABELING SPECIALIST Ot Z87.891 PERSONAL HISTORY OF NICOTINE DEPENDENCE 06/08/2016 SAMI LE LABELING SPECIALIST Ot Z95 .0 PRESENCE OF CARDIAC PACEMAKER 08/02/2016 SAMI LE LABELING SPECIALIST Ot I10 ESSENTIAL (PRIMARY) HYPERTENSION 08/02/2016 SAMI LE APRN Ot R51 HEADACHE 08/02/2016 SAMI LE LABELING SPECIALIST Ot Z79.899 OTHER [facility] (CURRENT) DRUG THERAPY 08/02/2016 SAMI LE LABELING SPECIALIST Ot Z87.891 PERSONAL HISTORY OF NICOTINE DEPENDENCE 08/02/2016 SAMI LE LABELING SPECIALIST Ot Z95 .0 PRESENCE OF CARDIAC PACEMAKER 08/06/2016 JAC SCHMIDT MD Ot E66.9 OBESITY, UNSPECIFIED 08/06/2016 JAC SCHMIDT MD Ot F17.2 10 NICOTINE DEPENDENCE, CIGARETTES, UNCOMPL 08/06/2016 JAC SCHMIDT MD Ot F41.9 ANXIETY DISORDER, UNSPECIFIED 08/06/2016 JAC SCHMIDT MD Ot G47.0 0 INSOMNIA, UNSPECIFIED 08/06/2016 GAULT MD, JAC R Ot I25.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 02 SHORTNESS OF BREATH 08/21/2016 CITLALI COLLAZO MD Ot R07. 1 CHEST PAIN ON BREATHING 08/21/2016 CITLALI COLLAZO MD Ot R61 GENERALIZED HYPERHIDROSIS 10/11/2016 TEJA VELASQUEZ Ot F17.200 NICOTINE DEPENDENCE, UNSPECIFIED, UNCOMP 10/11/2016 TEJA VELASQUEZ Ot G43.909 MIGRAINE, UNSP, NOT INTRACTABLE, WITHOUT 10/11/2016 TEJA VELASQUEZ Ot I 10 ESSENTIAL (PRIMARY) HYPERTENSION 10/11/2016 TEJA VELASQUEZ Ot [...] NOT INTRACTABLE, WITHOUT 10/12/2016 TEJA VELASQUEZ Ot I 10 ESSENTIAL (PRIMARY) HYPERTENSION 10/12/2016 TEJA VELASQUEZ Ot [...] AND UTER 11/21/2016 SAMI LE APRN Ot Z95 .0 PRESENCE OF CARDIAC PACEMAKER 11/25/2016 SAMI LE [...] AND UTER 11/25/2016 SAMI LE APRN Ot Z95 .0 PRESENCE OF CARDIAC PACEMAKER 01/25/2017 ZAY CHASE, CITLALI Miranda Ot R06. 02 SHORTNESS OF BREATH 01/25/2017 ZAY CHASE, CITLALI Miranda Ot R07. 1 CHEST PAIN ON BREATHING 01/25/2017 ZAY CHASE, CITLALI Miranda Ot R61 GENERALIZED HYPERHIDROSIS 01/31/2017 SAMI LE [...] AND UTER 01/31/2017 SAMI LE APRN Ot Z95 .0 PRESENCE OF CARDIAC PACEMAKER 02/02/2017 SAMI LE APRN Ot R51 HEADACHE 02/02/2017 SAMI LE APRN Ot Z82.49 FAMILY HX OF ISCHEM HEART DIS AND OTH DI 02/02/2017 SAMI LE APRN Ot Z87.448 PERSONAL HISTORY OF OTHER DISEASES OF UR 02/02/2017 SAMI LE APRN Ot Z87.891 PERSONAL HISTORY OF NICOTINE DEPENDENCE 02/02/2017 SAMI LE APRN Ot Z90.49 ACQUIRED ABSENCE OF OTHER SPECIFIED PART 02/02/2017 SMAI LE APRN Ot Z90.710 ACQUIRED ABSENCE OF BOTH CERVIX AND UTER 02/02/2017 SAMI LE APRN Ot Z95 .0 PRESENCE OF CARDIAC PACEMAKER 05/02/2017 SAMI LE [...] AND UTER 05/02/2017 SAMI LE APRN Ot Z95 .0 PRESENCE OF CARDIAC PACEMAKER 05/04/2017 SAMI LE [...] AND UTER 05/04/2017 SAMI LE APRN Ot Z95 .0 PRESENCE OF CARDIAC PACEMAKER 05/23/2017 CITLALI COLLAZO MD Ot R06. 02 SHORTNESS OF BREATH 05/23/2017 CITLALI COLLAZO MD Ot R07. 1 CHEST PAIN ON BREATHING 05/23/2017 CITLALI COLLAZO MD Ot R61 GENERALIZED HYPERHIDROSIS 05/26/2017 CITLALI COLLAZO MD Ot R06. 02 SHORTNESS OF BREATH 05/26/2017 CITLALI COLLAZO MD Ot R07. 1 CHEST PAIN ON BREATHING 05/26/2017 CITLALI COLLAZO [...] CARDIAC PACEMAKER 07/12/2017 CITLALI COLLAZO MD Ot R06. 02 SHORTNESS OF BREATH 07/12/2017 CITLALI COLLAZO MD Ot R07. 1 CHEST PAIN ON BREATHING 07/12/2017 CITLALI COLLAZO MD, Ot R61 GENERALIZED HYPERHIDROSIS 07/12/2017 JOHANN CARPENTER APRN Ot 724.1 PAIN IN THORACIC SPINE 07/12/2017 FABRICE MELTON MD Ot 723. 1 CERVICALGIA 07/12/2017 MARILU ENGLAND MD Ot 726.32 [...] PACEMAKER 08/01/2017 ZAY CHASE, CITLALI Miranda Ot R06. 02 SHORTNESS OF BREATH 08/01/2017 CITLALI COLLAZO MD Ot R07. 1 CHEST PAIN ON BREATHING 08/01/2017 CITLALI COLLAZO MD Ot R61 GENERALIZED HYPERHIDROSIS 12/19/2017 JARED SAMSON Ot D64.9 ANEMIA, UNSPECIFIED 12/19/2017 CHAPIN JARED Ot G43.909 MIGRAINE, UNSP, NOT INTRACTABLE, WITHOUT 12/19/2017 NITO SAMSONIS Ot Z82.49 FAMILY HX OF ISCHEM HEART DIS AND OTH DI 12/19/2017 JARED SAMSON Ot Z87.448 PERSONAL HISTORY OF OTHER DISEASES OF UR 12/19/2017 JARED SAMSON Ot Z87.891 PERSONAL HISTORY OF NICOTINE DEPENDENCE 12/19/2017 NITO SAMSONIS Ot Z88.0 ALLERGY STATUS TO PENICILLIN 12/19/2017 NITO SAMSONIS Ot Z88.5 ALLERGY STATUS TO NARCOTIC AGENT STATUS 12/19/2017 CHAPIN JARED Ot Z90.710 ACQUIRED ABSENCE OF BOTH [...] PRESENCE OF CARDIAC PACEMAKER 02/04/2018 SAMI LE APRN Ot R51 HEADACHE 02/04/2018 SAMI LE APRN Ot Z82.49 FAMILY HX OF ISCHEM HEART DIS AND OTH DI 02/04/2018 SAMI LE APRN Ot Z87.448 PERSONAL HISTORY OF OTHER DISEASES OF UR 02/04/2018 SAMI LE APRN Ot Z87.891 PERSONAL HISTORY OF NICOTINE DEPENDENCE 02/04/2018 SAMI LE APRN Ot Z88 .0 ALLERGY STATUS TO PENICILLIN 02/04/2018 SAMI LE APRN Ot Z88 .5 ALLERGY STATUS TO NARCOTIC AGENT STATUS 02/04/2018 SAMI LE APRN Ot Z90.710 ACQUIRED ABSENCE OF BOTH CERVIX AND UTER 02/04/2018 SAMI LE APRN Ot Z90.89 ACQUIRED ABSENCE OF OTHER ORGANS 02/04/2018 SAMI LE APRN Ot Z95 .0 PRESENCE OF CARDIAC PACEMAKER 02/05/2018 CRISTI COATES MD Ot G43.909 MIGRAINE, UNSP, [...] STATUS TO PENICILLIN 02/05/2018 CRISTI COATES MD T Ot Z88.5 ALLERGY STATUS TO NARCOTIC AGENT STATUS 02/05/2018 CRISTI COATES MD Ot Z90.710 ACQUIRED ABSENCE OF BOTH CERVIX AND UTER 02/05/2018 CRISTI COATES MD T Ot Z90.89 ACQUIRED ABSENCE OF OTHER ORGANS 02/05/2018 CRISTI COATES MD Ot Z95.0 PRESENCE OF CARDIAC PACEMAKER 02/06/2018 SAMI LE APRN Ot R51 HEADACHE 02/06/2018 SAMI LE APRN Ot Z82.49 FAMILY HX OF ISCHEM HEART DIS AND OTH DI 02/06/2018 SAMI LE APRN Ot Z87.448 PERSONAL HISTORY OF OTHER DISEASES OF UR 02/06/2018 SAMI LE APRN Ot Z87.891 PERSONAL HISTORY OF NICOTINE DEPENDENCE 02/06/2018 SAMI LE APRN Ot Z88 .0 ALLERGY STATUS TO PENICILLIN 02/06/2018 SAMI LE LABELING SPECIALIST Ot Z88 .5 ALLERGY STATUS TO NARCOTIC AGENT STATUS 02/06/2018 SAMI LE APRN Ot Z90.710 ACQUIRED ABSENCE OF BOTH CERVIX AND UTER 02/06/2018 SAMI LE LABELING SPECIALIST Ot Z90.89 ACQUIRED ABSENCE OF OTHER ORGANS 02/06/2018 SAMI LE APRN Ot Z95 .0 PRESENCE OF CARDIAC PACEMAKER 02/10/2018 SAMI LE APRN Ot R51 HEADACHE 02/10/2018 SAMI LE APRN Ot Z82.49 FAMILY HX OF ISCHEM HEART DIS AND OTH DI 02/10/2018 SAMI LE APRN Ot Z87.448 PERSONAL HISTORY OF OTHER DISEASES OF UR 02/10/2018 SAMI LE LABELING SPECIALIST Ot Z87.891 PERSONAL HISTORY OF NICOTINE DEPENDENCE 02/10/2018 SAMI LE LABELING SPECIALIST Ot Z88 .0 ALLERGY STATUS TO PENICILLIN 02/10/2018 SAMI LE LABELING SPECIALIST Ot Z88 .5 ALLERGY STATUS TO NARCOTIC AGENT STATUS 02/10/2018 SAMI LE LABELING SPECIALIST Ot Z90.710 ACQUIRED ABSENCE OF BOTH CERVIX AND UTER 02/10/2018 SAMI LE LABELING SPECIALIST Ot Z90.89 ACQUIRED ABSENCE OF OTHER ORGANS 02/10/2018 SAMI LE APRN Ot Z95 .0 PRESENCE OF CARDIAC PACEMAKER 03/06/2018 CITLALI COLLAZO MD J Ot G47. 00 INSOMNIA, UNSPECIFIED 03/06/2018 CITLALI COLLAZO MD J Ot G47. 10 HYPERSOMNIA, UNSPECIFIED 03/06/2018 CITLALI COLLAZO MD J Ot G47. 33 OBSTRUCTIVE SLEEP APNEA (ADULT) (PEDIATR 03/06/2018 CITLALI COLLAZO MD J Ot I10 ESSENTIAL (PRIMARY) HYPERTENSION 03/06/2018 CITLALI COLLAZO MD J Ot R06. 83 SNORING 03/07/2018 CITLALI COLLAZO MD J Ot G47. 00 INSOMNIA, UNSPECIFIED 03/07/2018 JULIO COLLAZO MDHAR J Ot G47. 10 HYPERSOMNIA, UNSPECIFIED 03/07/2018 CITLALI COLLAZO MD J Ot G47. 33 OBSTRUCTIVE SLEEP APNEA (ADULT) (PEDIATR 03/07/2018 CITLALI COLLAZO MD J Ot I10 ESSENTIAL (PRIMARY) HYPERTENSION 03/07/2018 CITLALI COLLAZO MD J Ot R06. 83 SNORING 04/27/2018 JARED SAMSON Ot D64.9 ANEMIA, [...] ACQUIRED ABSENCE OF OTHER SPECIFIED PART 04/27/2018 BERNOT, JARED Ot Z90.710 ACQUIRED ABSENCE OF BOTH CERVIX AND UTER 04/27/2018 BERNOT, JARED Ot Z95.0 PRESENCE OF CARDIAC PACEMAKER 04/30/2018 BERNOT, JARED Ot D64.9 ANEMIA, UNSPECIFIED 04/30/2018 BERNOT, JARED Ot G43.909 MIGRAINE, UNSP, NOT INTRACTABLE, WITHOUT 04/30/2018 BERNOT, JARED Ot Z82.49 FAMILY HX OF ISCHEM HEART DIS AND OTH DI 04/30/2018 BERNOT, JARED Ot Z87.448 PERSONAL HISTORY OF [...] PACEMAKER 05/13/2018 ZAY CHASE, CITLALI Miranda Ot R06. 02 SHORTNESS OF BREATH 05/13/2018 ZAY CHASE, CITLALI Miranda Ot R07. 1 CHEST PAIN ON BREATHING 05/13/2018 ZAY CHASE, CITLALI Miranda Ot R61 GENERALIZED HYPERHIDROSIS 06/23/2018 JOHANN CARPENTER APRN Ot 724.1 PAIN IN THORACIC SPINE 06/23/2018 LINH CHASE, FABRICE Miranda Ot 723. 1 CERVICALGIA 06/23/2018 TOMÁS CHASE, MARILU Rodríguez Ot 726.32 LATERAL EPICONDYLITIS 06/23/2018 TOMÁS CHASE, MARILU Rodríguez Ot V72.84 EXAM PRE-OPERATIVE NOS 06/23/2018 JARED SAMSON Ot D64.9 ANEMIA, UNSPECIFIED 06/23/2018 BERNNITO RANGELIS Ot G43.909 MIGRAINE, UNSP, NOT INTRACTABLE, WITHOUT 06/23/2018 BERNNITO RANGELIS Ot Z82.49 FAMILY HX OF ISCHEM HEART DIS AND OTH DI 06/23/2018 BERNJARED RANGEL Ot Z87.448 PERSONAL HISTORY OF OTHER DISEASES OF UR 06/23/2018 JARED SAMSON Ot Z87.891 PERSONAL HISTORY OF NICOTINE DEPENDENCE 06/23/2018 NITO SAMSONIS Ot Z88.0 ALLERGY STATUS TO PENICILLIN 06/23/2018 BERNNITO RANGELIS Ot Z88.5 ALLERGY STATUS TO NARCOTIC AGENT STATUS 06/23/2018 BERNJARED RANGEL Ot Z90.49 ACQUIRED ABSENCE OF OTHER SPECIFIED PART 06/23/2018 BERNNITO RANGELIS Ot Z90.710 ACQUIRED ABSENCE OF BOTH CERVIX AND UTER 06/23/2018 NITO SAMSONIS Ot Z95.0 PRESENCE OF CARDIAC PACEMAKER 06/23/2018 JARED SAMSON Ot Z98.890 OTHER SPECIFIED POSTPROCEDURAL STATES 06/26/2018 JARED SAMSON Ot D64.9 ANEMIA, UNSPECIFIED 06/26/2018 BERNNITO RANGELIS Ot G43.909 MIGRAINE, UNSP, NOT INTRACTABLE, WITHOUT 06/26/2018 BERNNITO RANGELIS Ot Z82.49 FAMILY HX OF ISCHEM HEART DIS AND OTH DI 06/26/2018 BERNNITO RANGELIS Ot Z87.448 PERSONAL HISTORY OF OTHER DISEASES OF UR 06/26/2018 BERNNITO RANGELIS Ot Z87.891 PERSONAL HISTORY OF NICOTINE DEPENDENCE 06/26/2018 JARED SAMSON Ot Z88.0 ALLERGY STATUS TO PENICILLIN 06/26/2018 BERNOT, JARED Ot Z88.5 ALLERGY STATUS TO NARCOTIC AGENT STATUS 06/26/2018 CHAPIN JARED Ot Z90.49 ACQUIRED ABSENCE OF OTHER SPECIFIED PART 06/26/2018 CHAPIN JARED Ot Z90.710 ACQUIRED ABSENCE OF BOTH CERVIX AND UTER 06/26/2018 BERNCLAIRE JARED Ot Z95.0 PRESENCE OF CARDIAC PACEMAKER 06/26/2018 CHAPIN JARED Ot Z98.890 OTHER SPECIFIED POSTPROCEDURAL STATES 07/21/2018 MERON ALVARADO MD Ot D64. 9 ANEMIA, UNSPECIFIED 07/21/2018 MERON ALVARADO MD Ot G43.909 MIGRAINE, UNSP, NOT INTRACTABLE, WITHOUT 07/21/2018 MERON ALVARADO MD Ot Z82. 49 FAMILY HX OF ISCHEM HEART DIS AND OTH DI 07/21/2018 MERON ALVARADO MD Ot Z87.448 PERSONAL HISTORY OF OTHER DISEASES OF UR 07/21/2018 MERON ALVARADO MD Ot Z87.891 PERSONAL HISTORY OF NICOTINE DEPENDENCE 07/21/2018 MERON ALVARADO MD Ot Z88. 0 ALLERGY STATUS TO PENICILLIN 07/21/2018 MERON ALVARADO MD Ot Z88. 5 ALLERGY STATUS TO NARCOTIC AGENT STATUS 07/21/2018 MERON ALVARADO MD Ot Z90. 49 ACQUIRED ABSENCE OF OTHER SPECIFIED PART 07/21/2018 MERON ALVARADO MD Ot Z90.710 ACQUIRED ABSENCE OF BOTH CERVIX AND UTER 07/21/2018 MERON ALVARADO MD Ot Z95. 0 PRESENCE OF CARDIAC PACEMAKER 09/07/2018 DANUTA GILBERT DO Ot D64.9 ANEMIA, UNSPECIFIED 09/07/2018 DANUTA GILBERT DO Ot G43.909 MIGRAINE, UNSP, NOT INTRACTABLE, WITHOUT 09/07/2018 DANUTA GILBERT DO Ot T25.231 A BURN OF SECOND DEGREE OF RIGHT TOE(S) (N 09/07/2018 DANUTA GILBERT DO Ot T31.0 AGEE INVOLVING LESS THAN 10% OF BODY FAUST 09/07/2018 DANUTA GILBERT DO Ot X58.XXX A EXPOSURE TO OTHER SPECIFIED FACTORS, INI 09/07/2018 DANUTA GILBERT DO Ot Z23 ENCOUNTER FOR IMMUNIZATION 09/07/2018 DANUTA GILBERT DO Ot Z82.49 FAMILY HX OF ISCHEM HEART DIS AND OTH DI 09/07/2018 [place] DANUTA SHER Ot Z87.448 PERSONAL HISTORY OF OTHER DISEASES OF UR 09/07/2018 [place] DANUTA SHER Ot Z87.891 PERSONAL HISTORY OF NICOTINE DEPENDENCE 09/07/2018 [place] DANUTA SHER Ot Z88.0 ALLERGY STATUS TO PENICILLIN 09/07/2018 [place] DANUTA SHER Ot Z88.5 ALLERGY STATUS TO NARCOTIC AGENT STATUS 09/07/2018 [place] DANUTA SHER Ot Z90.49 ACQUIRED ABSENCE OF OTHER SPECIFIED PART 09/07/2018 [place] DANUTA SHER Ot Z90.710 ACQUIRED ABSENCE OF BOTH CERVIX AND UTER 09/07/2018 OFELIA DODANUTA Ot Z95.0 PRESENCE OF CARDIAC PACEMAKER 09/10/2018 [place] DANUTA SHER Ot D64.9 ANEMIA, UNSPECIFIED 09/10/2018 [place] DANUTA SHER Ot G43.909 MIGRAINE, UNSP, NOT INTRACTABLE, WITHOUT 09/10/2018 [place] DANUTA SHER Ot T25.231 A BURN OF SECOND DEGREE OF RIGHT TOE(S) (N 09/10/2018 [place] DANUTA SHER Ot T31.0 AGEE INVOLVING LESS THAN 10% OF BODY FAUST 09/10/2018 [place] DANUTA SHER Ot X58.XXX A EXPOSURE TO OTHER SPECIFIED FACTORS, INI 09/10/2018 DANUTA GILBERT DO Ot Z23 ENCOUNTER FOR IMMUNIZATION 09/10/2018 DANUTA GILBERT DO Ot Z82.49 FAMILY HX OF ISCHEM HEART DIS AND OTH DI 09/10/2018 DANUTA GILBERT DO Ot Z87.448 PERSONAL HISTORY OF OTHER DISEASES OF UR 09/10/2018 [place] DANUTA SHER Ot Z87.891 PERSONAL HISTORY OF NICOTINE DEPENDENCE 09/10/2018 [place] DANUTA SHER Ot Z88.0 ALLERGY STATUS TO PENICILLIN 09/10/2018 [place] DANUTA SHER Ot Z88.5 ALLERGY STATUS TO NARCOTIC AGENT STATUS 09/10/2018 [place] DANUTA SHER Ot Z90.49 ACQUIRED ABSENCE OF OTHER SPECIFIED PART 09/10/2018 [place] DANUTA SHER Ot Z90.710 ACQUIRED ABSENCE OF BOTH CERVIX AND UTER 09/10/2018 [place] DO, DANUTA K Ot Z95.0 PRESENCE OF CARDIAC PACEMAKER 02/13/2019 ABBY ESTRELLA MD Ot D64.9 ANEMIA, UNSPECIFIED 02/13/2019 ABBY ESTRELLA MD Ot G43.909 MIGRAINE, UNSP, NOT INTRACTABLE, WITHOUT 02/13/2019 ABBY ESTRELLA MD Ot M54.9 DORSALGIA, UNSPECIFIED 02/13/2019 ABBY ESTERLLA MD Ot R07.9 CHEST PAIN, UNSPECIFIED 02/13/2019 ABBY ESTRELLA MD Ot Z77.22 CNTCT W AND EXPSR TO ENVIRON TOBACCO SMO 02/13/2019 ABBY ESTRELLA MD Ot Z82.49 FAMILY HX OF ISCHEM HEART DIS AND OTH DI 02/13/2019 ABBY ESTRELLA MD Ot Z87.891 PERSONAL HISTORY OF NICOTINE DEPENDENCE 02/13/2019 ABBY ESTRELLA MD Ot Z88.0 ALLERGY STATUS TO PENICILLIN 02/13/2019 ABBY ESTRELLA MD Ot Z88.5 ALLERGY STATUS TO NARCOTIC AGENT STATUS 02/13/2019 ABBY ESTRELLA MD Ot Z90.49 ACQUIRED ABSENCE OF OTHER SPECIFIED PART 02/13/2019 ABBY ESTRELLA MD Ot Z90.710 ACQUIRED ABSENCE OF BOTH CERVIX AND UTER 02/13/2019 ABBY ESTRELLA MD Ot Z95.0 PRESENCE OF CARDIAC PACEMAKER 02/13/2019 ABBY ESTRELLA MD Ot Z95.9 PRESENCE OF CARDIAC AND VASCULAR IMPLANT 02/18/2019 ABBY ESTRELLA MD Ot D64.9 ANEMIA, UNSPECIFIED 02/18/2019 ABBY ESTRELLA MD Ot G43.909 MIGRAINE, UNSP, NOT INTRACTABLE, WITHOUT 02/18/2019 ABBY ESTRELLA MD Ot M54.9 DORSALGIA, UNSPECIFIED 02/18/2019 ABBY ESTRELLA MD Ot R07.9 CHEST PAIN, UNSPECIFIED 02/18/2019 ABBY ESTRELLA MD Ot Z77.22 CNTCT W AND EXPSR TO ENVIRON TOBACCO SMO 02/18/2019 ABBY ESTRELLA MD Ot Z82.49 FAMILY HX OF ISCHEM HEART DIS AND OTH DI 02/18/2019 ABBY ESTRELLA MD Ot Z87.891 PERSONAL HISTORY OF NICOTINE DEPENDENCE 02/18/2019 ABBY ESTRELLA MD Ot Z88.0 ALLERGY STATUS TO PENICILLIN 02/18/2019 ABBY ESTRELLA MD Ot Z88.5 ALLERGY STATUS TO NARCOTIC AGENT STATUS 02/18/2019 ABBY ESTRELLA MD Ot Z90.49 ACQUIRED ABSENCE OF OTHER SPECIFIED PART 02/18/2019 ABBY ESTRELLA MD Ot Z90.710 ACQUIRED ABSENCE OF BOTH CERVIX AND UTER 02/18/2019 ABBY ESTRELLA MD Ot Z95.0 PRESENCE OF CARDIAC PACEMAKER 02/18/2019 ABBY ESTRELLA MD Ot Z95.9 PRESENCE OF CARDIAC AND VASCULAR IMPLANT 05/28/2019 VARGAS BLAYNE E VICTORIAN LITERATURE PROFESSOR Ot M79.642 PAIN IN LEFT HAND 05/28/2019 VARGAS, BLAYNE E VICTORIAN LITERATURE PROFESSOR Ot S99.911A UNSPECIFIED INJURY OF RIGHT ANKLE, INITI 05/28/2019 VARGAS, BLAYNE E VICTORIAN LITERATURE PROFESSOR Ot W17.89XA OTHER FALL FROM ONE LEVEL TO ANOTHER, IN 06/06/2019 VARGAS BLAYNE E [employer]IAN 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 02 SHORTNESS OF BREATH 09/10/2019 CITLALI COLLAZO MD Ot R07. 1 CHEST PAIN ON BREATHING 09/10/2019 CITLALI COLLAZO MD Ot R61 GENERALIZED HYPERHIDROSIS Procedures Code Description [place] [address] [employer] 03/31/2014 80378 ROUT INE VENIPUNCTURE 04/01/2014 91353 XRAY THORACIC SPINE 3 VIEWS 04/01/2014 59951 LIPI D PANEL 04/01/2014 02390 CBC 04/01/2014 4804635 GF R CALC (RESULT ONLY) 04/01/2014 20369 CMP 04/01/2014 73384 TSH 04/01/2014 26599 MRI SPINE (THORACIC) W/O CONTRAST 04/22/2014 55376 ROUT INE VENIPUNCTURE 07/04/2014 27428 LIPI D PANEL 07/04/2014 17309 TSH 07/04/2014 [id number] IN SERTION OF PACEMAKER LEAD INTO RIGHT A 02/10/2016 [id number] IN SERTION OF PACEMAKER LEAD INTO R VENTR 02/10/2016 [id number] IN SERT PACE. DUAL CORNEL IN CHEST SUBCU/FA 02/10/2016 [...] 5-14 Serum or plasma urea nitrogen measurement (mass/volume ) 14 mg/dL 7-18 Serum or plasma creatinine measurement (mass/volume) 0.82 mg/dL 0.60-1.30 Serum or plasma urea nitrogen/creatinine mass ratio 17 NRG Serum or plasma creatinine measurement w ith calculation of estimated glomerular filtration rate > NRG Serum or plasma glucose measurement (mass/volume) 101 mg/dL 70-105 Serum or plasma calcium measurement (mass/volume) 9.1 mg/dL 8.5-10.1 Serum or plasma total bilirubin measurement (mass/volu me) 0.4 mg/dL 0.1-1.0 Serum or plasma alkaline phosphatase lupe surement (enzymatic activity/volume) 74 U/L 40-136 Serum or plasma aspartate aminotransfera se measurement (enzymatic activity/volume) 28 U/L 5-34 Serum or plasma alanine aminotransferase measurement (enzymatic activity/volume) 47 U/L 0-55 Serum or plasma protein measurement (mass/volume) 6.9 g/dL 6.4-8.2 Serum or plasma albumin measurement (mass/volume) 4.6 g/dL 3.2-4.5 Magnesium - 02/10/16 09:48 Magnesium 2.1 mg/dL 1.8-2.4 Serum or plasma troponin i.cardiac measu rement (mass/volume) - 02/10/16 09:48 Serum or plasma troponin i.cardiac measurement (mass/v olume) < ng/mL <0.30 Myoglobin, serum - 02/10/16 09:48 Myoglobin, serum 44.6 ng/mL 10.0-92.0 Serum or plasma lithium measurement (mol es/volume) - 02/10/16 09:48 BNP level 26.1 pg/mL <100.0 Complete blood count (CBC) with automate d white blood cell (WBC) differential - 02/11/16 03:28 Blood leukocytes automated count (number/volume) 6.2 10*3/uL 4.3-11.0 Blood erythrocytes automated count (number/volume) 3.99 10*6/uL 4.35-5.85 Venous blood hemoglobin measurement (mass/volume) 12.5 g/dL 11.5-16.0 Blood hematocrit (volume fraction) 37 % 35-52 Automated erythrocyte mean corpuscular volume 93 [ foz_us] 80-99 Automated erythrocyte mean corpuscular h emoglobin (mass per erythrocyte) 31 pg 25-34 Automated erythrocyte mean corpuscular h emoglobin concentration measurement (mass/volume) 34 g/dL 32-36 Automated erythrocyte distribution width ratio 13. 0 % 10.0- 14.5 Automated blood platelet count (count/volume) 235 10*3/uL [...] 10*3 1.0-4.0 Blood monocytes automated count (number/volume) 0. 5 10*3 0.0-1.0 Automated eosinophil count 0.1 10*3/uL 0 .0-0.3 Automated blood basophil count (count/volume) 0.0 10*3/uL 0.0-0.1 Comprehensive metabolic panel - 02/11/16 03:28 Serum or plasma sodium measurement (moles/volume) 139 mmol/L 135-145 Serum or plasma potassium measurement (moles/volume) 4.1 mmol/L 3.6-5.0 Serum or plasma chloride measurement (moles/volume) 107 mmol/L 98-107 Carbon dioxide 20 mmol/L 21-32 Serum or plasma anion gap determination (moles/volume) 12 mmol/L 5-14 Serum or plasma urea nitrogen measurement (mass/volume ) 12 mg/dL 7-18 Serum or plasma creatinine measurement (mass/volume) 0.80 mg/dL 0.60-1.30 Serum or plasma urea nitrogen/creatinine mass ratio 15 NRG Serum or plasma creatinine measurement w ith calculation of estimated glomerular filtration rate > NRG Serum or plasma glucose measurement (mass/volume) 103 mg/dL 70-105 Serum or plasma calcium measurement (mass/volume) 9.0 mg/dL 8.5-10.1 Serum or plasma total bilirubin measurement (mass/volu me) 0.4 mg/dL 0.1-1.0 Serum or plasma alkaline phosphatase lupe surement (enzymatic activity/volume) 70 U/L 40-136 Serum or plasma aspartate aminotransfera se measurement (enzymatic activity/volume) 27 U/L 5-34 Serum or plasma alanine aminotransferase measurement (enzymatic activity/volume) 42 U/L 0-55 Serum or plasma protein measurement (mass/volume) 6.4 g/dL 6.4-8.2 Serum or plasma albumin measurement (mass/volume) 4.1 g/dL 3.2-4.5 Serum or plasma troponin i.cardiac measu rement (mass/volume) - 02/11/16 03:28 Serum or plasma troponin i.cardiac measurement (mass/v olume) < ng/mL <0.30 Myoglobin, serum - 02/11/16 03:28 Myoglobin, serum 60.9 ng/mL 10.0-92.0 Lipid 1996 panel - 02/11/16 03:28 Serum or plasma triglyceride measurement (mass/volume) 128 mg/dL <150 Serum or plasma cholesterol measurement (mass/volume) 169 mg/dL < 200 Serum or plasma cholesterol in HDL measurement (mass/v olume) 37 mg/dL 40-60 Cholesterol in LDL [mass/volume] in serum or plasma by direct assay 109 mg/dL 1-129 Serum or plasma cholesterol in VLDL measurement (mass/ volume) 26 mg/dL 5-40 Complete blood count (CBC) with automate d white blood cell (WBC) differential - 02/15/16 06:55 Blood leukocytes automated count (number/volume) 5.5 10*3/uL 4.3-11.0 Blood erythrocytes automated count (number/volume) 4.06 10*6/uL 4.35-5.85 Venous blood hemoglobin measurement (mass/volume) 12.7 g/dL 11.5-16.0 Blood hematocrit (volume fraction) 37 % 35-52 Automated erythrocyte mean corpuscular volume 92 [ foz_us] 80-99 Automated erythrocyte mean corpuscular h emoglobin (mass per erythrocyte) 31 pg 25-34 Automated erythrocyte mean corpuscular h emoglobin concentration measurement (mass/volume) 34 g/dL 32-36 Automated erythrocyte distribution width ratio 13. 0 % 10.0- 14.5 Automated blood platelet count (count/volume) 198 10*3/uL [...] 10*3 1.0-4.0 Blood monocytes automated count (number/volume) 0. 4 10*3 0.0-1.0 Automated eosinophil count 0.2 10*3/uL 0 .0-0.3 Automated blood basophil count (count/volume) 0.0 10*3/uL 0.0-0.1 PT panel in platelet poor plasma by coag ulation assay - 02/15/16 06:55 Prothrombin time (PT) in platelet poor plasma by coagu lation assay 11.7 s 12.2-14.7 INR in platelet poor plasma or blood by coagulation as say 0.9 0.8-1.4 Activated partial thromboplastin time (a PTT) in platelet poor plasma bycoagulation assay - 02/15/16 06:55 Activated partial thromboplastin time (a PTT) in platelet poor plasma bycoagulation assay 26 s 24-35 Comprehensive metabolic panel - 11/07/16 06:55 Serum or plasma sodium measurement (moles/volume) 142 mmol/L 135-145 Serum or plasma potassium measurement (moles/volume) 4.1 mmol/L 3.6-5.0 Serum or plasma chloride measurement (moles/volume) 107 mmol/L 98-107 Carbon dioxide 23 mmol/L 21-32 Serum or plasma anion gap determination (moles/volume) 12 mmol/L 5-14 Serum or plasma urea nitrogen measurement (mass/volume ) 12 mg/dL 7-18 Serum or plasma creatinine measurement (mass/volume) 0.81 mg/dL 0.60-1.30 Serum or plasma urea nitrogen/creatinine mass ratio 15 NRG Serum or plasma creatinine measurement w ith calculation of estimated glomerular filtration rate > NRG Serum or plasma glucose measurement (mass/volume) 111 mg/dL 70-105 Serum or plasma calcium measurement (mass/volume) 9.4 mg/dL 8.5-10.1 Serum or plasma total bilirubin measurement (mass/volu me) 0.5 mg/dL 0.1-1.0 Serum or plasma alkaline phosphatase lupe surement (enzymatic activity/volume) 89 U/L 40-136 Serum or plasma aspartate aminotransfera se measurement (enzymatic activity/volume) 26 U/L 5-34 Serum or plasma alanine aminotransferase measurement (enzymatic activity/volume) 41 U/L 0-55 Serum or plasma protein measurement (mass/volume) 7.0 g/dL 6.4-8.2 Serum or plasma albumin measurement (mass/volume) 4.4 g/dL 3.2-4.5 Magnesium - 02/15/16 06:55 Magnesium 2.1 mg/dL 1.8-2.4 Serum or plasma troponin i.cardiac measu rement (mass/volume) - 02/15/16 06:55 Serum or plasma troponin i.cardiac measurement (mass/v olume) < ng/mL <0.30 Myoglobin, serum - 02/15/16 06:55 Myoglobin, serum 30.6 ng/mL 10.0-92.0 Fibrin D-dimer FEU measurement in platel et poor plasma (mass/volume) - 02/15/16 06:55 Fibrin D-dimer FEU measurement in platelet poor plasma (mass/volume) 0.61 ug/mL 0.00-0.49 Complete blood count (CBC) with automate d white blood cell (WBC) differential - 02/15/16 18:25 Blood leukocytes automated count (number/volume) 6.1 10*3/uL 4.3-11.0 Blood erythrocytes automated count (number/volume) 3.71 10*6/uL 4.35-5.85 Venous blood hemoglobin measurement (mass/volume) 11.5 g/dL 11.5-16.0 Blood hematocrit (volume fraction) 35 % 35-52 Automated erythrocyte mean corpuscular volume 93 [ foz_us] 80-99 Automated erythrocyte mean corpuscular h emoglobin (mass per erythrocyte) 31 pg 25-34 Automated erythrocyte mean corpuscular h emoglobin concentration measurement (mass/volume) 33 g/dL 32-36 Automated erythrocyte distribution width ratio 12. 9 % 10.0- 14.5 Automated blood platelet count (count/volume) 186 10*3/uL [...] 10*3 1.0-4.0 Blood monocytes automated count (number/volume) 0. 5 10*3 0.0-1.0 Automated eosinophil count 0.2 10*3/uL 0 .0-0.3 Automated blood basophil count (count/volume) 0.0 10*3/uL 0.0-0.1 PT panel in platelet poor plasma by coag ulation assay - 02/15/16 18:25 Prothrombin time (PT) in platelet poor plasma by coagu lation assay 11.6 s 12.2-14.7 INR in platelet poor plasma or blood by coagulation as say 0.9 0.8-1.4 Activated partial thromboplastin time (a PTT) in platelet poor plasma bycoagulation assay - 02/15/16 18:25 Activated partial thromboplastin time (a PTT) in platelet poor plasma bycoagulation assay 26 s 24-35 Comprehensive metabolic panel - 02/15/16 18:25 Serum or plasma sodium measurement (moles/volume) 142 mmol/L 135-145 Serum or plasma potassium measurement (moles/volume) 4.0 mmol/L 3.6-5.0 Serum or plasma chloride measurement (moles/volume) 107 mmol/L 98-107 Carbon dioxide 24 mmol/L 21-32 Serum or plasma anion gap determination (moles/volume) 11 mmol/L 5-14 Serum or plasma urea nitrogen measurement (mass/volume ) 16 mg/dL 7-18 Serum or plasma creatinine measurement (mass/volume) 1.04 mg/dL 0.60-1.30 Serum or plasma urea nitrogen/creatinine mass ratio 15 NRG Serum or plasma creatinine measurement w ith calculation of estimated glomerular filtration rate 55 NRG Serum or plasma glucose measurement (mass/volume) 133 mg/dL 70-105 Serum or plasma calcium measurement (mass/volume) 8.9 mg/dL 8.5-10.1 Serum or plasma total bilirubin measurement (mass/volu me) 0.4 mg/dL 0.1-1.0 Serum or plasma alkaline phosphatase lupe surement (enzymatic activity/volume) 81 U/L 40-136 Serum or plasma aspartate aminotransfera se measurement (enzymatic activity/volume) 27 U/L 5-34 Serum or plasma alanine aminotransferase measurement (enzymatic activity/volume) 40 U/L 0-55 Serum or plasma protein measurement (mass/volume) 6.4 g/dL 6.4-8.2 Serum or plasma albumin measurement (mass/volume) 4.2 g/dL 3.2-4.5 Serum or plasma creatine kinase measurem ent (enzymatic activity/volume) - 02/15/16 18:25 Serum or plasma creatine kinase measurem ent (enzymatic activity/volume) 113 U/L 29-168 Serum or plasma creatine kinase MB measu rement (enzymatic activity/volume) - 02/15/16 18:25 Serum or plasma creatine kinase MB measu rement (enzymatic activity/volume) 1.6 ng/mL <6.6 Serum or plasma troponin i.cardiac measu rement (mass/volume) - 02/15/16 18:25 Serum or plasma troponin i.cardiac measurement (mass/v olume) < ng/mL <0.30 Serum or plasma lithium measurement (mol es/volume) - 02/15/16 18:25 BNP level 19.8 pg/mL <100.0 Serum or plasma amylase measurement (enz ymatic activity/volume) - 02/15/16 18:25 Serum or plasma amylase measurement (enzymatic activit y/volume) 108 U/L 25-125 Lipase - 02/15/16 18:25 [...] 5-14 Serum or plasma urea nitrogen measurement (mass/volume ) 15 mg/dL 7-18 Serum or plasma creatinine measurement (mass/volume) 0.82 mg/dL 0.60-1.30 Serum or plasma urea nitrogen/creatinine mass ratio 18 NRG Serum or plasma creatinine measurement w ith calculation of estimated glomerular filtration rate > NRG Serum or plasma glucose measurement (mass/volume) 96 mg/dL 70-105 Serum or plasma calcium measurement (mass/volume) 8.3 mg/dL 8.5-10.1 Serum or plasma total bilirubin measurement (mass/volu me) 0.4 mg/dL 0.1-1.0 Serum or plasma alkaline phosphatase lupe surement (enzymatic activity/volume) 75 U/L 40-136 Serum or plasma aspartate aminotransfera se measurement (enzymatic activity/volume) 23 U/L 5-34 Serum or plasma alanine aminotransferase measurement (enzymatic activity/volume) 36 U/L 0-55 Serum or plasma protein measurement (mass/volume) 5.9 g/dL 6.4-8.2 Serum or plasma albumin measurement (mass/volume) 3.8 g/dL 3.2-4.5 Serum or plasma phosphate measurement (m ass/volume) - 02/16/16 04:10 Serum or plasma phosphate measurement (mass/volume) 4.3 mg/dL 2.3-4.7 Magnesium - 02/16/16 04:10 Magnesium 2.1 mg/dL 1.8-2.4 Complete blood count (CBC) with automate d white blood cell (WBC) differential - 02/16/16 04:16 Blood leukocytes automated count (number/volume) 5.6 10*3/uL 4.3-11.0 Blood erythrocytes automated count (number/volume) 3.59 10*6/uL 4.35-5.85 Venous blood hemoglobin measurement (mass/volume) 11.1 g/dL 11.5-16.0 Blood hematocrit (volume fraction) 34 % 35-52 Automated erythrocyte mean corpuscular volume 94 [ foz_us] 80-99 Automated erythrocyte mean corpuscular h emoglobin (mass per erythrocyte) 31 pg 25-34 Automated erythrocyte mean corpuscular h emoglobin concentration measurement (mass/volume) 33 g/dL 32-36 Automated erythrocyte distribution width ratio 13. 1 % 10.0- 14.5 Automated blood platelet count (count/volume) 178 10*3/uL [...] 10*3 1.0-4.0 Blood monocytes automated count (number/volume) 0. 4 10*3 0.0-1.0 Automated eosinophil count 0.2 10*3/uL 0 .0-0.3 Automated blood basophil count (count/volume) 0.0 10*3/uL 0.0-0.1 Complete blood count (CBC) with automate d white blood cell (WBC) differential - 05/20/16 15:38 Blood leukocytes automated count (number/volume) 4.0 10*3/uL 4.3-11.0 Blood erythrocytes automated count (number/volume) 4.18 10*6/uL 4.35-5.85 Venous blood hemoglobin measurement (mass/volume) 12.7 g/dL 11.5-16.0 Blood hematocrit (volume fraction) 38 % 35-52 Automated erythrocyte mean corpuscular volume 90 [ foz_us] 80-99 Automated erythrocyte mean corpuscular h emoglobin (mass per erythrocyte) 30 pg 25-34 Automated erythrocyte mean corpuscular h emoglobin concentration measurement (mass/volume) 34 g/dL 32-36 Automated erythrocyte distribution width ratio 13. 2 % 10.0- 14.5 Automated blood platelet count (count/volume) 232 10*3/uL [...] 10*3 1.0-4.0 Blood monocytes automated count (number/volume) 0. 3 10*3 0.0-1.0 Automated eosinophil count 0.1 10*3/uL 0 .0-0.3 Automated blood basophil count (count/volume) 0.0 10*3/uL 0.0-0.1 Comprehensive metabolic panel - 05/20/16 15:38 Serum or plasma sodium measurement (moles/volume) 140 mmol/L 135-145 Serum or plasma potassium measurement (moles/volume) 3.9 mmol/L 3.6-5.0 Serum or plasma chloride measurement (moles/volume) 109 mmol/L 98-107 Carbon dioxide 24 mmol/L 21-32 Serum or plasma anion gap determination (moles/volume) 7 mmol/L 5-14 Serum or plasma urea nitrogen measurement (mass/volume ) 14 mg/dL 7-18 Serum or plasma creatinine measurement (mass/volume) 0.73 mg/dL 0.60-1.30 Serum or plasma urea nitrogen/creatinine mass ratio 19 NRG Serum or plasma creatinine measurement w ith calculation of estimated glomerular filtration rate > NRG Serum or plasma glucose measurement (mass/volume) 122 mg/dL 70-105 Serum or plasma calcium measurement (mass/volume) 8.8 mg/dL 8.5-10.1 Serum or plasma total bilirubin measurement (mass/volu me) 0.3 mg/dL 0.1-1.0 Serum or plasma alkaline phosphatase lupe surement (enzymatic activity/volume) 75 U/L 40-136 Serum or plasma aspartate aminotransfera se measurement (enzymatic activity/volume) 31 U/L 5-34 Serum or plasma alanine aminotransferase measurement (enzymatic activity/volume) 42 U/L 0-55 Serum or plasma protein measurement (mass/volume) 6.6 g/dL 6.4-8.2 Serum or plasma albumin measurement (mass/volume) 4.2 g/dL 3.2-4.5 Complete blood count (CBC) with automate d white blood cell (WBC) differential - 08/05/16 20:16 Blood leukocytes automated count (number/volume) 5.0 10*3/uL 4.3-11.0 Blood erythrocytes automated count (number/volume) 3.80 10*6/uL 4.35-5.85 Venous blood hemoglobin measurement (mass/volume) 11.7 g/dL 11.5-16.0 Blood hematocrit (volume fraction) 35 % 35-52 Automated erythrocyte mean corpuscular volume 92 [ foz_us] 80-99 Automated erythrocyte mean corpuscular h emoglobin (mass per erythrocyte) 31 pg 25-34 Automated erythrocyte mean corpuscular h emoglobin concentration measurement (mass/volume) 34 g/dL 32-36 Automated erythrocyte distribution width ratio 13. 6 % 10.0- 14.5 Automated blood platelet count (count/volume) 214 10*3/uL [...] 10*3 1.0-4.0 Blood monocytes automated count (number/volume) 0. 4 10*3 0.0-1.0 Automated eosinophil count 0.2 10*3/uL 0 .0-0.3 Automated blood basophil count (count/volume) 0.0 10*3/uL 0.0-0.1 PT panel in platelet poor plasma by coag ulation assay - 08/05/16 20:16 Prothrombin time (PT) in platelet poor plasma by coagu lation assay 11.9 s 12.2-14.7 INR in platelet poor plasma or blood by coagulation as say 0.9 0.8-1.4 Activated partial thromboplastin time (a PTT) in platelet poor plasma bycoagulation assay - 08/05/16 20:16 Activated partial thromboplastin time (a PTT) in platelet poor plasma bycoagulation assay 27 s 24-35 Comprehensive metabolic panel - 08/05/16 20:16 Serum or plasma sodium measurement (moles/volume) 142 mmol/L 135-145 Serum or plasma potassium measurement (moles/volume) 3.5 mmol/L 3.6-5.0 Serum or plasma chloride measurement (moles/volume) 108 mmol/L 98-107 Carbon dioxide 23 mmol/L 21-32 Serum or plasma anion gap determination (moles/volume) 11 mmol/L 5-14 Serum or plasma urea nitrogen measurement (mass/volume ) 16 mg/dL 7-18 Serum or plasma creatinine measurement (mass/volume) 0.78 mg/dL 0.60-1.30 Serum or plasma urea nitrogen/creatinine mass ratio 21 NRG Serum or plasma creatinine measurement w ith calculation of estimated glomerular filtration rate > NRG Serum or plasma glucose measurement (mass/volume) 140 mg/dL 70-105 Serum or plasma calcium measurement (mass/volume) 9.0 mg/dL 8.5-10.1 Serum or plasma total bilirubin measurement (mass/volu me) 0.4 mg/dL 0.1-1.0 Serum or plasma alkaline phosphatase lupe surement (enzymatic activity/volume) 71 U/L 40-136 Serum or plasma aspartate aminotransfera se measurement (enzymatic activity/volume) 34 U/L 5-34 Serum or plasma alanine aminotransferase measurement (enzymatic activity/volume) 45 U/L 0-55 Serum or plasma protein measurement (mass/volume) 6.6 g/dL 6.4-8.2 Serum or plasma albumin measurement (mass/volume) 4.2 g/dL 3.2-4.5 Magnesium - 08/05/16 20:16 Magnesium 2.1 mg/dL 1.8-2.4 Serum or plasma troponin i.cardiac measu rement (mass/volume) - 08/05/16 20:16 Serum or plasma troponin i.cardiac measurement (mass/v olume) < ng/mL <0.30 Myoglobin, serum - 08/05/16 20:16 Myoglobin, serum 44.7 ng/mL 10.0-92.0 Serum or plasma amylase measurement (enz ymatic activity/volume) - 08/05/16 20:16 Serum or plasma amylase measurement (enzymatic activit y/volume) 76 U/L 25-125 Lipase - 08/05/16 20:16 Lipase 82 U/L 8-78 Serum or plasma lithium measurement (mol es/volume) - 08/05/16 20:16 BNP level 27.7 pg/mL <100.0 Serum or plasma troponin i.cardiac measu rement (mass/volume) - 08/06/16 01:56 Serum or plasma troponin i.cardiac measurement (mass/v olume) < ng/mL <0.30 Complete blood count (CBC) with automate d white blood cell (WBC) differential - 08/06/16 04:44 Blood leukocytes automated count (number/volume) 3.9 10*3/uL 4.3-11.0 Blood erythrocytes automated count (number/volume) 3.90 10*6/uL 4.35-5.85 Venous blood hemoglobin measurement (mass/volume) 11.8 g/dL 11.5-16.0 Blood hematocrit (volume fraction) 36 % 35-52 Automated erythrocyte mean corpuscular volume 92 [ foz_us] 80-99 Automated erythrocyte mean corpuscular h emoglobin (mass per erythrocyte) 30 pg 25-34 Automated erythrocyte mean corpuscular h emoglobin concentration measurement (mass/volume) 33 g/dL 32-36 Automated erythrocyte distribution width ratio 13. 5 % 10.0- 14.5 Automated blood platelet count (count/volume) 201 10*3/uL [...] 10*3 1.0-4.0 Blood monocytes automated count (number/volume) 0. 4 10*3 0.0-1.0 Automated eosinophil count 0.1 10*3/uL 0 .0-0.3 Automated blood basophil count (count/volume) 0.0 10*3/uL 0.0-0.1 Lipid 1996 panel - 08/06/16 04:44 Serum or plasma triglyceride measurement (mass/volume) 137 mg/dL <150 Serum or plasma cholesterol measurement (mass/volume) 156 mg/dL < 200 Serum or plasma cholesterol in HDL measurement (mass/v olume) 32 mg/dL 40-60 Cholesterol in LDL [mass/volume] in serum or plasma by direct assay 106 mg/dL 1-129 Serum or plasma cholesterol in VLDL measurement (mass/ volume) 27 mg/dL 5-40 Comprehensive metabolic panel - 08/06/16 04:44 Serum or plasma sodium measurement (moles/volume) 143 mmol/L 135-145 Serum or plasma potassium measurement (moles/volume) 4.0 mmol/L 3.6-5.0 Serum or plasma chloride measurement (moles/volume) 110 mmol/L 98-107 Carbon dioxide 24 mmol/L 21-32 Serum or plasma anion gap determination (moles/volume) 9 mmol/L 5-14 Serum or plasma urea nitrogen measurement (mass/volume ) 13 mg/dL 7-18 Serum or plasma creatinine measurement (mass/volume) 0.73 mg/dL 0.60-1.30 Serum or plasma urea nitrogen/creatinine mass ratio 18 NRG Serum or plasma creatinine measurement w ith calculation of estimated glomerular filtration rate > NRG Serum or plasma glucose measurement (mass/volume) 96 mg/dL 70-105 Serum or plasma calcium measurement (mass/volume) 8.7 mg/dL 8.5-10.1 Serum or plasma total bilirubin measurement (mass/volu me) 0.4 mg/dL 0.1-1.0 Serum or plasma alkaline phosphatase lupe surement (enzymatic activity/volume) 64 U/L 40-136 Serum or plasma aspartate aminotransfera se measurement (enzymatic activity/volume) 31 U/L 5-34 Serum or plasma alanine aminotransferase measurement (enzymatic activity/volume) 43 U/L 0-55 Serum or plasma protein measurement (mass/volume) 6.0 g/dL 6.4-8.2 Serum or plasma albumin measurement (mass/volume) 3.9 g/dL 3.2-4.5 Complete blood count (CBC) with automate d white blood cell (WBC) differential - 02/02/18 14:00 Blood leukocytes automated count (number/volume) 5.2 10*3/uL 4.3-11.0 Blood erythrocytes automated count (number/volume) 3.93 10*6/uL 4.35-5.85 Venous blood hemoglobin measurement (mass/volume) 12.2 g/dL 11.5-16.0 Blood hematocrit (volume fraction) 36 % 35-52 Automated erythrocyte mean corpuscular volume 92 [ foz_us] 80-99 Automated erythrocyte mean corpuscular h emoglobin (mass per erythrocyte) 31 pg 25-34 Automated erythrocyte mean corpuscular h emoglobin concentration measurement (mass/volume) 34 g/dL 32-36 Automated erythrocyte distribution width ratio 12. 9 % 10.0- 14.5 Automated blood platelet count (count/volume) 207 10*3/uL [...] 10*3 1.0-4.0 Blood monocytes automated count (number/volume) 0. 4 10*3 0.0-1.0 Automated eosinophil count 0.1 10*3/uL 0 .0-0.3 Automated blood basophil count (count/volume) 0.0 10*3/uL 0.0-0.1 PT panel in platelet poor plasma by coag ulation assay - 02/02/18 14:00 Prothrombin time (PT) in platelet poor plasma by coagu lation assay 12.8 s 12.2-14.7 INR in platelet poor plasma or blood by coagulation as say 1.0 0.8-1.4 Activated partial thromboplastin time (a PTT) in platelet poor plasma bycoagulation assay - 02/02/18 14:00 Activated partial thromboplastin time (a PTT) in platelet poor plasma bycoagulation assay 28 s 24-35 Comprehensive metabolic panel - 02/02/18 14:00 Serum or plasma sodium measurement (moles/volume) 140 mmol/L 135-145 Serum or plasma potassium measurement (moles/volume) 3.5 mmol/L 3.6-5.0 Serum or plasma chloride measurement (moles/volume) 107 mmol/L 98-107 Carbon dioxide 21 mmol/L 21-32 Serum or plasma anion gap determination (moles/volume) 12 mmol/L 5-14 Serum or plasma urea nitrogen measurement (mass/volume ) 16 mg/dL 7-18 Serum or plasma creatinine measurement (mass/volume) 0.83 mg/dL 0.60-1.30 Serum or plasma urea nitrogen/creatinine mass ratio 19 NRG Serum or plasma creatinine measurement w ith calculation of estimated glomerular filtration rate > NRG Serum or plasma glucose measurement (mass/volume) 110 mg/dL 70-105 Serum or plasma calcium measurement (mass/volume) 9.4 mg/dL 8.5-10.1 Serum or plasma total bilirubin measurement (mass/volu me) 0.5 mg/dL 0.1-1.0 Serum or plasma alkaline phosphatase lupe surement (enzymatic activity/volume) 64 U/L 40-136 Serum or plasma aspartate aminotransfera se measurement (enzymatic activity/volume) 55 U/L 5-34 Serum or plasma alanine aminotransferase measurement (enzymatic activity/volume) 78 U/L 0-55 Serum or plasma protein measurement (mass/volume) 7.3 g/dL 6.4-8.2 Serum or plasma albumin measurement (mass/volume) 4.6 g/dL 3.2-4.5 Magnesium - 02/02/18 14:00 Magnesium 2.1 mg/dL 1.8-2.4 Serum or plasma troponin i.cardiac measu rement (mass/volume) - 02/02/18 14:00 Serum or plasma troponin i.cardiac measurement (mass/v olume) < ng/mL <0.30 Myoglobin, serum - 02/02/18 14:00 Myoglobin, serum 48.1 ng/mL 10.0-92.0 Complete blood count (CBC) with automate d white blood cell (WBC) differential - 02/13/19 14:45 Blood leukocytes automated count (number/volume) 5.4 10*3/uL 4.3-11.0 Blood erythrocytes automated count (number/volume) 4.16 10*6/uL 4.35-5.85 Venous blood hemoglobin measurement (mass/volume) 12.6 g/dL 11.5-16.0 Blood hematocrit (volume fraction) 39 % 35-52 Automated erythrocyte mean corpuscular volume 93 [ foz_us] 80-99 Automated erythrocyte mean corpuscular h emoglobin (mass per erythrocyte) 30 pg 25-34 Automated erythrocyte mean corpuscular h emoglobin concentration measurement (mass/volume) 33 g/dL 32-36 Automated erythrocyte distribution width ratio 13. 2 % 10.0- 14.5 Automated blood platelet count (count/volume) 209 10*3/uL 130-400 Automated blood platelet mean volume measurement 9.5 [foz_us] 7.4-10.4 Automated blood neutrophils/100 leukocytes 54 % 42-75 Automated blood lymphocytes/100 leukocytes 35 % 12-44 Blood monocytes/100 leukocytes 8 % 0-12 Automated blood eosinophils/100 leukocytes 3 % 0-10 Automated blood basophils/100 leukocytes 0 % 0-10 Blood neutrophils automated count (number/volume) 2.9 10*3 1.8-7.8 Blood lymphocytes automated count (number/volume) 1.9 10*3 1.0-4.0 Blood monocytes automated count (number/volume) 0. 4 10*3 0.0-1.0 Automated eosinophil count 0.2 10*3/uL 0 .0-0.3 Automated blood basophil count (count/volume) 0.0 10*3/uL 0.0-0.1 Comprehensive metabolic panel - 02/13/19 14:45 Serum or plasma sodium measurement (moles/volume) 141 mmol/L 135-145 Serum or plasma potassium measurement (moles/volume) 3.8 mmol/L 3.6-5.0 Serum or plasma chloride measurement (moles/volume) 105 mmol/L 98-107 Carbon dioxide 26 mmol/L 21-32 Serum or plasma anion gap determination (moles/volume) 10 mmol/L 5-14 Serum or plasma urea nitrogen measurement (mass/volume ) 15 mg/dL 7-18 Serum or plasma creatinine measurement (mass/volume) 0.82 mg/dL 0.60-1.30 Serum or plasma urea nitrogen/creatinine mass ratio 18 NRG Serum or plasma creatinine measurement w ith calculation of estimated glomerular filtration rate > NRG Serum or plasma glucose measurement (mass/volume) 81 mg/dL 70-105 Serum or plasma calcium measurement (mass/volume) 9.5 mg/dL 8.5-10.1 Serum or plasma total bilirubin measurement (mass/volu me) 0.4 mg/dL 0.1-1.0 Serum or plasma alkaline phosphatase lupe surement (enzymatic activity/volume) 74 U/L 40-136 Serum or plasma aspartate aminotransfera se measurement (enzymatic activity/volume) 58 U/L 5-34 Serum or plasma alanine aminotransferase measurement (enzymatic activity/volume) 80 U/L 0-55 Serum or plasma protein measurement (mass/volume) 7.5 g/dL 6.4-8.2 Serum or plasma albumin measurement (mass/volume) 4.7 g/dL 3.2-4.5 Magnesium - 02/13/19 14:45 Magnesium 1.9 mg/dL 1.6-2.4 Serum or plasma troponin i.cardiac measu rement (mass/volume) - 02/13/19 14:45 Serum or plasma troponin i.cardiac measurement (mass/v olume) < ng/mL <0.028 Myoglobin, serum - 02/13/19 14:45 Myoglobin, serum 51.3 ng/mL 10.0-92.0 Lipase - 02/13/19 14:45 Lipase 39 U/L 8-78 PT panel in platelet poor plasma by coag ulation assay - 02/13/19 14:45 Prothrombin time (PT) in platelet poor plasma by coagu lation assay 12.3 s 12.2-14.7 INR in platelet poor plasma or blood by coagulation as say 0.9 0.8-1.4 Activated partial thromboplastin time (a PTT) in platelet poor plasma bycoagulation assay - 02/13/19 14:45 Activated partial thromboplastin time (a PTT) in platelet poor plasma bycoagulation assay 28 s 24-35 Fibrin D-dimer FEU measurement in platel et poor plasma (mass/volume) - 02/13/19 14:45 Fibrin D-dimer FEU measurement in platelet poor plasma (mass/volume) 0.24 ug/mL 0.00-0.49 Serum or plasma troponin i.cardiac measu rement (mass/volume) - 02/13/19 16:41 Serum or plasma troponin i.cardiac measurement (mass/v olume) < ng/mL <0.028 TSH - 04/05/19 08:29 TSH 4.13 mIU/L 0.40-4.50 HEPATITIS PROFILE - 04/11/19 10:06 HEPATITIS A IGM NON-REACTIVE NON-REACTI VE HEPATITIS B SURFACE ANTIGEN NON-REACTIVE NON-REACTIVE HEPATITIS B CORE ANTIBODY (IGM) NON-REACTIVE NON-REACTIVE HEPATITIS C ANTIBODY NON-REACTIVE NON-R EACTIVE SIGNAL TO CUT-OFF 0.03 <1.00 Encounters ACCT No. Visit Date/Time Discharge Status Pt. Type Provider Facility Loc./Unit Complaint [id number] 07/04/2014 08:09:00 07/04/2014 23:59: 59 CLS Outpatient JOHANN CARPENTER APRN [id number] 05/13/2014 14:41:00 05/13/2014 23:59: 59 CLS Outpatient JOHANN CARPENTER APRN [id number] 04/22/2014 14:50:00 04/22/2014 23:59: 59 CLS Outpatient JOHANN CARPENTER APRN [id number] 04/01/2014 09:08:00 04/01/2014 23:59: 59 CLS Outpatient JOHANN CARPENTER APRN [id number] 03/27/2014 10:15:00 03/27/2014 23:59: 59 CLS Outpatient JOHANN CARPENTER APRN [id number] 05/24/2019 10:29:00 020 23:59:59 CLS Outpatient BLAYNE VARGAS [facility] RAD LEFT HAND PAIN,RIGHT A NKLE INJURY [id number] 02/13/2019 14:37:00 019 17:39:00 DIS Emergency ABBY ESTRELLA MD [facility] ER CHEST PAIN [id number] 09/07/2018 00:37:00 019 03:06:00 DIS Emergency DANUTA GILBERT DO [facility] ER RT FOOT BURN [id number] 07/21/2018 08:41:00 11:20:00 DIS Emergency CHRISTIANO CHASE, MERON S [facility] ER MIGRAINE [id number] 06/23/2018 14:54:00 16:04:00 DIS Emergency BERNOT, JARED [facility] ER MIGRANE [id number] 04/27/2018 09:30:00 12:00:00 DIS Emergency BERNOT, JARED [facility] ER MIGRAINE [id number] 03/06/2018 14:50:00 15:25:00 DIS Outpatient CITLALI COLLAZO MD [facility] SLEEP KARAN [id number] 02/04/2018 11:34:00 12:37:00 DIS Emergency SAMI LE LABELING SPECIALIST [facility] ER MIGRAINE [id number] 02/02/2018 13:52:00 17:03:00 DIS Emergency CRISTI COATES MD [facility] ER CHEST PAIN [id number] 12/19/2017 14:28:00 018 16:04:00 DIS Emergency BERNOT, JARED [facility] ER MIGRAINE [id number] 07/11/2017 16:43:00 018 18:43:00 DIS Emergency TEJA VELASQUEZ [facility] ER MIGRAINE [id number] 05/02/2017 14:39:00 018 15:31:00 DIS Emergency SAMI LE LABELING SPECIALIST [facility] ER MIGRAINE [id number] 01/31/2017 18:02:00 017 20:15:00 DIS Emergency SAMI LE LABELING SPECIALIST [facility] ER HEADACHE [id number] 11/29/2016 07:22:00 23:59:59 CLS Preadmit CITLALI COLLAZO MD [facility] SLEEP OBSTRUCTIVE SLEEP APNEA [id number] 11/21/2016 14:02:00 017 15:11:00 DIS Emergency SAMI LE LABELING SPECIALIST [facility] ER MIGRAINE [id number] 10/11/2016 17:34:00 017 18:29:00 DIS Emergency TEJA VELASQUEZ [facility] ER MIGRAINE [id number] 08/15/2016 07:29:00 017 23:59:59 CLS Outpatient ZAY CHASE, CITLALI Miranda [facility] CARD CHEST PAIN SYNDROME R07 .1 [id number] 08/05/2016 22:50:00 13:49:00 DIS Inpatient ROXANA CHASE, JAC Vilchis [facility] ICU CHEST PAIN [id number] 08/02/2016 12:53:00 13:38:00 DIS Emergency SAMI LE LABELING SPECIALIST [facility] ER MIGRAINE [id number] 06/07/2016 14:02:00 017 15:13:00 DIS Emergency SAMI LE LABELING SPECIALIST [facility] ER MIGRAINE [id number] 05/20/2016 14:54:00 017 16:44:00 DIS Emergency MARLENE BRIGGS MD [facility] ER DIZZY/NAUSEA UPPER BACK PAIN [id number] 03/07/2016 21:01:00 016 22:11:00 DIS Emergency SAMI LE LABELING SPECIALIST [facility] ER MIGRAINE [id number] 02/15/2016 19:50:00 016 13:31:00 DIS Inpatient ROXANA CHASE, JAC Vilchis [facility] 4TH L PNEUMOTHORAX; S/P PAC EMAKER PLACEMENT [id number] 02/15/2016 06:40:00 016 09:34:00 DIS Emergency CHRISTIANO CHASE, MERON Covarrubias [facility] ER SOA [id number] 02/10/2016 12:08:00 016 10:03:00 DIS Inpatient CITLALI COLLAZO MD [facility] ICU SYMPTOMATIC BRADYCARDIA SICK SINUS SYNDROME CP [id number] 01/04/2016 21:37:00 016 22:34:00 DIS Emergency ASMI LE Ruth LANN [facility] ER MIGRAINE [id number] 01/30/2015 14:30:00 015 15:39:00 DIS Outpatient MARILU ENGLAND MD [facility] REHAB S/P R LATERAL EPICONDY LE DEBRIDEMENT [id number] 01/06/2015 16:04:00 015 00:01:00 DIS Outpatient MARILU ENGLAND MD [facility] REHAB S/P R LATERAL EPICONDY LE DEBRIDEMENT [id number] 10/01/2014 05:55:00 10:25:00 DIS Outpatient MARILU ENGLAND MD [facility] SDC RIGHT LATERAL EPINCOND YLITIS [id number] 09/26/2014 15:46:00 23:59:59 CLS Outpatient MARILU ENGLAND MD [facility] PREOP RIGHT LATERAL EPINCOND YLITIS [id number] 09/09/2014 16:14:00 015 14:09:00 DIS Outpatient FABRICE MELTON MD [facility] REHAB CERVICALGIA [id number] 07/28/2014 15:35:00 23:59:59 CLS Outpatient FABRICE MELTON MD [facility] RAD NECK PAIN [id number] 04/28/2014 13:07:00 015 23:59:59 CLS Outpatient JOHANN CARPENTER APRN [facility] RAD PAIN IN THORACI C SPINE [id number] 12/06/2012 18:18:00 23:59:59 CLS Outpatient [id number] 11/01/2012 17:07:00 23:59:59 CLS Outpatient [id number] 09/22/2012 14:24:00 23:59:59 CLS Outpatient [id number] 08/24/2012 15:18:00 17:38:00 DIS Emergency CHESTER CHASE, MARLENE Sliva [facility] ER SOA, INHALED CHEMICAL F UMES [id number] 10/06/2019 17:50:[address] Emergency JAXON CHASE, CRISTI Cruz [facility] ER L THUMB LAC [id number] 12/20/2011 06:35:00 Document Registration [id number] 09/29/2011 08:55:00 Document Registration [id number] 07/01/2011 17:36:00 Document Registration [id number] 01/17/2011 11:52:00 Document Registration [id number] 11/17/2010 06:46:00 Document Registration [id number] 09/23/2010 11:09:00 Document Registration [id number] 06/26/2019 11:40:00 06/26/2019 23:59:5 9 CLS Outpatient BRENDON GUTIERREZ [facility] [id number] 04/11/2019 10:00:00 Document Registration [id number] 04/05/2019 08:25:00 Document Registration
--- NOTE | 2019-10-06 18:51 | ED Upper Extremity ---
General Chief Complaint: Laceration Stated Complaint: L THUMB LAC Nursing Triage Note: Patient states she was preparing a salad for dinner when she cut her left thumb. Bleeding is controlled at this time. Incident occurred approximately one hour ago. Patient states tetanus within the last five years. Nursing Sepsis Screen: No Definite Risk History of Present Illness Date Seen by Provider: Oct 06, 2019 Time Seen by Provider: 19:00 Initial Comments 59-year-old female presents for a laceration to her left thumb that occurred while she was cutting salad for dinner. She reports her last tetanus shot was approximately 2 years ago. He denies any other injuries. Onset: just prior to arrival Pain/Injury Location: left thumb Method of Injury: incised Allergies and Home Medications Allergies Coded Allergies: hydrocodone (Unverified Allergy, Unknown, 09/29/14) Penicillins (Unverified Adverse Reaction, Mild, VOMITING, 09/29/14) Patient Home Medication List Home Medication List Reviewed: Yes Review of Systems Constitutional: no symptoms reported, see HPI Skin: see HPI, other (laceration left thumb) All Other Systems Reviewed Negative Unless Noted: Yes Past Jiddkhc-Muaocp-Slagci Hx Past Med/Social Hx: Reviewed Nursing Past Med/Soc Hx Patient Social History Alcohol Use: Denies Use Recreational Drug Use: Yes (TOBACCO) Smoking Status: Former Smoker Type Used: Cigarettes Former Smoker, Quit: May 24, 2012 2nd Hand Smoke Exposure: Yes Recent Foreign Travel: No Contact w/Someone Who Travel: No Recent Infectious Disease Expo: No Recent Hopitalizations: No Immunizations Up To Date Tetanus Booster (TDap): Less than 5yrs PED Vaccines UTD: No Seasonal Allergies Seasonal Allergies: Yes Past Medical History 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 CUFF, PACE MAKER) Appendectomy, Cardiac, Hysterectomy, Oophorectomy, Orthopedic, Pacemaker Respiratory: No Currently Using CPAP: No Currently Using BIPAP: No Cardiac: Yes (pacemaker, HYPOTENSION, sick sinus syndrome) Irregular Heartbeat, Syncope Neurological: Yes Headaches /Migraines Reproductive Disorders: Yes Female Reproductive Disorders: 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 Genitourinary: No Gastrointestinal: No Musculoskeletal: No Endocrine: No HEENT: No Cancer: No Psychosocial: No Integumentary: No Blood Disorders: Yes (HX OF ANEMIA) Adverse Reaction/Blood Tranf: No Family Medical History Arthritis G8 SISTER Diabetes mellitus 19 MOTHER G8 SISTER Fibromyalgia G8 SISTER Heart murmur 19 MOTHER G8 SISTER Kidney disease 19 MOTHER Myelodysplasia of spinal cord 19 MOTHER, Onset:60 years & older Myocardial infarction G8 BROTHER, Onset:31 ( of [place] at 32) No Pertinent Family Hx Physical Exam Vital Signs Vital Signs - First Documented 10/06/19 18:33 Temp 37.0 Pulse 75 Resp 14 B/P (MAP) 159/89 (112) Pulse Ox 97 O2 Delivery Room Air Capillary Refill : Less Than 3 Seconds Height, Weight, BMI Height: 5'7.00" Weight: 205lbs. 0.0oz. 92.125045vo; 31.00 BMI Method:Stated General Appearance: WD/WN, no apparent distress Cardiovascular: normal peripheral pulses, regular rate, rhythm, no edema Respiratory: chest non-tender, lungs clear, normal breath sounds Hand: normal ROM, Right, laceration (2 cm, V shaped Laceration to left thumb, lateral aspect), soft tissue tenderness Neurologic/Tendon: normal sensation, normal motor functions, normal tendon functions Neurologic/Psychiatric: no motor/sensory deficits, alert, normal mood/affect, oriented x 3 Skin: normal color, warm/dry Procedures/Interventions Wound Location: Upper Extremities (left thumb) Wound Length (cm): 2 Wound's Depth, Shape: superficial Wound Explored: clean Irrigated w/ Saline (ccs): 500 Betadine Prep?: Yes Anesthesia: 1% Lidocaine Volume Anesthetic (ccs): 3 Number of Sutures: 3 Sterile Dressing Applied?: Yes Progress Wound well approximated, bulky sterile dressing applied. Patient tolerated well. Progress/Results/Core Measures Results/Orders My Orders Orders - EZIO STARKS Lidocaine 1% Inj 20 Ml (Xylocaine 1% Inj (10/06/19 19:00) Medications Given in ED Current Medications Medications Dose Ordered Sig/Ni Route Start Time Stop Time Status Last Admin Dose Admin Lidocaine HCl 20 ml ONCE ONCE INJ 10/06/19 19:00 10/06/19 19:01 DC 10/06/19 19:10 20 ML Vital Signs/I&O 10/06/19 10/06/19 18:33 19:10 Temp 37.0 37.0 Pulse 75 75 Resp 14 14 B/P (MAP) 159/89 (112) 159/89 (112) Pulse Ox 97 97 O2 Delivery Room Air Room Air Blood Pressure Mean: 112 Departure Impression Primary Impression: Laceration of right thumb Qualified Codes: S61.011A - Laceration without foreign body of right thumb without damage to nail, initial encounter Disposition: 01 HOME, SELF-CARE Condition: Improved Departure-Patient Inst. Decision time for Depature: 19:10 Referrals: [facility] (PCP) Primary Care Physician Patient Instructions: Laceration Repair With Stitches (DC) Add. Discharge Instructions: Keep wound clean and dry for the next 48 hours then you may shower as needed. After showering clean the wound with alcohol and use a dressing as needed. Watch for signs of infection: Redness, discolored or foul smelling drainage, increased pain. Do not submerge the wound in standing water: Bathtub, swimming pools, lakes or henao, hot tub. Return to the emergency department or [facility] in approximately 7-10 days to have her sutures removed. Return to the emergency department for new, urgent health care needs. All discharge instructions reviewed with patient and/or family. Voiced understanding. EZIO STARKS Oct 06, 2019 18:51
[2019-10-06] MEDS ORDERED: LIDOCAINE 1% INJ 20 ML 20 ML VIAL INJ ONE (19:00)
[2019-10-06 19:10] VITALS: BP 159/89
== END 2019-10-06 19:10 | disposition home or self-care (01) ==
LOC: EDUNIT# 17:49 → ER 17:50
DX: S61.012A Laceration without foreign body of left thumb without damage to nail, initial encounter (principal); Z87.891 Personal history of nicotine dependence; Z95.0 Presence of cardiac pacemaker; Z90.710 Acquired absence of both cervix and uterus; Z90.722 Acquired absence of ovaries, bilateral; I49.5 Sick sinus syndrome; W26.0XXA Contact with knife, initial encounter; Y93.G3 Activity, cooking and baking; Y92.000 Kitchen of unspecified non-institutional (private) residence as the place of occurrence of the external cause

== ENCOUNTER 2019-10-29 07:13 | Emergency (ER) | payer BC ==
[~2019-10-29] VITALS: Ht 170.1 cm; Wt 93.1 kg
[2019-10-29] MEDS ORDERED: PROMETHAZINE INJ 25 MG/ML (PHENERGAN) AMP IVP STA (07:27)
[2019-10-29] MEDS ORDERED: diphenhydrAMINE 50 MG/ML INJ (BENADRYL) IV STA (07:27)
[2019-10-29] MEDS ORDERED: NS IV 1000 ML 1,000 ML IV STA (07:27)
[2019-10-29] MEDS ORDERED: KETOROLAC 30 MG/ML VIAL IVP STA (07:27)
--- NOTE | 2019-10-29 07:34 | ED Headache ---
General Stated Complaint: MIGRAINE Source: patient Exam Limitations: no limitations History of Present Illness Date Seen by Provider: Oct 29, 2019 Time Seen by Provider: 07:24 Initial Comments Here with report of typical migraine headache that is posterior and is associated with nausea. Onset yesterday. She has tried rapid release Tylenol as well as Excedrin migraine relief and has had no relief. Denies vomiting, fevers, upper respiratory symptoms or diarrhea. Typical migraine cocktail works well for her past. No recent injury noted or reported. Timing/Duration: 24 hours Severity/Quality: moderate Location: occipital Prior Headaches/Recent Trauma: occasional headaches Modifying Factors: worse with exposure to light Associated Symptoms: No fever/chills, No nasal congestion, No sinus infection, No vision changes, No weakness Allergies and Home Medications Allergies Coded Allergies: hydrocodone (Unverified Allergy, Unknown, 09/29/14) Penicillins (Unverified Adverse Reaction, Mild, VOMITING, 09/29/14) Patient Home Medication List Home Medication List Reviewed: Yes Review of Systems Review of Systems Constitutional: see HPI; No chills, No fever Eyes: See HPI Ears, Nose, Mouth, Throat: no symptoms reported Respiratory: No cough, No short of breath Cardiovascular: No chest pain, No syncope Gastrointestinal: No abdominal pain; nausea; No vomiting All Other Systems Reviewed Negative Unless Noted: Yes Past Exjebur-Vmyyso-Sqelai Hx Past Med/Social Hx: Reviewed Nursing Past Med/Soc Hx Patient Social History Alcohol Use: Denies Use Recreational Drug Use: No Smoking Status: Former Smoker Type Used: Cigarettes Former Smoker, Quit: May 24, 2012 2nd Hand Smoke Exposure: Yes Recent Hopitalizations: No Immunizations Up To Date Tetanus Booster (TDap): Less than 5yrs PED Vaccines UTD: No Seasonal Allergies Seasonal Allergies: Yes Past Medical History 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 CUFF, PACE MAKER) Appendectomy, Cardiac, Hysterectomy, Oophorectomy, Orthopedic, Pacemaker Respiratory: No Currently Using CPAP: No Currently Using BIPAP: No Cardiac: Yes (pacemaker, HYPOTENSION, sick sinus syndrome) Irregular Heartbeat, Syncope Neurological: Yes Headaches /Migraines Reproductive Disorders: Yes Female Reproductive Disorders: Ovarian Cyst 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 Genitourinary: No Gastrointestinal: No Musculoskeletal: No Endocrine: No HEENT: No Cancer: No Psychosocial: No Integumentary: No Blood Disorders: Yes (HX OF ANEMIA) Adverse Reaction/Blood Tranf: No Family Medical History Reviewed Nursing Family Hx Arthritis G8 SISTER Diabetes mellitus 19 MOTHER G8 SISTER Fibromyalgia G8 SISTER Heart murmur 19 MOTHER G8 SISTER Kidney disease 19 MOTHER Myelodysplasia of spinal cord 19 MOTHER, Onset:60 years & older Myocardial infarction G8 BROTHER, Onset:31 ( of [place] at 31) No Pertinent Family Hx Physical Exam Vital Signs Vital Signs - First Documented 10/29/19 10/29/19 07:21 08:11 Temp 36.5 Pulse 68 Resp 18 B/P (MAP) 176/106 (129) Pulse Ox 97 O2 Delivery Room Air Capillary Refill : Height, Weight, BMI Height: 5'7.00" Weight: 205lbs. 0.0oz. 92.451777wy; 31.00 BMI Method:Stated General Appearance: WD/WN, no apparent distress HEENT: PERRL/EOMI, pharynx normal Neck: full range of motion, supple Cardiovascular: regular rate, rhythm, no murmur Respiratory: lungs clear, normal breath sounds Gastrointestinal: non tender, soft Extremities: normal range of motion, non-tender Psychiatric: alert, oriented x 3 Crainal Nerves: normal hearing, normal speech Motor/Sensory: no motor deficit, no sensory deficit Skin: normal color, warm/dry Progress/Results/Core Measures Results/Orders My Orders Orders - ABBY ESTRELLA MD Promethazine Injection (Phenergan Injec (10/29/19 07:27) Ns Iv 1000 Ml (Sodium Chloride 0.9%) (10/29/19 07:27) Ed Iv/Invasive Line Start (10/29/19 07:27) Ketorolac Injection (Toradol Injection) (10/29/19 07:27) Diphenhydramine Injection (Benadryl Inje (10/29/19 07:27) Vital Signs/I&O 10/29/19 10/29/19 07:21 08:11 Temp 36.5 Pulse 68 66 Resp 18 B/P (MAP) 176/106 (129) 188/114 (138) Pulse Ox 97 94 O2 Delivery Room Air Progress Progress Note : Progress Note Seen and evaluated. IV initiated. Normal saline 1 L bolus, Phenergan 25 mg IV, Benadryl 25 mg IV and Toradol 30 mg IV ordered. Monitor patient. 0852: Overall doing better and states pain down to 2 out of 10 now. Feels like she could go home and rest now. Discharged home with return precautions. Patient verbalize understanding instructions and agreement with plan. Departure Impression Primary Impression: Migraine Qualified Codes: G43.909 - Migraine, unspecified, not intractable, without status migrainosus Disposition: HOME, SELF-CARE Condition: Improved Departure-Patient Inst. Decision time for Depature: 08:52 Referrals: [facility] (PCP/Family) Primary Care Physician Patient Instructions: Migraine Headache (DC) Add. Discharge Instructions: Continue home medications as previously prescribed. Follow-up with your DrKika this week for recheck and further evaluation as needed. Return for worse pain, fever, vomiting, weakness, breathing problems, vision or balance problems, difficulty with walking or speaking or other concerns as needed. ABBY ESTRELLA MD Oct 29, 2019 07:34
--- NOTE | 2019-10-29 08:10 | NUR ---
TO ROOM FLUIDS INFUSING PATIENT REPORTS FEELING BETTER.
[2019-10-29 08:11] VITALS: BP 188/114
--- OUTSIDE RECORDS SUMMARY | 2019-10-29 08:34 | XMS REPORT | Continuity of Care Document ---
Author Organization Unknown Address Unknown Phone Unavailable Allergies Active Description Code Type Severity Reaction Onset Reported/Identified Relationship to Patient Clinical Status Yes hydrocodone Drug Allergy N/A N/A 03/27/2014 Yes Penicillins Drug Allergy N/A N/A 03/27/2014 Yes hydrocodone [id number] Drug Aller gy Unknown N/A 09/29/2014 Yes Penicillins [id number] Drug Aller gy Mild VOMITING 09/29/2014 Medications [...] Ot E869.8 ACC POISON-GAS/VAPOR NEC 03/27/2014 PAULINE COLLECTION SUPERVISOR, JOHANN R 784.0 HEADACHE 03/27/2014 PAULINE COLLECTION SUPERVISOR, JOHANN R 847.1 SPRAIN THORACIC REGION 03/27/2014 PAULINE COLLECTION SUPERVISOR, JOHANN R 784.0 HEADACHE 03/27/2014 PAULINE COLLECTION SUPERVISOR, JOHANN R 847.1 [place] THORACIC REGION 03/27/2014 PAULINE COLLECTION SUPERVISOR, JOHANN R 784.0 HEADACHE 03/27/2014 PAULINE COLLECTION SUPERVISOR, JOHANN R 847.1 SPR[place] THORACIC REGION 03/27/2014 PAULINE COLLECTION SUPERVISOR, JOHANN R 784.0 HEADACHE 03/27/2014 PAULINE COLLECTION SUPERVISOR, JOHANN R 847.1 [place] THORACIC REGION 03/27/2014 PAULINE COLLECTION SUPERVISOR, JOHANN R 784.0 HEADACHE 03/27/2014 PAULINE COLLECTION SUPERVISOR, JOHANN R 847.1 SPRAIN THORACIC REGION 04/02/2014 PAULINE COLLECTION SUPERVISOR, JOHANN R 244.9 HYPOTHYROIDISM 04/02/2014 PAULINE COLLECTION SUPERVISOR, JOHANN R 272.4 HYPERLIPIDEMIA 04/02/2014 PAULINE COLLECTION SUPERVISOR, JOHANN R 244.9 HYPOTHYROIDISM 04/02/2014 PAULINE COLLECTION SUPERVISOR, JOHANN R 272.4 HYPERLIPIDEMIA 04/02/2014 PAULINE COLLECTION SUPERVISOR, JOHANN R 244.9 HYPOTHYROIDISM 04/02/2014 PAULINE COLLECTION SUPERVISOR, JOHANN R 272.4 HYPERLIPIDEMIA 04/02/2014 PAULINE COLLECTION SUPERVISOR, JOHANN R 244.9 HYPOTHYROIDISM 04/02/2014 PAULINE COLLECTION SUPERVISOR, JOHANN R 272.4 HYPERLIPIDEMIA 04/22/2014 PAULINE COLLECTION SUPERVISOR, JOHANN R 724.1 PAIN IN THORACIC SPINE 04/22/2014 PAULINE COLLECTION SUPERVISOR, JOHANN R 724.1 PAIN IN THORACIC SPINE 04/22/2014 PAULINE COLLECTION SUPERVISOR, JOHANN R 724.1 PAIN IN THORACIC SPINE 04/29/2014 PAULINE, JOHANN R COLLECTION SUPERVISOR Ot 724.1 05/19/2014 PAULINE, JOHANN R COLLECTION SUPERVISOR Ot 724.1 08/14/2014 FABRICE MELTON MD Ot [...] ENGLAND MD Ot 726.32 LATERAL EPICONDYLITIS 01/07/2015 AMRILU ENGLAND MD Ot V57.1 PHYSICAL THERAPY NEC [...] LATERAL EPICONDYLITIS, RIGHT ELBOW 01/04/2016 SAMI LE COLLECTION SUPERVISOR Ot R51 HEADACHE 01/05/2016 SAMI LE COLLECTION SUPERVISOR Ot R51 HEADACHE 01/06/2016 SAMI LE COLLECTION SUPERVISOR Ot R51 HEADACHE 02/11/2016 CITLALI COLLAZO MD Ot I25. 10 ATHSCL HEART DISEASE OF [place] CORONARY 02/11/2016 CITLALI COLLAZO MD Ot I49. 5 SICK SINUS SYNDROME 02/11/2016 CITLALI COLLAZO MD Ot R07. 9 CHEST PAIN, UNSPECIFIED 02/11/2016 CITLALI COLLAZO MD Ot Z87.891 PERSONAL HISTORY OF NICOTINE DEPENDENCE 02/15/2016 MERON ALVARADO MD Ot J93. 9 PNEUMOTHORAX, UNSPECIFIED 02/15/2016 MERON ALVARADO MD Ot R06. 02 SHORTNESS OF BREATH 02/15/2016 MERON ALVARADO MD Ot Z79. 82 WORKFORCE MANAGEMENT COORDINATOR (CURRENT) USE OF ASPIRIN 02/15/2016 MERON ALVARADO MD Ot Z79.899 OTHER WORKFORCE MANAGEMENT COORDINATOR (CURRENT) DRUG THERAPY 02/15/2016 MERON ALVARADO MD, Ot Z87.891 PERSONAL HISTORY OF NICOTINE DEPENDENCE 02/15/2016 MERON ALVARADO MD Ot Z95. 0 PRESENCE OF CARDIAC PACEMAKER 02/15/2016 MERON ALVARADO MD Ot Z98.890 OTHER SPECIFIED POSTPROCEDURAL STATES 02/15/2016 Ot 729.5 PAIN IN LIMB 02/15/[address] PAIN NOS 02/15/2016 PAULINE JOHANN R COLLECTION SUPERVISOR Ot 724.1 PAIN IN THORACIC SPINE 02/15/2016 LINH CHASE, FABRICE Miranda Ot 723. 1 CERVICALGIA 02/15/2016 TOMÁS CHASE, MARILU Rodríguez Ot 726.32 LATERAL EPICONDYLITIS 02/15/2016 MARILU ENGLAND MD Ot V72.84 EXAM PRE-OPERATIVE NOS 02/16/2016 MERON ALVARADO MD Ot J93. 9 PNEUMOTHORAX, UNSPECIFIED 02/16/2016 MERON ALVARADO MD Ot R06. 02 SHORTNESS OF BREATH 02/16/2016 MERON ALVARADO MD Ot Z79. 82 WORKFORCE MANAGEMENT COORDINATOR (CURRENT) USE OF ASPIRIN 02/16/2016 MERON ALVARADO MD Ot Z79.899 OTHER ALF (CURRENT) DRUG THERAPY 02/16/2016 MERON ALVARADO MD Ot Z87.891 PERSONAL HISTORY OF NICOTINE DEPENDENCE 02/16/2016 MERON ALVARADO MD Ot Z95. 0 PRESENCE OF CARDIAC PACEMAKER 02/16/2016 MERON ALVARADO MD Ot Z98.890 OTHER SPECIFIED POSTPROCEDURAL STATES 02/16/2016 JAC SCHMIDT MD Ot I10 ESSENTIAL (PRIMARY) HYPERTENSION 02/16/2016 JAC SCHMIDT MD Ot I25.1 0 ATHSCL HEART DISEASE OF [place] CORONARY 02/16/2016 JAC SCHMIDT MD Ot J95.8 [...] Ot I25.1 0 ATHSCL HEART DISEASE OF [place] CORONARY 02/17/2016 JAC SCHMIDT MD Ot I49.5 [...] 02/24/2016 MERON ALVARADO MD Ot Z79. 82 WORKFORCE MANAGEMENT COORDINATOR (CURRENT) USE OF ASPIRIN 02/24/2016 MERON ALVARADO MD Ot Z79.899 OTHER WORKFORCE MANAGEMENT COORDINATOR (CURRENT) DRUG THERAPY 02/24/2016 MERON ALVARADO MD Ot Z87.891 PERSONAL HISTORY OF NICOTINE DEPENDENCE 02/24/2016 MERON ALVARADO MD Ot Z95. 0 PRESENCE OF CARDIAC PACEMAKER 02/24/2016 MERON ALVARADO MD Ot Z98.890 OTHER SPECIFIED POSTPROCEDURAL STATES 03/07/2016 SAMI LE COLLECTION SUPERVISOR Ot H53.143 VISUAL DISCOMFORT, BILATERAL 03/07/2016 SAMI LE COLLECTION SUPERVISOR Ot R51 HEADACHE 03/07/2016 SAMI LE COLLECTION SUPERVISOR Ot Z95 .0 PRESENCE OF CARDIAC PACEMAKER 03/08/2016 SAMI LE COLLECTION SUPERVISOR Ot H53.143 VISUAL DISCOMFORT, BILATERAL 03/08/2016 SAMI LE COLLECTION SUPERVISOR Ot R51 HEADACHE 03/08/2016 SAMI LE COLLECTION SUPERVISOR Ot Z95 .0 PRESENCE OF CARDIAC PACEMAKER 03/13/2016 SAMI LE COLLECTION SUPERVISOR Ot H53.143 VISUAL DISCOMFORT, BILATERAL 03/13/2016 SAMI LE COLLECTION SUPERVISOR Ot R51 HEADACHE 03/13/2016 SAMI LE COLLECTION SUPERVISOR Ot Z95 .0 PRESENCE OF CARDIAC PACEMAKER 05/20/2016 MARLENE BRIGGS MD Ot R11 .0 NAUSEA 05/20/2016 MARLENE BRIGGS MD Ot R42 DIZZINESS AND GIDDINESS 05/20/2016 MARLENE BRIGGS MD Ot Z79.899 OTHER WORKFORCE MANAGEMENT COORDINATOR (CURRENT) DRUG THERAPY 05/20/2016 MARLENE BRIGGS MD Ot Z95 .0 PRESENCE OF CARDIAC PACEMAKER 05/23/2016 MARLENE BRIGGS MD Ot R11 .0 NAUSEA 05/23/2016 MARLENE BRIGGS MD Ot R42 DIZZINESS AND GIDDINESS 05/23/2016 MARLENE BRIGGS MD Ot Z79.899 OTHER ALF (CURRENT) DRUG THERAPY 05/23/2016 MARLENE BRIGGS MD Ot Z95 .0 PRESENCE OF CARDIAC PACEMAKER 06/07/2016 SAMI LE COLLECTION SUPERVISOR Ot I10 ESSENTIAL (PRIMARY) HYPERTENSION 06/07/2016 SAMI LE COLLECTION SUPERVISOR Ot R11 .0 NAUSEA 06/07/2016 SAMI LE COLLECTION SUPERVISOR Ot R51 HEADACHE 06/07/2016 SAMI LE COLLECTION SUPERVISOR Ot Z87.891 PERSONAL HISTORY OF NICOTINE DEPENDENCE 06/07/2016 SAMI LE COLLECTION SUPERVISOR Ot Z95 .0 PRESENCE OF CARDIAC PACEMAKER 06/08/2016 SAMI LE COLLECTION SUPERVISOR Ot I10 ESSENTIAL (PRIMARY) HYPERTENSION 06/08/2016 SAMI LE COLLECTION SUPERVISOR Ot R11 .0 NAUSEA 06/08/2016 SAMI LE COLLECTION SUPERVISOR Ot R51 HEADACHE 06/08/2016 SAMI LE COLLECTION SUPERVISOR Ot Z87.891 PERSONAL HISTORY OF NICOTINE DEPENDENCE 06/08/2016 SAMI LE COLLECTION SUPERVISOR Ot Z95 .0 PRESENCE OF CARDIAC PACEMAKER 08/02/2016 SAMI LE COLLECTION SUPERVISOR Ot I10 ESSENTIAL (PRIMARY) HYPERTENSION 08/02/2016 SAMI LE APRN Ot R51 HEADACHE 08/02/2016 SAMI LE COLLECTION SUPERVISOR Ot Z79.899 OTHER ALF (CURRENT) DRUG THERAPY 08/02/2016 SAMI LE COLLECTION SUPERVISOR Ot Z87.891 PERSONAL HISTORY OF NICOTINE DEPENDENCE 08/02/2016 SAMI LE COLLECTION SUPERVISOR Ot Z95 .0 PRESENCE OF CARDIAC PACEMAKER 08/06/2016 JAC SCHMIDT MD Ot E66.9 OBESITY, UNSPECIFIED 08/06/2016 JAC SCHMIDT MD Ot F17.2 10 NICOTINE DEPENDENCE, CIGARETTES, UNCOMPL 08/06/2016 JAC SCHMIDT MD Ot F41.9 ANXIETY DISORDER, UNSPECIFIED 08/06/2016 JAC SCHMIDT MD Ot G47.0 0 INSOMNIA, UNSPECIFIED 08/06/2016 GAULT MD, JAC R Ot I25.1 0 ATHSCL HEART DISEASE OF [place] CORONARY 08/06/2016 JAC SCHMIDT MD Ot R07.8 [...] ACQUIRED ABSENCE OF OTHER ORGANS 12/19/2017 BERNNITO RAGNELIS Ot Z95.0 PRESENCE OF CARDIAC PACEMAKER 02/02/2018 [...] ALLERGY STATUS TO PENICILLIN 02/06/2018 SAMI LE COLLECTION SUPERVISOR Ot Z88 .5 ALLERGY STATUS TO NARCOTIC AGENT STATUS 02/06/2018 SAMI LE APRN Ot Z90.710 ACQUIRED ABSENCE OF BOTH CERVIX AND UTER 02/06/2018 SAMI LE COLLECTION SUPERVISOR Ot Z90.89 ACQUIRED ABSENCE OF OTHER ORGANS 02/06/2018 SAMI LE APRN Ot Z95 .0 PRESENCE OF CARDIAC PACEMAKER 02/10/2018 SAMI LE APRN Ot R51 HEADACHE 02/10/2018 SAMI LE APRN Ot Z82.49 FAMILY HX OF ISCHEM HEART DIS AND OTH DI 02/10/2018 SAMI LE APRN Ot Z87.448 PERSONAL HISTORY OF OTHER DISEASES OF [place] 02/10/2018 SAMI LE COLLECTION SUPERVISOR Ot Z87.891 PERSONAL HISTORY OF NICOTINE DEPENDENCE 02/10/2018 SAMI LE COLLECTION SUPERVISOR Ot Z88 .0 ALLERGY STATUS TO PENICILLIN 02/10/2018 SAMI LE COLLECTION SUPERVISOR Ot Z88 .5 ALLERGY STATUS TO NARCOTIC AGENT STATUS 02/10/2018 SAMI LE COLLECTION SUPERVISOR Ot Z90.710 ACQUIRED ABSENCE OF BOTH CERVIX AND UTER 02/10/2018 SAMI LE COLLECTION SUPERVISOR Ot Z90.89 ACQUIRED ABSENCE OF OTHER ORGANS [...] Ot Z98.890 OTHER SPECIFIED POSTPROCEDURAL STATES 06/26/2018 AJRED SAMSON Ot D64.9 ANEMIA, UNSPECIFIED 06/26/2018 BERNNITO [...] ACQUIRED ABSENCE OF OTHER SPECIFIED PART 09/07/2018 ROSEBUD DANUTA SHER Ot Z90.710 ACQUIRED ABSENCE OF [...] MD Ot M54.9 DORSALGIA, UNSPECIFIED 02/13/2019 ABBY ESTRELLA MD Ot R07.9 CHEST PAIN, UNSPECIFIED 02/13/2019 [...] HISTORY OF NICOTINE DEPENDENCE 02/18/2019 ABBY ESTRELLA MD, Ot Z88.0 ALLERGY STATUS TO PENICILLIN 02/18/2019 ABBY ESTRELLA MD, Ot Z88.5 ALLERGY STATUS TO NARCOTIC AGENT STATUS 02/18/2019 ABBY ESTRELLA MD, Ot Z90.49 ACQUIRED ABSENCE OF OTHER SPECIFIED PART 02/18/2019 ABBY ESTRELLA MD, Ot Z90.710 ACQUIRED ABSENCE OF BOTH CERVIX AND UTER 02/18/2019 ABBY ESTRELLA MD Ot Z95.0 PRESENCE OF CARDIAC PACEMAKER 02/18/2019 ABBY ESTRELLA MD, Ot Z95.9 PRESENCE OF CARDIAC AND VASCULAR IMPLANT 05/28/2019 BLAYNE VARGAS Ot M79.642 PAIN IN LEFT HAND 05/28/2019 JEAN PIERRE VARGASCEGauri VARGHESEP Ot S99.911A UNSPECIFIED INJURY OF RIGHT ANKLE, INITI 05/28/2019 SAM BLAYNEGauri JOYCE Ot W17.89XA OTHER FALL FROM ONE LEVEL TO ANOTHER, IN 06/06/2019 BLAYNE VARGAS Ot M79.642 PAIN IN LEFT HAND 06/06/2019 SAM BLAYNEGauri VARGHESEP Ot S99.911A UNSPECIFIED INJURY OF RIGHT ANKLE, INITI 06/06/2019 SAM BLAYNEGauri VARGHESEP Ot W17.89XA OTHER FALL FROM ONE LEVEL TO ANOTHER, IN 09/10/2019 CITLALI COLLAZO MD Ot R06. 02 SHORTNESS OF BREATH 09/10/2019 CITLALI COLLAZO MD Ot R07. 1 CHEST PAIN ON BREATHING 09/10/2019 CITLALI COLLAZO MD Ot R61 GENERALIZED HYPERHIDROSIS 10/15/2019 EZIO STARKS Ot I49.5 SICK SINUS SYNDROME 10/15/2019 EZIO STARKS Ot S61.012A LACERATION W/O FB OF LEFT THUMB W/O ETELVINA 10/15/2019 EZIO STARKS Ot W26.0XXA CONTACT WITH KNIFE, INITIAL ENCOUNTER 10/15/2019 EZIO STARKS Ot Y92.000 K[facility]EN [facility]PR[facility] R 10/15/2019 EZIO STARKS Ot Y93.G3 ACTIVITY, COOKING AND BAKING 10/15/2019 TEREZA, EZIO LEGAL BILLING COORDINATOR Ot Z87.891 PERSONAL HISTORY OF NICOTINE DEPENDENCE 10/15/2019 TEREZA, EZIO LEGAL BILLING COORDINATOR Ot Z90.710 ACQUIRED ABSENCE OF BOTH CERVIX AND UTER 10/15/2019 TEREZA, EZIO LEGAL BILLING COORDINATOR Ot Z90.722 ACQUIRED ABSENCE OF OVARIES, BILATERAL 10/15/2019 TEREZA, EZIO LEGAL BILLING COORDINATOR Ot Z95.0 PRESENCE OF CARDIAC PACEMAKER 10/17/2019 TEREZA, EZIO LEGAL BILLING COORDINATOR Ot I49.5 SICK SINUS SYNDROME 10/17/2019 TEREZA, EZIO LEGAL BILLING COORDINATOR Ot S61.012A LACERATION W/O FB OF LEFT THUMB W/O ETELVINA 10/17/2019 TEREZA, EZIO LEGAL BILLING COORDINATOR Ot W26.0XXA CONTACT WITH KNIFE, INITIAL ENCOUNTER 10/17/2019 TEREZA, EZIO LEGAL BILLING COORDINATOR Ot Y92.000 KITCHEN OF [facility] (PRIVATE) R 10/17/2019 TEREZA, EZIO LEGAL BILLING COORDINATOR Ot Y93.G3 ACTIVITY, COOKING AND BAKING 10/17/2019 TEREZA, EZIO LEGAL BILLING COORDINATOR Ot Z87.891 PERSONAL HISTORY OF NICOTINE DEPENDENCE 10/17/2019 TEREZA, EZIO LEGAL BILLING COORDINATOR Ot Z90.710 ACQUIRED ABSENCE OF BOTH CERVIX AND UTER 10/17/2019 TEREZA, EZIO LEGAL BILLING COORDINATOR Ot Z90.722 ACQUIRED ABSENCE OF OVARIES, BILATERAL 10/17/2019 TEREZA, EZIO LEGAL BILLING COORDINATOR Ot Z95.0 PRESENCE OF CARDIAC PACEMAKER Procedures Code Description [place] [address] [employer] 03/31/2014 92146 ROUT INE VENIPUNCTURE 04/01/2014 59325 XRAY THORACIC SPINE 3 VIEWS 04/01/2014 47179 LIPI D PANEL 04/01/2014 71821 CBC 04/01/20145607765 GF R CALC (RESULT ONLY) 04/01/2014 67119 CMP 04/01/2014 91105 TSH 04/01/2014 84930 MRI SPINE (THORACIC) W/O CONTRAST 04/22/2014 30574 ROUT INE VENIPUNCTURE 07/04/2014 20742 LIPI D PANEL 07/04/2014 52558 TSH 07/04/2014 [id number] IN SERTION OF PACEMAKER LEAD INTO RIGHT A 02/10/2016 37QW7SY IN SERTION OF PACEMAKER LEAD INTO R VENTR 02/10/2016 2ZL013D IN SERT PACE. DUAL CORNEL IN CHEST [...] mg/dL 0.1-1.0 Serum or plasma alkaline phosphatase ulpe surement (enzymatic activity/volume) 75 U/L 40-136 Serum [...] Status Pt. Type Provider Facility Loc./Unit Complaint [id number] 07/04/2014 08:09:00 07/04/2014 23:59: 59 CLS Outpatient JOHANN CARPENTER APRN [id number] 05/13/2014 14:41:00 05/13/2014 23:59: 59 CLS Outpatient JOHANN CARPENTER APRN [id number] 04/22/2014 14:50:00 04/22/2014 23:59: 59 CLS Outpatient JOHANN CARPENTER APRN [id number] 04/01/2014 09:08:00 04/01/2014 23:59: 59 CLS Outpatient JOHANN CARPENTER APRN R [id number] 03/27/2014 10:15:00 03/27/2014 23:59: 59 CLS Outpatient JOHANN CARPENTER APRN R [id number] 10/06/2019 17:50:00 19:10:00 DIS Outpatient EZIO STARKS [facility] ER L THUMB LAC [id number] 05/24/2019 10:29:00 23:59:59 CLS Outpatient BLAYNE VARGAS [facility] RAD LEFT HAND PAIN,RIGHT A NKLE INJURY [id number] 02/13/2019 14:37:00 17:39:00 DIS Emergency ABBY ESTRELLA MD [facility] ER CHEST PAIN [id number] 09/07/2018 00:37:00 03:06:00 DIS Emergency DANUTA GILBERT DO [facility] ER RT FOOT BURN [id number] 07/21/2018 08:41:00 019 11:20:00 DIS Emergency CHRISTIANO CHASE, MERON S [facility] ER MIGRAINE [id number] 06/23/2018 14:54:00 019 16:04:00 DIS Emergency JARED SAMSON [facility] ER MIGRANE [id number] 04/27/2018 09:30:00 019 12:00:00 DIS Emergency BERNOT, JARED [facility] ER MIGRAINE [id number] 03/06/2018 14:50:00 018 15:25:00 DIS Outpatient CITLALI COLLAZO MD [facility] SLEEP KARAN [id number] 02/04/2018 11:34:00 018 12:37:00 DIS Emergency SAMI LE COLLECTION SUPERVISOR [facility] ER MIGRAINE [id number] 02/02/2018 13:52:00 018 17:03:00 DIS Emergency CRISTI COATES MD [facility] ER CHEST PAIN [id number] 12/19/2017 14:28:00 018 16:04:00 DIS Emergency NITO SAMSONIS [facility] ER MIGRAINE [id number] 07/11/2017 16:43:00 018 18:43:00 DIS Emergency TEJA VELASQUEZ [facility] ER MIGRAINE [id number] 05/02/2017 14:39:00 018 15:31:00 DIS Emergency SAMI LE COLLECTION SUPERVISOR [facility] ER MIGRAINE [id number] 01/31/2017 18:02:00 017 20:15:00 DIS Emergency SAMI LE COLLECTION SUPERVISOR [facility] ER HEADACHE [id number] 11/29/2016 07:22:00 017 23:59:59 CLS Preadmit CILTALI COLLAZO MD [facility] SLEEP OBSTRUCTIVE SLEEP APNEA [id number] 11/21/2016 14:02:00 017 15:11:00 DIS Emergency SAMI LE COLLECTION SUPERVISOR [facility] ER MIGRAINE [id number] 10/11/2016 17:34:00 017 18:29:00 DIS Emergency TEJA VELASQUEZ [facility] ER MIGRAINE [id number] 08/15/2016 07:29:00 23:59:59 CLS Outpatient ZAY CHASE, CITLALI Miranda [facility] CARD CHEST PAIN SYNDROME R07 .1 [id number] 08/05/2016 22:50:00 13:49:00 DIS Inpatient JAC SCHMIDT MD [facility] ICU CHEST PAIN [id number] 08/02/2016 12:53:00 13:38:00 DIS Emergency SAMI LE COLLECTION SUPERVISOR [facility] ER MIGRAINE [id number] 06/07/2016 14:02:00 017 15:13:00 DIS Emergency SAMI LE COLLECTION SUPERVISOR [facility] ER MIGRAINE [id number] 05/20/2016 14:54:00 017 16:44:00 DIS Emergency MARLENE BRIGGS MD [facility] ER DIZZY/NAUSEA UPPER BACK PAIN [id number] 03/07/2016 21:01:00 22:11:00 DIS Emergency SAMI LE COLLECTION SUPERVISOR [facility] ER MIGRAINE [id number] 02/15/2016 19:50:00 016 13:31:00 DIS Inpatient ROXANA CHASE, JAC Vilchis [facility] 4TH L PNEUMOTHORAX; S/P PAC EMAKER PLACEMENT [id number] 02/15/2016 06:40:00 09:34:00 DIS Emergency CHRISTIANO CHASE, MERON Covarrubias [facility] ER SOA [id number] 02/10/2016 12:08:00 10:03:00 DIS Inpatient CITLALI COLLAZO MD [facility] ICU SYMPTOMATIC BRADYCARDIA SICK SINUS SYNDROME CP [id number] 01/04/2016 21:37:00 016 22:34:00 DIS Emergency SAMI LE COLLECTION SUPERVISOR [facility] ER MIGRAINE [id number] 01/30/2015 14:30:00 015 15:39:00 DIS Outpatient MARILU ENGLAND MD [facility] REHAB S/P R LATERAL EPICONDY LE DEBRIDEMENT [id number] 01/06/2015 16:04:00 015 00:01:00 DIS Outpatient MARILU ENGLAND MD [facility] REHAB S/P R LATERAL EPICONDY LE DEBRIDEMENT [id number] 10/01/2014 05:55:00 10:25:00 DIS Outpatient MARILU ENGLAND MD [facility] SDC RIGHT LATERAL EPINCOND YLITIS [id number] 09/26/2014 15:46:00 23:59:59 CLS Outpatient MARILU ENGLAND MD [facility] PREOP RIGHT LATERAL EPINCOND YLITIS [id number] 09/09/2014 16:14:00 14:09:00 DIS [facility] [id number] 07/28/2014 15:35:00 23:59:59 CLS Outpatient FABRICE MELTON MD [facility] RAD NECK PAIN [id number] 04/28/2014 13:07:00 015 23:59:59 CLS Outpatient JOHANN CARPENTER APRN [facility] RAD PAIN IN THORACI C SPINE [id number] 12/06/2012 18:18:00 013 23:59:59 CLS Outpatient [id number] 11/01/2012 17:07:00 23:59:59 CLS Outpatient [id number] 09/22/2012 14:24:00 23:59:59 CLS Outpatient [id number] 08/24/2012 15:18:00 05/17/2 013 17:38:00 DIS Emergency CHESTER CHASE, MARLENE Silva [facility] ER SOA, INHALED CHEMICAL F UMES [id number] 12/20/2011 06:35:00 Document Registration [id number] 09/29/2011 08:55:00 Document Registration [id number] 07/01/2011 17:36:00 Document Registration [id number] 01/17/2011 11:52:00 Document Registration [id number] 11/17/2010 06:46:00 Document Registration [id number] 09/23/2010 11:09:00 Document Registration [id number] 06/26/2019 11:40:00 06/26/2019 23:59:5 9 [facility] Outpatient BRENDON GUTIERREZ [facility] [id number] 04/11/2019 10:00:00 Document Registration [id number] 04/05/2019 08:25:00 Document Registration
[2019-10-29 09:20] VITALS: BP 172/92
== END 2019-10-29 09:20 | disposition home or self-care (01) ==
LOC: EDUNIT# 07:13 → ER 07:15
DX: G43.909 Migraine, unspecified, not intractable, without status migrainosus (principal); I49.5 Sick sinus syndrome; Z87.891 Personal history of nicotine dependence; Z95.0 Presence of cardiac pacemaker; Z88.5 Allergy status to narcotic agent; Z88.0 Allergy status to penicillin

== ENCOUNTER 2019-12-06 12:17 | Emergency (ER) | payer BC ==
[~2019-12-06] VITALS: Ht 173 cm; Wt 95.0 kg
--- NOTE | 2019-12-06 12:51 | ED Headache ---
General Chief Complaint: Head/Cervical Problems Stated Complaint: MIGRAINE Nursing Triage Note: migraine onset last night Nursing Sepsis Screen: No Definite Risk Source: patient Exam Limitations: no limitations History of Present Illness Date Seen by Provider: Dec 06, 2019 Time Seen by Provider: 12:51 Initial Comments Migraine since last night. History of these. This one is similar. Timing/Duration: 24 hours Severity/Quality: moderate Location: frontal Prior Headaches/Recent Trauma: occasional headaches Modifying Factors: worse with exposure to light Associated Symptoms: denies symptoms Allergies and Home Medications Allergies Coded Allergies: hydrocodone (Unverified Allergy, Unknown, 09/29/14) Penicillins (Unverified Adverse Reaction, Mild, VOMITING, 09/29/14) Patient Home Medication List Home Medication List Reviewed: Yes Review of Systems Review of Systems Constitutional: see HPI Eyes: No Symptoms Reported Ears, Nose, Mouth, Throat: no symptoms reported Respiratory: no symptoms reported Cardiovascular: no symptoms reported Genitourinary: no symptoms reported Musculoskeletal: no symptoms reported Skin: no symptoms reported Psychiatric/Neurological: No Symptoms Reported Past Zglhgwa-Xiptmo-Fkbvpb Hx Patient Social History Alcohol Use: Denies Use Recreational Drug Use: No Smoking Status: Former Smoker Type Used: Cigarettes Former Smoker, Quit: May 24, 2012 2nd Hand Smoke Exposure: Yes Recent Foreign Travel: No Contact w/Someone Who Travel: No Recent Infectious Disease Expo: No Recent Hopitalizations: No Immunizations Up To Date Tetanus Booster (TDap): Less than 5yrs PED Vaccines UTD: No Seasonal Allergies Seasonal Allergies: Yes Past Medical History 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 CUFF, PACE MAKER) Appendectomy, Cardiac, Hysterectomy, Oophorectomy, Orthopedic, Pacemaker Respiratory: No Currently Using CPAP: No Currently Using BIPAP: No Cardiac: Yes (pacemaker, HYPOTENSION, sick sinus syndrome) Irregular Heartbeat, Syncope Neurological: Yes Headaches /Migraines Reproductive Disorders: Yes Female Reproductive Disorders: Ovarian Cyst 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 Genitourinary: No Gastrointestinal: No Musculoskeletal: No Endocrine: No HEENT: No Cancer: No Psychosocial: No Integumentary: No Blood Disorders: Yes (HX OF ANEMIA) Adverse Reaction/Blood Tranf: No Family Medical History Arthritis G8 SISTER Diabetes mellitus 19 MOTHER G8 SISTER Fibromyalgia G8 SISTER Heart murmur 19 MOTHER G8 SISTER Kidney disease 19 MOTHER Myelodysplasia of spinal cord 19 MOTHER, Onset:60 years & older Myocardial infarction G8 BROTHER, Onset:32 ( of ID at 32) No Pertinent Family Hx Physical Exam Vital Signs Vital Signs - First Documented 12/06/19 12:29 Temp 36.8 Pulse 64 Resp 16 B/P (MAP) 130/73 (92) Pulse Ox 96 O2 Delivery Room Air Capillary Refill : Less Than 3 Seconds Height, Weight, BMI Height: 5'7.00" Weight: 205lbs. 0.0oz. 92.934759il; 31.00 BMI Method:Stated General Appearance: WD/WN, no apparent distress HEENT: PERRL/EOMI, normal ENT inspection, TMs normal Neck: non-tender, full range of motion Respiratory: normal breath sounds, no respiratory distress, no accessory muscle use Extremities: normal range of motion, non-tender Psychiatric: alert, oriented x 3 Crainal Nerves: normal hearing, normal speech, PERRL Skin: normal color, warm/dry Progress/Results/Core Measures Results/Orders My Orders Orders - SAMI LE APRN Ketorolac Injection (Toradol Injection) (12/06/19 13:00) Prochlorperazine Injection (Compazine In (12/06/19 13:00) Diphenhydramine Injection (Benadryl Inje (12/06/19 13:00) Medications Given in ED Current Medications Medications Dose Ordered Sig/Ni Route Start Time Stop Time Status Last Admin Dose Admin Diphenhydramine HCl 25 mg ONCE ONCE IM 12/06/19 13:00 12/06/19 13:01 DC 12/06/19 13:04 25 MG Ketorolac Tromethamine 60 mg ONCE ONCE IM 12/06/19 13:00 12/06/19 13:01 DC 12/06/19 13:04 60 MG Prochlorperazine Edisylate 10 mg ONCE ONCE IM 12/06/19 13:00 12/06/19 13:01 DC 12/06/19 13:03 10 MG Vital Signs/I&O 12/06/19 12:29 Temp 36.8 Pulse 64 Resp 16 B/P (MAP) 130/73 (92) Pulse Ox 96 O2 Delivery Room Air 2 Blood Pressure Mean: 92 Departure Impression Primary Impression: Acute headache Disposition: 01 HOME, SELF-CARE Condition: Stable Departure-Patient Inst. Decision time for Depature: 13:07 Referrals: [facility] (PCP/Family) Primary Care Physician Patient Instructions: Headache, Adult (DC) SAMI LE APRN Dec 06, 2019 12:51
[2019-12-06] MEDS ORDERED: diphenhydrAMINE 50 MG/ML INJ (BENADRYL) IM ONE (13:00)
[2019-12-06] MEDS ORDERED: KETOROLAC 60 MG/2 ML VIAL IM ONE (13:00)
[2019-12-06] MEDS ORDERED: PROCHLORPERAZINE 10 MG/2ML INJ (COMPAZINE) IM ONE (13:00)
[2019-12-06 13:16] VITALS: BP 130/73
== END 2019-12-06 13:16 | disposition home or self-care (01) ==
LOC: EDUNIT# 12:17 → ER 12:18
DX: R51 Headache (principal); Z88.0 Allergy status to penicillin; Z88.5 Allergy status to narcotic agent; Z87.891 Personal history of nicotine dependence; Z77.22 Contact with and (suspected) exposure to environmental tobacco smoke (acute) (chronic); Z95.0 Presence of cardiac pacemaker; Z86.69 Personal history of other diseases of the nervous system and sense organs; Z82.49 Family history of ischemic heart disease and other diseases of the circulatory system
CPT/HCPCS: 99284

== ENCOUNTER 2020-01-12 19:42 | Emergency (ER) | payer BC ==
[~2020-01-12] VITALS: Ht 170.2 cm; Wt 100.0 kg
[2020-01-12] MEDS ORDERED: diphenhydrAMINE 50 MG/ML INJ (BENADRYL) IM ONE (21:15)
[2020-01-12] MEDS ORDERED: KETOROLAC 60 MG/2 ML VIAL IM ONE (21:15)
[2020-01-12] MEDS ORDERED: PROMETHAZINE INJ 25 MG/ML (PHENERGAN) AMP IM ONE (21:15)
[2020-01-12] MEDS ORDERED: ONDANSETRON 4 MG (ZOFRAN) ORAL DISSOLVE TAB PO ONE (21:15)
--- NOTE | 2020-01-12 21:18 | ED Headache ---
General Chief Complaint: Head/Cervical Problems Stated Complaint: MIGRAINE Source: patient Exam Limitations: no limitations History of Present Illness Date Seen by Provider: Jan 12, 2020 Time Seen by Provider: 21:00 Initial Comments Patient presents to the ER by private conveyance with her significant other and chief complaint of a headache starting since about 10:00 yesterday with nausea. No aura. Photosensitivity but no visual changes weakness numbness tingling fevers or nuchal rigidity. She says the headache starts in her neck goes up the back of her head and around both her eyes. She's had migraines for years. She does not take any prophylactic medicines. All she has taken is Tylenol with inadequate relief of pain. She rates it as a 10 out of 10. Allergies and Home Medications Allergies Coded Allergies: hydrocodone (Unverified Allergy, Unknown, 09/29/14) Penicillins (Unverified Adverse Reaction, Mild, VOMITING, 09/29/14) Patient Home Medication List Home Medication List Reviewed: Yes Review of Systems Review of Systems Constitutional: No chills, No diaphoresis Eyes: Denies Blindness, Denies Blurred Vision; Photophobia Ears, Nose, Mouth, Throat: denies ear pain, denies ear discharge Respiratory: No cough, No dyspnea on exertion, No short of breath Cardiovascular: No chest pain, No palpitations Gastrointestinal: No abdominal pain; nausea, vomiting All Other Systems Reviewed Negative Unless Noted: Yes Past Lhyeins-Coqqba-Buwgty Hx Patient Social History Recreational Drug Use: No Smoking Status: Former Smoker Type Used: Cigarettes Former Smoker, Quit: May 24, 2012 2nd Hand Smoke Exposure: Yes Recent Foreign Travel: No Contact w/Someone Who Travel: No Recent Hopitalizations: No Immunizations Up To Date Tetanus Booster (TDap): Less than 5yrs PED Vaccines UTD: No Seasonal Allergies Seasonal Allergies: Yes Past Medical History 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 CUFF, PACE MAKER) Appendectomy, Cardiac, Hysterectomy, Oophorectomy, Orthopedic, Pacemaker Respiratory: No Currently Using CPAP: No Currently Using BIPAP: No Cardiac: Yes (pacemaker, HYPOTENSION, sick sinus syndrome) Irregular Heartbeat, Syncope Neurological: Yes Headaches /Migraines Reproductive Disorders: Yes 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 Genitourinary: No Gastrointestinal: No Musculoskeletal: No Endocrine: No HEENT: No Cancer: No Psychosocial: No Integumentary: No Blood Disorders: Yes (HX OF ANEMIA) Adverse Reaction/Blood Tranf: No Family Medical History Arthritis G8 SISTER Diabetes mellitus 19 MOTHER G8 SISTER Fibromyalgia G8 SISTER Heart murmur 19 MOTHER G8 SISTER Kidney disease 19 MOTHER Myelodysplasia of spinal cord 19 MOTHER, Onset:60 years & older Myocardial infarction G8 BROTHER, Onset:31 ( of [place] at 32) No Pertinent Family Hx Physical Exam Vital Signs Capillary Refill : Height, Weight, BMI Height: 5'7.00" Weight: 205lbs. 0.0oz. 92.930801kw; 31.00 BMI Method:Stated General Appearance: WD/WN, mild distress HEENT: PERRL/EOMI, pharynx normal Neck: supple, normal inspection Cardiovascular: normal peripheral pulses, regular rate, rhythm Respiratory: no respiratory distress, no accessory muscle use Extremities: normal range of motion, non-tender, normal capillary refill Psychiatric: alert, oriented x 3 Crainal Nerves: normal hearing, normal speech, PERRL Coordination/Gait: normal finger to nose, normal gait Motor/Sensory: no motor deficit, no sensory deficit Skin: normal color, warm/dry Progress/Results/Core Measures Results/Orders My Orders Orders - MARYLOU PUGA Ketorolac Injection (Toradol Injection) (01/12/20 21:15) Promethazine Injection (Phenergan Injec (01/12/20 21:15) Diphenhydramine Injection (Benadryl Inje (01/12/20 21:15) Ondansetron Oral Dissolve Tab (Zofran (01/12/20 21:15) Progress Progress Note : Time: 21:15 Progress Note Toradol, Phenergan, ondansetron, Benadryl. No red flag signs. Departure Impression Primary Impression: Migraine Qualified Codes: G43.009 - Migraine without aura, not intractable, without status migrainosus Disposition: 01 HOME, SELF-CARE Condition: Stable Departure-Patient Inst. Decision time for Depature: 21:16 Referrals: [facility] (PCP/Family) Primary Care Physician Patient Instructions: Migraine Headache (DC) Add. Discharge Instructions: Go home take some Tylenol 1000 mg every 8 hours and ibuprofen 800 mg every 8 hours as necessary for headache. Get some fluids to drink and get some sleep. All discharge instructions reviewed with patient and/or family. Voiced understanding. MARYLOU PUGA J Jan 12, 2020 21:18
[2020-01-12 21:53] VITALS: BP 134/77
== END 2020-01-12 21:53 | disposition home or self-care (01) ==
LOC: EDUNIT# 19:42 → ER 19:44
DX: G43.009 Migraine without aura, not intractable, without status migrainosus (principal); Z83.3 Family history of diabetes mellitus; Z82.61 Family history of arthritis; Z82.49 Family history of ischemic heart disease and other diseases of the circulatory system; Z95.0 Presence of cardiac pacemaker; Z87.891 Personal history of nicotine dependence; Z88.0 Allergy status to penicillin; Z88.5 Allergy status to narcotic agent
CPT/HCPCS: 99284

== ENCOUNTER 2020-02-13 09:06 | Emergency (ER) | payer BC, OTHER ==
[~2020-02-13] VITALS: Ht 170 cm; Wt 92.5 kg
--- NOTE | 2020-02-13 09:37 | ED Fall/Injury ---
General Chief Complaint: Upper Extremity Stated Complaint: FALL KNEE PAIN R ARM PAIN Nursing Triage Note: PT REPORTS TO ED FOR RT ARM PAIN AND BILATERAL KNEE PAIN. PT REPORTS SHE FELL ON HER SIDEWALK YESTERDAY AROUND 0800. PT AMB TO ROOM WITH A LIMP AND GUARDING RIGHT ARM. Source: patient Exam Limitations: no limitations History of Present Illness Date Seen by Provider: Feb 13, 2020 Time Seen by Provider: 09:30 Initial Comments Patient is a 60-year-old female who presents to the emergency department today with a chief complaint of right upper extremity pain and bilateral knee pain after a mechanical trip and fall yesterday. Patient states that she believes she just tripped over something in the sidewalk. She fell on an outstretched arm. Patient states that she has been taking Tylenol every 6 hours for pain and icing her sore areas. Patient states that she has been ambulatory after her fall. Left knee seems to be a little bit more tender than her right knee. Patient is describing extreme pain to the right upper extremity with range of motion at the elbow and wrist. She is complaining of right hand swelling. Patient did not hit her head or have a loss of consciousness. No other complaints of illness or injury. All other review of systems reviewed and negative except as stated. Occurred: yesterday Severity: severe (Right upper extremity) Injuries/Pain Location: upper extremity, lower extremity Context: tripped Loss of Consciousness: no loss of consciousness Modifying Factors: Improves With Cold Therapy, Improves With Pain Medication (Awvg-pmz-xqrpsaf Tylenol) Allergies and Home Medications Allergies Coded Allergies: hydrocodone (Unverified Allergy, Unknown, 09/29/14) Penicillins (Unverified Adverse Reaction, Mild, VOMITING, 09/29/14) Patient Home Medication List Home Medication List Reviewed: Yes Review of Systems Review of Systems Constitutional: no symptoms reported Eyes: No Symptoms Reported Ears, Nose, Mouth, Throat: no symptoms reported Respiratory: no symptoms reported Cardiovascular: no symptoms reported Gastrointestinal: no symptoms reported Musculoskeletal: joint pain, joint swelling, muscle pain Skin: other (Abrasions) All Other Systems Reviewed Negative Unless Noted: Yes Past Fgzqoau-Nrmqhf-Gdqpkt Hx Patient Social History Alcohol Use: Denies Use Recreational Drug Use: Yes (TOBACCO) Smoking Status: Former Smoker Type Used: Cigarettes Former Smoker, Quit: May 24, 2012 2nd Hand Smoke Exposure: Yes Recent Foreign Travel: No Contact w/Someone Who Travel: No Recent Infectious Disease Expo: No Recent Hopitalizations: No Immunizations Up To Date Tetanus Booster (TDap): Less than 5yrs PED Vaccines UTD: No Seasonal Allergies Seasonal Allergies: Yes Past Medical History 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 CUFF, PACE MAKER) Appendectomy, Cardiac, Hysterectomy, Oophorectomy, Orthopedic, Pacemaker Respiratory: No Currently Using CPAP: No Currently Using BIPAP: No Cardiac: Yes (pacemaker, HYPOTENSION, sick sinus syndrome) Irregular Heartbeat, Syncope Neurological: Yes Headaches /Migraines Reproductive Disorders: Yes 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 Genitourinary: No Gastrointestinal: No Musculoskeletal: No Endocrine: No HEENT: No Cancer: No Psychosocial: No Integumentary: No Blood Disorders: Yes (HX OF ANEMIA) Adverse Reaction/Blood Tranf: No Family Medical History Arthritis G8 SISTER Diabetes mellitus 19 MOTHER G8 SISTER Fibromyalgia G8 SISTER Heart murmur 19 MOTHER G8 SISTER Kidney disease 19 MOTHER Myelodysplasia of spinal cord 19 MOTHER, Onset:60 years & older Myocardial infarction G8 BROTHER, Onset:31 ( of [place] at 32) No Pertinent Family Hx Physical Exam Vital Signs Vital Signs - First Documented 02/13/20 09:12 Temp 36.1 Pulse 88 Resp 20 B/P (MAP) 136/75 (95) O2 Delivery Room Air Capillary Refill : Less Than 3 Seconds Height, Weight, BMI Height: 5'7.00" Weight: 205lbs. 0.0oz. 92.762316rf; 32.00 BMI Method:Stated General Appearance: WD/WN, no apparent distress HEENT: PERRL/EOMI Neck: full range of motion Cardiovascular: regular rate, rhythm, no murmur Respiratory: lungs clear, normal breath sounds, no respiratory distress, no accessory muscle use Gastrointestinal: normal bowel sounds, non tender, soft Extremities: other (Patient has bilateral anterior knee abrasions with tenderness over the bony prominences of the proximal tibia on the left knee. Patient also has significant swelling to the right forearm, including the elbow wrist and fingers. She has decreased range of motion of the elbow including pronation, supination, flexion and extension. Patient has painful flexion and extension at the wrist and painful flexion of the fingers. No bony tenderness is palpable over the bones of the hand wrist or proximal forearm. Patient has tenderness over palpation of the bones of the elbow. 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 cast padding to RUE and then 4" orthoglass used to make a sugar-tong splint. John wrapped. She tolerated the procedure well. Hand-Made Type: orthoglass Splint Application: Short Arm Progress/Results/Core Measures Results/Orders My Orders Orders - HARVEY MACIAS MD Elbow, Right, 3 Views (02/13/20 09:32) Wrist, Right, 3 Views Or More (02/13/20 09:32) Knee, Left, 3 Views (02/13/20 09:32) Vital Signs/I&O 02/13/20 02/13/20 09:12 10:35 Temp 36.1 36.1 Pulse 88 88 Resp 20 20 B/P (MAP) 136/75 (95) 136/75 (95) O2 Delivery Room Air Room Air Blood Pressure Mean: 95 Progress Progress Note : Time: 10:21 Progress Note Patient is a 60-year-old female who presents to the emergency department after a fall sustained 24 hours ago. This was a mechanical trip and fall. Patient's evaluation today includes a physical exam with x-rays of the right wrist, right elbow, left knee. X-rays of the knee are unremarkable, no bony injuries are seen. X-rays of the right wrist are within normal limits no bony injury seen. Patient has a positive "sail sign" on her x-ray to the right elbow. She has notable evidence of a right radial head fracture. This is nondisplaced. Patient will be placed in a sugar tong splint. Given a sling and referral to Dr. TAN who is on-call for orthopedics. Diagnostic Imaging Diagonstic Imaging: Xray Comments [facility], [place] NAME: JR ELLIOTT MED REC#: [id number] PT STATUS: REG ER : 1960 PHYSICIAN: HARVEY MACIAS MD ADMIT DATE: 02/13/20/ER Signed Date of Exam:02/13/20 ELBOW, RIGHT, 3 VIEWS HISTORY: Fall yesterday with right elbow pain. TECHNIQUE: Three views of the right elbow. COMPARISON: None. FINDINGS: There is a moderate right elbow joint effusion with displacement of the posterior fat pad. There may be subtle offset at the articular surface of the radial head on the oblique view, otherwise no other fractures are seen. Alignment appears normal. There is a small enthesophyte at the lateral epicondyle. IMPRESSION: 1. Right elbow joint effusion, consistent with intra-articular fracture. This is suspected to be at the radial head articular surface. Dictated by: Dictated on workstation # [id number] Dict: 02/13/20 0951 Trans: 02/13/20 1006 [id number] Interpreted by: MAGDIEL ST MD Electronically signed by: MAGDIEL ST MD 02/13/20 1006 [facility], [place] NAME: JR ELLIOTT [facility] REC#: [id number] PT STATUS: REG ER : 1960 PHYSICIAN: HARVEY MACIAS MD ADMIT DATE: 02/13/20/ER Signed Date of Exam:02/13/20 WRIST, RIGHT, 3 VIEWS OR MORE HISTORY: Fall with pain in the right wrist. TECHNIQUE: Three views of the right wrist. COMPARISON: None. FINDINGS: No acute fracture or dislocation is seen in the right wrist. Cystlike changes are seen in the scaphoid, which are degenerative. Alignment appears normal. There are degenerative changes in the basal joints of the thumb. There is a well-corticated ossification adjacent to the ulnar styloid process, likely from remote trauma. IMPRESSION: 1. Degenerative changes in the right wrist with no acute osseous abnormality seen. Dictated by: Dictated on workstation # [id number] Dict: 02/13/20 0953 Trans: 02/13/20 1006 [id number] Interpreted by: MAGDIEL ST MD Electronically signed by: MAGDIEL ST MD 02/13/[address] [facility] [place], [place] NAME: JR ELLIOTT [facility] REC#: [id number] PT STATUS: REG ER : 1960 PHYSICIAN: HARVEY MACIAS MD ADMIT DATE: 02/13/20/ER Signed Date of Exam:02/13/20 KNEE, LEFT, 3 VIEWS HISTORY: Fall, left knee pain. TECHNIQUE: Three views of the left knee. COMPARISON: None. FINDINGS: No acute fracture is seen in the left knee. Alignment appears normal. Joint spaces are preserved. No significant joint effusion is seen. IMPRESSION: 1. No acute osseous abnormality is seen in the left knee. If there is concern for internal derangement, consider nonemergent MRI for further evaluation. Dictated by: Dictated on workstation # [id number] Dict: 02/13/20 0954 Trans: 02/13/20 1006 [facility] [id number] Interpreted by: MAGDIEL ST MD Electronically signed by: MAGDIEL ST MD 02/13/20 1006 Departure Impression Primary Impression: Fracture of radial head, right, closed Qualified Codes: S52.124A - Nondisplaced fracture of head of right radius, initial encounter for closed fracture Disposition: 01 HOME, SELF-CARE Condition: Stable Departure-Patient Inst. Decision time for Depature: 11:10 Referrals: [facility] (PCP/Family) Primary Care Physician Patient Instructions: How to Use a Shoulder Sling, Elbow Fracture (DC) Add. Discharge Instructions: Please keep the splint on until you have follow-up with Dr. TAN. I have given you a prescription for tramadol, you can take this 1 every 6 hours as needed for pain. You can also alternate with ofgb-xaf-mehrtbw Tylenol as needed for pain every [address] Tan's office today for a follow-up appointment regarding your elbow fracture. Please come back to the emergency department if you have any worsening pain, swelling, inability to feel your fingertips or any other emergent concerning symptoms. All discharge instructions reviewed with patient and/or family. Voiced understanding. Scripts Tramadol HCl (Tramadol HCl) 50 Mg Tablet 50 MG PO Q6H PRN for PAIN for 3 Days, #15 TAB 0 Refills Prov: HARVEY MACIAS MD 02/13/20 HARVEY MACIAS MD Feb 13, 2020 09:37
--- NOTE | 2020-02-13 09:56 | Diagnostic Imaging Report ---
HISTORY: Fall with pain in the right wrist. TECHNIQUE: Three views of the right wrist. COMPARISON: None. FINDINGS: No acute fracture or dislocation is seen in the right wrist. Cystlike changes are seen in the scaphoid, which are degenerative. Alignment appears normal. There are degenerative changes in the basal joints of the thumb. There is a well-corticated ossification adjacent to the ulnar styloid process, likely from remote trauma. IMPRESSION: 1. Degenerative changes in the right wrist with no acute osseous abnormality seen. Dictated by: Dictated on workstation # [id number]
--- NOTE | 2020-02-13 09:57 | Diagnostic Imaging Report ---
HISTORY: Fall, left knee pain. TECHNIQUE: Three views of the left knee. COMPARISON: None. FINDINGS: No acute fracture is seen in the left knee. Alignment appears normal. Joint spaces are preserved. No significant joint effusion is seen. IMPRESSION: 1. No acute osseous abnormality is seen in the left knee. If there is concern for internal derangement, consider nonemergent MRI for further evaluation. Dictated by: Dictated on workstation # [id number]
--- NOTE | 2020-02-13 10:00 | Diagnostic Imaging Report ---
HISTORY: Fall yesterday with right elbow pain. TECHNIQUE: Three views of the right elbow. COMPARISON: None. FINDINGS: There is a moderate right elbow joint effusion with displacement of the posterior fat pad. There may be subtle offset at the articular surface of the radial head on the oblique view, otherwise no other fractures are seen. Alignment appears normal. There is a small enthesophyte at the lateral epicondyle. IMPRESSION: 1. Right elbow joint effusion, consistent with intra-articular fracture. This is suspected to be at the radial head articular surface. Dictated by: Dictated on workstation # [id number]
[2020-02-13] MEDS ORDERED: TRM50T PO (11:12)
[2020-02-13 11:19] VITALS: BP 125/71
== END 2020-02-13 11:19 | disposition home or self-care (01) ==
LOC: EDUNIT# 09:06 → ER 09:10
DX: S52.124A Nondisplaced fracture of head of right radius, initial encounter for closed fracture (principal); S80.211A Abrasion, right knee, initial encounter; S80.212A Abrasion, left knee, initial encounter; Z88.0 Allergy status to penicillin; Z88.5 Allergy status to narcotic agent; Z87.891 Personal history of nicotine dependence; Z95.0 Presence of cardiac pacemaker; Z83.3 Family history of diabetes mellitus; W01.0XXA Fall on same level from slipping, tripping and stumbling without subsequent striking against object, initial encounter; Y92.480 Sidewalk as the place of occurrence of the external cause
CPT/HCPCS: 29125; 73080; 73110; 73562

== ENCOUNTER → 2020-04-24 | Outpatient (CLI) | payer OTHER ==
--- NOTE | 2020-04-24 12:16 | Diagnostic Imaging Report ---
EXAMINATION: PA chest at 11:13 a.m. INDICATION: Chest pain. The mild cardiomegaly noted on the prior exam of 02/13/2019 is again evident and not significantly changed. The left-sided pacemaker seen previously is also again visualized and stable. The lungs are clear. There is no evidence for failure, pneumonia or for a pleural effusion. The mediastinum is not widened. The osseous structures are intact. IMPRESSION: There is no evidence for active disease. Dictated by: Dictated on workstation # [id number]
--- NOTE | 2020-04-24 12:57 | Diagnostic Imaging Report ---
Exam: MRI right hand without contrast. Date: April 24, 2020. Indication: 60-year-old female, contusion of the right hand. Pain in the region of the fifth metacarpal phalangeal joint. Comparison: Right wrist radiographs February 13, 2020. Findings: A marker was placed at the area of focal patient concern which is in the region of the base of the fifth metacarpal. There is a mildly displaced fracture of the base of the fifth metacarpal with the fracture perhaps best appreciated on coronal T1 sequence image 12 and adjacent sequential images. There is extension to involve the articulating surface. There is very mild offset of the articulating surface. There is associated marrow edema. The degree of offset at the articulating surface is estimated to be 1 mm or less. There is no dislocation. There is no additional identified fracture. The visualized portions of the flexor and extensor tendons are intact. Additional soft tissue assessment is unremarkable. The joint spaces are well preserved. There is no joint effusion. Impression: 1. Mildly displaced intrajugular fracture of the base of the fifth metacarpal with involvement of the articulating surface and offset of the articulating surface estimated to be 1 mm or less. 2. No subluxation or dislocation. Dictated by: Dictated on workstation # [id number]
== END ==
LOC: RAD 10:46
PROVIDERS: ATTEND Orthopaedic Surgery
DX: S62.316A Displaced fracture of base of fifth metacarpal bone, right hand, initial encounter for closed fracture (principal); X58.XXXA Exposure to other specified factors, initial encounter; R07.9 Chest pain, unspecified
CPT/HCPCS: 71045; 73218

== ENCOUNTER 2020-07-07 12:08 | Emergency (ER) | payer BC ==
[~2020-07-07] VITALS: Ht 170.2 cm; Wt 95.3 kg
[2020-07-07 12:23] VITALS: BP 144/88
[2020-07-07] MEDS ORDERED: KETOROLAC 30 MG/ML VIAL IVP STA (12:33)
[2020-07-07] MEDS: NS IV 1000 ML 1,000 ML IV SCH ×2 (12:43→12:54)
[2020-07-07] MEDS ORDERED: PROCHLORPERAZINE 10 MG/2ML INJ (COMPAZINE) IV ONE (12:45)
[2020-07-07] MEDS ORDERED: diphenhydrAMINE 50 MG/ML INJ (BENADRYL) IVP ONE (12:45)
--- NOTE | 2020-07-07 12:48 | ED Headache ---
General Chief Complaint: Head/Cervical Problems Stated Complaint: MIGRAINE Nursing Triage Note: PT AMB TO TRIAGE WITH COMPLAINT OF MIGRAINE SINCE YESTERDAY. STATES TOOK TYLENOL WITH NO RELIEF. Nursing Sepsis Screen: No Definite Risk History of Present Illness Date Seen by Provider: Jul 07, 2020 Time Seen by Provider: 12:23 Timing/Duration: 24 hours Severity/Quality: moderate Location: temporal, occipital, parietal Prior Headaches/Recent Trauma: occasional headaches Modifying Factors: worse with exposure to light; improves with rest Associated Symptoms: nausea/vomiting, vision changes (Photophobia) Allergies and Home Medications Allergies Coded Allergies: hydrocodone (Unverified Allergy, Unknown, 09/29/14) Penicillins (Unverified Adverse Reaction, Mild, VOMITING, 09/29/14) Home Medications Tramadol HCl 50 Mg Tablet, 50 MG PO Q6H PRN for PAIN Prescribed by: HARVEY MACIAS on 02/13/20 1113 Patient Home Medication List Home Medication List Reviewed: Yes Review of Systems Review of Systems Constitutional: no symptoms reported, see HPI Eyes: See HPI, Photophobia Ears, Nose, Mouth, Throat: no symptoms reported, see HPI; denies nose discharge, denies mouth pain, denies throat pain Respiratory: no symptoms reported, see HPI; No cough Cardiovascular: no symptoms reported, see HPI; No chest pain Gastrointestinal: see HPI; No abdominal pain, No diarrhea; loss of appetite, nausea, vomiting Genitourinary: no symptoms reported, see HPI Musculoskeletal: no symptoms reported, see HPI All Other Systems Reviewed Negative Unless Noted: Yes Past Qoyhqin-Yxjsyd-Qpgnhp Hx Past Med/Social Hx: Reviewed Nursing Past Med/Soc Hx Patient Social History Alcohol Use: Denies Use Smoking Status: Former Smoker Type Used: Cigarettes Former Smoker, Quit: May 24, 2012 2nd Hand Smoke Exposure: Yes Recent Infectious Disease Expo: No Recent Hopitalizations: No Immunizations Up To Date Tetanus Booster (TDap): Less than 5yrs PED Vaccines UTD: No Seasonal Allergies Seasonal Allergies: Yes Past Medical History 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 CUFF, PACE MAKER) Appendectomy, Cardiac, Hysterectomy, Oophorectomy, Orthopedic, Pacemaker Respiratory: No Currently Using CPAP: No Currently Using BIPAP: No Cardiac: Yes (pacemaker, HYPOTENSION, sick sinus syndrome) Irregular Heartbeat, Syncope Neurological: Yes Headaches /Migraines Reproductive Disorders: Yes 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 Genitourinary: No Gastrointestinal: No Musculoskeletal: No Endocrine: No HEENT: No Cancer: No Psychosocial: No Integumentary: No Blood Disorders: Yes (HX OF ANEMIA) Adverse Reaction/Blood Tranf: No Family Medical History Arthritis G8 SISTER Diabetes mellitus 19 MOTHER G8 SISTER Fibromyalgia G8 SISTER Heart murmur 19 MOTHER G8 SISTER Kidney disease 19 MOTHER Myelodysplasia of spinal cord 19 MOTHER, Onset:60 years & older Myocardial infarction G8 BROTHER, Onset:31 ( of [place] at 32) No Pertinent Family Hx Physical Exam Vital Signs Vital Signs - First Documented 07/07/20 12:23 Pulse 75 Resp 16 B/P (MAP) 144/88 (106) Pulse Ox 96 O2 Delivery Room Air Capillary Refill : Less Than 3 Seconds Height, Weight, BMI Height: 5'7.00" Weight: 205lbs. 0.0oz. 92.813156ri; 32.00 BMI Method:Stated General Appearance: WD/WN, mild distress (Secondary to pain) HEENT: PERRL/EOMI, normal ENT inspection, pharynx normal Cardiovascular: normal peripheral pulses, regular rate, rhythm Respiratory: chest non-tender, lungs clear, normal breath sounds Gastrointestinal: normal bowel sounds, non tender, soft Crainal Nerves: normal hearing, normal speech, PERRL Coordination/Gait: normal finger to nose, normal gait Motor/Sensory: no motor deficit, no sensory deficit Skin: normal color, warm/dry Lymphatic: no adenopathy Progress/Results/Core Measures Results/Orders My Orders Orders - EZIO STARKS Prochlorperazine Injection (Compazine In (07/07/20 12:45) Ed Iv/Invasive Line Start (07/07/20 12:33) Ns Iv 1000 Ml (Sodium Chloride 0.9%) (07/07/20 12:45) Ketorolac Injection (Toradol Injection) (07/07/20 12:33) Diphenhydramine Injection (Benadryl Inje (07/07/20 12:45) Medications Given in ED Current Medications Medications Dose Ordered Sig/Ni Route Start Time Stop Time Status Last Admin Dose Admin Diphenhydramine HCl 25 mg ONCE ONCE IVP 07/07/20 12:45 07/07/20 12:46 DC 07/07/20 12:43 25 MG Prochlorperazine Edisylate 10 mg ONCE ONCE IV 07/07/20 12:45 07/07/20 12:46 DC 07/07/20 12:43 10 MG Vital Signs/I&O 07/07/20 12:23 Pulse 75 Resp 16 B/P (MAP) 144/88 (106) Pulse Ox 96 O2 Delivery Room Air Blood Pressure Mean: 106 Progress Progress Note : Time: 12:23 Progress Note Patient seen and evaluated, will give normal saline 1 L IV, Toradol 30 mg IV, Benadryl 25 mg IV, and Compazine 10 mg IV. Cool washcloth to forehead. 1255 IV attempted x2, patient refused to have an additional IV attempt. Requested medications be given IM. When nausea is improved, will try p.o. water. 1315 patient reports improvement in pain, taking water with no nausea or vomiting. Discharge instructions and return precautions reviewed with the patient. All questions answered. Departure Impression Primary Impression: Migraine Qualified Codes: G43.009 - Migraine without aura, not intractable, without status migrainosus Disposition: 01 HOME, SELF-CARE Condition: Improved Departure-Patient Inst. Decision time for Depature: 13:15 Referrals: [facility],LOCAL PHYSICIAN (PCP) Primary Care Physician Patient Instructions: Migraines (DC) Add. Discharge Instructions: Increase water intake, 16 ounces every 2 hours while awake. Adhere to a clear liquid diet for the next 3 to 4 hours then bland diet as tolerated. Take Excedrin, 2 tablets as soon as onset of a headache occurs. Follow-up with your primary care provider if symptoms are not improving or worsen. Return to the emergency department for new, urgent healthcare needs. All discharge instructions reviewed with patient and/or family. Voiced understanding. EZIO STARKS Jul 07, 2020 12:48
== END 2020-07-07 13:56 | disposition home or self-care (01) ==
LOC: EDUNIT# 12:08 → ER 12:10
DX: G43.009 Migraine without aura, not intractable, without status migrainosus (principal); Z77.22 Contact with and (suspected) exposure to environmental tobacco smoke (acute) (chronic); Z95.0 Presence of cardiac pacemaker; Z88.0 Allergy status to penicillin; Z88.5 Allergy status to narcotic agent
CPT/HCPCS: 99284

== ENCOUNTER 2020-07-21 13:20 | Emergency (ER) | payer BC ==
[~2020-07-21] VITALS: Ht 170 cm; Wt 95.3 kg
[2020-07-21] MEDS ORDERED: diphenhydrAMINE 50 MG/ML INJ (BENADRYL) IM ONE (13:45)
[2020-07-21] MEDS ORDERED: PROCHLORPERAZINE 10 MG/2ML INJ (COMPAZINE) IM ONE (13:45)
[2020-07-21] MEDS ORDERED: KETOROLAC 60 MG/2 ML VIAL IM ONE (13:45)
--- NOTE | 2020-07-21 13:47 | ED Headache ---
General Chief Complaint: Head/Cervical Problems Stated Complaint: MIGRAINE Nursing Triage Note: PT STATES HAVING ONE OF HER MIGRAINES BROUGHT ON BY STRESS Nursing Sepsis Screen: No Definite Risk Source: patient Exam Limitations: no limitations History of Present Illness Date Seen by Provider: Jul 21, 2020 Time Seen by Provider: 13:46 Initial Comments To ER with reports of a migraine headache that started yesterday. She has photosensitivity and nausea as well. History of migraines and this is similar to previous. Timing/Duration: 24 hours Severity/Quality: moderate, severe Location: global Prior Headaches/Recent Trauma: frequent headaches Modifying Factors: worse with exposure to light Associated Symptoms: nausea/vomiting Allergies and Home Medications Allergies Coded Allergies: hydrocodone (Unverified Allergy, Unknown, 09/29/14) Penicillins (Unverified Adverse Reaction, Mild, VOMITING, 09/29/14) Home Medications Tramadol HCl 50 Mg Tablet, 50 MG PO Q6H PRN for PAIN Prescribed by: HARVEY MACIAS on 02/13/20 1113 Patient Home Medication List Home Medication List Reviewed: Yes Review of Systems Review of Systems Constitutional: see HPI Eyes: No Symptoms Reported Ears, Nose, Mouth, Throat: no symptoms reported Respiratory: no symptoms reported Cardiovascular: no symptoms reported Genitourinary: no symptoms reported Musculoskeletal: no symptoms reported Skin: no symptoms reported Psychiatric/Neurological: Headache Past Tnlzphe-Idyoub-Jyljgg Hx Patient Social History Alcohol Use: Denies Use Smoking Status: Former Smoker Type Used: Cigarettes Former Smoker, Quit: May 24, 2012 2nd Hand Smoke Exposure: Yes Recent Infectious Disease Expo: No Recent Hopitalizations: No Immunizations Up To Date Tetanus Booster (TDap): Less than 5yrs PED Vaccines UTD: No Seasonal Allergies Seasonal Allergies: Yes Past Medical History 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 CUFF, PACE MAKER, SCREWS IN RT HAND) Appendectomy, Cardiac, Hysterectomy, Oophorectomy, Orthopedic, Pacemaker Respiratory: No Currently Using CPAP: No Currently Using BIPAP: No Cardiac: Yes (pacemaker, HYPOTENSION, sick sinus syndrome) Irregular Heartbeat, Syncope Neurological: Yes Headaches /Migraines Reproductive Disorders: Yes 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 Genitourinary: No Gastrointestinal: No Musculoskeletal: No Endocrine: No HEENT: No Cancer: No Psychosocial: No Integumentary: No Blood Disorders: Yes (HX OF ANEMIA) Adverse Reaction/Blood Tranf: No Family Medical History Arthritis G8 SISTER Diabetes mellitus 19 MOTHER G8 SISTER Fibromyalgia G8 SISTER Heart murmur 19 MOTHER G8 SISTER Kidney disease 19 MOTHER Myelodysplasia of spinal cord 19 MOTHER, Onset:60 years & older Myocardial infarction G8 BROTHER, Onset:32 ( of [place] at 32) No Pertinent Family Hx Physical Exam Vital Signs Vital Signs - First Documented 07/21/20 13:31 Temp 36.7 Pulse 63 Resp 18 B/P (MAP) 152/99 (116) Pulse Ox 96 O2 Delivery Room Air Capillary Refill : Less Than 3 Seconds Height, Weight, BMI Height: 5'7.00" Weight: 205lbs. 0.0oz. 92.076467sg; 32.00 BMI Method:Stated General Appearance: WD/WN, no apparent distress HEENT: PERRL/EOMI, normal ENT inspection Neck: non-tender, full range of motion Respiratory: no respiratory distress, no accessory muscle use Extremities: normal range of motion, non-tender Psychiatric: alert, oriented x 3 Skin: normal color, warm/dry Progress/Results/Core Measures Results/Orders My Orders Orders - SAMI LE APRN Ketorolac Injection (Toradol Injection) (07/21/20 13:45) Prochlorperazine Injection (Compazine In (07/21/20 13:45) Diphenhydramine Injection (Benadryl Inje (07/21/20 13:45) Medications Given in ED Current Medications Medications Dose Ordered Sig/Ni Route Start Time Stop Time Status Last Admin Dose Admin Diphenhydramine HCl 25 mg ONCE ONCE IM 07/21/20 13:45 07/21/20 13:46 DC 07/21/20 13:55 25 MG Ketorolac Tromethamine 60 mg ONCE ONCE IM 07/21/20 13:45 07/21/20 13:46 DC 07/21/20 13:54 60 MG Prochlorperazine Edisylate 10 mg ONCE ONCE IM 07/21/20 13:45 07/21/20 13:46 DC 07/21/20 13:53 10 MG Vital Signs/I&O 07/21/20 07/21/20 13:31 13:54 Temp 36.7 36.7 Pulse 63 Resp 18 B/P (MAP) 152/99 (116) Pulse Ox 96 O2 Delivery Room Air Blood Pressure Mean: 116 Departure Impression Primary Impression: Acute headache Disposition: 01 HOME, SELF-CARE Condition: Stable Departure-Patient Inst. 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
[2020-07-21 14:25] VITALS: BP 148/90
== END 2020-07-21 14:25 | disposition home or self-care (01) ==
LOC: EDUNIT# 13:20 → ER 13:22
DX: R51.9 Headache, unspecified (principal); Z88.0 Allergy status to penicillin; Z88.5 Allergy status to narcotic agent; Z87.891 Personal history of nicotine dependence; Z95.0 Presence of cardiac pacemaker; Z82.61 Family history of arthritis; Z83.3 Family history of diabetes mellitus; Z82.49 Family history of ischemic heart disease and other diseases of the circulatory system
CPT/HCPCS: 96372; 99284

== ENCOUNTER 2020-08-29 10:49 | Emergency (ER) | payer BC ==
[~2020-08-29] VITALS: Ht 170 cm; Wt 95.2 kg
--- NOTE | 2020-08-29 12:05 | ED Headache ---
General Chief Complaint: Head/Cervical Problems Stated Complaint: MIGRAINE Nursing Triage Note: Patient ambulatory to ER room 3 with c/o migraine headache that began yesterday around 11 AM. Patient states this is similar to past migraines. She took Tylenol at Midnight and Exedrin Migraine at 3 AM with no relief. She has been vomiting. Nursing Sepsis Screen: No Definite Risk Source: patient, old records Exam Limitations: no limitations History of Present Illness Date Seen by Provider: August 29, 2020 Time Seen by Provider: 11:55 Initial Comments This is a well-appearing 60-year-old female who presents to the ER with complaints of migraine that started yesterday around 1000 in the morning. States that she took Tylenol with minimal relief. This morning around 0300 she took Excedrin Migraine which provided no relief and then began feeling nauseous and vomiting around 0700. States pain is same as her previous migraines. Currently rating pain 10/10, constant, localized to the left side, describes as achy sensation. Additionally reports some photosensitivity. No fever, chills, cough, shortness of breath. Pain is worse with loud noise and light exposure. Allergies and Home Medications Allergies Coded Allergies: hydrocodone (Unverified Allergy, Unknown, 09/29/14) Penicillins (Unverified Adverse Reaction, Mild, VOMITING, 09/29/14) Home Medications Tramadol HCl 50 Mg Tablet, 50 MG PO Q6H PRN for PAIN Prescribed by: HARVEY MACIAS on 02/13/20 1113 Patient Home Medication List Home Medication List Reviewed: Yes Review of Systems Review of Systems Constitutional: see HPI Eyes: See HPI Ears, Nose, Mouth, Throat: see HPI Respiratory: no symptoms reported Cardiovascular: no symptoms reported Gastrointestinal: no symptoms reported Genitourinary: no symptoms reported Musculoskeletal: no symptoms reported Skin: no symptoms reported Psychiatric/Neurological: See HPI Past Sxazxno-Talndi-Dxlmbq Hx Patient Social History Alcohol Use: Denies Use Smoking Status: Former Smoker Type Used: Cigarettes Former Smoker, Quit: May 24, 2012 2nd Hand Smoke Exposure: Yes Recent Infectious Disease Expo: No Recent Hopitalizations: No Immunizations Up To Date Tetanus Booster (TDap): Less than 5yrs PED Vaccines UTD: No Seasonal Allergies Seasonal Allergies: Yes Past Medical History 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 CUFF, PACE MAKER, SCREWS IN RT HAND) Appendectomy, Cardiac, Hysterectomy, Oophorectomy, Orthopedic, Pacemaker Respiratory: No Currently Using CPAP: No Currently Using BIPAP: No Cardiac: Yes (pacemaker, HYPOTENSION, sick sinus syndrome) Irregular Heartbeat, Syncope Neurological: Yes Headaches /Migraines Reproductive Disorders: Yes 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 Genitourinary: No Gastrointestinal: No Musculoskeletal: No Endocrine: No HEENT: No Cancer: No Psychosocial: No Integumentary: No Blood Disorders: Yes (HX OF ANEMIA) Adverse Reaction/Blood Tranf: No Family Medical History Arthritis G8 SISTER Diabetes mellitus 19 MOTHER G8 SISTER Fibromyalgia G8 SISTER Heart murmur 19 MOTHER G8 SISTER Kidney disease 19 MOTHER Myelodysplasia of spinal cord 19 MOTHER, Onset:60 years & older Myocardial infarction G8 BROTHER, Onset:32 ( of [place] at 32) No Pertinent Family Hx Physical Exam Vital Signs Vital Signs - First Documented 08/29/20 10:55 Temp 36.8 Pulse 68 Resp 18 B/P (MAP) 140/83 (102) Pulse Ox 97 O2 Delivery Room Air Capillary Refill : Less Than 3 Seconds Height, Weight, BMI Height: 5'7.00" Weight: 205lbs. 0.0oz. 92.823388po; 32.00 BMI Method:Stated General Appearance: WD/WN, no apparent distress Neck: non-tender, supple, normal inspection Cardiovascular: regular rate, rhythm, no murmur Respiratory: lungs clear, normal breath sounds, no respiratory distress Gastrointestinal: normal bowel sounds, non tender, soft Extremities: normal range of motion, normal inspection Psychiatric: oriented x 3 Crainal Nerves: normal hearing, normal speech; No abnormal eye position Coordination/Gait: normal gait Motor/Sensory: no motor deficit, no sensory deficit Skin: normal color, warm/dry Progress/Results/Core Measures Results/Orders My Orders Orders - MADHAVI OVALLES APRN Ketorolac Injection (Toradol Injection) (08/29/20 12:00) Prochlorperazine Injection (Compazine In (08/29/20 12:00) Diphenhydramine Injection (Benadryl Inje (08/29/20 12:00) Medications Given in ED Current Medications Medications Dose Ordered Sig/Ni Route Start Time Stop Time Status Last Admin Dose Admin Diphenhydramine HCl 25 mg ONCE ONCE IM 08/29/20 12:00 08/29/20 12:01 DC 08/29/20 12:50 25 MG Ketorolac Tromethamine 60 mg ONCE ONCE IM 08/29/20 12:00 08/29/20 12:01 DC 08/29/20 12:50 60 MG Prochlorperazine Edisylate 10 mg ONCE ONCE IM 08/29/20 12:00 08/29/20 12:01 DC 08/29/20 12:50 10 MG Vital Signs/I&O 08/29/20 10:55 Temp 36.8 Pulse 68 Resp 18 B/P (MAP) 140/83 (102) Pulse Ox 97 O2 Delivery Room Air Blood Pressure Mean: 102 Progress Progress Note : Progress Note Patient examined and in no acute distress. States that in the past Toradol, Benadryl, Compazine have worked well for her. Orders placed for Toradol 60 mg IM, Benadryl 25 mg IM, Compazine 10 mg IM. Will reevaluate and make sure she can tolerate p.o. intake. Reports marked improvement of symptoms after receiving injections. States she feels much improved and ready to discharge. Reviewed discharge plan of care and she is agreeable with plan. Departure Impression Primary Impression: Migraine Disposition: 01 HOME, SELF-CARE Condition: Improved Departure-Patient Inst. Decision time for Depature: 13:39 Referrals: NO,LOCAL PHYSICIAN (PCP/Family) Primary Care Physician Patient Instructions: Migraines (DC) Add. Discharge Instructions: 1. Follow up with primary care provider for persistent Migraines. 2. Return for any new or worsening symptoms. All discharge instructions reviewed with patient and/or family. Voiced understanding. MADHAVI OVALLES TRACK LAYER HEAD August 29, 2020 12:05
[2020-08-29] MEDS: PROCHLORPERAZINE 10 MG/2ML INJ (COMPAZINE) IM ONE (12:50)
[2020-08-29] MEDS: diphenhydrAMINE 50 MG/ML INJ (BENADRYL) IM ONE (12:50)
[2020-08-29] MEDS: KETOROLAC 60 MG/2 ML VIAL IM ONE (12:50)
[2020-08-29 13:50] VITALS: BP 120/62
== END 2020-08-29 13:48 | disposition home or self-care (01) ==
LOC: ER 10:49 → EDUNIT# 10:49 → ER 13:48
DX: G43.909 Migraine, unspecified, not intractable, without status migrainosus (principal); Z87.891 Personal history of nicotine dependence; Z77.22 Contact with and (suspected) exposure to environmental tobacco smoke (acute) (chronic); Z88.5 Allergy status to narcotic agent
CPT/HCPCS: 99284

== ENCOUNTER 2020-10-28 06:52 | Emergency (ER) | payer SELFPAY ==
[~2020-10-28] VITALS: Ht 170 cm; Wt 95.2 kg
[~2020-10-28 06:52] MED LIST changes: -SULF1TAB35 PO; +SULF1TAB38 PO
[2020-10-28 07:06] VITALS: BP 143/88
[2020-10-28] MEDS ORDERED: diphenhydrAMINE 50 MG/ML INJ (BENADRYL) IM ONE (07:15)
[2020-10-28] MEDS ORDERED: KETOROLAC 60 MG/2 ML VIAL IM ONE (07:15)
[2020-10-28] MEDS ORDERED: PROMETHAZINE INJ 25 MG/ML (PHENERGAN) AMP IM ONE (07:15)
[2020-10-28] MEDS ORDERED: PROM25TA14 PO (07:18)
--- NOTE | 2020-10-28 07:19 | ED Headache ---
General Chief Complaint: Head/Cervical Problems Stated Complaint: MIGRAINE Nursing Triage Note: pt presents to ed via pov from home with complaints of ROSEN x 2 days with increasing nausea and vomiting. Source: patient Exam Limitations: no limitations History of Present Illness Date Seen by Provider: Oct 28, 2020 Time Seen by Provider: 06:53 Initial Comments Patient to the ER by private conveyance with chief complaint of 2 days photophobia headache and nausea. She has a history of migraine headaches. She took Excedrin Migraine relief couple hours ago. She says in the past Toradol Phenergan and Benadryl have helped her. She sees [facility] for primary care. She is not on any medications routinely. No fevers chills visual disturbances diarrhea. Headache is 10 out of 10, bitemporal. Allergies and Home Medications Allergies Coded Allergies: hydrocodone (Unverified Allergy, Unknown, 09/29/14) Penicillins (Unverified Adverse Reaction, Mild, VOMITING, 09/29/14) Home Medications Tramadol HCl 50 Mg Tablet, 50 MG PO Q6H PRN for PAIN Prescribed by: HARVEY MACIAS on 02/13/20 1113 Patient Home Medication List Home Medication List Reviewed: Yes Review of Systems Review of Systems Constitutional: No chills, No diaphoresis Eyes: Denies Blindness, Denies Drainage Ears, Nose, Mouth, Throat: denies ear pain, denies ear discharge Respiratory: No cough, No short of breath Cardiovascular: No edema, No palpitations Gastrointestinal: No abdominal pain, No constipation; nausea All Other Systems Reviewed Negative Unless Noted: Yes Past Pagoizd-Tmynyr-Pshhtc Hx Patient Social History Tobacco Use?: No Smoking Status: Never a Smoker Smokeless Tobacco Frequency: Never a User Use of E-Cig and/or Vaping Josemanuel: Never a User Substance use?: No Alcohol Use?: No Pt feels they are or have been: No Immunizations Up To Date Tetanus Booster (TDap): Less than 5yrs PED Vaccines UTD: No Seasonal Allergies Seasonal Allergies: Yes Past Medical History Surgery/Hospitalization HX: SX: PACEMAKER, R HAND, HYST 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 CUFF, PACE MAKER, SCREWS IN RT HAND) Appendectomy, Cardiac, Hysterectomy, Oophorectomy, Orthopedic, Pacemaker Respiratory: No Currently Using CPAP: No Currently Using BIPAP: No Cardiac: Yes (pacemaker, HYPOTENSION, sick sinus syndrome) Irregular Heartbeat, Syncope Neurological: Yes Headaches /Migraines Reproductive Disorders: Yes 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 Genitourinary: No Gastrointestinal: No Musculoskeletal: No Endocrine: No HEENT: No Cancer: No Psychosocial: No Integumentary: No Blood Disorders: Yes (HX OF ANEMIA) Adverse Reaction/Blood Tranf: No Family Medical History Arthritis G8 SISTER Diabetes mellitus 19 MOTHER G8 SISTER Fibromyalgia G8 SISTER Heart murmur 19 MOTHER G8 SISTER Kidney disease 19 MOTHER Myelodysplasia of spinal cord 19 MOTHER, Onset:60 years & older Myocardial infarction G8 BROTHER, Onset:32 ( of [place] at 32) No Pertinent Family Hx Physical Exam Vital Signs Vital Signs - First Documented 10/28/20 07:06 Temp 35.8 Pulse 71 Resp 18 B/P (MAP) 143/88 (106) Pulse Ox 96 Capillary Refill : Less Than 3 Seconds Height, Weight, BMI Height: 5'7.00" Weight: 205lbs. 0.0oz. 92.079413ng; 32.00 BMI Method:Stated General Appearance: WD/WN, mild distress HEENT: PERRL/EOMI, pharynx normal Neck: full range of motion, normal inspection Extremities: normal inspection, normal capillary refill Psychiatric: alert, oriented x 3 Crainal Nerves: normal hearing, normal speech, PERRL Skin: normal color, warm/dry Progress/Results/Core Measures Results/Orders My Orders Orders - MARYLOU PUGA Ketorolac Injection (Toradol Injection) (10/28/20 07:15) Promethazine Injection (Phenergan Injec (10/28/20 07:15) Diphenhydramine Injection (Benadryl Inje (10/28/20 07:15) Vital Signs/I&O 10/28/20 07:06 Temp 35.8 Pulse 71 Resp 18 B/P (MAP) 143/88 (106) Pulse Ox 96 Blood Pressure Mean: 106 Progress Progress Note : Time: 07:16 Progress Note Toradol, Benadryl, Phenergan IM. Plan to let her go home and get some rest. Departure Impression Primary Impression: Migraine Qualified Codes: G43.009 - Migraine without aura, not intractable, without status migrainosus Disposition: 01 HOME, SELF-CARE Condition: Stable Departure-Patient Inst. Decision time for Depature: 07:17 Referrals: NO,LOCAL PHYSICIAN (PCP/Family) Primary Care Physician Patient Instructions: Migraines (DC) Add. Discharge Instructions: Tylenol 1000 mg every 8 hours as necessary for headache. Ibuprofen 800 mg every 8 hours necessary for headache. Phenergan 1 tablet every 6 hours as necessary for nausea or vomiting. Follow-up with your primary care provider to discuss preventative measures for migraine headaches. All discharge instructions reviewed with patient and/or family. Voiced understanding. Scripts Promethazine HCl (Promethazine Tablet) 25 Mg Tablet 25 MG PO Q6H PRN for NAUSEA/VOMITING, #10 TAB 0 Refills Prov: MARYLOU PUGA 10/28/20 MARYLOU PUGA Oct 28, 2020 07:19
== END 2020-10-28 07:43 | disposition home or self-care (01) ==
LOC: EDUNIT# 06:52 → ER 06:55
DX: G43.909 Migraine, unspecified, not intractable, without status migrainosus (principal)
CPT/HCPCS: 99284

== ENCOUNTER 2020-11-22 09:08 | Emergency (ER) | payer SELFPAY ==
[~2020-11-22] VITALS: Ht 170 cm; Wt 97.0 kg
[~2020-11-22 09:08] MED LIST changes: +PROM25TA14 PO
[2020-11-22] MEDS ORDERED: KETOROLAC 30 MG/ML VIAL ONE (09:19)
[2020-11-22] MEDS ORDERED: morphine INJ 10 MG/ML 1ML (SYR OR VIAL) ONE (09:19)
[2020-11-22] MEDS ORDERED: ASPIRIN 81 MG CHEW (CHILDREN'S ASA) ONE ×2 (09:19→09:22)
[2020-11-22] MEDS ORDERED: KETOROLAC 30 MG/ML VIAL IVP STA (09:22)
[2020-11-22] MEDS ORDERED: morphine INJ 10 MG/ML 1ML (SYR OR VIAL) IV STA (09:22)
[2020-11-22 09:29] LABS: BASOPHILS % (AUTO) 0 % (0-10); EOSINOPHILS % (AUTO) 1 % (0-10); HEMATOCRIT 40 % (35-52); HEMOGLOBIN 13.2 g/dL (11.5-16.0); LYMPHOCYTES # (AUTO) 2.7 10^3/uL (1.0-4.0); LYMPHOCYTES % (AUTO) 43 % (12-44); MEAN CORPUSCULAR HEMOGLOBIN 31 pg (25-34); MEAN CORPUSCULAR HGB CONC 33 g/dL (32-36); MEAN CORPUSCULAR VOLUME 94 fL (80-99); MEAN PLATELET VOLUME 9.9 fL (9.0-12.2); MONOCYTES # (AUTO) 0.5 10^3/uL (0.0-1.0); MONOCYTES % (AUTO) 9 % (0-12); NEUTROPHILS % (AUTO) 48 % (42-75); PLATELET COUNT 219 10^3/uL (130-400); WHITE BLOOD COUNT 6.4 10^3/uL (4.3-11.0)
[2020-11-22] MEDS ORDERED: ASPIRIN 81 MG CHEW (CHILDREN'S ASA) PO ONE (09:30)
[2020-11-22 09:35] LABS: PROTHROMBIN TIME PATIENT 13.6 SEC (12.2-14.7)
--- NOTE | 2020-11-22 09:37 | ED Chest Pain ---
General Chief Complaint: Chest Pain Stated Complaint: SOB,CP Nursing Triage Note: ARRIVED VIA AMB TO ROOM 05 FROM [facility]. LEFT SIDED CHEST/RIB PAIN X2 WEEKS. Source: patient Exam Limitations: no limitations History of Present Illness Date Seen by Provider: Nov 22, 2020 Time Seen by Provider: 09:13 Initial Comments Here with left-sided chest pain that is lateral aspect and radiates to the anterior portion at or above the breast line. States it hurts to move and it is hard to get comfortable. This has been going on for about 2 weeks. She was seen at [facility] and initiated on steroids. She is apparently tried muscle relaxers and that has not helped as well. She has had previous rib fracture but states this feels a little different. Here for worsening symptoms and states that it hurts to take a breath. Denies any respiratory symptoms otherwise. Denies contact with COVID-19. She has had first dose of vaccination and no other symptoms consistent with Covid. Pain started after going back to work at the [employer]. 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 Pain is persisted in varying levels since onset. She only takes Tylenol/acetaminophen at home for the pain. Timing/Duration: getting worse, other (2 weeks) Severity/Quality: moderate, sharp Location: other (Left-sided) Radiation: other (Left anterior chest wall) Modifying Factors: worse with movement, worse with palpation; improves with rest ASA po DIRECTOR IMAGING: No NTG SL DIRECTOR IMAGING: No Associated Symptoms: No abdominal pain; back pain; No edema, No fever/chills, No nausea/vomiting; shortness of breath (With pain) Allergies and Home Medications Allergies Coded Allergies: hydrocodone (Unverified Allergy, Unknown, 09/29/14) Penicillins (Unverified Adverse Reaction, Mild, VOMITING, 09/29/14) Home Medications Promethazine HCl 25 Mg Tablet, 25 MG PO Q6H PRN for NAUSEA/VOMITING Prescribed by: MARYLOU PUGA on 10/28/20 0718 Tramadol HCl 50 Mg Tablet, 50 MG PO Q6H PRN for PAIN Prescribed by: HARVEY MACIAS on 02/13/20 1113 Patient Home Medication List Home Medication List Reviewed: Yes Review of Systems Review of Systems Constitutional: see HPI; No chills, No fever EENTM: No Nose Congestion, No Throat Pain Respiratory: See HPI; Denies Cough Cardiovascular: Chest Pain; Denies Edema, Denies Irregular Heart Rate, Denies Syncope Gastrointestinal: Denies Nausea, Denies Vomiting Genitourinary: No Symptoms Reported Musculoskeletal: see HPI, joint pain, muscle pain Skin: no symptoms reported Psychiatric/Neurological: No Symptoms Reported All Other Systems Reviewed Negative Unless Noted: Yes Past Jvuesws-Shkgcg-Dqqerx Hx Patient Social History Tobacco Use?: No Smoking Status: Former Smoker Substance use?: No Alcohol Use?: No Immunizations Up To Date Tetanus Booster (TDap): Less than 5yrs PED Vaccines UTD: No First/Initial COVID19 Vaccinat: UNKNOWN. WAS TO HAVE THE 2ND ON NOV 20. 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 Genitourinary: No Gastrointestinal: No Musculoskeletal: No Endocrine: No HEENT: No Cancer: No Psychosocial: No Integumentary: No Blood Disorders: Yes (HX OF ANEMIA) Adverse Reaction/Blood Tranf: No Family Medical History Reviewed Nursing Family Hx Arthritis G8 SISTER Diabetes mellitus 19 MOTHER G8 SISTER Fibromyalgia G8 SISTER Heart murmur 19 MOTHER G8 SISTER Kidney disease 19 MOTHER Myelodysplasia of spinal cord 19 MOTHER, Onset:60 years & older Myocardial infarction G8 BROTHER, Onset:31 ( of OR at 32) No Pertinent Family Hx Physical Exam Vital Signs Vital Signs - First Documented 11/22/20 09:08 Temp 37.0 Pulse 61 Resp 16 B/P (MAP) 174/106 (128) Pulse Ox 100 O2 Delivery Room Air Capillary Refill : Less Than 3 Seconds Height, Weight, BMI Height: 5'7.00" Weight: 205lbs. 0.0oz. [id number]; 33.00 BMI Method:Stated General Appearance: No Apparent Distress, WD/WN HEENT: PERRL/EOMI, Pharynx Normal Neck: Non Tender, Supple Respiratory: Lungs Clear, Normal Breath Sounds, Other (Tender left lateral chest wall) Cardiovascular: Regular Rate, Rhythm, No Murmur Gastrointestinal: Non Tender, Soft Extremity: Normal Range of Motion, Non Tender, No Calf Tenderness, No Pedal Edema Neurologic/Psychiatric: Alert, Oriented x3, Normal Mood/Affect Skin: Normal Color, Warm/Dry Progress/Results/Core Measures Results/Orders Lab Results Laboratory Tests Test 11/22/20 09:15 Range/Units White Blood Count 6.4 4.3-11.0 10^3/uL Red Blood Count 4.26 3.80-5.11 10^6/uL Hemoglobin 13.2 11.5-16.0 g/dL Hematocrit 40 35-52 % Mean Corpuscular Volume 94 80-99 fL Mean Corpuscular Hemoglobin 31 25-34 pg Mean Corpuscular Hemoglobin Concent 33 32-36 g/dL Red Cell Distribution Width 13.1 10.0-14.5 % Platelet Count 219 130-400 10^3/uL Mean Platelet Volume 9.9 9.0-12.2 fL Immature Granulocyte % (Auto) 0 % Neutrophils (%) (Auto) 48 42-75 % Lymphocytes (%) (Auto) 43 12-44 % Monocytes (%) (Auto) 9 0-12 % Eosinophils (%) (Auto) 1 0-10 % Basophils (%) (Auto) 0 0-10 % Neutrophils # (Auto) 3.0 1.8-7.8 10^3/uL Lymphocytes # (Auto) 2.7 1.0-4.0 10^3/uL Monocytes # (Auto) 0.5 0.0-1.0 10^3/uL Eosinophils # (Auto) 0.0 0.0-0.3 10^3/uL Basophils # (Auto) 0.0 0.0-0.1 10^3/uL Immature Granulocyte # (Auto) 0.0 0.0-0.1 10^3/uL Prothrombin Time 13.6 12.2-14.7 SEC INR Comment 1.0 0.8-1.4 Activated Partial Thromboplast Time 24 24-35 SEC D-Dimer 0.34 0.00-0.49 UG/ML Sodium Level 143 135-145 MMOL/L Potassium Level 3.6 3.6-5.0 MMOL/L Chloride Level 104 98-107 MMOL/L Carbon Dioxide Level 24 21-32 MMOL/L Anion Gap 15 H 5-14 MMOL/L Blood Urea Nitrogen 15 7-18 MG/DL Creatinine 0.99 0.60-1.30 MG/DL Estimat Glomerular Filtration Rate 57 BUN/Creatinine Ratio 15 Glucose Level 170 H 70-105 MG/DL Calcium Level 9.2 8.5-10.1 MG/DL Corrected Calcium 9.0 8.5-10.1 MG/DL Magnesium Level 1.8 1.6-2.4 MG/DL Total Bilirubin 0.4 0.1-1.0 MG/DL Aspartate Amino Transf (AST/SGOT) 56 H 5-34 U/L Alanine Aminotransferase (ALT/SGPT) 88 H 0-55 U/L Alkaline Phosphatase 71 40-136 U/L Myoglobin 57.7 10.0-92.0 NG/ML Troponin I < 0.028 <0.028 NG/ML B-Type Natriuretic Peptide 76.5 <100.0 PG/ML Total Protein 7.2 6.4-8.2 GM/DL Albumin 4.3 3.2-4.5 GM/DL Lipase 48 8-78 U/L My Orders Orders - ABBY ESTRELLA MD Cbc With Automated Diff (11/22/20) Magnesium (11/22/20) Chest 1 View, Ap/Pa Only (11/22/20) Ekg Tracing (11/22/20) Comprehensive Metabolic Panel (11/22/20) Myoglobin Serum (11/22/20:) Protime With Inr (11/22/20) Partial Thromboplastin Time (11/22/20) O2 (11/22/20:) Monitor-Rhythm Ecg Trace Only (11/22/20) Lipid Panel (11/23/20 06:00) Ed Iv/Invasive Line Start (11/22/20) BNP (11/22/20) Fibrin Degradation Products (11/22/20) Troponin I (11/22/20:) Aspirin Chewable Tablet (Baby Aspirin Ch (11/22/20 09:30) Morphine Injection (Morphine Injection (8/15/21 09:22) Ketorolac Injection (Toradol Injection) (11/22/20 09:22) Aspirin Chewable Tablet (Baby Aspirin Ch (11/22/20 09:19) Morphine Injection (Morphine Injection (11/22/20 09:19) Ketorolac Injection (Toradol Injection) (11/22/20 09:19) Aspirin Chewable Tablet (Baby Aspirin Ch (11/22/20 09:22) Lipase (11/22/20 09:39) Ct Chest Wo (11/22/20 10:22) Morphine Injection (Morphine Injection (11/22/20 10:30) Medications Given in ED Current Medications Medications Dose Ordered Sig/Ni Route Start Time Stop Time Status Last Admin Dose Admin Aspirin 324 mg ONCE ONCE PO 11/22/20 09:30 11/22/20 09:31 DC 11/22/20 09:28 324 MG Morphine Sulfate 4 mg ONCE ONCE IVP 11/22/20 10:30 11/22/20 10:31 DC 11/22/20 10:42 4 MG Vital Signs/I&O 11/22/20 09:08 Temp 37.0 Pulse 61 Resp 16 B/P (MAP) 174/106 (128) Pulse Ox 100 O2 Delivery Room Air Blood Pressure Mean: 128 Progress Progress Note : Progress Note Seen and evaluated. Chest pain protocol initiated and we have added D-dimer as well. ASA 324 mg p.o., morphine 4 mg IV and Toradol 30 mg IV ordered for pain. Monitor patient. 1026: Pain had improved but now worsened. D-dimer and troponin are negative. We will repeat morphine 4 mg IV and get CT chest without contrast to look for possibility of occult fractures of ribs or other pathology. Monitor patient. 1111: Overall doing better. CT of the chest is negative. I did discuss at length with the patient regarding all current findings. This is likely musculoskeletal in origin with the other negative values noted. She will continue outpatient therapy. Discharged home with return precautions. Patient verbalized understanding of instructions and agreement with plan. Initial ECG Impression Date: Nov 22, 2020 Initial ECG Impression Time: 09:18 Initial ECG Rate: 60 Initial ECG Rhythm: Normal Sinus Comment Sinus rhythm with normal axis. No evidence of ST elevation OR. Nonspecific interventricular conduction delay. Similar but improved axis from previous of 02/13/2019. Interpreted by me. Diagnostic Imaging Diagonstic Imaging: Xray Plain Films/CT/US/NM/MRI: chest Comments [facility] [place] [place] NAME: JR ELLIOTT [facility] REC#: [id number] PT STATUS: REG ER : 1960 PHYSICIAN: ABBY ESTRELLA MD ADMIT DATE: 11/22/20/ER Signed Date of Exam:11/22/20 CHEST 1 VIEW, AP/PA ONLY CHEST 1 VIEW, AP/PA ONLY Indication: Left-sided chest pain Comparison: 04/24/2020 Findings: No focal airspace disease in the visualized lungs. Please note that the posterior lower lobes are poorly evaluated by portable radiography. No pleural effusion or pneumothorax. Stable cardiomegaly with left pectoral transvenous pacemaker. Impression: 1. No acute cardiopulmonary process by portable radiography. Dictated by: Dictated on workstation # [id number] Dict: 11/22/20 1014 Trans: 11/22/20 1014 [facility] [id number] Interpreted by: ROD VALENTINO MD Electronically signed by: ORD VALENTINO MD 11/22/20 1014 Diagonstic Imaging: CT Plain Films/CT/US/NM/MRI: chest Comments [facility] [place] [place] NAME: JR ELLIOTT [facility] REC#: [id number] PT STATUS: REG ER : 1960 PHYSICIAN: ABBY ESTRELLA MD ADMIT DATE: 11/22/20/ER Signed Date of Exam:11/22/[address] CHEST WO TECHNIQUE: Multiple contiguous axial images were obtained through the chest without the use of intravenous contrast. All CT scans use one or more of the following dose optimizing techniques: automated exposure control, MA and/or KvP adjustment based on a patient size and exam type, or iterative reconstruction. INDICATION: Chest pain COMPARISON: CTA chest from 02/02/2018 FINDINGS: Lungs and airway: No endoluminal nodule within the trachea. No pneumonia or edema. No suspicious pulmonary nodules. Pleura: No pleural effusion or pneumothorax. Heart and mediastinum: Thyroid is normal where seen. No supraclavicular or axillary lymphadenopathy. No mediastinal or hilar lymphadenopathy. Heart is normal in size without pericardial effusion. Well-positioned left pectoral transvenous pacemaker with electrodes terminating in the right atrium and right ventricle. Normal caliber thoracic aorta. Upper abdomen: No acute normality upper abdomen. Musculoskeletal: No worrisome focal osseous lesions. IMPRESSION:No acute cardiopulmonary process. Dictated by: Dictated on workstation # [id number] Dict: 11/22/20 1038 Trans: 11/22/20 1040 [facility] [id number] Interpreted by: ROD VALENTINO MD Electronically signed by: ROD VALENTINO MD 11/22/20 1040 Departure Impression Primary Impression: Left-sided chest wall pain Disposition: HOME, SELF-CARE Condition: Stable Departure-Patient Inst. Decision time for Depature: 11:14 Referrals: NO,LOCAL PHYSICIAN (PCP/Family) Primary Care Physician Patient Instructions: Chest Pain That Is Not Caused by the Heart (DC), Chest Pain (DC) Add. Discharge Instructions: All discharge instructions reviewed with patient and/or family. Voiced understanding. You may take ibuprofen 600 mg every 8 hours as needed for pain. You may also take Tylenol/acetaminophen 1000 mg every 8 hours as needed for pain. You may use topical medication such as Aspercreme with lidocaine per package directions. Take other medications as directed. Follow-up with your doctor in a few days for recheck. Return for worse pain, fever, vomiting weakness, breathing problems or other concerns as needed. Scripts Tramadol HCl (Tramadol HCl) 50 Mg Tablet 50 MG PO Q6H PRN for PAIN, #15 TAB 0 Refills Prov: ABBY ESTRELLA MD 11/22/20 Cyclobenzaprine HCl (Cyclobenzaprine HCl) 10 Mg Tablet 10 MG PO Q8H PRN for SPASMS, #15 TAB 0 Refills Prov: ABBY ESTRELLA MD 11/22/20 ABBY ESTRELLA MD Nov 22, 2020 09:37
[2020-11-22 09:38] LABS: ALBUMIN 4.3 GM/DL (3.2-4.5); POTASSIUM 3.6 MMOL/L (3.6-5.0)
[2020-11-22 09:40] LABS: CALCIUM 9.2 MG/DL (8.5-10.1)
[2020-11-22 09:41] LABS: TOTAL PROTEIN 7.2 GM/DL (6.4-8.2)
[2020-11-22 09:43] LABS: BILIRUBIN,TOTAL 0.4 MG/DL (0.1-1.0)
[2020-11-22 09:44] LABS: CREATININE SERUM 0.99 MG/DL (0.60-1.30)
[2020-11-22 09:47] LABS: MAGNESIUM 1.8 MG/DL (1.6-2.4)
--- NOTE | 2020-11-22 10:16 | Diagnostic Imaging Report ---
CHEST 1 VIEW, AP/PA ONLY Indication: Left-sided chest pain Comparison: 04/24/2020 Findings: No focal airspace disease in the visualized lungs. Please note that the posterior lower lobes are poorly evaluated by portable radiography. No pleural effusion or pneumothorax. Stable cardiomegaly with left pectoral transvenous pacemaker. Impression: 1. No acute cardiopulmonary process by portable radiography. Dictated by: Dictated on workstation # [id number]
[2020-11-22] MEDS ORDERED: morphine INJ 10 MG/ML 1ML (SYR OR VIAL) IVP ONE (10:30)
--- NOTE | 2020-11-22 10:41 | Diagnostic Imaging Report ---
CT CHEST WO TECHNIQUE: Multiple contiguous axial images were obtained through the chest without the use of intravenous contrast. All CT scans use one or more of the following dose optimizing techniques: automated exposure control, MA and/or KvP adjustment based on a patient size and exam type, or iterative reconstruction. INDICATION: Chest pain COMPARISON: CTA chest from 02/02/2018 FINDINGS: Lungs and airway: No endoluminal nodule within the trachea. No pneumonia or edema. No suspicious pulmonary nodules. Pleura: No pleural effusion or pneumothorax. Heart and mediastinum: Thyroid is normal where seen. No supraclavicular or axillary lymphadenopathy. No mediastinal or hilar lymphadenopathy. Heart is normal in size without pericardial effusion. Well-positioned left pectoral transvenous pacemaker with electrodes terminating in the right atrium and right ventricle. Normal caliber thoracic aorta. Upper abdomen: No acute normality upper abdomen. Musculoskeletal: No worrisome focal osseous lesions. IMPRESSION:No acute cardiopulmonary process. Dictated by: Dictated on workstation # [id number]
[2020-11-22] MEDS ORDERED: CYCL10TA9 PO (11:18)
[2020-11-22] MEDS ORDERED: TRM50T PO (11:18)
[2020-11-22 11:24] VITALS: BP 153/100
== END 2020-11-22 11:24 | disposition home or self-care (01) ==
LOC: EDUNIT# 09:08 → ER 09:09
DX: R07.89 Other chest pain (principal); Z87.891 Personal history of nicotine dependence
CPT/HCPCS: 36415; 71045; 71250; 80053; 83690; 83735; 83874; 83880; 84484; 85025; 85379; 85610; 85730; 93005; 93041

== ENCOUNTER → 2021-01-15 | Outpatient (CLI) | payer OTHER ==
[~2021-01-15] MED LIST changes: +CYCL10TA9 PO
--- NOTE | 2021-01-15 13:07 | Diagnostic Imaging Report ---
Right elbow at 1249 INDICATION: Elbow pain 3 views were obtained. The previous right elbow exam of 02/13/2020 noted an intra-articular fracture of the midportion of the radial head. On this exam the fracture line is not clearly identified but there is still mild deformity of the cortex of the radial head in the region of the previously described fracture. No other fracture or acute bony abnormality is noted. The elevated posterior fat pad seen previously has resolved. The soft tissues are generally unremarkable. The elbow joint itself is fairly well-maintained. Impression: 1. The fracture of the articular surface of the radial head has healed with some residual deformity. 2. There is no acute bony abnormality noted. Dictated by: Dictated on workstation # [id number]
--- NOTE | 2021-01-15 14:46 | Diagnostic Imaging Report ---
EXAMINATION: Magnetic resonance imaging of the right wrist without contrast DATE: January 15, 2021. COMPARISON: MRI right wrist April 24, 2020. HISTORY: 60-year-old female, fall in February 2020. Persistent right wrist pain. TECHNIQUE: Magnetic Resonance Imaging sequences were performed of the wrist without contrast. FINDINGS: TRIANGULAR FIBROCARTILAGE COMPLEX: The triangular fibrocartilage complex is grossly intact. There is minimal fluid in the distal radioulnar joint. INTRINSIC LIGAMENTS: The scapholunate and lunotriquetral ligaments are grossly intact. JOINTS: There is radiocarpal joint space loss with degenerative related marrow changes in the distal radius scaphoid. The additional joint spaces are well preserved. There is minimal fluid in the distal radioulnar joint. There is no sizable joint effusion. CARPAL TUNNEL: The flexor retinaculum is unremarkable. The flexor digitorum superficialis and profundus are intact. The median nerve is unremarkable. FLEXOR TENDONS: The flexor carpi ulnaris, flexor pollicis longus and carpi radialis are intact. EXTENSOR TENDONS: Radial side extensor tendons are intact including: extensor pollicis longus, extensor carpi radialis brevis, extensor carpi radialis longus, extensor pollicis brevis and abductor pollicis longus. The extensor carpi ulnaris, extensor digitorum, extensor digiti minimi and extensor indicis tendons are intact. BONE: There are degenerative related marrow changes in the proximal scaphoid and distal radius as mentioned above. There is artifact at the level of the base of the fifth metacarpal likely relating to prior procedure. There is no identified acute fracture. There is no bone contusion. There is no evidence of osteonecrosis. BURSAE AND SOFT TISSUES: The bursae and soft tissues surrounding the wrist are within normal limits. IMPRESSION: 1. Grossly intact intrinsic wrist ligaments and triangular fibrocartilage complex on non-arthrogram evaluation. 2. 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 No sizable joint effusion. 3. Intact tendons. 4. No acute fracture, bone contusion, or evidence of osteonecrosis. Dictated by: Dictated on workstation # [id number]
== END ==
LOC: RAD 12:30
DX: M19.031 Primary osteoarthritis, right wrist (principal); G56.01 Carpal tunnel syndrome, right upper limb; M24.521 Contracture, right elbow; Z87.81 Personal history of (healed) traumatic fracture
CPT/HCPCS: 73080; 73221

== ENCOUNTER → 2021-01-15 | Outpatient (CLI) | payer OTHER ==
--- NOTE | 2021-01-15 12:57 | Diagnostic Imaging Report ---
INDICATION: Chest one view at 12:48 p.m. INDICATION: Pre-MRI screening. FINDINGS: The heart size is within normal limits and stable when compared to 11/22/2020. The left-sided pacemaker seen previously is again evident. The leads appear to be intact and similar to the prior exam. The lungs are clear. There is no evidence for failure, pneumonia, or for pleural effusion. The mediastinum is not widened. The osseous structures are intact. IMPRESSION: 1. There is no evidence for active disease. 2. The left-sided pacemaker appears stable and the leads seem to be intact. Dictated by: Dictated on workstation # [id number]
--- NOTE | 2021-01-15 14:45 | Diagnostic Imaging Report ---
PROCEDURE: MRI right joint lower extremity without contrast. TECHNIQUE: Multiplanar, multisequence non contrast-enhanced MRI of the right lower extremity was accomplished. INDICATION: Fall with right knee pain COMPARISON: None FINDINGS: No acute fracture is seen in the right knee. Alignment appears normal. There are small marginal osteophytes medially. There is a small right knee joint effusion. The articular cartilage in the patellofemoral compartment demonstrates mild surface irregularity with no large full-thickness defects. The cartilage in the medial compartment demonstrates mild thinning with no large full-thickness defects. The cartilage in the lateral compartment also demonstrates no full-thickness defects. There is a horizontal tear of the posterior horn and body in the medial meniscus. The lateral meniscus appears intact. The anterior and posterior cruciate ligaments are intact. The medial collateral ligament and the lateral collateral ligamentous complex are intact. The extensor mechanism is intact. The medial and lateral retinacula are intact. There is mild edema in the lateral head of the gastrocnemius. IMPRESSION: 1. Tearing of the medial meniscus in the right knee. 2. Mild degenerative change and cartilage loss in the right knee with no full-thickness defects. 3. Small right knee joint effusion. 4. Mild edema in the lateral gastrocnemius, may be due to low-grade strain or may be neurogenic. Dictated by: Dictated on workstation # [id number]
== END ==
LOC: RAD 12:28
DX: S83.241A Other tear of medial meniscus, current injury, right knee, initial encounter (principal); M17.11 Unilateral primary osteoarthritis, right knee; M23.8X1 Other internal derangements of right knee; W19.XXXA Unspecified fall, initial encounter; Z95.0 Presence of cardiac pacemaker
CPT/HCPCS: 71045; 73721

== ENCOUNTER → 2021-02-01 | Outpatient (CLI) | payer OTHER ==
--- NOTE | 2021-02-01 15:42 | Diagnostic Imaging Report ---
INDICATION: Wrist pain. Status post previous surgery. COMPARISON: 02/13/2020. FINDINGS: Three radiographic views of the right wrist were obtained. Two orthopedic screws are now identified within the base of the 5th metacarpal. No unexpected radiopaque foreign bodies are seen. There is subtle offset of the articular surface of the 5th metacarpal proximally. This may relate to the fracture seen on the previous MRI. No other acute osseous abnormality is seen. Joint spaces are maintained. IMPRESSION: Post operative changes to the proximal 5th metacarpal as described above. Dictated by: Dictated on workstation # [id number]
== END ==
LOC: RAD 14:20
PROVIDERS: ATTEND Specialist
DX: G56.01 Carpal tunnel syndrome, right upper limb (principal)
CPT/HCPCS: 73110

== ENCOUNTER → 2021-05-13 | Outpatient (CLI) | payer OTHER ==
[~2021-05-13] MED LIST changes: +CYCL10TA25 PO; -CYCL10TA9 PO; -LEVO500T80 PO; +LEVO500T81 PO
--- NOTE | 2021-05-13 15:08 | Diagnostic Imaging Report ---
INDICATION: Pre-MRI screening. TIME OF EXAM: 3:00 PM. COMPARISON: Correlation is made with prior study from 01/15/2021. Heart size is normal. Dual-lead left subclavian cardiac pacemaker is in place with lead tips in the region of the right atrium and right ventricle. No definite abandoned leads are identified. The lungs are clear. There is no effusion or pneumothorax. IMPRESSION: No evidence of abandoned leads to preclude MRI. Dictated by: Dictated on workstation # [id number]
--- NOTE | 2021-05-13 16:24 | Diagnostic Imaging Report ---
PROCEDURE: MRI right joint upper extremity without contrast. TECHNIQUE: Multiplanar, multisequence non contrast-enhanced MRI of the right upper extremity was accomplished. INDICATION: Wrist injury and pain. COMPARISON: MRI of the wrist from 01/15/2021. FINDINGS: Tendons: Extensor tendons are normal in position and intact. Flexor tendons are without tenosynovitis and are intact. No thickening of the flexor retinaculum. Ligaments: The TFC articular disc is intact. The volar band of scapholunate ligament is intact. The dorsal band is poorly defined and has ossific fragment near its expected location. Lunotriquetral ligament cannot be adequately assessed without intra-articular contrast. Bones: Multiple cysts are again noted within the proximal pole of the scaphoid and are favored degenerative in nature. Subchondral edema and cystic change in the radial styloid process. Stable artifact associated with the metallic pin in the base of the fifth metacarpal. Mild degenerative arthritis of the thumb CMC. Soft tissues: No T2 hyperintense ganglion. No mass effect on the median or ulnar nerves. IMPRESSION: 1. Advanced degenerative change at the radiocarpal joint is unchanged with reactive subchondral edema and cystic change. 2. Possible chronic injury of the dorsal band of the scapholunate ligament. Dictated by: Dictated on workstation # [id number]
== END ==
LOC: RAD 14:45
PROVIDERS: ATTEND Orthopaedic Surgery Hand Surgery
DX: M19.031 Primary osteoarthritis, right wrist (principal)
CPT/HCPCS: 71045; 73221

== ENCOUNTER 2021-06-14 20:46 | Emergency (ER) | payer SELFPAY ==
[~2021-06-14] VITALS: Ht 170.2 cm; Wt 95.3 kg
[2021-06-14 21:35] VITALS: BP 156/78
[2021-06-14] MEDS ORDERED: KETOROLAC 30 MG/ML VIAL IVP ONE (22:00)
[2021-06-14] MEDS ORDERED: PROCHLORPERAZINE 10 MG/2ML INJ (COMPAZINE) IV ONE (22:00)
[2021-06-14] MEDS ORDERED: diphenhydrAMINE 50 MG/ML INJ (BENADRYL) IVP ONE (22:00)
[2021-06-14] MEDS ORDERED: LACTATED RINGERS 1,000 ML IV SCH (22:00)
--- NOTE | 2021-06-14 22:08 | ED Headache ---
General Chief Complaint: Head/Cervical Problems Stated Complaint: HEADACHE Nursing Triage Note: Pt arrives via POV from home for c/o headache that radiates from the back of her head; onset last night. Pt reports hx of headaches, states this one is similar to past headaches. 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 Source: patient Exam Limitations: no limitations (SAMI LE APRN) History of Present Illness Date Seen by Provider: Jun 14, 2021 Time Seen by Provider: 22:06 Initial Comments To ER with a headache that is left-sided. This began earlier this morning and she has had some nausea and photophobia with it. She has a history of migraines and this is similar but she "but this will get away from her. Timing/Duration: 24 hours Severity/Quality: moderate Location: temporal, occipital, parietal Prior Headaches/Recent Trauma: no recent headache/trauma Associated Symptoms: nausea/vomiting (SAMI LE APRN) Allergies and Home Medications Allergies Coded Allergies: hydrocodone (Unverified Allergy, Unknown, 09/29/14) Penicillins (Unverified Adverse Reaction, Mild, VOMITING, 09/29/14) Patient Home Medication List Home Medication List Reviewed: Yes (SAMI LE APRN) Cyclobenzaprine HCl (Cyclobenzaprine HCl) 10 Mg Tablet, 10 MG PO Q8H PRN for SPASMS Prescribed by: ABBY ESTRELLA on 11/22/20 1118 Promethazine HCl (Promethazine Tablet) 25 Mg Tablet, 25 MG PO Q6H PRN for NAUSEA/VOMITING Prescribed by: MARYLOU PUGA on 10/28/20 0718 Tramadol HCl (Tramadol HCl) 50 Mg Tablet, 50 MG PO Q6H PRN for PAIN Prescribed by: HARVEY MACIAS on 02/13/20 1113 Tramadol HCl (Tramadol HCl) 50 Mg Tablet, 50 MG PO Q6H PRN for PAIN Prescribed by: ABBY ESTRELLA on 11/22/20 1118 Review of Systems Review of Systems Constitutional: see HPI Eyes: No Symptoms Reported Ears, Nose, Mouth, Throat: no symptoms reported Respiratory: no symptoms reported Cardiovascular: no symptoms reported Genitourinary: no symptoms reported Musculoskeletal: no symptoms reported Skin: no symptoms reported Psychiatric/Neurological: No Symptoms Reported (SAMI LE APRN) Past Erpyuwt-Exoqcf-Dnzrfm Hx Patient Social History Tobacco Use?: No Use of E-Cig and/or Vaping dev: No Substance use?: No Alcohol Use?: No Pt feels they are or have been: No (SAMI LE APRN) Immunizations Up To Date Tetanus Booster (TDap): Less than 5yrs PED Vaccines UTD: No Influenza Vaccine Up-to-Date: No; Not 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: [employer] (SAMI LE APRN) Seasonal Allergies Seasonal Allergies: Yes (SAMI LE APRN) Past Medical History Surgery/Hospitalization HX: SX: PACEMAKER, R HAND, HYST 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 CUFF, PACE MAKER, SCREWS IN RT HAND) Appendectomy, Cardiac, Hysterectomy, Oophorectomy, Orthopedic, Pacemaker Respiratory: No Currently Using CPAP: No Currently Using BIPAP: No Cardiac: Yes (pacemaker, HYPOTENSION, sick sinus syndrome) Irregular Heartbeat, Syncope Neurological: Yes Headaches /Migraines Reproductive Disorders: Yes 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 Genitourinary: No Gastrointestinal: No Musculoskeletal: No Endocrine: No HEENT: No Cancer: No Psychosocial: No Integumentary: No Blood Disorders: Yes (HX OF ANEMIA) Adverse Reaction/Blood Tranf: No (SAMI LE APRN) Family Medical History Arthritis G8 SISTER Diabetes mellitus 19 MOTHER G8 SISTER Fibromyalgia G8 SISTER Heart murmur 19 MOTHER G8 SISTER Kidney disease 19 MOTHER Myelodysplasia of spinal cord 19 MOTHER, Onset:60 years & older Myocardial infarction G8 BROTHER, Onset:32 ( of [place] at 32) No Pertinent Family Hx (SAMI LE APRN) Physical Exam Vital Signs Vital Signs - First Documented 06/14/21 21:35 Temp 36.7 Pulse 73 Resp 18 B/P (MAP) 156/78 (104) Pulse Ox 96 O2 Delivery Room Air (OFELIA,DANUTA K DO) Vital Signs Capillary Refill : Less Than 3 Seconds (SAMI LE APRN) Height, Weight, BMI Height: 5'7.00" Weight: 205lbs. 0.0oz. [id number]; 32.00 BMI Method:Stated General Appearance: WD/WN, no apparent distress HEENT: PERRL/EOMI, normal ENT inspection Neck: non-tender, full range of motion Respiratory: no respiratory distress, no accessory muscle use Gastrointestinal: normal bowel sounds, non tender, soft Extremities: normal range of motion, non-tender Psychiatric: alert, oriented x 3 Crainal Nerves: normal hearing, normal speech, PERRL Motor/Sensory: no motor deficit, no sensory deficit Skin: normal color, warm/dry (SAMI LE APRN) Progress/Results/Core Measures Results/Orders Medications Given in ED Current Medications Medications Dose Ordered Sig/Ni Route Start Time Stop Time Status Last Admin Dose Admin Diphenhydramine HCl 25 mg ONCE ONCE IVP 06/14/21 22:00 06/14/21 22:01 DC 06/14/21 21:54 25 MG Ketorolac Tromethamine 15 mg ONCE ONCE IVP 06/14/21 22:00 06/14/21 22:01 DC 06/14/21 21:54 15 MG Prochlorperazine Edisylate 5 mg ONCE ONCE IV 06/14/21 22:00 06/14/21 22:01 DC 06/14/21 21:54 5 MG (DANUTA GILBERT DO) Vital Signs/I&O 06/14/21 21:35 Temp 36.7 Pulse 73 Resp 18 B/P (MAP) 156/78 (104) Pulse Ox 96 O2 Delivery Room Air (ESAU GILBERTA Ricardo SHER) Blood Pressure Mean: 104 Departure Impression Primary Impression: Acute headache Disposition: 01 HOME, SELF-CARE Condition: Stable Departure-Patient Inst. Decision time for Depature: 22:08 (SAMI LE APRN) Referrals: NO,LOCAL PHYSICIAN (PCP/Family) Primary Care Physician Patient Instructions: Headache, Adult (DC) ATTENDING PHYSICIAN NOTE: I WAS PHYSICALLY PRESENT ER PHYSICIAN, BUT I WAS NOT INVOLVED IN ANY DECISION MAKING OR ANY CARE OF THIS PATIENT. (OFELIADANUTA Ricardo SHER) SAMI LE APRN Jun 14, 2021 22:08 DANUTA GILBERT DO Jun 14, 2021 23:56
== END 2021-06-14 23:02 | disposition home or self-care (01) ==
LOC: EDUNIT# 20:46 → ER 20:47
DX: R51.9 Headache, unspecified (principal)

== ENCOUNTER 2021-06-17 13:15 | Emergency (ER) | payer SELFPAY ==
[~2021-06-17] VITALS: Ht 170 cm; Wt 102.0 kg
[2021-06-17] MEDS ORDERED: NS IV 1000 ML 1,000 ML IV STA (13:31)
[2021-06-17] MEDS ORDERED: diphenhydrAMINE 50 MG/ML INJ (BENADRYL) IVP ONE (13:45)
[2021-06-17] MEDS ORDERED: diphenhydrAMINE 50 MG/ML INJ (BENADRYL) IM ONE (13:45)
[2021-06-17] MEDS ORDERED: KETOROLAC 30 MG/ML VIAL IVP ONE (13:45)
[2021-06-17] MEDS ORDERED: PROCHLORPERAZINE 10 MG/2ML INJ (COMPAZINE) IV ONE (13:45)
[2021-06-17] MEDS ORDERED: BUTA1CAP41 PO (14:32)
--- NOTE | 2021-06-17 14:32 | ED Headache ---
General Chief Complaint: Head/Cervical Problems Stated Complaint: HEADACHE Nursing Triage Note: ARRIVED VIA AMB TO ROOM 06 WITH COMPLAINTS OF A MIGRAINE. WAS SEEN HERE ON MONDAY FOR THIS. STATES TYLENOL HAS NOT HELPED. Source: patient Exam Limitations: no limitations History of Present Illness Date Seen by Provider: Jun 17, 2021 Time Seen by Provider: 13:00 Initial Comments Patient is a 61-year-old female presents ED with left-sided hip pain. Described as pressure with radiation from her left posterior head and neck to her forehead. No visual loss with photophobia. Nausea without vomiting. Similar type head pain in the past. This typically feels like her migraine. No improvement with Tylenol at home. She was seen here 3 days ago given migraine cocktail with some improvement until yesterday. No focal neural deficits, visual loss, chest pain, shortness of breath, fever, chills. Allergies and Home Medications Allergies Coded Allergies: hydrocodone (Unverified Allergy, Unknown, 09/29/14) Penicillins (Unverified Adverse Reaction, Mild, VOMITING, 09/29/14) Patient Home Medication List Home Medication List Reviewed: Yes Butalb/Acetaminophen/Caffeine ([id number]-[id number] [id number]) 1 Each Capsule, 1 EACH PO Q4H Prescribed by: RASHARD MCKENZIE on 06/17/21 1432 Cyclobenzaprine HCl (Cyclobenzaprine HCl) 10 Mg Tablet, 10 MG PO Q8H PRN for SPASMS Prescribed by: ABBY ESTRELLA on 11/22/20 1118 Promethazine HCl (Promethazine Tablet) 25 Mg Tablet, 25 MG PO Q6H PRN for NAUSEA/VOMITING Prescribed by: MARYLOU PUGA on 10/28/20 0718 Tramadol HCl (Tramadol HCl) 50 Mg Tablet, 50 MG PO Q6H PRN for PAIN Prescribed by: HARVEY MACIAS on 02/13/20 1113 Tramadol HCl (Tramadol HCl) 50 Mg Tablet, 50 MG PO Q6H PRN for PAIN Prescribed by: ABBY ESTRELLA on 11/22/20 1118 Review of Systems Review of Systems Constitutional: No chills, No diaphoresis, No fever, No malaise Eyes: Denies Blurred Vision, Denies Drainage, Denies Decreased Acuity; Photophobia Ears, Nose, Mouth, Throat: denies ear pain, denies ear discharge, denies nose discharge, denies mouth pain Respiratory: No dyspnea on exertion, No orthopnea, No short of breath Gastrointestinal: No abdominal pain, No diarrhea, No nausea, No vomiting Musculoskeletal: No back pain, No joint pain Skin: No change in color, No change in hair/nails Psychiatric/Neurological: Headache; Denies Numbness, Denies Paresthesia, Denies Tingling, Denies Tremors, Denies Weakness All Other Systems Reviewed Negative Unless Noted: Yes Past Websasf-Ldhtpw-Zoymud Hx Patient Social History Smoking Status: Never a Smoker Smokeless Tobacco Frequency: Never a User Use of E-Cig and/or Vaping Josemanuel: Never a User Substance use?: No Alcohol Use?: No Immunizations Up To Date Tetanus Booster (TDap): Less than 5yrs PED Vaccines UTD: No COVID19 Vaccine Family 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: ALEISHA Seasonal Allergies Seasonal Allergies: Yes Past Medical History Surgery/Hospitalization HX: SX: PACEMAKER, R HAND, HYST 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 CUFF, PACE MAKER, SCREWS IN RT HAND) Appendectomy, Cardiac, Hysterectomy, Oophorectomy, Orthopedic, Pacemaker Respiratory: No Currently Using CPAP: No Currently Using BIPAP: No Cardiac: Yes (pacemaker, HYPOTENSION, sick sinus syndrome) Irregular Heartbeat, Syncope Neurological: Yes Headaches /Migraines Reproductive Disorders: Yes 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 Genitourinary: No Gastrointestinal: No Musculoskeletal: No Endocrine: No HEENT: No Cancer: No Psychosocial: No Integumentary: No Blood Disorders: Yes (HX OF ANEMIA) Adverse Reaction/Blood Tranf: No Family Medical History Arthritis G8 SISTER Diabetes mellitus 19 MOTHER G8 SISTER Fibromyalgia G8 SISTER Heart murmur 19 MOTHER G8 SISTER Kidney disease 19 MOTHER Myelodysplasia of spinal cord 19 MOTHER, Onset:60 years & older Myocardial infarction G8 BROTHER, Onset:32 ( of [place] at 32) No Pertinent Family Hx Physical Exam Vital Signs Vital Signs - First Documented 06/17/21 13:26 Temp 36.3 Pulse 80 Resp 16 B/P (MAP) 145/98 (114) Pulse Ox 96 O2 Delivery Room Air Capillary Refill : Less Than 3 Seconds Height, Weight, BMI Height: 5'7.00" Weight: 205lbs. 0.0oz. 92.310066xo; 35.00 BMI Method:Stated General Appearance: WD/WN, no apparent distress HEENT: PERRL/EOMI, normal ENT inspection, TMs normal, pharynx normal, photophobia Neck: non-tender, full range of motion, supple, normal inspection Cardiovascular: regular rate, rhythm, no edema, no gallop, no JVD, no murmur Respiratory: chest non-tender, lungs clear, normal breath sounds, no respiratory distress, no accessory muscle use Gastrointestinal: normal bowel sounds, non tender, soft, no organomegaly, no pulsatile mass Back: normal inspection, no CVA tenderness Extremities: normal range of motion, non-tender Crainal Nerves: normal hearing, normal speech, PERRL Motor/Sensory: no motor deficit, no sensory deficit Skin: normal color, warm/dry Lymphatic: no adenopathy Progress/Results/Core Measures Results/Orders My Orders Orders - ESTHER BRAMBILA Iv 1000 Ml (Sodium Chloride 0.9%) (06/17/21 13:31) Prochlorperazine Injection (Compazine In (06/17/21 13:45) Ketorolac Injection (Toradol Injection) (06/17/21 13:45) Diphenhydramine Injection (Benadryl Inje (06/17/21 13:45) Dexamethasone Injection (Decadron Inje (06/17/21 13:45) Diphenhydramine Injection (Benadryl Inje (06/17/21 13:45) Medications Given in ED Current Medications Medications Dose Ordered Sig/Ni Route Start Time Stop Time Status Last Admin Dose Admin Dexamethasone Sodium Phosphate 10 mg ONCE ONCE IV 06/17/21 13:45 06/17/21 13:46 DC 06/17/21 13:53 10 MG Diphenhydramine HCl 25 mg ONCE ONCE IVP 06/17/21 13:45 06/17/21 13:46 DC 06/17/21 13:53 25 MG Ketorolac Tromethamine 30 mg ONCE ONCE IVP 06/17/21 13:45 06/17/21 13:46 DC 06/17/21 13:53 30 MG Prochlorperazine Edisylate 10 mg ONCE ONCE IV 06/17/21 13:45 06/17/21 13:46 DC 06/17/21 13:53 10 MG Vital Signs/I&O 06/17/21 06/17/21 13:26 14:40 Temp 36.3 Pulse 80 63 Resp 16 16 B/P (MAP) 145/98 (114) 144/75 Pulse Ox 96 94 O2 Delivery Room Air Room Air Blood Pressure Mean: 114 Departure Communication (PCP) Similar type head pain in the past. She states she has a history of migraines typically takes Tylenol. Patient without focal neuro deficit. Photophobia. Neuro exam unremarkable. Was given migraine cocktail with resolution of pain. Today's head pain feels very similar to her previous migraines. She denies taking medication daily for migraines. Patient was observed here in the ED. She is requesting be discharged. She is requesting something for her head pain. She does take Tylenol. Did discuss Excedrin Migraine she states that does not work. We will try Fioricet however this is more for tension type headaches. Will provide a few. She is scheduled to follow-up with her primary care physician next week to establish care. Likely will need to follow-up with neurology at some point for potential preventative versus abortive medication. If worsening symptoms return back to ED for further evaluation. Impression Primary Impression: Headache Disposition: HOME, SELF-CARE Condition: Stable Departure-Patient Inst. Decision time for Depature: 14:30 Referrals: [facility] BUTTLOCAL PHYSICIAN (PCP) Primary Care Physician Patient Instructions: Migraines (DC) Scripts Butalb/Acetaminophen/Caffeine (Zfccmq-[id number]-Zpcu [id number]) 1 Each Capsule 1 EACH PO Q4H, #10 CAP Prov: ESTHER BRAMBILA 06/17/21 ESTHER BRAMBILA Jun 17, 2021 14:32
[2021-06-17 14:40] VITALS: BP 144/75
== END 2021-06-17 14:40 | disposition home or self-care (01) ==
LOC: EDUNIT# 13:15 → ER 13:16
DX: R51.9 Headache, unspecified (principal); H53.149 Visual discomfort, unspecified; Z86.69 Personal history of other diseases of the nervous system and sense organs
CPT/HCPCS: 99281